=== PATIENT | female | born 1960 | race Caucasian/White ===

== ENCOUNTER 2018-06-04 16:12 | Outpatient (REF) | payer MEDICARE, MEDICAID, SELFPAY ==
[2018-06-04 22:00] LABS: Abs Immature Grans 0.01 k/cumm (0.0-0.09); Absolute Basophil Count 0.04 k/cumm (0.0-0.2); Absolute Lymphocyte Count 2.25 k/cumm (1.2-3.4); Absolute Monocyte Count 0.47 k/cumm (0.11-0.7); Absolute Neutrophil Count 1.98 k/cumm (1.2-6.7); Basophils % 0.8; Eosinophils % 2.1; HCT 32.8 % (36.0-46.0); HGB 10.8 g/dL (12.0-15.5); Immature Grans % 0.2; Lymphocytes % 46.4; Mean Corp. HGB Concentration 32.9 g/dL (32.0-36.0); Mean Corpuscular Hemoglobin 29.8 pg (27.0-33.0); Mean Corpuscular Volume 90.4 fL (80-95); Mean Platelet Volume 9.7 fL (8.0-11.0); Monocytes % 9.7; Neutrophils % 40.8; Platelet Count 273 x1000/uL (130-400); RBC 3.63 m/cumm (4.00-5.20); RBC Distribution Width 13.2 % (11.7-14.6); White Blood Cell Count 4.85 k/cumm (4.4-10.8)
[2018-06-04 22:27] LABS: Iron 67 ug/dL (50-175); Total Iron Binding Capacity 360 ug/dL (250-450); Transferrin Sat 19 % (15-50)
[2018-06-04 22:55] LABS: ALT 18 U/L (12-78); AST 16 U/L (15-37); Alkaline Phosphatase 77 U/L (46-116); Anion Gap 7.5 mmol/L (3-11); BUN 14 mg/dL (7-18); Bilirubin, Total 0.4 mg/dL (0.2-1.0); CO2 29.5 mmol/L (21.0-32.0); CREATININE 0.74 mg/dL (0.55-1.02); Calcium 9.4 mg/dL (8.5-10.1); Chloride 100 mmol/L (98-107); Ferritin 114 ng/mL (8-388); Glucose 88 mg/dL (70-100); Potassium 4.2 mmol/L (3.5-5.1); Sodium 137 mmol/L (136-145); TSH (W/Ref FT4) 1.04 uIU/mL (0.358-3.74); Total Protein 7.9 g/dL (6.4-8.2)
== END 2018-06-04 16:32 ==
LOC: NCHCN 16:12
PROVIDERS: Visit Provider Nurse Practitioner
DX: R53.83 Other fatigue (principal); D64.9 Anemia, unspecified
CPT/HCPCS: 80053; 82728; 83540; 83550; 84443; 85025

== ENCOUNTER 2018-06-15 15:51 | Outpatient (REF) | payer MEDICARE, MEDICAID, SELFPAY ==
[2018-06-15 21:23] LABS: Reticulocyte 0.9 % (0.5-2.4)
[2018-06-15 21:32] LABS: C-Reactive Protein 0.11 mg/dL (0.0-0.3)
[2018-06-15 22:03] LABS: ESR 36 MM/HR (0-30)
== END 2018-06-15 16:11 ==
LOC: NCHCN 15:51
PROVIDERS: Visit Provider Nurse Practitioner
DX: D64.9 Anemia, unspecified (principal)
CPT/HCPCS: 85652; 85045; 86140

== ENCOUNTER 2018-07-08 00:42 | Outpatient (CLI) | payer MEDICARE, MEDICAID, SELFPAY ==
--- NOTE | 2018-07-08 13:12 | DI.MAMMO_ITS ---
SYMPTOM/DIAGNOSIS: SCREENING, Z12.39 MAMMOGRAMS: Mammograms were interpreted according to the usual protocol including computer analysis with CAD system, tomosynthesis and C view imaging. Comparison is made with exams from [id number]. The breasts are composed of extremely dense fibroglandular tissue. Breast density, category D. No suspicious masses or suspicious microcalcifications are seen. There has been no significant change. IMPRESSION: Category 1D, negative mammogram. Yearly screening mammography is recommended. [facility] ASSESSMENT OF FINDINGS: Negative. Category 1. Patient will receive a letter notifying them of these results. BI-RADS category D. The breasts are extremely dense, which lowers the sensitivity of mammography.
== END 2018-07-08 01:02 ==
PROVIDERS: PCP Family Medicine; Visit Provider Family Medicine
DX: Z12.31 Encounter for screening mammogram for malignant neoplasm of breast (principal)
CPT/HCPCS: 77063; 77067

== ENCOUNTER → 2018-07-09 12:49 | Outpatient (BNVA) | payer MEDICARE, MEDICAID, SELFPAY | PROVIDERS: PCP Family Medicine; Visit Provider Psychiatry & Neurology Neurology | DX: R51 Headache (principal); G43.009 Migraine without aura, not intractable, without status migrainosus | CPT/HCPCS: 64405; 99205; 99215 ==

== ENCOUNTER 2018-07-20 00:36 | Outpatient (CLI) | payer MEDICARE, MEDICAID, SELFPAY ==
--- NOTE | 2018-07-20 13:47 | DI.MRI_ITS ---
SYMPTOMS/DIAGNOSIS: NEW HEADACHES, R51 MRI OF THE BRAIN: No prior comparison exams are available. T2 sagittal, T1, T2, FLAIR, diffusion and gradient-echo axial sequences were performed. No intracranial hemorrhage, mass or acute infarct is seen. There are multiple high signal foci in the white matter, which are somewhat prominent for the patient's age. The findings could represent sequelae of chronic microvascular ischemia. There are no periventricular foci to suggest multiple sclerosis. The vascular flow voids appear intact. The ventricles are normal in size. The orbits, sinuses and pituitary are unremarkable. IMPRESSION: Multiple high signal foci in the white matter could represent sequelae of small vessel disease. A demyelinating process cannot be entirely excluded.
== END 2018-07-20 00:56 ==
PROVIDERS: PCP Family Medicine; Visit Provider Psychiatry & Neurology Neurology
DX: R51 Headache (principal); R94.02 Abnormal brain scan
CPT/HCPCS: 70551

== ENCOUNTER 2018-08-13 05:22 | Emergency (ER) | payer MEDICARE, MEDICAID, SELFPAY ==
[2018-08-13 05:36] VITALS: BP 159/79; PULSE 91; RESP 16; TEMP 36.1; O2SAT 98
--- NOTE | 2018-08-13 05:43 | ED.GENADUL_ITS ---
Discharge Plan Disposition Patient Disposition: STILL A PATIENT Condition: Good Discharge Details Chief Complaint: Abd Prob Clinical Impression: Gastroenteritis, Abdominal pain Primary Care Provider: Arina Nair ED Provider: Mamadou Bryant Home Meds and New Rx's Prescriptions: New ondansetron HCl [Zofran] 4 mg tablet 4 mg PO QID PRN (Reason: nausea and vomiting) Qty: 14 RF: 0 dicyclomine 10 mg capsule 10 mg PO QID Qty: 14 RF: 0 Continued sennosides [senna] 8.6 mg tablet 8.6 mg PO DAILY PRNRF: 0 venlafaxine [Effexor XR] 75 mg capsule,extended release 24hr 75 mg PO DAILY RF: 0 polyethylene glycol 3350 [Miralax] 17 gram/dose powder PO DAILY RF: 0 omeprazole 20 mg tablet,delayed release (DR/EC) 20 mg PO DAILY RF: 0 Preparation H 0.25-14-74.9 % ointment 1 applic MS PRN RF: 0 venlafaxine 150 mg tablet extended release 24hr 150 mg PO HS Qty: 30 RF: 5 gabapentin 100 mg capsule 100 mg PO Q8H PRN Qty: 90 RF: 3 Discharge Instructions Instructions: Abdominal Pain (ED) Care Plan Goals: Please drink 8-12 cups of water per day. Please maintain liquid diet today, a bland diet tonight and advance slowly as tolerated If you notice any worsening of your symptoms, or any new symptoms such as vomiting, diarrhea, fever, chills, shortness of breath, chest pain, numbness, weakness, or fainting , please return immediately to the emergency department for reevaluation. Please follow up with your primary care provider as soon as possible for reassessment and reevaluation. As always, it was a pleasure participating in your medical care today. Referrals: Arina Nair [Primary Care Provider] - Medical Decision Making <Andrew Valderrama DO - Last Filed: 08/13/18 08:02> This is a pleasant 58-year-old female who presents today for eval uation of abdominal cramping, and fourth 24th.. Physical exam demonstrates reassuring vital signs with no tachycardia or fever. Patient demonstrates mild cramping throughout, no focal tenderness. No pain at the right lower quadrant or pain at the right upper quadrant. Signs and symptoms are inconsistent with an acute surgical abdomen. Differential and chief clinical concern is highest for gastroenteritis which is most likely viral in origin. We will rehydrate, treat with Zofran, reassess for p.o. trial. We will get a plain film to evaluate for any significant signs of obstruction which I feel is unlikely. 8 AM After the Zofran and Bentyl patient still has some mild to notable abdominal cramping. Laboratory workup has returned and is relatively benign. No significant abnormalities. Because of the patient's persistent cramping we did get a CT scan for further evaluation. Fortunately with the results of still not return. Case will be signed out to my colleague Dr. Mamadou Bryant. <Mamadou Bryant MD - Last Filed: 08/13/18 09:31> Care signed out by Dr. Valderrama with plan to follow-up on CT results. CT interpreted by radiology:ABDOMEN AND PELVIC CT: CT scan of the abdomen and pelvis was performed following the uneventful administration of intravenous contrast material. The visualized lung bases are clear. There is patient motion artifact present. The liver, spleen, pancreas, gallbladder, bile ducts and adrenal glands are unremarkable. The kidneys show no evidence of nephrolithiasis or hydronephrosis. The urinary bladder is intact. The reproductive organs are unremarkable. The abdominal aorta is of normal caliber. No significant abdominal or pelvic adenopathy, ascites or pneumoperitoneum is seen. Post surgical changes are seen with anastomotic clips seen in the colon. No evidence of bowel obstruction or inflammation is seen. No findings to suggest an acute appendicitis are present. No aggressive osseous lesions are seen. IMPRESSION: No acute abnormality. Patient reassessed and remained stable. Abdomen benign. Disposition decision was made weighing the risks and benefits of hospitalization versus outpatient treatment, the risk for further decompensation, and the patient's wishes. The patient was stable and requested discharge. Prior to discharge, my usual a nd customary return precautions were reviewed with the patient - this included follow-up instructions and reason to return to the emergency department if condition worsens, does not improve as expected, or other new concerns arise. HPI <Andrew Valderrama DO - Last Filed: 08/13/18 08:02> General Date/Time Provider Initiated Documentation: 08/13/18 05:32 . HPI Narrative: This is a 58-year-old female with a past medical history of migraines as well as a colectomy who presents today for evaluation of vomiting. Patient states that she has had occasional chills over the last 2 days in which has progressed to vomiting over the last 24 hours. She has vomited over 3 times. Her vomitus is nonbilious, nonbloody. She has been unable to keep anything down because of her vomiting. She admits to some mild cramping in her abdomen. She denies any severe abdominal pain. She denies any dysuria, hematuria or diarrhea, however she has been having regular bowel movements. Patient denies any improvement of her symptoms with this treatment. She denies any aggravating or relieving factors. Past surgical history is positive for colectomy which the patient states is from a severe obstruction. She states that the symptoms do not feel at all similar to her episode at that time. Patient denies any other complaints at this time. She denies any pertinent family history, IV or illicit drug use. Related Data Home Medications Medication Instructions Recorded Confirmed omeprazole 20 mg tablet,delayed 20 mg PO DAILY 07/08/18 08/13/18 release phenylephrine 0.25 %-mineral oil 1 applic MS PRN gm 07/08/18 08/13/18 14 %-petrolatm 74.9 % rectal ointment polyethylene glycol 3350 17 PO DAILY gm 07/08/18 07/08/18 gram/dose oral powder sennosides 8.6 mg tablet 8.6 mg PO DAILY PRN tab 07/08/18 08/13/18 venlafaxine ER 75 mg 75 mg PO DAILY 07/08/18 08/13/18 capsule,extended release 24 hr venlafaxine ER 150 mg 150 mg PO HS #30 tab 07/13/18 08/13/18 tablet,extended release 24 hr gabapentin 100 mg capsule 100 mg PO Q8H PRN #90 cap 07/28/18 08/13/18 dicyclomine 10 mg PO QID #14 cap 08/13/18 ondansetron HCl [Zofran] 4 mg PO QID PRN #14 tab 08/13/18 Previous Rx's Medication Instructions Recorded venlafaxine ER 150 mg 150 mg PO HS #30 tab 07/13/18 tablet,extended release 24 hr gabapentin 100 mg capsule 100 mg PO Q8H PRN #90 cap 07/28/18 dicyclomine 10 mg PO QID #14 cap 08/13/18 ondansetron HCl [Zofran] 4 mg PO QID PRN #14 tab 08/13/18 Allergies Allergy/AdvReac Type Severity Reaction Status Date / Time meclizine Allergy Severe Verified 08/13/18 05:41 methylphenidate Allergy Severe Verified 08/13/18 05:41 [From Ritalin] cyclobenzaprine Allergy Mild Verified 08/13/18 05:41 [From Flexeril] General Stated Complaint: Abd Prob BERNIE: 3 Review of Systems <Andrew Valderrama DO - Last Filed: 08/13/18 08:02> Review of Systems All systems reviewed & are unremarkable except as noted in HPI and below PFSH <Andrew Valderrama DO - Last Filed: 08/13/18 08:02> Social History household members: family number of children: 0 current occupational status: disabled 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 3.ENT: Atraumatic external nose and ears. Notably dry MM. Neck: Symmetric, trachea midline, No thyromegaly. 4.CVS: +S1/S2, No murmurs or gallops. Peripheral pulses 2+ and equal in all extremities. Brisk capillary refill in all extremities. 5.RESP: Unlabored respiratory effort. Clear to auscultation bilaterally. No wheezes rales or rhonchi 6.GI: Soft, nondistended, no focal tenderness. No guarding or rebound. No pain at McBurney's point, negative De La Cruz sign. Minimal subjective tenderness throughout. Bowel sounds present. 7.MSK: Normocephalic/Atraumatic, Extremities w/o deformity or ttp No cyanosis or clubbing, Normal movement of all extremities 8.Skin: Warm, Dry. No rashes or lesions. 9.Neuro: temporary office assistant II-XII grossly intact. Sensation grossly intact, no focal neurologic deficits. 10.Psych: (AAO) x3. Appropriate mood and affect Course <Andrew Valderrama DO - Last Filed: 08/13/18 08:02> Vital Signs Temperature 36.1 C L 08/13/18 05:36 Pulse 91 H 08/13/18 05:36 Respiratory Rate 16 08/13/18 05:36 Blood Pressure 159/79 H 08/13/18 05:36 Pulse Oximetry 98 08/13/18 05:36 Temperature 36.1 C L 08/13/18 05:36 Temperature Source Temporal Artery Scan 08/13/18 05:36 Pulse 91 H 08/13/18 05:36 Respiratory Rate 16 08/13/18 05:36 Respiratory Effort Non-Labored 08/13/18 05:39 Blood Pressure 159/79 H 08/13/18 05:36 Blood Pressure Position Sitting 08/13/18 05:36 Pulse Oximetry 98 08/13/18 05:36 Oxygen Delivery Method Room Air 08/13/18 05:36 Oxygen Flow Rate 0 08/13/18 05:36 Sign Out <Andrew Valderrama DO - Last Filed: 08/13/18 08:02> Sign Out Data: Sign Out Comment: pending CT results. Last updated by Andrew Valderrama DO at 08/13/18 08:10
[2018-08-13] MEDS: Normal Saline 1,000 ML 1000 ML IV (06:08)
[2018-08-13] MEDS: Dicyclomine 20 MG TAB PO (06:09)
[2018-08-13] MEDS: Ondansetron 4 MG/2 ML VIAL IVP (06:09)
[2018-08-13 06:13] LABS: Abs Immature Grans 0.01 k/cumm (0.0-0.09); Absolute Basophil Count 0.02 k/cumm (0.0-0.2); Absolute Eosinophil Count 0.01 k/cumm (0.0-0.7); Absolute Lymphocyte Count 1.07 k/cumm (1.2-3.4); Absolute Neutrophil Count 6.69 k/cumm (1.2-6.7); Basophils % 0.3; Eosinophils % 0.1; HCT 34.6 % (36.0-46.0); HGB 11.8 g/dL (12.0-15.5); Immature Grans % 0.1; Lymphocytes % 13.4; Mean Corp. HGB Concentration 34.1 g/dL (32.0-36.0); Mean Platelet Volume 8.7 fL (8.0-11.0); Monocytes % 2.5; Neutrophils % 83.6; Platelet Count 307 x1000/uL (130-400); RBC 3.93 m/cumm (4.00-5.20); RBC Distribution Width 12.7 % (11.7-14.6)
[2018-08-13 06:28] LABS: ALT 21 U/L (12-78); AST 16 U/L (15-37); Albumin 4.1 g/dL (3.4-5.0); Alkaline Phosphatase 84 U/L (46-116); BUN 15 mg/dL (7-18); Bilirubin, Total 0.5 mg/dL (0.2-1.0); CREATININE 0.81 mg/dL (0.55-1.02); Calcium 9.6 mg/dL (8.5-10.1); Chloride 100 mmol/L (98-107); Glucose 136 mg/dL (70-100); Lipase 106 U/L (73-393); Potassium 3.9 mmol/L (3.5-5.1); Sodium 137 mmol/L (136-145); Total Protein 8.6 g/dL (6.4-8.2)
--- NOTE | 2018-08-13 06:35 | DI.RAD_ITS ---
SYMPTOM/DIAGNOSIS: VOMITING, PAIN FLAT AND UPRIGHT ABDOMEN: The visualized lung bases are clear. No organomegaly, bowel obstruction or pneumoperitoneum is seen. Degenerative changes are seen in the spine. There is a moderate amount of retained stool. IMPRESSION: No evidence of an acute abdomen.
--- NOTE | 2018-08-13 07:21 | DI.CT_ITS ---
SYMPTOM/DIAGNOSIS: ABD PAIN, VOMITING, H/O COLECTOMY ABDOMEN AND PELVIC CT: CT scan of the abdomen and pelvis was performed following the uneventful administration of intravenous contrast material. The visualized lung bases are clear. There is patient motion artifact present. The liver, spleen, pancreas, gallbladder, bile ducts and adrenal glands are unremarkable. The kidneys show no evidence of nephrolithiasis or hydronephrosis. The urinary bladder is intact. The reproductive organs are unremarkable. The abdominal aorta is of normal caliber. No significant abdominal or pelvic adenopathy, ascites or pneumoperitoneum is seen. Post surgical changes are seen with anastomotic clips seen in the colon. No evidence of bowel obstruction or inflammation is seen. No findings to suggest an acute appendicitis are present. No aggressive osseous lesions are seen. IMPRESSION: No acute abnormality. The findings were discussed with the ER on the date of the examination.
[2018-08-13] MEDS: Omnipaque 350 MG/ML 100 ML BTL 69 ML IJ (07:23)
[2018-08-13 08:00] LABS: Bilirubin Negative (Negative); Blood Trace-lysed (Negative); Clarity Clear; Glucose Negative (Negative); Ketones Negative (Negative); Leukocyte Esterase Negative (Negative); Nitrite Negative (Negative); Specific Gravity 1.015 (1.005-1.025); Urobilinogen 0.2 EU/dL (Up TO 0.2); pH 6.5 (5-8)
[2018-08-13 08:09] LABS: Bacteria Rare HPF (Negative); C & S Indicated? No; Casts Negative LPF (Negative); Crystals Negative HPF (Negative); Epithelial Cells Rare HPF (Negative); Mucus Negative (Negative); RBC 0-2 (0-2); WBC 0-2 HPF (0-5)
[2018-08-13 09:45] VITALS: BP 136/77; PULSE 84; RESP 16; TEMP 36.1; O2SAT 98
== END 2018-08-13 09:43 | disposition still patient (30) ==
PROVIDERS: Student in an Organized Health Care Education/Training Program; Emergency Provider Student in an Organized Health Care Education/Training Program; PCP Family Medicine
DX: K52.9 Noninfective gastroenteritis and colitis, unspecified (principal); Z90.49 Acquired absence of other specified parts of digestive tract
CPT/HCPCS: 80053; 83690; 96361; 96374; 99285; 74019; 74177; 81003; 81015; 85025; 99284; J2405; J3490

== ENCOUNTER → 2018-08-19 14:46 | Outpatient (BNVA) | payer MEDICARE, MEDICAID, SELFPAY | PROVIDERS: PCP Family Medicine; Visit Provider Psychiatry & Neurology Neurology | DX: R51 Headache (principal); G43.009 Migraine without aura, not intractable, without status migrainosus; G43.109 Migraine with aura, not intractable, without status migrainosus | CPT/HCPCS: 99214 ==

== ENCOUNTER → 2018-09-30 09:52 | Outpatient (BNVA) | payer MEDICARE, MEDICAID, SELFPAY | PROVIDERS: PCP Family Medicine; Visit Provider Psychiatry & Neurology Neurology | DX: R51 Headache (principal); G43.009 Migraine without aura, not intractable, without status migrainosus; G43.109 Migraine with aura, not intractable, without status migrainosus | CPT/HCPCS: 99214 ==

== ENCOUNTER 2018-12-02 00:35 | Outpatient (CLI) | payer MEDICARE, MEDICAID, SELFPAY ==
--- NOTE | 2018-12-02 14:58 | DI.MRI_ITS ---
SYMPTOM/DIAGNOSIS: CHRONIC MIGRAINE WITHOUT AURA, G43.701, CERVICOGENIC HEADACHE, R51, ? SECONDARY CAUSE CERVICAL SPINE MRI: The study was conducted according to the usual protocol. The vertebral body alignment is normal. The odontoid is intact. There is no fracture or evidence of a subluxation. At C 2-3, there is disc desiccation. No disc protrusion or extrusion is seen. There is no evidence of stenosis. At C 3-4, there is disc desiccation and mild right sided uncovertebral spurring is identified without significant foraminal stenosis. At C 4-5, disc desiccation with moderate disc space narrowing is noted. There is mild anterior spurring. There is a broad shallow posterior mixed spondylitic protrusion measuring approximately 3 mm. in AP plane with moderate bilateral uncovertebral spurring and mild ligamentum flavum hypertrophy dorsally. These factors produce a mild central canal stenosis on the AP thecal sac with dimension of 8-9 mm. There is mild ventral cord surface flattening but no intrinsic cord signal changes are demonstrated. There is mild bilateral foraminal stenosis. At C 5-6, there is disc desiccation and moderate disc space narrowing with mild anterior degenerative spurring and a broad based posterior mixed spondylitic protrusion measuring 3.8 mm. in the AP diameter. Mild ligamentum flavum prominence is noted dorsally. These findings produce a mild to moderate central canal stenosis with an AP thecal sac dimension of 8 mm. There is mild ventral cord surface flattening with no intrinsic cord abnormality. Mild bilateral foraminal stenosis is apparent. At C 6-7, there is disc desiccation with slight posterior disc space narrowing. Minimal 1.5 mm. in the distal and mild ligamentum flavum hypertrophy is demonstrated without evidence of canal or foraminal stenosis. At C 7- T 1 and T 1-2, the findings are unremarkable. At C 2-3 and C 3-4, there is mild disc space narrowing. There is no evidence of a cord lesion. Note is made of reversal of the mid cervical lordosis which could be on the basis of muscular spasm. Multi level mild cervical degenerative changes are evident. The normal flow voids are noted in the vertebral arteries. The paraspinal soft tissues are unremarkable. SUMMARY: Moderate disc degenerative changes are noted at C 4-5 and C 5-6 with broad posterior mixed spondylitic protrusions at both of these levels as described above and mild ligamentum flavum hypertrophy which contributes to mild central canal stenosis at both these levels. There is mild ventral cord surface flattening at both levels but no evidence of an intrinsic cord abnormality. Mild bilateral foraminal stenosis is noted at C 4-5 and C 5-6.
--- NOTE | 2018-12-02 20:26 | DI.VRAD_ITS ---
EXAM: MR Cervical Spine Without Contrast EXAM DATE/TIME: 12/02/2018 2:52 PM CLINICAL HISTORY: 58 years old, female; Neck pain; Patient HX: Chronic migraine wo aura with status migrainosus. TECHNIQUE: Imaging protocol: Multiplanar magnetic resonance images of the cervical spine without contrast. COMPARISON: No relevant prior studies available. FINDINGS: Vertebrae: Craniocervical alignment is normal. Odontoid intact. No fractures. No focal bone lesions are evident. C2-C3: Disc desiccation. No disc protrusion or extrusion. No canal or foraminal stenosis. C3-C4: Disc desiccation. Mild right-sided uncovertebral spurring without significant foraminal stenosis. C4-C5: Disc desiccation with moderate disc space narrowing. Mild anterior spurring. Broad shallow posterior mixed spondylotic protrusion measuring 3 mm AP, with moderate bilateral uncovertebral spurring and mild ligamentum flavum hypertrophy dorsally. These factors produce mild central canal stenosis with an AP thecal sac dimension of 8.9 mm. Mild ventral cord surface flattening but no intrinsic cord signal changes. Mild bilateral foraminal stenosis. C5-C6: Disc desiccation and moderate disc space narrowing with mild anterior degenerative spurring and a broad posterior mixed spondylotic protrusion measuring 3.8 mm AP. Mild ligamentum flavum hypertrophy dorsally. These factors produce mild-moderate central canal stenosis with an AP thecal sac dimension of 8.0 mm. Mild ventral cord surface flattening with no intrinsic cord signal change. Mild bilateral foraminal stenosis. C6-C7: Disc desiccation and slight posterior disc space narrowing. Minimal 1.5 mm in the distal and mild ligamentum flavum hypertrophy without canal or foraminal stenosis. C7-T1: C7-T1 and T1-T2 are unremarkable. Mild disc space narrowing at T2-T3 and T3-T4. Spinal cord: No cord lesions. Lymph nodes: Reversal of midcervical lordosis could relate to mild muscular strain/spasm or the multilevel mild mid cervical degenerative changes present. Cervical alignment is otherwise well maintained. Vasculature: Expected flow voids in the vertebral arteries. Soft tissues: Paraspinous soft tissues are unremarkable. Other findings: Visualized portions of the brainstem/cerebellum are unremarkable. IMPRESSION: 1. Moderate disc degenerative changes at C4-C5 and C5-C6 with broad posterior mixed spondylotic protrusions at both of these levels as described and mild ligamentum flavum hypertrophy, which contribute to mild central canal stenosis at both levels. There is mild ventral cord surface flattening at both levels but no intrinsic cord signal change. 2. Mild bilateral foraminal stenosis C4-C5 and C5-C6. Dictated and Authenticated by: Jeffrey Alicea MD. Ordering:ALYSA Vidal MD
== END 2018-12-02 00:55 ==
PROVIDERS: PCP Family Medicine; Visit Provider Psychiatry & Neurology Neurocritical Care
DX: R51 Headache (principal); M54.2 Cervicalgia; G43.701 Chronic migraine without aura, not intractable, with status migrainosus; M50.321 Other cervical disc degeneration at C4-C5 level; M50.322 Other cervical disc degeneration at C5-C6 level; M48.02 Spinal stenosis, cervical region
CPT/HCPCS: 72141

== ENCOUNTER 2019-02-09 16:44 | Outpatient (REF) | payer MEDICARE, MEDICAID, SELFPAY ==
[2019-02-09 22:07] LABS: Abs Immature Grans 0.01 k/cumm (0.0-0.09); Absolute Basophil Count 0.04 k/cumm (0.0-0.2); Absolute Lymphocyte Count 2.35 k/cumm (1.2-3.4); Absolute Monocyte Count 0.57 k/cumm (0.11-0.7); Absolute Neutrophil Count 2.54 k/cumm (1.2-6.7); Basophils % 0.7; Eosinophils % 1.8; HCT 32.9 % (36.0-46.0); HGB 10.7 g/dL (12.0-15.5); Immature Grans % 0.2; Lymphocytes % 41.9; Mean Corp. HGB Concentration 32.5 g/dL (32.0-36.0); Mean Corpuscular Hemoglobin 29.6 pg (27.0-33.0); Mean Corpuscular Volume 91.1 fL (80-95); Mean Platelet Volume 9.4 fL (8.0-11.0); Monocytes % 10.2; Neutrophils % 45.2; Platelet Count 306 x1000/uL (130-400); RBC 3.61 m/cumm (4.00-5.20); RBC Distribution Width 13.7 % (11.7-14.6); White Blood Cell Count 5.61 k/cumm (4.4-10.8)
[2019-02-09 23:02] LABS: ALT 33 U/L (12-78); AST 21 U/L (15-37); Albumin 4.5 g/dL (3.4-5.0); Alkaline Phosphatase 86 U/L (46-116); BUN 10 mg/dL (7-18); Bilirubin, Total 0.4 mg/dL (0.2-1.0); CREATININE 0.69 mg/dL (0.55-1.02); Calcium 9.4 mg/dL (8.5-10.1); Chloride 99 mmol/L (98-107); Glucose 95 mg/dL (70-100); Magnesium 2.1 mg/dL (1.8-2.4); Potassium 4.7 mmol/L (3.5-5.1); Sodium 137 mmol/L (136-145); Total Protein 8.5 g/dL (6.4-8.2); Vitamin B12 1164 pg/mL (193-986)
[2019-02-11 12:54] LABS: Hepatitis C Ab w Rflx HCV PCR Negative (NEGAT)
== END 2019-02-09 17:04 ==
LOC: NCHCN 16:44
PROVIDERS: PCP Family Medicine; Visit Provider Nurse Practitioner Family
DX: R13.10 Dysphagia, unspecified (principal); R51 Headache; K30 Functional dyspepsia; R42 Dizziness and giddiness; M25.519 Pain in unspecified shoulder; C44.310 Basal cell carcinoma of skin of unspecified parts of face; R53.83 Other fatigue; Z11.59 Encounter for screening for other viral diseases
CPT/HCPCS: 80053; 86803; 82607; 83735; 85025

== ENCOUNTER 2019-03-11 13:16 | Outpatient (CLI) | payer MEDICARE, MEDICAID, SELFPAY ==
--- NOTE | 2019-03-11 06:00 | DI.RAD_ITS ---
SYMPTOMS/DIAGNOSIS: CERVICAL SPONDYLOSIS, LT CERVICAL MEDIAL BRANCH BLOCK PAIN CLINIC: Fluoroscopy Time: 50.9 Images submitted from the pain clinic demonstrate needle positioning over the region of the facet joints at C 2 - 3 and C 3 - 4 in connection with a left cervical medial branch block. Please see Dr. Pagan's procedure report for further information.
[2019-03-11 13:31] VITALS: BP 96/63; PULSE 81; RESP 18; TEMP 36.1; O2SAT 98
[2019-03-11 14:32] VITALS: BP 122/73; PULSE 78; RESP 13; O2SAT 98
[2019-03-11] MEDS: Omnipaque 240 MG/ML 50 ML BTL IJ (14:33)
[2019-03-11] MEDS: Bupivacaine 0.5% Pres-Free 10 ML VIAL IJ (14:33)
--- NOTE | 2019-03-11 14:34 | PDOC.PAIN ---
Pain Clinic Procedure Note Current Active Problems Problem Status Onset Cervical spondylosis without myelopathy CERVICAL MEDIAL BRANCH BLOCKS CARLOTA LOCKETT has been referred to the [facility] for cervical medial branch blocks. COMMENTS: I did review Ms. Ruff's note from 01/20/19. She has head pain and left sided neck pain. The patient has a developmental delay and her mother consented for her and was present in the room during the entire procedure. Patient was interviewed and the medical record reviewed. There were no medical, pharmacologic, radiographic or other structural contraindications to attempting fluoroscopically guided local anesthetic cervical medial branch blocks. Risks and expected side effects as well as potential benefit of the procedure were reviewed and voiced concerns addressed. The printed consent form was signed and witnessed. Standard time-out procedure was performed. Patient was placed in the Right lateral decubitus position on the fluoroscopy table and automated blood pressure cuff and pulse oximeter applied. The skin entry points for approaching the anatomic target points of the segmental medial branches of Right C2-C5 were identified with fluoroscopy and marked. Following thorough Chlorhexadine preparation of the skin and draping and 1% lidocaine infiltration of the skin entry points and subcutaneous tissues, a 25 gauge spinal needle was placed under fluoroscopic guidance down on to the target point for each respective segmental medial branch. Position was confirmed in A/P and leteral views with 0.25ml of omnipaque 240 injected at each level. This revealed appropriate spread and no vascular uptake. At each point 0.3ml 0.5% bupivicaine was injected. Vital signs were stable throughout the procedure and were as recorded in the docflowsheet by the nursing staff. Follow up plans and appointments were discussed and patient was instructed to keep careful note of how the usual pain was modified by these injections. Specifically, the patient was asked to keep a pain diary for the next 24 hours using a numeric pain scale of 0-10 and report these results at the follow-up visit. Post procedure instruction was given as documented in the nursing documentation and having met discharge criteria, and was discharged from the [facility]. Based on the medial branches blocked today, if they patient has adequate relief and we are able to proceed to radiofrequency ablation, the treatment should result in the denervation of the left C2-C3, C3-C4, and C4-C5 FACET JOINTS. We would expect to denervate a total of 3 facets during the radiofrequency ablation. COMMENTS: Her mother will call back with the patient's 1-4 hour post-procedure pain scores. CC: Arina Nair
== END 2019-03-11 13:36 ==
PROVIDERS: PCP Family Medicine; Visit Provider Preventive Medicine Occupational Medicine
DX: M47.812 Spondylosis without myelopathy or radiculopathy, cervical region (principal)
CPT/HCPCS: 64490; 64491; 64492; 72040; Q9967

== ENCOUNTER 2019-04-15 10:09 | Outpatient (CLI) | payer MEDICARE, MEDICAID, SELFPAY ==
[2019-04-15 10:56] VITALS: BP 105/67; PULSE 80; RESP 16; TEMP 35.9; O2SAT 97
[2019-04-15 11:32] VITALS: BP 109/60; PULSE 78; RESP 17; O2SAT 99
--- NOTE | 2019-04-15 11:32 | PDOC.PAIN_ITS ---
Pain Clinic Procedure Note Current Active Problems Problem Status Onset Cervical spondylosis without myelopathy CERVICAL MEDIAL BRANCH BLOCKS #2 CARLOTA LOCKETT has been referred to the [facility] for cervical medial branch blocks. COMMENTS: She did great with the first set of CMBBs. Her mother is here again to comfort her in the room during the procedure. Patient was interviewed and the medical record reviewed. There were no medical, pharmacologic, radiographic or other structural contraindications to attempting fluoroscopically guided local anesthetic cervical medial branch blocks. Risks and expected side effects as well as potential benefit of the procedure were r eviewed and voiced concerns addressed. The printed consent form was signed and witnessed. Standard time-out procedure was performed. Patient was placed in the right lateral decubitus position on the fluoroscopy table and automated blood pressure cuff and pulse oximeter applied. The skin entry points for approaching the anatomic target points of the segmental medial branches of Left C2-C5 medial branches were identified with fluoroscopy and marked. Following thorough Chlorhexadine preparation of the skin and draping and 1% lidocaine infiltration of the skin entry points and subcutaneous tissues, a 25 gauge spinal needle was placed under fluoroscopic guidance down on to the target point for each respective segmental medial branch. Position was confirmed in A/P and leteral views with 0.25ml of omnipaque 240 injected at each level. This revealed appropriate spread and no vascular uptake. At each point 0.3ml 0.5% bupivicaine was injected. Vital signs were stable throughout the procedure and were as recorded in the docflowsheet by the nursing staff. Follow up plans and appointments were discussed and patient was instructed to keep careful note of how the usual pain was modified by these injections. Specifically, the patient was asked to keep a pain diary for the next 24 hours using a numeric pain scale of 0-10 and report these results at the follow-up visit. Post procedure instruction was given as documented in the nursing documentation and having met discharge criteria, and was discharged from the [facility]. Based on the medial branches blocked today, if they patient has adequate relief and we are able to proceed to radiofrequency ablation, the treatment should result in the denervation of the left C2-C3, C3-C4, and C4-C5 FACET JOINTS3. We would expect to denervate a total of facets during the radiofrequency ablation. COMMENTS: She or her mother will call back with her 1-4 hour post-procedure pain scores. CC: Arina Nair
--- NOTE | 2019-04-15 11:35 | DI.RAD_ITS ---
SYMPTOMS/DIAGNOSIS: CERVICAL SPONDYLOSIS, CERVICAL MEDIAL BRANCH BLOCK #2 ON LT C-ARM FLUOROSCOPY: Fluoroscopy Time: 44.5 sec., 1.90 mGy C-arm fluoroscopy was utilized by . Please see Dr. Pagan's procedure note. Hardcopies show lateral views of the cervical spine with needle placement adjacent to the facet joints at what appear to be the C 3 - 4, C 4 - 5 and C 5 - 6 levels.
[2019-04-15] MEDS: Omnipaque 240 MG/ML 50 ML BTL IJ (11:36)
[2019-04-15] MEDS: Lidocaine 2% Pres-Free 5 ML VIAL IJ (11:37)
== END 2019-04-15 10:29 ==
PROVIDERS: PCP Family Medicine; Visit Provider Preventive Medicine Occupational Medicine
DX: M47.812 Spondylosis without myelopathy or radiculopathy, cervical region (principal)
CPT/HCPCS: 64490; 64491; 64492; 72040; Q9967

== ENCOUNTER 2019-05-25 07:49 | Outpatient (CLI) | payer MEDICARE, MEDICAID, SELFPAY ==
--- NOTE | 2019-05-25 06:00 | DI.RAD_ITS ---
EXAM: XR PAIN CLINIC CERVICAL SP 2V CLINICAL HISTORY: Cervical Radiofrequency Ablaition TECHNIQUE: 2D digital imaging was performed. COMPARISON: No exams were available for comparison FINDINGS: C-arm fluoroscopy was utilized by Dr. Pagan during reported cervical RF ablation. Please see Dr. Pagan procedure note. Hard copy shows needle placement at what appear to be the C 3 and C5 facet levels.
[2019-05-25 07:56] VITALS: BP 120/71; PULSE 72; RESP 18; TEMP 35.3; O2SAT 99
[2019-05-25] MEDS: Lactated Ringers 1,000 ML 80 ML IV (08:27)
[2019-05-25] MEDS: fentaNYL 100 MCG/2 ML VIAL IVP ×2 (08:30→08:52)
[2019-05-25] MEDS: Midazolam 2 MG/2 ML VIAL IVP (08:30)
[2019-05-25 09:23] VITALS: BP 141/77; PULSE 79; RESP 22; O2SAT 98
--- NOTE | 2019-05-25 09:31 | PDOC.PAIN_ITS ---
Pain Clinic Procedure Note Procedure Note Procedure Note: CERVICAL MEDIAL BRANCH RADIOFREQUENCY WITH THE COOLIEF MACHINE CARLOTA NAIR has been referred to the [facility] for radiofrequency treatment of chronic axial neck pain. She has had long standing cervical pain thought to be facet joint generated and which has been refractory to other therapies. Local anesthetic medial branch blocks resulted in Ms Nair reporting a greater than 80% reduction of the usual axial component of pain and improved function for at least the duration of the local anesthetic effect. COMMENTS: Great relief with CMBB X 2: DX: Cervical spondylosis without myelopathy CATHRYN was interviewed and the medical record reviewed. There were no medical, pharmacologic, radiographic or other structural contraindications to attempting fluoroscopically guided radiofrequency treatment. Risks and expected side effects as well as potential benefit of the procedure were reviewed with CATHRYN, and CATHRYN's voiced concerns addressed. The printed consent form was signed and witnessed. Standard time-out procedure was performed. CATHRYN was placed in the prone position on the fluoroscopy table and automated blood pressure cuff and pulse oximeter applied. The skin entry points for appr oaching the anatomic target points of the segmental medial branches of left C2- C5 were identified with fluoroscopic guidence. Following thorough Chlorhexadine preparation of the skin and draping and 1% lidocaine infiltration of the skin entry points and subcutaneous tissues, a 5 cm, 16 guage, 2 mm active tip radiofrequency cannula was placed under fluoroscopic guidance at the anatomic course of each respective segmental medial branch. If this response was accomplished, the cannula was left in place. If it could not be accomplished after multiple attempts, the cannula was placed at what was felt to be the closest anatomic approximation to the segmental medial branch. Each placement was stimulated at 2Hz and up to 3v without any evidence of distal myotomal stimulation. At each placement a continuous mode radiofrequency treatment was done at 80 degrees C for 90secs This radiofrequency treatment should result in the denervation of the left C2- C3, C3-C4, and C4-C5 FACET JOINTS:[id number]}3.~ A total of facets were expected to be denervated from today's treatment. Qing vital signs were stable throughout the procedure and were as recorded in the docflowsheet by the nursing staff. Follow up plans and appointments were discussed with CATHRYN. Post procedure instruction was given as documented in the nursing documentation and having met discharge criteria, Qing was discharged from the [facility]. COMMENTS: If she gets at least 6 months of pain relief, she can have this procedure repeated without repeating the CMBBs CC: Arina Nair
[2019-05-25] MEDS: Dexamethasone Sod. Phos./Pres-Free 10 MG/ML VIAL IJ (09:32)
[2019-05-25] MEDS: Lidocaine 2% Pres-Free 5 ML VIAL IJ (09:33)
[2019-05-25] MEDS: Bupivacaine 0.5% Pres-Free 10 ML VIAL IJ (09:33)
[2019-05-25 10:05] VITALS: BP 144/100; PULSE 77; RESP 16; TEMP 36.2; O2SAT 97
[2019-05-25 10:32] VITALS: BP 133/88; PULSE 85; RESP 16; TEMP 36.1; O2SAT 96
== END 2019-05-25 08:09 ==
PROVIDERS: PCP Family Medicine; Visit Provider Preventive Medicine Occupational Medicine
DX: M47.812 Spondylosis without myelopathy or radiculopathy, cervical region (principal)
CPT/HCPCS: 64634 ×2; 64633; 72040; J2250; J3010

== ENCOUNTER 2019-07-14 00:46 | Outpatient (CLI) | payer MEDICARE, MEDICAID, SELFPAY ==
--- NOTE | 2019-07-14 15:14 | DI.MAMMO_ITS ---
EXAM: MG MAMMO SCREENING CLINICAL HISTORY: SCREENING Z12.31. TECHNIQUE: Bilateral full field digital CC and MLO mammographic images were obtained with 3D tomosyn thesis and utilizing computer aided detection (CAD). COMPARISON: [id number] FINDINGS: Masses/Architectural Distortion: None seen. Microcalcifications: No suspicious pleomorphic-type are seen. Skin Thickening/Nipple Retraction: None. IMPRESSION: 1. No significant interval change with no specific features of malignancy noted. 2. Unless there is more urgent need, screening mammography is recommended, as per [employer] guidelines. BI-RADS Cat 1 - Negative Breast Density - Category D - Extremely dense A negative radiographic report should not delay biopsy if a dominant or clinically suspicious mass is present. Up to ten percent of cancers are not identified on mammography. A negative report may reinforce clinical impression. Adenosis and dense breasts may obscure an underlying neoplasm. False positive reports average 6 to 10%. Patient will receive a letter notifying them of these results.
== END 2019-07-14 01:06 ==
PROVIDERS: PCP Nurse Practitioner Family; Visit Provider Nurse Practitioner Family
DX: Z12.31 Encounter for screening mammogram for malignant neoplasm of breast (principal)
CPT/HCPCS: 77063; 77067

== ENCOUNTER 2019-08-12 02:19 | Outpatient (CLI) | payer MEDICARE, MEDICAID, SELFPAY ==
[2019-08-12 08:20] VITALS: BP 97/63; PULSE 87; RESP 18; TEMP 35.6; O2SAT 98
--- NOTE | 2019-08-12 09:02 | DI.US_ITS ---
EXAM: US PAIN CLINIC NEEDLE GUIDANCE CLINICAL HISTORY: CERVICOGENIC HEADACHES, TENSION TYPE,ULTRASOUND GUIDED INJECTION TECHNIQUE: Ultrasound performed using standard protocol. COMPARISON: LEFT BREAST ULTRASOUND {[id number]} from 05/23/2015 FINDINGS: Ultrasound guidance was utilized by Dr. Pagan during posterior right cervical injection. Please see Meagan Pagan procedure note. IMPRESSION:
[2019-08-12 09:18] VITALS: BP 133/81; PULSE 85; RESP 18; O2SAT 97
--- NOTE | 2019-08-12 09:21 | PDOC.PAIN_ITS ---
Pain Clinic Procedure Note Procedure Note Procedure Note: ULTRASOUND-GUIDED BILATERAL TRAPEZIUS AND LEVATOR SCAPULAE MUSCLE INJECTION PROCEDURE NOTE Date of Service: August 12, 2019 Patient: CARLOTA LOCKETT Provider: SAMIRA PAGAN DO, MPH Pre-operative diagnosis: MUSCLE PAIN Post-operative diagnosis: MUSCLE PAIN COMMENTS: TENDERNESS OVER THE BILATERAL TRAPEZIUS AND LEVATOR SCAPULAE MUSCLES. CARLOTA LOCKETT has been referred to the [facility] for an ultrasound guided bilateral trapezius and Levator muscle injection. CARLOTA was interviewed and the medical record reviewed. There were no medical, pharmacologic, radiographic or other structural contraindications to attempting ultrasound-guided bilateral trapezius and levaltor scapulae muscle trigger point injections. The benefits, risks, and alternative treatments of the procedure were reviewed with CARLOTA, and her voiced concerns were addressed. Once I was assured he was completely informed about the procedure and gave informed consent, the printed consent form was signed. Standard time-out procedure was performed. Her mother was also in the room as Carlota has some developmental delay. CARLOTA was placed in the prone position on the fluoroscopy table and automated blood pressure cuff and pulse oximeter applied. With the patient in the prone position, the posterior superior iliac spine is identified by palpation. The curvilinear low-frequency linear ultrasound transducer was placed over the musc le, and the ultrasound transducer was then slowly moved laterally until the ilium was visualized. The skin overlying the area beneath the ultrasound probe was prepped with antiseptic solution. A sterile syringe containing 3 mL of quarter percent preservativefree bupivacaine and 40 mg of Depomedrol was attached to a 1.5 inch, 25-gauge spinal needle using strict aseptic technique. Each muscle was passed through several times. The needle was then flushed with 1 mL of preservative-free lidocaine each time. The needle was then removed without difficulty. The injection site was then cleaned and bandages were placed. Karen vital signs were stable throughout the procedure and were as recorded in the docflowsheet by the nursing staff. If given, dosages of intravenous drugs for anxiolysis and analgesia were documented in MAR. Follow up plans and appointments were discussed with the CARLOTA. Post procedure instruction was given as documented in nursing documentation and having met discharge criteria, CARLOTA was discharged from the [facility]. COMMENTS: No complications. F/U with her PCP I personally performed this entire procedure. Samira Pagan DO, MPH ABPMR-subspecialty board certification in Pain Medicine Attending Physician-Pain Management
[2019-08-12] MEDS: methylPREDNISolone ACETATE 40 MG/ML VIAL IJ (09:32)
== END 2019-08-12 02:39 ==
PROVIDERS: PCP Nurse Practitioner Family; Visit Provider Preventive Medicine Occupational Medicine
DX: M47.812 Spondylosis without myelopathy or radiculopathy, cervical region (principal); M79.12 Myalgia of auxiliary muscles, head and neck
CPT/HCPCS: 20553; 76942; J1030

== ENCOUNTER 2019-08-17 16:22 | Outpatient (REF) | payer MEDICARE, MEDICAID, SELFPAY ==
[2019-08-17 22:05] LABS: Abs Immature Grans 0.01 k/cumm (0.0-0.09); Absolute Basophil Count 0.05 k/cumm (0.0-0.2); Absolute Eosinophil Count 0.12 k/cumm (0.0-0.7); Absolute Lymphocyte Count 2.14 k/cumm (1.2-3.4); Absolute Monocyte Count 0.59 k/cumm (0.11-0.7); Absolute Neutrophil Count 2.65 k/cumm (1.2-6.7); Basophils % 0.9; Eosinophils % 2.2; HCT 32.8 % (36.0-46.0); HGB 10.9 g/dL (12.0-15.5); Immature Grans % 0.2 %; Lymphocytes % 38.5; Mean Corp. HGB Concentration 33.2 g/dL (32.0-36.0); Mean Corpuscular Hemoglobin 29.7 pg (27.0-33.0); Mean Corpuscular Volume 89.4 fL (80-95); Mean Platelet Volume 9.1 fL (8.0-11.0); Monocytes % 10.6; Neutrophils % 47.6; Platelet Count 336 x1000/uL (130-400); RBC 3.67 m/cumm (4.00-5.20); RBC Distribution Width 12.7 % (11.7-14.6); White Blood Cell Count 5.56 k/cumm (4.4-10.8)
[2019-08-17 22:14] LABS: Iron 73 ug/dL (50-170); Total Iron Binding Capacity 339 ug/dL (250-450); Transferrin Sat 22 % (15-50)
== END 2019-08-17 16:42 ==
LOC: NCHCN 16:22
PROVIDERS: PCP Nurse Practitioner Family; Visit Provider Nurse Practitioner Family
DX: R53.83 Other fatigue (principal); K21.9 Gastro-esophageal reflux disease without esophagitis; D64.9 Anemia, unspecified; R13.10 Dysphagia, unspecified; R51 Headache; M54.2 Cervicalgia; F32.9 Major depressive disorder, single episode, unspecified; R11.10 Vomiting, unspecified; R42 Dizziness and giddiness
CPT/HCPCS: 83540; 83550; 85025

== ENCOUNTER 2019-09-15 12:54 | Outpatient (REF) | payer MEDICARE, MEDICAID, SELFPAY ==
[2019-09-15 22:31] LABS: Abs Immature Grans 0.01 k/cumm (0.0-0.09); Absolute Basophil Count 0.03 k/cumm (0.0-0.2); Absolute Eosinophil Count 0.06 k/cumm (0.0-0.7); Absolute Lymphocyte Count 2.07 k/cumm (1.2-3.4); Absolute Monocyte Count 0.43 k/cumm (0.11-0.7); Absolute Neutrophil Count 2.62 k/cumm (1.2-6.7); Basophils % 0.6; Eosinophils % 1.1; HCT 31.6 % (36.0-46.0); HGB 10.5 g/dL (12.0-15.5); Immature Grans % 0.2 %; Lymphocytes % 39.7; Mean Corp. HGB Concentration 33.2 g/dL (32.0-36.0); Mean Corpuscular Hemoglobin 29.7 pg (27.0-33.0); Mean Corpuscular Volume 89.3 fL (80-95); Monocytes % 8.2; Neutrophils % 50.2; Platelet Count 321 x1000/uL (130-400); RBC 3.54 m/cumm (4.00-5.20); White Blood Cell Count 5.22 k/cumm (4.4-10.8)
[2019-09-15 23:05] LABS: Iron 58 ug/dL (50-170); Total Iron Binding Capacity 310 ug/dL (250-450); Transferrin Sat 19 % (15-50)
[2019-09-15 23:07] LABS: Ferritin 108 ng/mL (8-252)
== END 2019-09-15 13:14 ==
LOC: NCHCN 12:54
PROVIDERS: PCP Nurse Practitioner Family; Visit Provider Nurse Practitioner Family
DX: D64.9 Anemia, unspecified (principal); R51 Headache; R53.83 Other fatigue
CPT/HCPCS: 82728; 83540; 83550; 85025

== ENCOUNTER 2020-06-19 18:48 | Outpatient (REF) | payer MEDICARE, MEDICAID, SELFPAY | END 2020-06-19 19:08 | LOC: NCHCN 18:48 | PROVIDERS: PCP Nurse Practitioner Family; Visit Provider Nurse Practitioner Family | DX: R30.0 Dysuria (principal) | CPT/HCPCS: 87077; 87086; 87186 ==

== ENCOUNTER 2020-06-27 17:04 | Outpatient (REF) | payer MEDICARE, MEDICAID, SELFPAY | END 2020-06-27 17:24 | LOC: NCHCN 17:04 | PROVIDERS: PCP Nurse Practitioner Family; Visit Provider Nurse Practitioner Family | DX: R30.0 Dysuria (principal) | CPT/HCPCS: 87077; 87086; 87186 ==

== ENCOUNTER 2020-09-11 16:43 | Outpatient (REF) | payer MEDICARE, MEDICAID, SELFPAY ==
[2020-09-11 13:51] LABS: Abs Immature Grans 0.02 10^3/uL (0.0-0.06); Absolute Basophil Count 0.07 10^3/uL (0.0-0.2); Absolute Eosinophil Count 0.11 10^3/uL (0.0-0.7); Absolute Lymphocyte Count 1.88 10^3/uL (1.2-3.4); Absolute Neutrophil Count 2.22 10^3/uL (1.2-6.7); Basophils % 1.5; Eosinophils % 2.3; HCT 33.6 % (36.0-46.0); HGB 11.1 g/dL (11.2-15.7); Immature Grans % 0.4; MCH 29.4 pg (27.0-33.0); MCV 89.1 fL (80-95); MPV 9.2 fL (8.0-11.0); Monocytes % 8.5; Neutrophils % 47.3; Nucleated RBC 0 %; Platelet Count 300 10^3/uL (130-400); RBC 3.77 10^6/uL (3.93-5.22); RDW 12.3 % (11.7-14.6); RDW-SD 40.9 fL
[2020-09-11 14:04] LABS: Iron 86 ug/dL (50-170); Total Iron Binding Capacity 362 ug/dL (250-450); Transferrin Sat 24 % (15-50)
[2020-09-11 14:25] LABS: ALT 20 U/L (14-59); AST 16 U/L (15-37); Albumin 4.4 g/dL (3.4-5.0); Alkaline Phosphatase 91 U/L (46-116); Anion Gap 7.7 mmol/L (3-11); Bilirubin, Total 0.4 mg/dL (0.2-1.0); CO2 29.3 mmol/L (21.0-32.0); CREATININE 0.8 mg/dL (0.55-1.02); Calcium 9.8 mg/dL (8.5-10.1); Chloride 99 mmol/L (98-107); Ferritin 86 ng/mL (8-252); Glucose 77 mg/dL (74-106); Potassium 4.1 mmol/L (3.5-5.1); Sodium 136 mmol/L (136-145); TSH (W/Ref FT4) 1.08 uIU/mL (0.36-3.74); Total Protein 8.6 g/dL (6.4-8.2); Vitamin B12 959 pg/mL (193-986)
[2020-09-11 14:40] LABS: BUN 15 mg/dL (7-18)
== END 2020-09-11 17:03 ==
LOC: NCHCN 16:43
PROVIDERS: PCP Nurse Practitioner Family; Visit Provider Nurse Practitioner Family
DX: D64.9 Anemia, unspecified (principal); R00.2 Palpitations; R53.83 Other fatigue; R42 Dizziness and giddiness; K21.9 Gastro-esophageal reflux disease without esophagitis; R30.0 Dysuria; R13.10 Dysphagia, unspecified
CPT/HCPCS: 80053; 82607; 82728; 83540; 83550; 83735; 84443; 85025

== ENCOUNTER 2021-03-19 15:24 | Outpatient (REF) | payer MEDICARE, MEDICAID, SELFPAY | END 2021-03-19 15:25 | disposition home or self-care (01) | LOC: NCHCN 15:24 | PROVIDERS: PCP Nurse Practitioner Family; Visit Provider Nurse Practitioner Family | DX: R39.9 Unspecified symptoms and signs involving the genitourinary system (principal); R82.998 Other abnormal findings in urine | CPT/HCPCS: 87077; 87086; 87186 ==

== ENCOUNTER 2021-07-16 00:46 | Outpatient (CLI) | payer MEDICARE, MEDICAID, SELFPAY ==
--- NOTE | 2021-07-16 11:55 | DI.MAMMO_ITS ---
Exam(s) MAMMO SCREENING EXAM: MAMMO SCREENING CLINICAL HISTORY: SCREENING MAMMO Z12.31. TECHNIQUE: Bilateral full field digital CC and MLO mammographic images were obtained with 3D tomosyn thesis and utilizing computer aided detection (CAD). COMPARISON: Prior mammograms dating back to 2013, the most recent being July 2019. FINDINGS: Fibroglandular tissue pattern is again noted be very dense, this decreasing sensitivity mammogram for finding underlying lesions. There are no new obvious spiculated masses nor malignant appearing microcalcification groups. Benign-appearing microcalcification group posteriorly in the right breast is noted. There is no significant architectural distortion nor skin thickening-retraction. IMPRESSION: Very dense bilateral fibroglandular tissue. No obvious radiographic evidence of malignancy. BI-RADS Category 1 - Negative Breast Density - Category D - Extremely dense Breast density Category C or D implies that the patient has dense breast tissue. Dense breast tissue can make it harder to find cancer on a mammogram. Dense breast tissue is also associated with an incr eased risk of breast cancer. This information about the result of the mammogram report was provided to the patient to raise their awareness. Use this report when you speak with the patient about their risks for breast cancer, which includes their family history. At that time, you may recommend additional screening tests (Ultrasoun d or MRI) as these tests may add significant information. A negative radiographic report should not delay biopsy if a dominant or clinically suspicious mass is present. Up to ten percent of cancers are not identified on mammography. A negative report may reinforce clinical impression. Adenosis and dense breasts may obscure an underlying neoplasm. False positive reports average 6 to 10%. Patient will receive a letter notifying them of these results.
== END 2021-07-16 01:06 ==
PROVIDERS: PCP Nurse Practitioner Family; Visit Provider Nurse Practitioner Family
DX: Z12.31 Encounter for screening mammogram for malignant neoplasm of breast (principal); R92.8 Other abnormal and inconclusive findings on diagnostic imaging of breast
CPT/HCPCS: 77063; 77067

== ENCOUNTER 2021-10-04 00:47 | Outpatient (CLI) | payer MEDICARE, MEDICAID, SELFPAY ==
--- NOTE | 2021-10-04 14:30 | DI.MRI_ITS ---
Exam(s) MR CERVICAL SPINE WO EXAM: MR CERVICAL SPINE WO CLINICAL HISTORY: CHRONIC NECK PAIN, M54.2, G89.29; CHRONIC MIGRAINE WO AURA, G43.701 TECHNIQUE: Multiplanar multisequence MRI of the cervical spine was performed without intravenous con trast. COMPARISON: MR MR cervical spine wo from 12/02/2018 FINDINGS: CERVICOMEDULLARY JUNCTION: Intact with no evidence of cerebellar tonsillar ectopia. No obvious abnor mality of the odontoid process. No evidence of Chiari 1 malformation. CERVICAL SPINAL CORD: There is no abnormal signal in the cervical spinal cord and no evidence of foca l cord atrophy nor focal cord swelling. OSSEOUS:There are no cervical fractures evident. No significant osseous lesions in the cervical vert ebrae. Mild straightening of the cervical curvature is noted. INDIVIDUAL LEVELS: C2-3: No disc herniation nor central canal stenosis. No foraminal stenosis. Right facet unremarkable . There appears to be partial fusion of the left facet. No foraminal stenosis. C3-4: No disc herniation nor central canal stenosis.No facet arthropathy. No foraminal stenosis. C4-5: There is moderate disc space narrowing and anterior spurring. Posteriorly there is again noted broad relatively symmetrical annular bulging and spondylitic change which effaces the anterior thecal sac but without a dominant disc herniation. Central canal dimensions are low normal with AP measurem ent 9 millimeters. There are small Luschka joint osteophytes. Minimal facet joint degenerative peres es mild narrowing of the exiting neural foramina, unchanged . C5-6: This level exhibits unchanged moderate-advanced disc space narrowing. Posteriorly there is symm etrical annular bulging again noted, similar to the previous study. This effaces the thecal sac but n ot the spinal cord and the AP diameter is again 8 millimeters. Bilateral Luschka joint osteophytes ar e again noted, unchanged in size. Mild bilateral foraminal stenosis. Minimal facet joint degenerative changes. C6-7: Relatively preserved disc height and signal. No disc herniation at this level. No Luschka joint osteophytes nor significant foraminal stenosis. Minimal facet arthropathy changes, slightly more so on the left. Canal dimensions at this level are within normal limits. No significant foraminal stenos is. C7-T1: No disc herniation nor central canal stenosis. No facet arthropathy.No foraminal stenosis. IMPRESSION: 1. There is a centrally no significant change when compared to the prior MRI scan of the November 2018. Again noted are moderate degenerative disc changes at C4-5 and C5-6 levels with annular bulging at th sarmad level and Luschka joint osteophytes. At most mild spinal canal stenosis. Mild bilateral foraminal stenosis on either side at these levels.. There is no abnormal signal in the cervical spinal cord. DATA REPOSITORY:
== END 2021-10-04 01:07 ==
PROVIDERS: PCP Nurse Practitioner Family; Visit Provider Internal Medicine Endocrinology, Diabetes & Metabolism
DX: G89.29 Other chronic pain; G43.701 Chronic migraine without aura, not intractable, with status migrainosus; M50.321 Other cervical disc degeneration at C4-C5 level; M50.322 Other cervical disc degeneration at C5-C6 level; M47.812 Spondylosis without myelopathy or radiculopathy, cervical region
CPT/HCPCS: 72141

== ENCOUNTER 2021-10-19 18:30 | Outpatient (REF) | payer MEDICARE, MEDICAID, SELFPAY ==
[2021-10-19 21:14] LABS: Abs Immature Grans 0.01 10^3/uL (0.0-0.06); Absolute Basophil Count 0.04 10^3/uL (0.0-0.2); Absolute Eosinophil Count 0.06 10^3/uL (0.0-0.7); Absolute Monocyte Count 0.43 10^3/uL (0.1-0.8); Absolute Neutrophil Count 1.18 10^3/uL (1.2-6.7); Basophils % 1.1; Eosinophils % 1.6; HCT 32.2 % (36.0-46.0); HGB 10.7 g/dL (11.2-15.7); Immature Grans % 0.3; Lymphocytes % 53.8; MCH 29.5 pg (27.0-33.0); MCHC 33.2 % (32.0-36.0); MCV 88.7 fL (80-95); MPV 9.9 fL (8.0-11.0); Monocytes % 11.6; Neutrophils % 31.6; Nucleated RBC 0 %; Platelet Count 249 10^3/uL (130-400); RBC 3.63 10^6/uL (3.93-5.22); RDW 12.8 % (11.7-14.6); WBC 3.72 10^3/uL (4.4-10.8)
[2021-10-19 21:27] LABS: Iron 83 ug/dL (50-170); Total Iron Binding Capacity 330 ug/dL (250-450); Transferrin Sat 25 % (15-50)
[2021-10-19 21:55] LABS: ALT 18 U/L (14-59); AST 21 U/L (15-37); Albumin 4.4 g/dL (3.4-5.0); Alkaline Phosphatase 71 U/L (46-116); Anion Gap 8.3 mmol/L (3-11); BUN 21 mg/dL (7-18); Bilirubin, Total 0.6 mg/dL (0.2-1.0); CO2 28.7 mmol/L (21.0-32.0); CREATININE 0.8 mg/dL (0.55-1.02); Calcium 9.5 mg/dL (8.5-10.1); Chloride 97 mmol/L (98-107); Ferritin 135 ng/mL (8-252); Glucose 75 mg/dL (74-106); Potassium 4.4 mmol/L (3.5-5.1); Sodium 134 mmol/L (136-145); TSH (W/Ref FT4) 1.08 uIU/mL (0.36-3.74); Total Protein 8.2 g/dL (6.4-8.2); Vitamin B12 860 pg/mL (193-986)
== END 2021-10-19 18:31 | disposition home or self-care (01) ==
LOC: NCHCN 18:30
PROVIDERS: PCP Nurse Practitioner Family; Visit Provider Nurse Practitioner Family
DX: D64.9 Anemia, unspecified (principal); R53.83 Other fatigue; R51.9 Headache, unspecified; K21.9 Gastro-esophageal reflux disease without esophagitis
CPT/HCPCS: 80053; 82607; 82728; 83540; 83550; 83735; 84443; 85025

== ENCOUNTER 2022-10-09 10:15 | Outpatient (CLI) | payer MEDICARE, MEDICAID, SELFPAY ==
--- NOTE | 2022-10-09 06:00 | DI.RAD_ITS ---
Exam(s) XR PAIN CLINIC CERVICAL SP 2V EXAM: XR PAIN CLINIC CERVICAL SP 2V CLINICAL HISTORY: Dx: Cervical Radiculopathy TECHNIQUE: 2D and realtime digital imaging was performed. CONTRAST MATERIAL: Refer to procedure report. COMPARISON: No exams were available for comparison FINDINGS: Fluoroscopy was provided for Dr. Pagan during the performance of a cervical epidural steroid injectio n. Please refer to the procedure report for complete details. Ka,r=1.2 mGy IMPRESSION:
[2022-10-09 10:25] VITALS: BP 118/71; PULSE 77; RESP 18; TEMP 36.6; O2SAT 98
[2022-10-09 11:09] VITALS: BP 156/77; PULSE 68; RESP 20; O2SAT 98
[2022-10-09] MEDS: Dexamethasone Sod. Phos./Pres-Free 10 MG/ML VIAL IJ (11:19)
[2022-10-09] MEDS: Omnipaque 240 MG/ML 50 ML BTL IJ (11:19)
--- NOTE | 2022-10-09 12:06 | PDOC.PAIN ---
Date of service: 10/09/22 Time of Service: 11:15 Pain Clinic Procedure Note Procedure Note Procedure Note: Cervical Epidural Steroid Injection Sera Nair has been referred to the [facility] for cervical epidural steroid injection. COMMENTS: She was seen by Dr. Da Silva (Pain Managment at [facility]) and this procedure was recommended. The patient lives much closer to [facility], thus the reason for her coming here for this procedure. Dx: Cervical radiculopathy Pre-procedure pain VAS was 6/10. Korey was interviewed and the medical record reviewed. There were no medical, pharmacologic, radiographic or other structural contraindications to attempting fluoroscopically guided epidural steroid injection. Risks and expected side effects as well as potential benefit of the procedure were reviewed with Korey , and Korey voiced concerns addressed. The printed consent form was signed and witnessed. Standard time-out procedure was performed. The patient was placed in the prone position on the fluoroscopy table and automated blood pressure cuff and pulse oximeter applied. The skin entry point for entering the epidural space by a midline C7-T1 interlaminar approach was identified under fluoroscopy and marked. Following thorough Chlorhexadine preparation of the skin and draping and 1% lidocaine infiltration of the skin entry point and subcutaneous tissues, an 18 gauge Tuohy needle was placed under fluoroscopic guidance and with loss of resistance technique into the C7-T1 epidural space. Upon needle placement and loss of resistance there were no paresthesiae or return of blood or CSF through the needle. 1 cc of Omnipaque 240 was injected with clear epidural spread in the A/P, lateral and oblique views. 10 mg of preservative free Dexomethasone was injected with no unusual discomfort expressed by Korey. This was flushed with 1 cc of normal saline. Korey 's vital signs were stable throughout the procedure and were as recorded in the docflowsheet by the nursing staff. Follow up plans and appointments were discussed with the Korey. Post procedure instruction was given as documented in nursing documentation and having met discharge criteria, Korey was discharged from the [facility]. COMMENTS: If this procedure is helpful for at least 3 months and by at least 50% (pain and/or function), it can be completed up to 3 times per 12 months Bruce Pagan DO, MPH [facility]-Pain Management [facility] for [facility] CC: Hiwot [place]
== END 2022-10-09 10:16 | disposition home or self-care (01) ==
LOC: PC 10:15
PROVIDERS: PCP Nurse Practitioner Family; Visit Provider Preventive Medicine Occupational Medicine
DX: M54.12 Radiculopathy, cervical region (principal); M54.2 Cervicalgia
CPT/HCPCS: 62321; 72040; Q9967

== ENCOUNTER 2022-11-04 15:00 | Outpatient (REF) | payer MEDICARE, MEDICAID, SELFPAY ==
[2022-11-04 21:16] LABS: Abs Immature Grans 0.01 10^3/uL (0.0-0.06); Absolute Basophil Count 0.06 10^3/uL (0.0-0.2); Absolute Lymphocyte Count 2.07 10^3/uL (1.2-3.4); Absolute Monocyte Count 0.53 10^3/uL (0.1-0.8); Absolute Neutrophil Count 3.22 10^3/uL (1.2-6.7); Eosinophils % 1.7; HCT 31.8 % (36.0-46.0); HGB 10.7 g/dL (11.2-15.7); Immature Grans % 0.2; Lymphocytes % 34.6; MCH 29.8 pg (27.0-33.0); MCHC 33.6 % (32.0-36.0); MCV 89 fL (80-95); MPV 9.8 fL (8.0-11.0); Monocytes % 8.8; Neutrophils % 53.7; Platelet Count 292 10^3/uL (130-400); RBC 3.59 10^6/uL (3.93-5.22); RDW 12.9 % (11.7-14.6); RDW-SD 41.4 fL; Reticulocyte 1.1 % (0.5-2.4); WBC 5.99 10^3/uL (4.4-10.8)
[2022-11-04 21:41] LABS: Iron 61 ug/dL (50-170); Total Iron Binding Capacity 339 ug/dL (250-450); Transferrin Sat 18 % (15-50)
[2022-11-04 22:00] LABS: ALT 19 U/L (14-59); AST 18 U/L (15-37); Alkaline Phosphatase 82 U/L (46-116); Anion Gap 7.6 mmol/L (3-11); BUN 17 mg/dL (7-18); Bilirubin, Total 0.4 mg/dL (0.2-1.0); CO2 28.4 mmol/L (21.0-32.0); CREATININE 0.8 mg/dL (0.55-1.02); Calcium 9.3 mg/dL (8.5-10.1); Chloride 99 mmol/L (98-107); Estimated GFR 83.26 (mL/min/1.73m2); Ferritin 57 ng/mL (8-252); Glucose 96 mg/dL (74-106); Magnesium 2.1 mg/dL (1.8-2.4); Potassium 4.3 mmol/L (3.5-5.1); Sodium 135 mmol/L (136-145); TSH (W/Ref FT4) 1.11 uIU/mL (0.36-3.74); Total Protein 7.8 g/dL (6.4-8.2); Vitamin B12 1025 pg/mL (193-986)
[2022-11-04 22:04] LABS: Folate > 20.0 ng/mL (8.6-20.0)
== END 2022-11-04 15:01 | disposition home or self-care (01) ==
LOC: NCHCN 15:00
PROVIDERS: PCP Nurse Practitioner Family; Visit Provider Nurse Practitioner Family
DX: D64.9 Anemia, unspecified (principal); R63.4 Abnormal weight loss; R51.9 Headache, unspecified; K21.9 Gastro-esophageal reflux disease without esophagitis; K58.9 Irritable bowel syndrome, unspecified; M54.2 Cervicalgia; F32.89 Other specified depressive episodes; R68.89 Other general symptoms and signs
CPT/HCPCS: 80053; 82607; 82728; 82746; 83540; 83550; 83735; 84443; 85025; 85045

== ENCOUNTER 2023-01-16 15:01 | Outpatient (REF) | payer MEDICARE, MEDICAID, SELFPAY | END 2023-01-16 15:02 | disposition home or self-care (01) | LOC: NCHCN 15:01 | PROVIDERS: PCP Nurse Practitioner Family; Visit Provider Family Medicine | DX: N39.0 Urinary tract infection, site not specified (principal) | CPT/HCPCS: 87086 ==

== ENCOUNTER 2023-02-16 11:16 | Observation (INO) | payer MEDICARE, MEDICAID, SELFPAY ==
[2023-02-16] VITALS (47 sets, daily range): BP systolic 126–183; BP diastolic 77–95; PULSE 66–90; RESP 13–21; TEMP 36.3–36.9; O2SAT 94–99
--- NOTE | 2023-02-16 11:00 | RT.EKG_ITS ---
APPROVED REPORT Exam: Resting ECG Reason for Exam: syncope Patient Location: E HR:67 bpm ECG Measurements Heart Rate 67 AXIS IN 201 P 60 QRSd 104 QRS 24 QT 404 T 68 QTc 426 Conclusion Sinus rhythm...normal P axis, V-rate 60- 99
[2023-02-16 12:00] LABS: Abs Immature Grans 0.01 10^3/uL (0.0-0.06); Absolute Basophil Count 0.07 10^3/uL (0.0-0.2); Absolute Eosinophil Count 0.07 10^3/uL (0.0-0.7); Absolute Lymphocyte Count 2.38 10^3/uL (1.2-3.4); Absolute Monocyte Count 0.45 10^3/uL (0.1-0.8); Absolute Neutrophil Count 1.95 10^3/uL (1.2-6.7); Basophils % 1.4; Eosinophils % 1.4; HGB 11.5 g/dL (11.2-15.7); Immature Grans % 0.2; Lymphocytes % 48.3; MCH 29.6 pg (27.0-33.0); MCHC 33.8 % (32.0-36.0); MCV 87 fL (80-95); MPV 8.6 fL (8.0-11.0); Monocytes % 9.1; Neutrophils % 39.6; Platelet Count 292 10^3/uL (130-400); RBC 3.89 10^6/uL (3.93-5.22); RDW 12.9 % (11.7-14.6); RDW-SD 41.1 fL; WBC 4.93 10^3/uL (4.4-10.8)
[2023-02-16] MEDS: Lactated Ringers 1,000 ML 1000 ML IV (12:00)
--- NOTE | 2023-02-16 12:15 | DI.CT_ITS ---
Exam(s) CT ABDOMEN PELVIS W EXAM: CT ABDOMEN PELVIS W CLINICAL HISTORY: Abdominal pain. TECHNIQUE: Imaging Protocol: Axial computed tomography images with coronal and sagittal reformatted images were created and reviewed CONTRAST MATERIAL: Intravenous: Omnipaque 350 Contrast volume:100 ml Oral: yes / no FINDINGS: Exam is limited by motion. ABDOMEN: Lung Bases: Patchy ground-glass infiltrates at the lung bases. Small hiatal hernia. Liver: Normal density. No measurable mass. Gallbladder and biliary tract: No radiodense calculus or dilation. Pancreas: Normal density, no abnormal calcifications or inflammatory process. Spleen: Normal. Kidneys: Normal size, contour and axis. No radiodense stones or obstructive uropathy. No suspicious m asses seen. Adrenal glands: No masses seen. Abdominal Aorta: Abdominal portion non-dilated. Soft tissues: Unremarkable. PELVIS: Bladder: No gross wall thickening. No calculi.No focal mass. Bowel: Large quantity of stool throughout the colon. Colonic anastomosis. No obstruction. Divertic ulosis. No bowel wall thickening. Appendix normal. Peritoneal cavity: No ascites, collection or mesenteric inflammatory response. Bones: Unremarkable for age. Reproductive organs: Within normal limits. Lymph nodes: Unremarkable. Impression: Large quantity of stool throughout the colon, consistent with constipation. Diverticulosis without e vidence of diverticulitis. RADIATION DOSE DELIVERED: 515.89mGy.cm Total DLP DATA REPOSITORY: All CT scans at this facility are submitted to the National Radiology Data Registry (NRDR) Dose Index Registry (DIR) with the [employer] (A[employer]). RADIATION OPTIMIZATION: All CT scans at this facility use at least one of these dose optimization te chniques: automated exposure control; mA and/or kV adjustment per patient size (includes targeted exa ms where dose is matched to clinical indication); or iterative reconstruction.
[2023-02-16 12:18] LABS: ALT 24 U/L (14-59); AST 24 U/L (15-37); Albumin 4.2 g/dL (3.4-5.0); Alkaline Phosphatase 80 U/L (46-116); Anion Gap 7.6 mmol/L (3-11); BUN 18 mg/dL (7-18); Bilirubin, Total 0.6 mg/dL (0.2-1.0); CO2 30.4 mmol/L (21.0-32.0); CREATININE 0.8 mg/dL (0.55-1.02); Calcium 9.6 mg/dL (8.5-10.1); Chloride 98 mmol/L (98-107); Estimated GFR 83.26 (mL/min/1.73m2); Glucose 96 mg/dL (74-106); Potassium 4.4 mmol/L (3.5-5.1); Sodium 136 mmol/L (136-145); Total Protein 8.3 g/dL (6.4-8.2); Troponin I < 50 ng/L (<or=60)
--- NOTE | 2023-02-16 12:28 | W.ED.GENAD ---
Discharge Plan Disposition Patient Disposition: Admit to [facility] Condition: Good Discharge Details Clinical Impression: Syncope and collapse, Ground glass opacity present on imaging of lung, Constipation, Abdominal pain Admit Date/Time: 02/16/23 15:15 Admit Provider: Laith Medellin Attending Provider: Laith Medellin Primary Care Provider: [facility] ED Provider: Heather Bahena Medical Decision Making This is a 62-year-old female with mild cognitive delay who is brought in by ambulance with her mother at bedside after a syncopal episode at [facility]. She has had syncopal episodes in the past but has never had work-up to the best of the patient's recollection. She does not appear to have had a seizure. There was no seizure activity postictal mental status changes. She recognized her mother and was oriented after her syncopal episode which her mother believes lasted about 4 minutes. Currently she is complaining of abdominal pain and tremors in her arms and legs. She is afebrile but we will recheck it. I have reviewed her EKG which shows an incomplete right bundle branch block but no acute ST-T wave changes and she is in a normal sinus rhythm with a rate of 72. My plan is to obtain blood work including a troponin comprehensive metabolic panel lipase and urinalysis. We will obtain a chest x-ray and a CT of the abdomen and pelvis with IV contrast. It is certainly possible that she was having abdominal pain and had a vasovagal episode although it is not clear that she was having significant pain prior to the syncope. It is reassuring that she has had a syncopal episode in the past but it does not sound as though it ever was worked up. I do not think that the patient needs a head CT since her neurologic exam is nonfocal and she does not have a headache or evidence of head injury Differential Diagnosis Differential Diagnosis: Syncope, abdominal pain, AAA, UTI, SBO, cardiac arrhythmia, vasovagal synco Medical Records Medical records reviewed: Yes I reviewed the patient's medical records. HPI General Date/Time Provider Initiated Documentation: 02/16/23 12:28. Limitations to Documentation: other (mild cognitive impairment per pt's mother). Information obtained by: patient, family (Mother), RN notes reviewed and old records reviewed. HPI Narrative: The patient is a 62-year-old female with complex past medical history, including mild cognitive impairment, chronic migraines, a distant history of seizures, previous syncopal episodes which were never worked up, who presents via ambulance after a syncopal episode in [facility]. The patient was in her usual state of health this morning and had a good breakfast at a little after 8 AM. She and her mother then went to [facility] and at about 1015 she felt dizzy for a few minutes and felt like lying down. They attempted to get up and leave the pews where they were sitting to return to the lobby of the [facility] and they were able to get her to a chair. She then had a syncopal episode which lasted about 4 minutes. After that she vomited. She did not have any seizure-like activity. She was not incontinent and was not confused afterwards. She denies any injury from the fall. She is complaining of bilateral lower quadrant abdominal pain which is constant and nonradiating. The patient does have a history of a bowel resection for what she describes as a bowel blockage when she was in her 30s. She is not sure whether she was having abdominal pain prior to the syncopal episode. She does recall being nauseous. Her last bowel movement was yesterday. Her mother says she has had a previous syncopal episode and she believes that it occurred in [facility], but she was not brought to the hospital and they do not believe that she has had an evaluation for syncope by cardiology. Currently she is complaining of bilateral leg pain bilateral lower quadrant abdominal pain and shaking of her legs. She is also complaining of nausea and was requesting kristen jake. She denies any dysuria or fever. The patient does have a history of chronic migraines and headaches. She also has some issues with her neck but was told she was not a surgical candidate. She thinks that her last bowel movement was yesterday or the day before. She does not have a significant history of constipation. She is denying any chest pain or shortness of breath. She denies any headache or blurry vision. The patient's mother is her primary care provider and gives additional history Related Data Home Medications Medication Instructions Recorded Confirmed polyethylene glycol 3350 17 17 g PO DAILY 07/08/18 02/16/23 gram/dose oral powder (Miralax) acetaminophen 500 mg tablet 1,000 mg PO Q8H PRN 01/20/19 02/16/23 (Tylenol Extra Strength) naratriptan 2.5 mg tablet 2.5 mg PO ONCE PRN 03/28/21 02/16/23 paroxetine HCl 20 mg tablet (Paxil) 20 mg PO DAILY 03/28/21 02/16/23 omeprazole 20 mg capsule,delayed 40 mg PO DAILY 05/17/21 02/16/23 release atogepant 30 mg tablet (Qulipta) 60 mg PO DAILY 10/08/22 02/16/23 [id number]-[id number]-FA-Ca carb-vit K 1 tab PO DAILY 10/08/22 02/16/23 18 mg iron-400 mcg-500 mg tablet Allergies Allergy/AdvReac Type Severity Reaction Status Date / Time meclizine Allergy Severe Verified 10/09/22 10:22 methylphenidate Allergy Severe Verified 10/09/22 10:22 [From Ritalin] cyclobenzaprine Allergy Mild Verified 10/09/22 10:22 [From Flexeril] General Stated Complaint: [id number] BERNIE: 3 Review of Systems Constitutional Constitutional: Reports chills, Denies fever(s), Reports headache(s) and Reports weakness Eyes Eyes: Denies change in vision and Denies loss of vision ENT Ears, Nose, Mouth, and Throat: Denies dysphagia, Denies vertigo, Reports dizziness, Denies otalgia and Reports headache(s) Comments: No neck injury Cardiovascular Cardiovascular: Denies chest pain, Reports syncope, Denies irregular heart rhythm, Reports lightheadedness, Denies palpitations, Denies dyspnea, Denies dyspnea on exertion and Denies orthopnea Respiratory Respiratory: Denies cough, Denies dyspnea and Denies dyspnea on exertion Gastrointestinal Gastrointestinal: Reports abdominal pain, Reports bloating, Denies hematochezia, Denies coffee ground emesis, Denies dysphagia, Denies diarrhea, Reports nausea and Reports vomiting Comments: The patient is complaining of bilateral lower quadrant abdominal pain. Genitourinary Genitourinary: Reports pelvic pain, Denies urinary incontinence and Denies urinary urgency Comments: No dysuria Musculoskeletal Musculoskeletal: Denies tingling Comments: The patient is complaining of muscle cramps in her legs and shaking of her legs Neurologic Neurologic: Reports as per HPI, Denies confusion, Denies vertigo, Reports dizziness, Reports syncope, Reports headache(s), Denies loss of vision, Denies seizure-like activity, Denies tingling, Denies paresthesias, Reports tremor(s) (In the arms and legs but worse in her lower extremities) and Reports weakness Psychiatric Psychiatric: Denies confusion Endocrine Endocrine: Denies palpitations Hematologic/Lymphatic Comments: The patient is not on therapeutic anticoagulants Allergic/Immunologic Comments: Allergies to meclizine Ritalin and Flexeril PFSH All Active Problems (Updated 02/16/23 @ 16:34 by Laith Medellin MD) Hx of migraine headaches (Acute) Syncope and collapse (Acute) Ground glass opacity present on imaging of lung (Acute) Constipation (Acute) Abdominal pain (Acute) Sensorineural hearing loss, bilateral (Acute) Conductive hearing loss, external ear (Acute) Impacted cerumen, bilateral (Acute) Frequent headaches (Acute) Migraine without aura, intractable, with status migrainosus (Acute) Hx of colonoscopy (Chronic) Hemorrhoids (Acute) Cerumen impaction (Acute) Dysphagia (Acute) Left foot pain (Acute) Other fatigue (Acute) Snoring (Acute) Cervical spondylosis without myelopathy (Acute) Cervical spondylosis without myelopathy (Acute) Migraine headache with aura (Chronic) Migraine headache without aura (Acute) Chronic daily headache (Acute) New onset headache (Acute) Medical History Anemia Basal cell carcinoma Cold intolerance Depression Developmental delay, moderate Dizziness Dysuria Fatigue GERD (gastroesophageal reflux disease) Headache IBS (irritable bowel syndrome) Lower urinary tract symptoms (LUTS) Neck pain Palpitations Recurrent UTI Surgical History H/O colectomy H/O knee surgery History of carpal tunnel release Family History Mother Migraine Arthritis Father Depression COPD (chronic obstructive pulmonary disease) Myocardial infarct Heart disease Chronic mental illness CHF (congestive heart failure) Maternal Grandmother Diabetes Social History Smoking/Tobacco Use Status: Never Smoking risk assessment performed?: Yes Alcohol Intake: never Drug use: Never Substance use type: does not use Household members: family Number of Children: 0 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 Her extremities are trembling) Nutritional Appearance: average body habitus and well nourished Orientation: alert, awake and oriented x3 Other: She is having tremors in her legs and arms but more prominently in the lower extremities. They are intermittent. [facility] Head: normal to inspection, no palpable skull fracture, normocephalic, atraumatic, no acral cyanosis, no Montez's sign, no hematomas, no lacerations, no raccoon eyes, no temporal artery tenderness and No periorbital ecchymosis Ears: hearing grossly normal bilaterally, external ears normal and TM's normal bilaterally General nose exam: external nose normal, septum normal, no nasal discharge and no epistaxis Face and sinus: normal facial exam Mouth: oral mucosae normal, lip normal, tongue normal, oropharynx normal, moist mucous membranes and other (Normal phonation) Throat: posterior oropharynx normal, tonsils normal and uvula midline Eyes General: appearance normal, both eyes and all related structures Alignment and Position: alignment normal Eyelids: eyelids normal Conjunctivae: conjunctivae normal Sclera: sclerae normal Cornea: corneas normal Pupils: PERRL EOM: EOM intact bilaterally Direct ophthalmoscopy: photophobia not present Neck Neck: normal visual inspection, full ROM, no lymphadenopathy, no meningeal signs, trachea midline, supple, no anterior neck swelling and no JVD Carotids: normal carotid upstroke Lymphatic: no lymphadenopathy noted Chest Chest: normal inspection of the chest, no localized rib tenderness and no tenderness Resp Effort & Inspection: normal respiratory effort and able to speak in complete sentences Auscultation: clear to auscultation bilaterally, normal I/E ratio, no rales, no rhonchi and no wheezes Cardio Jugular venous pressure: no JVD Palpation: normal PMI Rate: regular rate Rhythm: regular rhythm Heart Sounds: S1 normal, S2 normal, no gallops, no murmurs and no rubs Bruits: no abdominal aortic bruits GI Inspection: non-distended Palpation: soft and nontender Other: The patient has a well-healed midline abdominal surgical scar. There is mild distention. She has slightly hypoactive bowel sounds. There is no rebound or guarding. No peritoneal signs. No bruising General: No CVA tenderness Back/Spine/Pelvis Back: no CVA tenderness Cervical Spine: cervical ROM normal, No cervical muscular tenderness and No step off deformity Thoracic/Lumbar Spine: thoracic and lumbar spine normal to inspection and thoraco-lumbar ROM normal Pelvis: no pain with anterior-posterior compression and no pain with lateral compression Sacrum: no tenderness Coccyx: no tenderness Skin General skin exam: no rashes or lesions noted, turgor normal, no petechiae and no purpura Rashes: no rashes Trauma: no lacerations or abrasions Other: The patient's skin is slightly pale for ethnicity. She is not diaphoretic. There are no obvious open wounds or bruising Neuro General: patient alert, patient awake, patient oriented x3, no meningeal signs, no focal motor deficits and CN's II-XI intact bilaterally Cranial Nerves: CN's II-XI intact bilaterally Cognition: normal cognition Speech: speech normal Motor: muscle tone normal throughout Sensory Exam: no sensory deficits noted Pupils: Normal pupillary reactivity/response: bilateral Extrem General: normal to inspection, full ROM, capillary refill normal and normal exam except as noted Other: The patient is having intermittent tremors of her legs and arms Psych Appearance: grossly normal Affect: normal affect Attitude: cooperative Insight: insight good Judgment: judgment good Other: The patient appears to have capacity make medical decisions. Course Patient's abdominal CT demonstrates some gastric wall thickening which could reflect underdistention or gastritis, a large colonic stool burden suggesting constipation and groundglass opacities with bilateral lower lobes which may be infectious or inflammatory in etiology. Her chest x-ray reveals ill-defined bibasilar airspace opacities which may be infectious or inflammatory in nature and are better appreciated on the CT of the abdomen according to the radiologist. I have notified the patient and her family and have ordered a COVID test. I have paged to the hospitalist for admission after discussing admission with the patient's mother. Reevaluation(s) Initial Evaluation: I have discussed the ground glass appearance with the patient and her mother. I have ordered a COVID test. I have spoken with the hospitalist about admission and he has excepted her. Reevaluation: The patient is complaining of developing a migraine. We do not have her usual migraine medicine on formulary here and I have written for 15 mg of IV Toradol instead Time: 15:53 Vital Signs Vital signs: Vital Signs Temperature 36.9 C 02/16/23 11:11 Pulse 76 02/16/23 11:11 Respiratory Rate 16 02/16/23 11:11 Blood Pressure 173/85 H 02/16/23 11:11 Pulse Oximetry 98 02/16/23 11:11 Temperature 36.9 C 02/16/23 11:11 Temperature Source Skin 02/16/23 11:11 Pulse 67 02/16/23 11:30 Pulse 71 02/16/23 11:50 Respiratory Rate 15 02/16/23 11:50 Respiratory Effort Normal 02/16/23 11:43 Blood Pressure 163/87 H 02/16/23 11:30 Blood Pressure Mean 105 02/16/23 11:30 Blood Pressure Position Sitting 02/16/23 11:11 Pulse Oximetry 97 02/16/23 11:50 Oxygen Delivery Method Room Air 02/16/23 11:11 Oxygen Flow Rate 0 02/16/23 11:11 Pain Level 5 02/16/23 11:11 Lab/Test Results Lab/Test Results: Laboratory Tests Range/Units 02/16/23 02/16/23 02/16/23 11:47 11:50 11:50 WBC (4.4-10.8) 10^3/uL 4.93 RBC (3.93-5.22) 10^6/uL 3.89 L Hgb (11.2-15.7) g/dL 11.5 Hct (36.0-46.0) % 34.0 L MCV (80-95) fL 87 MCH (27.0-33.0) pg 29.6 MCHC (32.0-36.0) % 33.8 RDW (11.7-14.6) % 12.9 Plt Count (130-400) 10^3/uL 292 MPV (8.0-11.0) fL 8.6 Immature Gran % 0.2 Neutrophils % 39.6 Lymphocytes % 48.3 Monocytes % 9.1 Eosinophils % 1.4 Basophils % 1.4 Nucleated RBC % (0.0-0.3) % 0.0 Absolute Neutrophils (1.2-6.7) 10^3/uL 1.95 Absolute Lymphocytes (1.2-3.4) 10^3/uL 2.38 Absolute Monocytes (0.1-0.8) 10^3/uL 0.45 Absolute Eosinophils (0.0-0.7) 10^3/uL 0.07 Absolute Basophils (0.0-0.2) 10^3/uL 0.07 Sodium (136-145) mmol/L 136 Potassium (3.5-5.1) mmol/L 4.4 Chloride (98-107) mmol/L 98 Carbon Dioxide (21.0-32.0) mmol/L 30.4 Anion Gap (3-11) mmol/L 7.6 BUN (7-18) mg/dL 18 Creatinine (0.55-1.02) mg/dL 0.8 Est GFR (CKD-EPI 2020) (mL/min/1.73m2) 83.26 Glucose (74-106) mg/dL 96 Calcium (8.5-10.1) mg/dL 9.6 Total Bilirubin (0.2-1.0) mg/dL 0.6 AST (15-37) U/L 24 ALT (14-59) U/L 24 Alkaline Phosphatase (46-116) U/L 80 Troponin I Cancelled < 50 Total Protein (6.4-8.2) g/dL 8.3 H Albumin (3.4-5.0) g/dL 4.2
--- NOTE | 2023-02-16 12:30 | DI.RAD_ITS ---
Exam(s) XR CHEST 2V PA LATERAL EXAM: XR CHEST 2V PA LATERAL CLINICAL HISTORY: syncope TECHNIQUE: 2D digital imaging was performed. FINDINGS: HEART: Normal size. Aorta: Tortuous. PULMONARY VASCULATURE: Normal. LUNGS: Question left lower lobe infiltrate. PLEURAL SPACE: No pleural effusion or pneumothorax. BONE:Unremarkable for age. IMPRESSION: Question of left lower lobe infiltrate. DATA REPOSITORY: RADIATION DOSE DELIVERED:
[2023-02-16] MEDS: ACETAMINOPHEN 1,000 MG/100 ML BTL 400 MG IVPB (12:43)
[2023-02-16] MEDS: Ondansetron 4 MG/2 ML VIAL IVP (12:44)
[2023-02-16 12:53] LABS: Lactate 0.9 mmol/L (0.6-1.4)
[2023-02-16 13:22] LABS: ALT 22 U/L (14-59); AST 23 U/L (15-37); Albumin 4.1 g/dL (3.4-5.0); Alkaline Phosphatase 78 U/L (46-116); Anion Gap 9.4 mmol/L (3-11); BUN 17 mg/dL (7-18); Bilirubin, Total 0.6 mg/dL (0.2-1.0); CO2 27.6 mmol/L (21.0-32.0); CREATININE 0.8 mg/dL (0.55-1.02); Calcium 9.2 mg/dL (8.5-10.1); Chloride 98 mmol/L (98-107); Estimated GFR 83.26 (mL/min/1.73m2); Glucose 96 mg/dL (74-106); Lipase 33 U/L (16-77); Magnesium 1.8 mg/dL (1.8-2.4); Sodium 135 mmol/L (136-145); Troponin I < 50 ng/L (<or=60)
[2023-02-16 13:40] LABS: Bilirubin Negative (Negative); Blood Trace-intact (Negative); Clarity Clear (Clear); Glucose Negative (Negative); Ketones Trace mg/dL (Negative); Leukocyte Esterase Negative (Negative); Nitrite Negative (Negative); Specific Gravity 1.015 (1.005-1.025); Urobilinogen 0.2 mg/dL (Up to 0.2)
[2023-02-16] MEDS: Normal Saline - Diluent 50 ML VIAL IJ (13:40)
[2023-02-16] MEDS: Omnipaque 350 MG/ML 100 ML BTL IJ (13:41)
[2023-02-16] MEDS: Normal Saline Flush 10 ML SYR IVP (13:43)
[2023-02-16 13:59] LABS: Bacteria Few HPF (Negative); C & S Indicated? Yes; Casts Negative LPF (Negative); Crystals Few Amorphous HPF (Negative); Epithelial Cells Negative HPF (Negative); Mucus Negative (Negative); Other Cells Few Transitional (Negative); RBC 0-2 HPF (0-2); WBC 0-2 HPF (0-5)
--- NOTE | 2023-02-16 14:12 | DI.VRAD_ITS ---
PROCEDURE INFORMATION: Exam: CT Abdomen And Pelvis With Contrast Exam date and time: 02/16/2023 1:39 PM Age: 62 years old Clinical indication: Abdominal pain; Prior surgery; Surgery date: 6+ months; Surgery type: Colectomy TECHNIQUE: Imaging protocol: Computed tomography of the abdomen and pelvis with contrast. Contrast material: OMNIPAQUE 350; Contrast volume: 70 ml; Contrast route: INTRAVENOUS (IV); COMPARISON: CT Private^ROUTINE ABDOMEN PELVIS WITH CONTRAST (Adult) 08/13/2018 7:14 AM FINDINGS: Lungs: Partially imaged ground-glass opacities within the bilateral lower lobes. Diaphragm: Small hiatal hernia. Liver: Normal. No mass. Gallbladder and bile ducts: Normal. No calcified stones. No ductal dilation. Pancreas: Normal. No ductal dilation. Spleen: Normal. No splenomegaly. Adrenal glands: Normal. No mass. Kidneys and ureters: Normal. No hydronephrosis. Stomach and bowel: Questionable gastric wall thickening. Postsurgical changes of partial colectomy. Large colonic stool burden. Colonic diverticulosis without findings of diverticulitis. No small bowel obstruction. Appendix: No evidence of appendicitis. Intraperitoneal space: Unremarkable. No free air. No significant fluid collection. Vasculature: Mild atherosclerotic calcification of the aorta. Lymph nodes: Unremarkable. No enlarged lymph nodes. Urinary bladder: Unremarkable as visualized. Reproductive: Unremarkable as visualized. Bones/joints: Mild degenerative changes of the spine. Soft tissues: Unremarkable. IMPRESSION: 1. Questionable gastric wall thickening which could reflect underdistention or gastritis. 2. Large colonic stool burden suggesting constipation. 3. Ground-glass opacities within the bilateral lower lobes which may be infectious or inflammatory in etiology. Dictated and Authenticated by: Wood Jaime MD. Ordering:MADELEINE Romero MD
--- NOTE | 2023-02-16 14:14 | DI.VRAD_ITS ---
PROCEDURE INFORMATION: Exam: XR Chest Exam date and time: 02/16/2023 1:45 PM Age: 62 years old Clinical indication: Other: Syncope TECHNIQUE: Imaging protocol: Radiologic exam of the chest. Views: 2 views. COMPARISON: CT ABDOMEN PELVIS W 02/16/2023 1:39 PM FINDINGS: Lungs: Lungs are hyperexpanded with scattered reticular interstitial lung markings throughout, consistent with COPD. Ill-defined bibasilar airspace opacities. Pleural spaces: Unremarkable. No pleural effusion. No pneumothorax. Heart/Mediastinum: Unremarkable. No cardiomegaly. Vasculature: Aortic tortuosity. Bones/joints: Degenerative osseous changes. IMPRESSION: Ill-defined bibasilar airspace opacities which may be infectious or inflammatory in etiology and are better appreciated on same day CT of the abdomen and pelvis. Dictated and Authenticated by: Wood Jaime MD. Ordering:MADELEINE Romero MD
[2023-02-16 15:44] LABS: Troponin I < 50 ng/L (<or=60)
[2023-02-16 16:00] LABS: COVID-19 PCR Negative (Negative); Influenza A PCR Negative (Negative); Influenza B PCR Negative (Negative); RSV PCR Negative (Negative)
[2023-02-16 16:03] LABS: Source Nasopharynx
--- NOTE | 2023-02-16 16:23 | HPE_ITS ---
Date of service: 02/16/23 Time of Service: 16:23 Assessment and Plan Assessment and plan (1) Syncope and collapse: Status: Acute Assessment and plan: Admitted for cardiac monitoring, orthostatic vitals. Likely vasovagal episode related to abd pain d/t constipation/fecal loading. (2) Ground glass opacity present on imaging of lung: Status: Acute Assessment and plan: No fever, cough, elevated WBC count. Doubt infectious process. (3) Constipation: Status: Acute Assessment and plan: Schedule miralax. Administer Senna and mag citrate. Needs a long-term plan for bowel managment. (4) Developmental delay, moderate: Assessment and plan: Mother is her DPOA. (5) Hx of migraine headaches: Status: Acute Assessment and plan: No current complaint of headache. Family can bring her Qulipta to hospital for daily use, as well as her prn naratriptan. History of Present Illness History of Present Illness Chief Complaint: Syncope Narrative: This is a 62 yo female with a PMH of chronic migraines, distant h/o seizures, developmental delay, previous syncope w/o workup. She presented to the ED via EMS after a syncopal episode while at [facility] the AM of admission. Her mother s tates that Sera was in her usual state of health early in the AM. She ate a normal breakfast. At appx 1015 while in [facility] she endorsed feeling dizzy for a few minutes. They attempted to get up and leave where they were sitting in a pew. They got as far as a chair where she was placed and then noted to become unresponsive for appx 4 mins. No seizure-like activity, incontinence noted. No confused state after returning to a normal level of consciousness. No distressed breathing. She then vomited. In the ED she c/o lower abd discomfort. Her labs were unremarkable. Vitals signs unremarkable. CT abd/pelvis showed a large colonic stool burden suggesting constipation. Ground-glass opacities within the bilateral lower lobes which may be infectious or inflammatory in etiology. CXR with ill-defined bibasilar opacities. No arrhythmias on telemetry. Review of Systems All systems reviewed & are unremarkable except as noted in HPI and below PFSH All Active Problems (Updated 02/16/23 @ 16:34 by Laith Medellin MD) Hx of migraine headaches (Acute) Syncope and collapse (Acute) Ground glass opacity present on imaging of lung (Acute) Constipation (Acute) Abdominal pain (Acute) Sensorineural hearing loss, bilateral (Acute) Conductive hearing loss, external ear (Acute) Impacted cerumen, bilateral (Acute) Frequent headaches (Acute) Migraine without aura, intractable, with status migrainosus (Acute) Hx of colonoscopy (Chronic) Hemorrhoids (Acute) Cerumen impaction (Acute) Dysphagia (Acute) Left foot pain (Acute) Other fatigue (Acute) Snoring (Acute) Cervical spondylosis without myelopathy (Acute) Cervical spondylosis without myelopathy (Acute) Migraine headache with aura (Chronic) Migraine headache without aura (Acute) Chronic daily headache (Acute) New onset headache (Acute) Medical History Anemia Basal cell carcinoma Cold intolerance Depression Developmental delay, moderate Dizziness Dysuria Fatigue GERD (gastroesophageal reflux disease) Headache IBS (irritable bowel syndrome) Lower urinary tract symptoms (LUTS) Neck pain Palpitations Recurrent UTI Surgical History H/O colectomy H/O knee surgery History of carpal tunnel release Family History Mother Migraine Arthritis Father Depression COPD (chronic obstructive pulmonary disease) Myocardial infarct Heart disease Chronic mental illness CHF (congestive heart failure) Maternal Grandmother Diabetes Social History Smoking/Tobacco Use Status: Never Smoking risk assessment performed?: Yes Alcohol Intake: never Drug use: Never Substance use type: does not use Household members: family Number of Children: 0 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[employer] Do you feel safe in your relationship?: Yes Meds Allergies and Home Medications Allergies Allergy/AdvReac Type Severity Reaction Status Date / Time meclizine Allergy Severe Verified 10/09/22 10:22 methylphenidate Allergy Severe Verified 10/09/22 10:22 [From Ritalin] cyclobenzaprine Allergy Mild Verified 10/09/22 10:22 [From Flexeril] Home Medications Medication Instructions Recorded Confirmed Type polyethylene glycol 3350 17 17 g PO DAILY 07/08/18 02/16/23 History gram/dose oral powder (Miralax) acetaminophen 500 mg tablet 1,000 mg PO Q8H PRN 01/20/19 02/16/23 History (Tylenol Extra Strength) naratriptan 2.5 mg tablet 2.5 mg PO ONCE PRN 03/28/21 02/16/23 History paroxetine HCl 20 mg tablet (Paxil) 20 mg PO DAILY 03/28/21 02/16/23 History omeprazole 20 mg capsule,delayed 40 mg PO DAILY 05/17/21 02/16/23 History release atogepant 30 mg tablet (Qulipta) 60 mg PO DAILY 10/08/22 02/16/23 History [id number]-Ca carb-vit K 1 tab PO DAILY 10/08/22 02/16/23 History 18 mg iron-400 mcg-500 mg tablet Exam Narrative Exam Narrative: Sitting in recliner; preparing to eat. NAD. Conversatn. Const General: cooperative, healthy appearing, no acute distress and well groomed Orientation: alert, awake and oriented x3 Other: She is having tremors in her legs and arms but more prominently in the lower extremities. They are intermittent. HENNJ Head: atraumatic Ears: hearing grossly normal bilaterally General nose exam: external nose normal Face and sinus: normal facial exam Mouth: oral mucosae normal and moist mucous membranes Eyes General: appearance normal, both eyes and all related structures Sclera: sclerae normal Direct ophthalmoscopy: photophobia not present Neck Neck: no JVD Resp Effort & Inspection: normal respiratory effort and able to speak in complete sentences Auscultation: clear to auscultation bilaterally Cardio Rate: regular rate Rhythm: regular rhythm Heart Sounds: S1 normal, S2 normal and no murmurs Bruits: no abdominal aortic bruits GI Inspection: distended Palpation: soft and nontender Other: The patient has a well-healed midline abdominal surgical scar. There is mild distention. She has slightly hypoactive bowel sounds. There is no rebound or guarding. No peritoneal signs. No bruising Skin General skin exam: no rashes or lesions noted and turgor normal Other: The patient's skin is slightly pale for ethnicity. She is not diaphoretic. There are no obvious open wounds or bruising Neuro General: patient oriented x3 and no focal motor deficits Cranial Nerves: facial strength normal Cognition: normal cognition Speech: speech normal Pupils: Normal pupillary reactivity/response: bilateral Extrem General: no pedal edema and no calf tenderness Other: The patient is having intermittent tremors of her legs and arms Psych Appearance: grossly normal Affect: normal affect Attitude: cooperative Insight: insight good Judgment: judgment good Other: The patient appears to have capacity make medical decisions. Results Labs 02/16/23 11:50 02/16/23 12:47 Labs: Laboratory Results - last 24 hr 02/16/23 02/16/23 02/16/23 11:47 11:50 11:50 WBC 4.93 RBC 3.89 L Hgb 11.5 Hct 34.0 L MCV 87 MCH 29.6 MCHC 33.8 RDW 12.9 Plt Count 292 MPV 8.6 Immature Gran % 0.2 Neutrophils % 39.6 Lymphocytes % 48.3 Monocytes % 9.1 Eosinophils % 1.4 Basophils % 1.4 Nucleated RBC % 0.0 Absolute Neutrophils 1.95 Absolute Lymphocytes 2.38 Absolute Monocytes 0.45 Absolute Eosinophils 0.07 Absolute Basophils 0.07 VBG Lactate Sodium 136 Potassium 4.4 Chloride 98 Carbon Dioxide 30.4 Anion Gap 7.6 BUN 18 Creatinine 0.8 Est GFR (CKD-EPI 2020) 83.26 Glucose 96 Calcium 9.6 Magnesium Total Bilirubin 0.6 AST 24 ALT 24 Alkaline Phosphatase 80 Troponin I Cancelled < 50 Total Protein 8.3 H Albumin 4.2 Lipase Urine Color Urine Clarity Urine pH Ur Specific [place] Urine Protein Urine Ketones Urine Blood Urine Nitrite Urine Bilirubin Urine Urobilinogen Ur Leukocyte Esterase Urine RBC Urine WBC Ur Epithelial Cells Urine Crystals Urine Bacteria Urine Casts Urine Mucus Urine Other Ur Culture Indicated? Urine Glucose COVID-19 Source SARS-CoV-2 (PCR) Influenza Type A (PCR) Influenza Type B (PCR) RSV (PCR) 02/16/23 02/16/23 02/16/23 12:47 12:47 13:25 WBC RBC Hgb Hct MCV MCH MCHC RDW Plt Count MPV Immature Gran % Neutrophils % Lymphocytes % Monocytes % Eosinophils % Basophils % Nucleated RBC % Absolute Neutrophils Absolute Lymphocytes Absolute Monocytes Absolute Eosinophils Absolute Basophils VBG Lactate 0.9 Sodium 135 L Potassium 4.0 Chloride 98 Carbon Dioxide 27.6 Anion Gap 9.4 BUN 17 Creatinine 0.8 Est GFR (CKD-EPI 2020) 83.26 Glucose 96 Calcium 9.2 Magnesium 1.8 Total Bilirubin 0.6 AST 23 ALT 22 Alkaline Phosphatase 78 Troponin I < 50 Total Protein 8.0 Albumin 4.1 Lipase 33 Urine Color Yellow Urine Clarity Clear Urine pH 7.0 Ur Specific [place] 1.015 Urine Protein 30 H Urine Ketones Trace H Urine Blood Trace-intact H Urine Nitrite Negative Urine Bilirubin Negative Urine Urobilinogen 0.2 Ur Leukocyte Esterase Negative Urine RBC 0-2 Urine WBC 0-2 Ur Epithelial Cells Negative Urine Crystals Few Amorphous Urine Bacteria Few Urine Casts Negative Urine Mucus Negative Urine Other Few Transitional Ur Culture Indicated? Yes Urine Glucose Negative COVID-19 Source SARS-CoV-2 (PCR) Influenza Type A (PCR) Influenza Type B (PCR) RSV (PCR) 02/16/23 02/16/23 02/16/23 15:15 15:18 15:29 WBC RBC Hgb Hct MCV MCH MCHC RDW Plt Count MPV Immature Gran % Neutrophils % Lymphocytes % Monocytes % Eosinophils % Basophils % Nucleated RBC % Absolute Neutrophils Absolute Lymphocytes Absolute Monocytes Absolute Eosinophils Absolute Basophils VBG Lactate Sodium Potassium Chloride Carbon Dioxide Anion Gap BUN Creatinine Est GFR (CKD-EPI 2020) Glucose Calcium Magnesium Total Bilirubin AST ALT Alkaline Phosphatase Troponin I < 50 Cancelled Total Protein Albumin Lipase Urine Color Urine Clarity Urine pH Ur Specific [place] Urine Protein Urine Ketones Urine Blood Urine Nitrite Urine Bilirubin Urine Urobilinogen Ur Leukocyte Esterase Urine RBC Urine WBC Ur Epithelial Cells Urine Crystals Urine Bacteria Urine Casts Urine Mucus Urine Other Ur Culture Indicated? Urine Glucose COVID-19 Source Nasopharynx SARS-CoV-2 (PCR) Negative Influenza Type A (PCR) Negative Influenza Type B (PCR) Negative RSV (PCR) Negative 02/16/23 16:45 WBC RBC Hgb Hct MCV MCH MCHC RDW Plt Count MPV Immature Gran % Neutrophils % Lymphocytes % Monocytes % Eosinophils % Basophils % Nucleated RBC % Absolute Neutrophils Absolute Lymphocytes Absolute Monocytes Absolute Eosinophils Absolute Basophils VBG Lactate Sodium Potassium Chloride Carbon Dioxide Anion Gap BUN Creatinine Est GFR (CKD-EPI 2020) Glucose Calcium Magnesium Total Bilirubin AST ALT Alkaline Phosphatase Troponin I Cancelled Total Protein Albumin Lipase Urine Color Urine Clarity Urine pH Ur Specific [place] Urine Protein Urine Ketones Urine Blood Urine Nitrite Urine Bilirubin Urine Urobilinogen Ur Leukocyte Esterase Urine RBC Urine WBC Ur Epithelial Cells Urine Crystals Urine Bacteria Urine Casts Urine Mucus Urine Other Ur Culture Indicated? Urine Glucose COVID-19 Source SARS-CoV-2 (PCR) Influenza Type A (PCR) Influenza Type B (PCR) RSV (PCR) Last Vital Signs Temp 36.9 C 02/16/23 11:11 Pulse 79 02/16/23 15:21 Resp 18 02/16/23 14:00 BP 171/87 H 02/16/23 15:21 Pulse Ox 98 02/16/23 15:21 Time Spent Time spent with Patient: 40-54 minutes Time was spent: preparing to see the patient(eg.review tests), obtaining and/or reviewing separately otained hiistory, ordering medications,tests, procedures, referring, communicating with other health family day care provider, indepentently interpreting results and counseling the patient
[2023-02-16] MEDS: Ketorolac 15 MG/ML VIAL IVP (16:25)
[2023-02-16] MEDS: Senna TAB 1 TAB PO (17:05)
[2023-02-16] MEDS: Polyethylene Glycol 3350 17 GM PACKET PO (17:05)
[2023-02-16] MEDS: Magnesium Citrate 300 ML BTL 150 ML PO (17:05)
[2023-02-16] MEDS: Acetaminophen 325 MG TAB PO (21:09)
[2023-02-17] MEDS: Simethicone 80 MG CHEW PO (05:00)
[2023-02-17 07:32] LABS: Anion Gap 9.3 mmol/L (3-11); BUN 10 mg/dL (7-18); CO2 27.7 mmol/L (21.0-32.0); CREATININE 0.7 mg/dL (0.55-1.02); Calcium 9.4 mg/dL (8.5-10.1); Chloride 96 mmol/L (98-107); Estimated GFR 97.72 (mL/min/1.73m2); Glucose 102 mg/dL (74-106); Potassium 3.9 mmol/L (3.5-5.1); Sodium 133 mmol/L (136-145)
[2023-02-17 08:20] VITALS: BP 180/88; PULSE 80; RESP 16; TEMP 36.5; O2SAT 96
--- NOTE | 2023-02-17 08:31 | PDOC.CMIN ---
Date of service: 02/17/23 Time of Service: 08:31 Care Management Initial Assmt Initial Assessment REASON FOR HOSPITALIZATION:: syncope PREVIOUS FUNCTIONAL STATUS/SOCIAL/FAMILY SUPPORTS:: Sera lives in [place] with ADVANCE DIRECTIVES:: none on file Has patient been provided with info about the portal/API?: Yes Did the patient sign up for the portal?: No CODE STATUS:: Full Code INSURANCE COVERAGE / FINANCIAL ISSUES:: Medicare Financial Assist 100 PRIMARY CARE PHYSICIAN:: Janell [place] PATIENT/FAMILY EDUCATION NEEDS:: Review of discharge instructions, activity, limitations, follow up marvin, discuss Ask Me Three TRANSPORTATION:: via private vehicle PLAN:: Anticipate Sera will be discharged home with a resumption of services. She will follow up with her PCP and plan of care and transport with family. CM will continue to support Sera and assess for discharge planning needs. PFSH All Active Problems (Updated 02/16/23 @ 16:34 by Laith Medellin MD) Hx of migraine headaches (Acute) Syncope and collapse (Acute) Ground glass opacity present on imaging of lung (Acute) Constipation (Acute) Abdominal pain (Acute) Sensorineural hearing loss, bilateral (Acute) Conductive hearing loss, external ear (Acute) Impacted cerumen, bilateral (Acute) Frequent headaches (Acute) Migraine without aura, intractable, with status migrainosus (Acute) Hx of colonoscopy (Chronic) Hemorrhoids (Acute) Cerumen impaction (Acute) Dysphagia (Acute) Left foot pain (Acute) Other fatigue (Acute) Snoring (Acute) Cervical spondylosis without myelopathy (Acute) Cervical spondylosis without myelopathy (Acute) Migraine headache with aura (Chronic) Migraine headache without aura (Acute) Chronic daily headache (Acute) New onset headache (Acute) Medical History Anemia Basal cell carcinoma Cold intolerance Depression Developmental delay, moderate Dizziness Dysuria Fatigue GERD (gastroesophageal reflux disease) Headache IBS (irritable bowel syndrome) Lower urinary tract symptoms (LUTS) Neck pain Palpitations Recurrent UTI Surgical History H/O colectomy H/O knee surgery History of carpal tunnel release Family History Mother Migraine Arthritis Father Depression COPD (chronic obstructive pulmonary disease) Myocardial infarct Heart disease Chronic mental illness CHF (congestive heart failure) Maternal Grandmother Diabetes Social History Smoking/Tobacco Use Status: Never Smoking risk assessment performed?: Yes Alcohol Intake: never Drug use: Never Substance use type: does not use Household members: family Number of Children: 0 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
[2023-02-17] MEDS: Lisinopril 20 MG TAB PO (08:51)
[2023-02-17] MEDS: Polyethylene Glycol 3350 17 GM PACKET PO (08:52)
[2023-02-17] MEDS: PARoxetine 20 MG TAB PO (08:52)
[2023-02-17] MEDS: Bisacodyl 10 MG SUPP PR (08:52)
[2023-02-17 09:41] VITALS: PULSE 75
--- NOTE | 2023-02-17 10:18 | INITIAL_ITS ---
Date of service: 02/17/23 Time of Service: 10:18 Care Management Initial Assmt Initial Assessment REASON FOR HOSPITALIZATION:: Syncope PREVIOUS FUNCTIONAL STATUS/SOCIAL/FAMILY SUPPORTS:: Resides with mother and guardian, Missy, in [place], [place]. CURRENT FUNCTIONAL STATUS:: Sera discharged back to her mother's care this afternoon. ADVANCE DIRECTIVES:: Missy Korey: Guardian Has patient been provided with info about the portal/API?: No Did the patient sign up for the portal?: No CODE STATUS:: Full Code INSURANCE COVERAGE / FINANCIAL ISSUES:: Medicare CURRENT HOME/COMMUNITY SERVICES/EQUIPMENT:: tub seat PRIMARY CARE PHYSICIAN:: Hiwot [place] POTENTIAL DISCHARGE NEEDS:: Follow up appointments PATIENT/FAMILY EDUCATION NEEDS:: Review discharge instructions, discuss Ask Me Three. ANTICIPATED BARRIERS TO DISCHARGE:: None identified. TRANSPORTATION:: Via private vehicle with family. PLAN:: Sera will return home when ready per MD. She will follow up with her PCP and plan of care as prescribed. She will transport via private vehicle with her mother and guardian, Missy. PFSH All Active Problems (Updated 02/17/23 @ 13:54 by Laith Medellin MD) Hypertension (Chronic) Hx of migraine headaches (Acute) Syncope and collapse (Acute) Ground glass opacity present on imaging of lung (Acute) Constipation (Acute) Abdominal pain (Acute) Sensorineural hearing loss, bilateral (Acute) Conductive hearing loss, external ear (Acute) Impacted cerumen, bilateral (Acute) Frequent headaches (Acute) Migraine without aura, intractable, with status migrainosus (Acute) Hx of colonoscopy (Chronic) Hemorrhoids (Acute) Cerumen impaction (Acute) Dysphagia (Acute) Left foot pain (Acute) Other fatigue (Acute) Snoring (Acute) Cervical spondylosis without myelopathy (Acute) Cervical spondylosis without myelopathy (Acute) Migraine headache with aura (Chronic) Migraine headache without aura (Acute) Chronic daily headache (Acute) New onset headache (Acute) Medical History Anemia Basal cell carcinoma Cold intolerance Depression Developmental delay, moderate Dizziness Dysuria Fatigue GERD (gastroesophageal reflux disease) Headache IBS (irritable bowel syndrome) Lower urinary tract symptoms (LUTS) Neck pain Palpitations Recurrent UTI Surgical History H/O colectomy H/O knee surgery History of carpal tunnel release Family History Mother Migraine Arthritis Father Depression COPD (chronic obstructive pulmonary disease) Myocardial infarct Heart disease Chronic mental illness CHF (congestive heart failure) Maternal Grandmother Diabetes Social History Smoking/Tobacco Use Status: Never Smoking risk assessment performed?: Yes Alcohol Intake: never Drug use: Never Substance use type: does not use Household members: family Number of Children: 0 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
[2023-02-17 11:24] VITALS: BP 154/90
[2023-02-17 11:25] VITALS: BP 134/78; PULSE 80; RESP 16; TEMP 36.4; O2SAT 96
--- NOTE | 2023-02-17 11:26 | NUR.NOTE ---
duplicate ECG order Nursing Note:
--- NOTE | 2023-02-17 13:30 | DSE_ITS ---
Date of service: 02/17/23 Time of Service: 13:31 DS: Diagnosis Discharge Diagnosis (1) Syncope and collapse: Status: Acute Asessment and Plan: Likely vaso-vagal response to abd pain caused by significant consipation / fecal loading. No arrhythmias on telemetry. No pre-syncope or syncope during hospitalization. (2) Ground glass opacity present on imaging of lung: Status: Acute Asessment and Plan: No pulmonary symptoms. No fever or elevated WBC count. Covid-19 negative. (3) Constipation: Status: Acute Asessment and Plan: She had a very large BM with resolution of her abd distension and discomfort. She was given 150ml magnesium citrate along with miralax and senna upon admission. No BM until the following day after miralax and a dulcolax suppository. Suggesting miralax BID for 3 days, then return to her usual daily dose. Increase fiber in diet. (4) Developmental delay, moderate: Asessment and Plan: No acute issues. (5) Hx of migraine headaches: Status: Acute Asessment and Plan: Resume usual home treatment / meds. (6) Hypertension: Status: Chronic Asessment and Plan: No previous dignosis, but had consistent systolic readings in the 150-160's. Zestril 20mg po daily initiated. Recheck upon f/u with PCP Discharge Plan Disposition Patient Disposition: Home Condition: Good Discharge Details Reason For Visit: Syncope, constipation Admit Date/Time: 02/16/23 15:15 Admit Provider: Laith Medellin Attending Provider: Laith Medellin Primary Care Provider: Hi[facility] Hospital Course Hospital Course: This is a 62 yo female with a PMH of chronic migraines, distant h/o seizures, developmental delay, previous syncope w/o workup.? She presented to the ED via EMS after a syncopal episode while at [facility] the AM of admission.? Her mother states that Sera was in her usual state of health early in the AM.? She ate a normal breakfast.? At appx 1015 while in [facility] she endorsed feeling dizzy for a few minutes.? They attempted to get up and leave where they were sitting in a pew.? They got as far as a chair where she was placed and then noted to become unresponsive for appx 4 mins.? No seizure-like activity, incontinence noted.? No confused state after returning to a normal level of consciousness. No distressed breathing.? She then vomited. In the ED she c/o lower abd discomfort. Her labs were unremarkable. Vitals signs unremarkable. CT abd/pelvis showed?a large colonic stool burden suggesting constipation. Ground-glass opacities within the bilateral lower lobes which may be infectious or inflammatory in etiology. CXR with ill-defined bibasilar opacities. No arrhythmias on telemetry.? See Diagnosis PCP f/u in 1-2 weeks. Home Meds and New Rx's Prescriptions: New lisinopril [Zestril] 20 mg tablet 20 mg PO DAILY Qty: 30 0RF Continued polyethylene glycol 3350 [Miralax] 17 gram/dose powder 17 g PO DAILY acetaminophen [Tylenol Extra Strength] 500 mg tablet 1,000 mg PO Q8H PRN omeprazole 20 mg capsule,delayed release(DR/EC) 40 mg PO DAILY paroxetine HCl [Paxil] 20 mg tablet 20 mg PO DAILY naratriptan 2.5 mg tablet 2.5 mg PO ONCE PRN Qulipta 30 mg Tablet 60 mg PO DAILY [id number] carb-vit K 18 mg iron-400 mcg-500 mg Tablet 1 tab PO DAILY Discharge Instructions Instructions: Syncope (DC) Additional Instructions: Miralax twice daily for 3 days, then can decrease back to once daily. Stand Alone Forms: Nursing Discharge Form Referrals: Hiw[facility] [Primary Care Provider] - 03/05/23 10:00 am Activity:: Activity as Tolerated Equipment/Supplies:: No Equipment Needed Diet:: Increase fiber in diet Discharge Orders Discharge Orders: Discharge Order (Routine); Ordered 02/17/23 Ordered By: Laith Medellin DS: Summary Time Spent with Patient providing and/or coordinating discharge services: Greater than 30 minutes Status at Discharge Functional status at discharge: independent ambulation Overall status at discharge: patient is back to baseline Mental Status: mental status grossly normal Speech and Movement: speech and movement normal Mood: congruent mood Affect: normal affect Exam Narrative Exam Narrative: Sitting in recliner; feeling better s/p a large BM. Const General: cooperative, healthy appearing, no acute distress and well groomed Orientation: alert, awake and oriented x3 Other: She is having tremors in her legs and arms but more prominently in the lower extremities. They are intermittent. HENMT Head: atraumatic Ears: hearing grossly normal bilaterally General nose exam: external nose normal Face and sinus: normal facial exam Mouth: oral mucosae normal and moist mucous membranes Eyes General: appearance normal, both eyes and all related structures Sclera: sclerae normal Direct ophthalmoscopy: photophobia not present Neck Neck: no JVD Resp Effort & Inspection: normal respiratory effort and able to speak in complete sentences Auscultation: clear to auscultation bilaterally Cardio Rate: regular rate Rhythm: regular rhythm Heart Sounds: S1 normal, S2 normal and no murmurs Bruits: no abdominal aortic bruits GI Inspection: non-distended Palpation: soft and nontender Other: The patient has a well-healed midline abdominal surgical scar. There is mild distention. She has slightly hypoactive bowel sounds. There is no rebound or guarding. No peritoneal signs. No bruising Skin General skin exam: no rashes or lesions noted and turgor normal Other: The patient's skin is slightly pale for ethnicity. She is not diaphoretic. There are no obvious open wounds or bruising Neuro General: patient oriented x3 and no focal motor deficits Cranial Nerves: facial strength normal Cognition: normal cognition Speech: speech normal Pupils: Normal pupillary reactivity/response: bilateral Extrem General: no pedal edema and no calf tenderness Other: The patient is having intermittent tremors of her legs and arms Psych Appearance: grossly normal Mental Status: mental status grossly normal Speech and Movement: speech and movement normal Mood: congruent mood Affect: normal affect Attitude: cooperative Insight: insight good Judgment: judgment good Other: The patient appears to have capacity make medical decisions. DS: Data Vitals/I&O Vitals and I&O: Vital Signs Temperature 36.4 C L 02/17/23 11:25 Temperature Source Tympanic 02/17/23 11:25 Pulse 80 02/17/23 11:25 Pulse Rhythm Regular 02/17/23 08:13 Pulse 78 02/16/23 16:20 Respiratory Rate 16 02/17/23 11:25 Respiratory Effort Normal, Non-Labored 02/17/23 08:13 Respiratory Depth Normal 02/17/23 08:13 Respiratory Pattern Normal 02/17/23 08:13 Blood Pressure 134/78 02/17/23 11:25 Blood Pressure Mean 105 02/16/23 16:00 Blood Pressure Position Sitting 02/16/23 11:11 Pulse Oximetry 96 02/17/23 11:25 Oxygen Delivery Method Room Air 02/17/23 11:25 Oxygen Flow Rate 0 02/17/23 11:25 Pain Level 6 02/16/23 21:09 Comment Nurse aware 02/17/23 08:20 Intake & Output 02/16/23 02/17/23 02/17/23 23:59 11:59 23:59 Intake Total 1350 / 1350 370 / 490 120 / 490 Output Total 850 / 850 400 / 400 Balance 500 / 500 -30 / 90 120 / 90 Intake: IV 1100 / 1100 Oral 250 / 250 370 / 490 120 / 490 Output: Urine 850 / 850 400 / 400 Other: Urine Color Pale Yellow Urine Appearance Clear Clear Urine Odor Normal Normal Stool Size Large Stool Characteristics Formed Brown Voiding Methods Toilet Data Completed and Pending Labs on day of discharge: Labs from last 24 hours 02/17/23 02/16/23 02/16/23 06:45 16:45 15:29 Sodium 133 L Potassium 3.9 Chloride 96 L Carbon Dioxide 27.7 Anion Gap 9.3 BUN 10 Creatinine 0.7 Est GFR (CKD-EPI 2020) 97.72 Glucose 102 Calcium 9.4 Troponin I Cancelled Cancelled Urine Color Urine Clarity Urine pH Ur Specific Harvey Urine Protein Urine Ketones Urine Blood Urine Nitrite Urine Bilirubin Urine Urobilinogen Ur Leukocyte Esterase Urine RBC Urine WBC Ur Epithelial Cells Urine Crystals Urine Bacteria Urine Casts Urine Mucus Urine Other Ur Culture Indicated? Urine Glucose COVID-19 Source SARS-CoV-2 (PCR) Influenza Type A (PCR) Influenza Type B (PCR) RSV (PCR) 02/16/23 02/16/23 02/16/23 15:18 15:15 13:25 Sodium Potassium Chloride Carbon Dioxide Anion Gap BUN Creatinine Est GFR (CKD-EPI 2020) Glucose Calcium Troponin I < 50 Urine Color Yellow Urine Clarity Clear Urine pH 7.0 Ur Specific Harvey 1.015 Urine Protein 30 H Urine Ketones Trace H Urine Blood Trace-intact H Urine Nitrite Negative Urine Bilirubin Negative Urine Urobilinogen 0.2 Ur Leukocyte Esterase Negative Urine RBC 0-2 Urine WBC 0-2 Ur Epithelial Cells Negative Urine Crystals Few Amorphous Urine Bacteria Few Urine Casts Negative Urine Mucus Negative Urine Other Few Transitional Ur Culture Indicated? Yes Urine Glucose Negative COVID-19 Source Nasopharynx SARS-CoV-2 (PCR) Negative Influenza Type A (PCR) Negative Influenza Type B (PCR) Negative RSV (PCR) Negative Preliminary micro results at discharge 02/16/23 13:25 Urine Culture - Preliminary Urine - Reflex from Ua Gram Positive Justa,Mixed PFSH All Active Problems (Updated 02/17/23 @ 13:54 by Laith Medellin MD) Hypertension (Chronic) Hx of migraine headaches (Acute) Syncope and collapse (Acute) Ground glass opacity present on imaging of lung (Acute) Constipation (Acute) Abdominal pain (Acute) Sensorineural hearing loss, bilateral (Acute) Conductive hearing loss, external ear (Acute) Impacted cerumen, bilateral (Acute) Frequent headaches (Acute) Migraine without aura, intractable, with status migrainosus (Acute) Hx of colonoscopy (Chronic) Hemorrhoids (Acute) Cerumen impaction (Acute) Dysphagia (Acute) Left foot pain (Acute) Other fatigue (Acute) Snoring (Acute) Cervical spondylosis without myelopathy (Acute) Cervical spondylosis without myelopathy (Acute) Migraine headache with aura (Chronic) Migraine headache without aura (Acute) Chronic daily headache (Acute) New onset headache (Acute) Medical History Anemia Basal cell carcinoma Cold intolerance Depression Developmental delay, moderate Dizziness Dysuria Fatigue GERD (gastroesophageal reflux disease) Headache IBS (irritable bowel syndrome) Lower urinary tract symptoms (LUTS) Neck pain Palpitations Recurrent UTI Surgical History H/O colectomy H/O knee surgery History of carpal tunnel release Family History Mother Migraine Arthritis Father Depression COPD (chronic obstructive pulmonary disease) Myocardial infarct Heart disease Chronic mental illness CHF (congestive heart failure) Maternal Grandmother Diabetes Social History Smoking/Tobacco Use Status: Never Smoking risk assessment performed?: Yes Alcohol Intake: never Drug use: Never Substance use type: does not use Household members: family Number of Children: 0 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[employer] Do you feel safe in your relationship?: Yes Time Spent with Patient Time Spent with Patient: <45 minutes Time was spent: preparing to see the patient(eg.review tests), obtaining and/or reviewing separately otained hiistory, referring, communicating with other health home care music therapist, counseling the patient and care coordination
[2023-02-17 14:00] VITALS: PULSE 86
[2023-02-17] MEDS: Acetaminophen 325 MG TAB PO (14:11)
--- NOTE | 2023-02-17 17:02 | PDOC.CMPRO ---
Date of service: 02/17/23 Time of Service: 17:03 Care Management Progress Note Progress Note Text Progress Note Text: Sera was discharged home with her mother before CM was able to meet with her. Her symptoms resolved and no new services were indicated or needed.
== END 2023-02-17 14:22 | disposition home or self-care (01) ==
LOC: ER 15:10 → MS 16:38
PROVIDERS: Admitting Provider Family Medicine; Emergency Provider Emergency Medicine Emergency Medical Services; PCP Nurse Practitioner Family; Visit Provider Family Medicine
DX: R55 Syncope and collapse (principal); R91.8 Other nonspecific abnormal finding of lung field; K59.00 Constipation, unspecified; I10 Essential (primary) hypertension; G43.909 Migraine, unspecified, not intractable, without status migrainosus; Z79.899 Other long term (current) drug therapy; F89 Unspecified disorder of psychological development; M47.812 Spondylosis without myelopathy or radiculopathy, cervical region; K21.9 Gastro-esophageal reflux disease without esophagitis; K58.9 Irritable bowel syndrome, unspecified; R30.0 Dysuria
CPT/HCPCS: 36415; 80048; 80053; 83690; 87637; 93005; 96361; 96365; 96375; 99285; 71046; 74177; 81003; 81015; 83605; 83735; 84484; 85025; 87086; 93010; 99222; 99239; G0378; J0131; J1885; J2405; J3490

== ENCOUNTER 2023-02-19 15:23 | Outpatient (REF) | payer MEDICARE, MEDICAID, SELFPAY ==
[2023-02-19 15:13] LABS: Abs Immature Grans 0.02 10^3/uL (0.0-0.06); Absolute Basophil Count 0.07 10^3/uL (0.0-0.2); Absolute Eosinophil Count 0.11 10^3/uL (0.0-0.7); Absolute Monocyte Count 0.53 10^3/uL (0.1-0.8); Absolute Neutrophil Count 3.33 10^3/uL (1.2-6.7); Basophils % 1.2; Eosinophils % 1.8; HCT 35.7 % (36.0-46.0); HGB 12.1 g/dL (11.2-15.7); Immature Grans % 0.3; Lymphocytes % 31.9; MCHC 33.9 % (32.0-36.0); MCV 89 fL (80-95); MPV 9.3 fL (8.0-11.0); Monocytes % 8.9; Neutrophils % 55.9; Platelet Count 321 10^3/uL (130-400); RBC 4.03 10^6/uL (3.93-5.22); RDW 13.1 % (11.7-14.6); RDW-SD 42.6 fL; WBC 5.96 10^3/uL (4.4-10.8)
[2023-02-19 15:32] LABS: ALT 23 U/L (14-59); AST 20 U/L (15-37); Albumin 4.2 g/dL (3.4-5.0); Alkaline Phosphatase 81 U/L (46-116); Anion Gap 6.8 mmol/L (3-11); BUN 16 mg/dL (7-18); Bilirubin, Total 0.5 mg/dL (0.2-1.0); C-Reactive Protein 0.23 mg/dL (0.0-0.3); CO2 30.2 mmol/L (21.0-32.0); CREATININE 0.7 mg/dL (0.55-1.02); Calcium 9.7 mg/dL (8.5-10.1); Chloride 97 mmol/L (98-107); Estimated GFR 97.72 (mL/min/1.73m2); Glucose 89 mg/dL (74-106); Potassium 4.7 mmol/L (3.5-5.1); Sodium 134 mmol/L (136-145); Total Protein 8.1 g/dL (6.4-8.2)
== END 2023-02-19 15:24 | disposition home or self-care (01) ==
LOC: NCHCN 15:23
PROVIDERS: PCP Nurse Practitioner Family; Visit Provider Family Medicine
DX: R55 Syncope and collapse (principal)
CPT/HCPCS: 80053; 85025; 86140

== ENCOUNTER 2023-03-03 02:52 | Outpatient (CLI) | payer MEDICARE, MEDICAID, SELFPAY ==
--- NOTE | 2023-03-03 | DI.MAMMO_ITS ---
Exam(s) MAMMO SCREENING EXAM: MAMMO SCREENING CLINICAL HISTORY: SCREENING, Z12.39. TECHNIQUE: Bilateral full field digital CC and MLO mammographic images were obtained with 3D tomosyn thesis and utilizing computer aided detection (CAD). COMPARISON: Prior mammograms were reviewed. FINDINGS: Fibroglandular tissue pattern is again noted be very dense, this decreasing the sensitivity of the ma mmogram for finding hidden underlying lesions. There are no CAD designations. There are no obvious new spiculated masses nor malignant appearing microcalcification groups. There is no significant architectural distortion nor skin thickening-retraction. IMPRESSION: Very dense bilateral fibroglandular tissue. No obvious radiographic evidence of malignancy. BI-RADS Category 1 - Negative Breast Density - Category D - Extremely dense Breast density Category C or D implies that the patient has dense breast tissue. Dense breast tissue can make it harder to find cancer on a mammogram. Dense breast tissue is also associated with an incr eased risk of breast cancer. This information about the result of the mammogram report was provided to the patient to raise their awareness. Use this report when you speak with the patient about their risks for breast cancer, which includes their family history. At that time, you may recommend additional screening tests (Ultrasoun d or MRI) as these tests may add significant information. A negative radiographic report should not delay biopsy if a dominant or clinically suspicious mass is present. Up to ten percent of cancers are not identified on mammography. A negative report may reinforce clinical impression. Adenosis and dense breasts may obscure an underlying neoplasm. False positive reports average 6 to 10%. Patient will receive a letter notifying them of these results.
== END 2023-03-03 03:12 ==
LOC: DI 02:52
PROVIDERS: PCP Nurse Practitioner Family; Visit Provider Family Medicine
DX: Z12.31 Encounter for screening mammogram for malignant neoplasm of breast (principal)
CPT/HCPCS: 77063; 77067

== ENCOUNTER → 2023-05-05 00:37 | Outpatient (CLI) | payer MEDICARE, MEDICAID, SELFPAY ==
--- NOTE | 2023-05-05 | DI.MRI_ITS ---
Exam(s) MR BRAIN WO/W EXAM: MR BRAIN WO/W CLINICAL HISTORY: WHITE MATTER DISEASE, R90.82, CHRONIC MIGRAINE TECHNIQUE: Multiplanar multisequence MRI of the brain was performed. Both noninfused and contrast i nfused sequences were performed. IV Contrast injected was cc Dotarem. COMPARISON: No exams were available for comparison FINDINGS: CEREBRAL PARENCHYMA: No evidence of intracranial hemorrhage, mass effect nor shift of midline structu re. No extraaxial fluid collections. Ventricles are not enlarged nor shifted. There is no significant signal abnormality in the cerebellar hemispheres. There is signal abnormalit y in both sides of the opal, not associated with hemorrhage nor restricted diffusion. There is no ab normal signal in the thalami but there is relatively symmetrical patchy bilateral periventricular whi te matter signal abnormality evident. This is not associated with hemorrhage nor enhancement following contrast injection and there is no r estricted diffusion to suggest that these represent acute ischemic events. SWI imaging reveals no ev idence of microhemorrhages. There are no obvious aneurysms. DWI: No areas of restricted diffusion to suggest acute ischemic event. SWI: No microhemorrhages evident. There are no ring enhancing lesions in the brain. There is no abnormal meningeal enhancement. PITUITARY GLAND: No mass nor parasellar abnormality. No obvious abnormality in the cavernous sinuses. FLOW VOIDS: The expected flow void are noted. No evidence of obvious aneurysm nor obvious vascular ma lformation. PARANASAL SINUSES: The visualized paranasal sinuses appear unremarkable. ORBITS: No obvious abnormal findings. IMPRESSION: 1. There is signal abnormality in both sides of the opal as well as abundant relatively symmetrical p atchy white matter signal abnormality in the periventricular regions and supra ventricular regions, t hese not associated with hemorrhage, surrounding edema, enhancement following contrast injection nor with evidence of restricted diffusion to suggest acute ischemic events. These findings may be relate d to chronic spot vessel white matter ischemic changes. Differential would include inflammatory dise ase, including Lyme disease, demyelinating disease, chronic migraine, or a combination of multiple. 2. No abnormal enhancing intracranial findings. There are no ring enhancing lesions in the brain and there is no abnormal meningeal enhancement. DATA REPOSITORY:
--- NOTE | 2023-05-05 | DI.MRI_ITS ---
Exam(s) MR CERVICAL SPINE WO EXAM: MR CERVICAL SPINE WO CLINICAL HISTORY: CERVICAL RADICULOPATHY, M54.12, WORSENING NECK PAIN, ABNL SENSATION IN TECHNIQUE: Multiplanar multisequence MRI of the cervical spine was performed without intravenous con trast. COMPARISON: MR MR CERVICAL SPINE WO from 10/04/2021 and November 2018. FINDINGS: CERVICOMEDULLARY JUNCTION: Intact with no evidence of cerebellar tonsillar ectopia. No obvious abnor mality of the odontoid process. No evidence of Chiari 1 malformation. CERVICAL SPINAL CORD: There is no abnormal signal in the cervical spinal cord and no evidence of foca l cord atrophy nor focal cord swelling. OSSEOUS:There are no cervical fractures evident. No significant osseous lesions in the cervical vert ebrae. INDIVIDUAL LEVELS: C2-3: No disc herniation nor central canal stenosis. No foraminal stenosis. No facet arthropathy. C3-4: No disc herniation nor central canal stenosis.No facet arthropathy. No foraminal stenosis. C4-5: Again noted is moderate disc space narrowing and anterior osseous spurring.Posteriorly there is again noted relatively symmetrical annular bulging and spondylitic changes which efface the anterior thecal sac but not the spinal cord. Central canal dimensions are lower normal, measuring 9 mm, unch anged. Small bilateral Luschka joint osteophytes again noted.. No significant foraminal stenosis on the left side. Moderate foraminal stenosis on the right side where there are larger Luschka joint o steophytes. There is no significant facet arthropathy. C5-6: This level exhibits unchanged moderate-advanced disc space narrowing. Posteriorly there is sym metrical annular bulging similar to the previous study which effaces the thecal sac and with AP canal measurement remains 8 mm, similar to previous. There are bilateral Luschka joint osteophytes again noted at this level. Mild degenerative changes in the facet joints. There is significant left-sided foraminal stenosis at this level. Also moderate right-sided foraminal stenosis at this level. C6-7: Relatively preserved disc height again noted at this level. No disc herniation nor central can al stenosis. AP measurement of the canal at this level is 13 mm some degenerative change in the left facet joint again noted; with minimal degenerative change in the right facet joint. There are no Ning schka joint osteophytes at this level. There is no significant foraminal stenosis at this level. C7-T1: No disc herniation nor central canal stenosis. No facet arthropathy.No foraminal stenosis. IMPRESSION: 1. Compared to prior MRI scans there is again noted moderate degenerative disc disease changes at C4- 5 and C5-6 levels with mild spinal canal stenosis at these levels. There are bilateral Luschka joint osteophytes at these levels. Additional oblique sequences performed today reveals asymmetric forami nal stenosis at these 2 levels as described above. 2. C6-7 level continues to appear unremarkable. 3. There are only minimal facet joint degenerative changes in the cervical spine. DATA REPOSITORY:
[2023-05-05] MEDS: Gadoterate meglumine 20 ML VIAL IVP (13:54)
[2023-05-05] MEDS: Normal Saline Flush 10 ML SYR IVP (13:57)
== END ==
PROVIDERS: PCP Nurse Practitioner Family; Visit Provider Family Medicine
DX: R90.82 White matter disease, unspecified (principal); M50.322 Other cervical disc degeneration at C5-C6 level; M50.323 Other cervical disc degeneration at C6-C7 level; M54.12 Radiculopathy, cervical region
CPT/HCPCS: 70553; 72141

== ENCOUNTER 2023-05-21 18:10 | Outpatient (REF) | payer MEDICARE, MEDICAID, SELFPAY ==
[2023-05-21 19:10] LABS: Anion Gap 7.7 mmol/L (3-11); BUN 16 mg/dL (7-18); CO2 27.3 mmol/L (21.0-32.0); CREATININE 0.7 mg/dL (0.55-1.02); Calcium 9.9 mg/dL (8.5-10.1); Chloride 100 mmol/L (98-107); Estimated GFR 97.12 (mL/min/1.73m2); Glucose 83 mg/dL (74-106); Magnesium 1.9 mg/dL (1.8-2.4); Potassium 4.3 mmol/L (3.5-5.1); Sodium 135 mmol/L (136-145)
== END 2023-05-21 18:11 | disposition home or self-care (01) ==
LOC: NCHCN 18:10
PROVIDERS: PCP Nurse Practitioner Family; Visit Provider Family Medicine
DX: R42 Dizziness and giddiness (principal); R55 Syncope and collapse
CPT/HCPCS: 80048; 83735

== ENCOUNTER 2023-06-17 13:50 | Outpatient (REF) | payer MEDICARE, MEDICAID, SELFPAY ==
[2023-06-17 14:47] LABS: Abs Immature Grans 0.02 10^3/uL (0.0-0.06); Absolute Basophil Count 0.04 10^3/uL (0.0-0.2); Absolute Eosinophil Count 0.02 10^3/uL (0.0-0.7); Absolute Lymphocyte Count 1.67 10^3/uL (1.2-3.4); Absolute Monocyte Count 0.57 10^3/uL (0.1-0.8); Absolute Neutrophil Count 3.27 10^3/uL (1.2-6.7); Basophils % 0.7; Eosinophils % 0.4; HCT 33.4 % (36.0-46.0); HGB 11.6 g/dL (11.2-15.7); Immature Grans % 0.4; Lymphocytes % 29.9; MCH 30.1 pg (27.0-33.0); MCHC 34.7 % (32.0-36.0); MCV 87 fL (80-95); MPV 8.9 fL (8.0-11.0); Monocytes % 10.2; Neutrophils % 58.4; Platelet Count 369 10^3/uL (130-400); RBC 3.86 10^6/uL (3.93-5.22); RDW 12.2 % (11.7-14.6); RDW-SD 38.8 fL; WBC 5.59 10^3/uL (4.4-10.8)
[2023-06-17 15:17] LABS: ALT 18 U/L (14-59); AST 16 U/L (15-37); Albumin 4.3 g/dL (3.4-5.0); Alkaline Phosphatase 59 U/L (46-116); BUN 7 mg/dL (7-18); Bilirubin, Total 0.6 mg/dL (0.2-1.0); CREATININE 0.6 mg/dL (0.55-1.02); Chloride 92 mmol/L (98-107); Glucose 122 mg/dL (74-106); Potassium 4.1 mmol/L (3.5-5.1); Sodium 127 mmol/L (136-145); Total Protein 8.1 g/dL (6.4-8.2)
== END 2023-06-17 13:51 | disposition home or self-care (01) ==
LOC: NCHCN 13:50
PROVIDERS: PCP Nurse Practitioner Family; Visit Provider Family Medicine
DX: A08.4 Viral intestinal infection, unspecified (principal)
CPT/HCPCS: 80053; 85025

== ENCOUNTER 2023-06-26 16:31 | Outpatient (REF) | payer MEDICARE, MEDICAID, SELFPAY ==
[2023-06-26 20:23] LABS: Abs Immature Grans 0.02 10^3/uL (0.0-0.06); Absolute Basophil Count 0.08 10^3/uL (0.0-0.2); Absolute Eosinophil Count 0.06 10^3/uL (0.0-0.7); Absolute Lymphocyte Count 1.99 10^3/uL (1.2-3.4); Absolute Monocyte Count 0.89 10^3/uL (0.1-0.8); Absolute Neutrophil Count 4.59 10^3/uL (1.2-6.7); Eosinophils % 0.8; HCT 32.6 % (36.0-46.0); HGB 11.5 g/dL (11.2-15.7); Immature Grans % 0.3; Lymphocytes % 26.1; MCH 31.1 pg (27.0-33.0); MCHC 35.3 % (32.0-36.0); MCV 88 fL (80-95); MPV 8.9 fL (8.0-11.0); Monocytes % 11.7; Neutrophils % 60.1; Platelet Count 438 10^3/uL (130-400); RDW 12.3 % (11.7-14.6); RDW-SD 39.7 fL; WBC 7.63 10^3/uL (4.4-10.8)
[2023-06-26 20:35] LABS: ALT 22 U/L (14-59); AST 15 U/L (15-37); Albumin 4.1 g/dL (3.4-5.0); Alkaline Phosphatase 70 U/L (46-116); BUN 9 mg/dL (7-18); Bilirubin, Total 0.4 mg/dL (0.2-1.0); CREATININE 0.7 mg/dL (0.55-1.02); Chloride 93 mmol/L (98-107); Estimated GFR 97.12 (mL/min/1.73m2); Glucose 115 mg/dL (74-106); Lipase 44 U/L (16-77); Potassium 4.3 mmol/L (3.5-5.1); Sodium 128 mmol/L (136-145)
[2023-06-27 19:11] LABS: CRP, High Sensitivity <0.34 mg/L (See Note)
== END 2023-06-26 16:32 | disposition home or self-care (01) ==
LOC: NCHCN 16:31
PROVIDERS: PCP Nurse Practitioner Family; Visit Provider Family Medicine
DX: R10.9 Unspecified abdominal pain (principal); R79.89 Other specified abnormal findings of blood chemistry; R82.998 Other abnormal findings in urine
CPT/HCPCS: 80053; 83690; 86141; 85025; 87086

== ENCOUNTER 2023-06-29 21:04 | Observation (INO) | payer MEDICARE, MEDICAID, SELFPAY ==
[2023-06-29 21:10] VITALS: BP 173/83; PULSE 96; RESP 22; TEMP 36.8; O2SAT 98
--- NOTE | 2023-06-29 21:15 | DI.CT_ITS ---
Exam(s) CT ABDOMEN PELVIS W EXAM: CT ABDOMEN PELVIS W CLINICAL HISTORY: abodminal pain. TECHNIQUE: Imaging Protocol: Axial computed tomography images with coronal and sagittal reformatted images were created and reviewed CONTRAST MATERIAL: Intravenous: Omnipaque 350 Contrast volume:65 ml Oral: / no COMPARISON: CT CT ABDOMEN PELVIS W from 02/16/2023 FINDINGS: ABDOMEN and PELVIS: Exam mildly limited by motion. Lung Bases: No acute findings. Liver: Normal density. No measurable mass. Gallbladder and biliary tract: No radiodense calculus or dilation. Pancreas: Normal density. No abnormal calcifications or inflammatory process. No evidence of mass. Spleen: Normal. Kidneys: Normal size, contour and axis. No radiodense stones. No obstructive uropathy. No suspicious masses seen. Adrenal glands: No masses seen. Vasculature: Abdominal aorta non-dilated. Soft tissues: Unremarkable. Bladder: No gross wall thickening. No calculi.No focal mass. Bowel: Large quantity of stool present. Fecalization of distal small bowel. Findings consistent wit h constipation. Recto sigmoid relatively free of stool. Question mild wall thickening of the distal sigmoid. This may also be due to under distension. Diverticulosis noted. No obstruction. No bow el wall thickening. Appendix normal. Peritoneal cavity: No ascites. No focal collection or mesenteric inflammatory response. Bones: Unremarkable for age. Reproductive organs: Within normal limits. Lymph nodes: Unremarkable. IMPRESSION:: Large quantity of stool and fecalization of distal small bowel consistent with constipa tion. There is a question of wall thickening of the distal sigmoid versus under distension. RADIATION DOSE DELIVERED: Total DLP DATA REPOSITORY: All CT scans at this facility are submitted to the National Radiology Data Registry (NRDR) Dose Index Registry (DIR) with the [employer] (A[employer]). RADIATION OPTIMIZATION: All CT scans at this facility use at least one of these dose optimization te chniques: automated exposure control; mA and/or kV adjustment per patient size (includes targeted exa ms where dose is matched to clinical indication); or iterative reconstruction.
[2023-06-29 21:52] LABS: Bilirubin Negative (Negative); Blood Negative (Negative); Clarity Clear (Clear); Glucose Negative (Negative); Ketones Negative (Negative); Leukocyte Esterase Trace (Negative); Nitrite Negative (Negative); Specific Gravity 1.015 (1.005-1.025); Urobilinogen 0.2 mg/dL (Up to 0.2); pH 7.5 (5-8)
[2023-06-29 21:59] LABS: Abs Immature Grans 0.03 10^3/uL (0.0-0.06); Absolute Basophil Count 0.08 10^3/uL (0.0-0.2); Absolute Eosinophil Count 0.14 10^3/uL (0.0-0.7); Absolute Lymphocyte Count 2.96 10^3/uL (1.2-3.4); Absolute Neutrophil Count 4.12 10^3/uL (1.2-6.7); Eosinophils % 1.7; HCT 33.6 % (36.0-46.0); HGB 11.5 g/dL (11.2-15.7); Immature Grans % 0.4; Lymphocytes % 35.5; MCH 30.5 pg (27.0-33.0); MCHC 34.2 % (32.0-36.0); MCV 89 fL (80-95); MPV 7.9 fL (8.0-11.0); Neutrophils % 49.4; Platelet Count 411 10^3/uL (130-400); RBC 3.77 10^6/uL (3.93-5.22); RDW 12.5 % (11.7-14.6); RDW-SD 41.1 fL; WBC 8.33 10^3/uL (4.4-10.8)
--- NOTE | 2023-06-29 21:59 | ED.GENADUL_ITS ---
Discharge Plan Disposition Patient Disposition: Admit to [facility] Discharge Details Chief Complaint: Abd Prob Clinical Impression: Stercoral colitis, Constipation, Abdominal pain Primary Care Provider: Carmen Pacheco ED Provider: Joseph Gardner Home Meds and New Rx's Prescriptions: No Action polyethylene glycol 3350 [Miralax] 17 gram/dose powder 17 g PO DAILY cholecalciferol (vitamin D3) 250 mcg (10,000 unit) capsule 250 mcg PO DAILY vitamin B complex [B Complex-Vitamin B12] Tablet 1 tab PO DAILY acetaminophen [Tylenol Extra Strength] 500 mg tablet 1,000 mg PO Q8H PRN omeprazole 20 mg capsule,delayed release(DR/EC) 40 mg PO DAILY naratriptan 2.5 mg tablet 2.5 mg PO ONCE PRN Qulipta 30 mg Tablet 60 mg PO DAILY fc-sn-fpnn-FA-Ca carb-vit K 18 mg iron-400 mcg-500 mg Tablet 1 tab PO DAILY ondansetron 4 mg tablet,disintegrating 4 mg PO BID-TID PRN Medical Decision Making Emergent evaluation of abdominal pain. History is significantly limited. On examination the patient does have some mild tenderness. She does have a history of colectomy. Initial plan for labs, CT imaging and reassessment Lab work unremarkable. CT scan concerning for significant and severe constipation with some concerns for early rectal inflammation, and likely stercoral colitis. No evidence of perforation at this time. We will treat with a dose of antibiotics. Given her surgical history she is high risk for obstruction. Given her developmental delay, and the age of her caregiver, she is unlikely to be successful at home for a large cleanout of this nature. Particularly since the mother has been giving her medications daily and attempt ing enema without success. I discussed with the hospitalist and will admit the patient for antibiotics, cleanout and monitoring of symptoms. Medical Records Medical records reviewed: Yes I reviewed the patient's medical records. Lab Data Lab results reviewed: Yes I reviewed the patient's lab results. HPI General Date/Time Provider Initiated Documentation: 06/29/23 21:24 . Limitations to Documentation: other (Developmental delay) . Information obtained by: patient and family . HPI Narrative: 63-year-old female with past medical history of developmental delay, chronic migraines presents for evaluation of abdominal pain. She is here with 2 family members. They are unable to really describe the reason they brought the patient into the emergency department tonight or how long she has been having abdominal pain. Her mother reports that she has been concerned that she has not had a bowel movement though she cannot tell me when her last bowel movement was. She did an enema 3 days ago with only a small amount of stool resulting. No vomiting. No difficulty with urination. No fever. Related Data Home Medications Medication Instructions Recorded Confirmed polyethylene glycol 3350 17 17 g PO DAILY 07/08/18 06/29/23 gram/dose oral powder (Miralax) acetaminophen 500 mg tablet 1,000 mg PO Q8H PRN 01/20/19 06/29/23 (Tylenol Extra Strength) naratriptan 2.5 mg tablet 2.5 mg PO ONCE PRN 03/28/21 06/29/23 omeprazole 20 mg capsule,delayed 40 mg PO DAILY 05/17/21 06/29/23 release atogepant 30 mg tablet (Qulipta) 60 mg PO DAILY 10/08/22 06/29/23 emoamriz-bcw-gxsx-FA-Ca carb-vit K 1 tab PO DAILY 10/08/22 06/29/23 18 mg iron-400 mcg-500 mg tablet cholecalciferol (vitamin D3) 250 250 mcg PO DAILY 05/14/23 06/29/23 mcg (10,000 unit) capsule vitamin B complex (B 1 tab PO DAILY 05/14/23 06/29/23 Complex-Vitamin B12 tablet) ondansetron 4 mg disintegrating 4 mg PO BID-TID PRN 06/29/23 06/29/23 tablet Allergies Allergy/AdvReac Type Severity Reaction Status Date / Time meclizine Allergy Severe Verified 05/14/23 14:42 methylphenidate Allergy Severe Verified 05/14/23 14:42 [From Ritalin] cyclobenzaprine Allergy Mild Verified 05/14/23 14:42 [From Flexeril] General Stated Complaint: Abd Prob BERNIE: 3 PFSH All Active Problems (Updated 06/30/23 @ 00:16 by Joesph Gardner MD) Abdominal pain (Acute) Constipation (Acute) Stercoral colitis (Acute) Obstipation (Acute) Colitis (Acute) Cervical radiculitis (Acute) Hypertension (Chronic) Hx of migraine headaches (Acute) Ground glass opacity present on imaging of lung (Acute) Constipation (Acute) Sensorineural hearing loss, bilateral (Acute) Conductive hearing loss, external ear (Acute) Impacted cerumen, bilateral (Acute) Frequent headaches (Acute) Migraine without aura, intractable, with status migrainosus (Acute) Hx of colonoscopy (Chronic) Hemorrhoids (Acute) Cerumen impaction (Acute) Dysphagia (Acute) Left foot pain (Acute) Other fatigue (Acute) Snoring (Acute) Cervical spondylosis without myelopathy (Acute) Cervical spondylosis without myelopathy (Acute) Migraine headache with aura (Chronic) Migraine headache without aura (Acute) Chronic daily headache (Acute) New onset headache (Acute) Medical History Palpitations Lower urinary tract symptoms (LUTS) Recurrent UTI Dysuria Headache Depression Developmental delay, moderate IBS (irritable bowel syndrome) GERD (gastroesophageal reflux disease) Cold intolerance Basal cell carcinoma Neck pain Anemia Fatigue Dizziness Surgical History 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[employer] Do you feel safe at home: Yes Do you feel safe in your relationship?: Yes Exam Narrative Exam Narrative: Review of Systems: All systems reviewed & are unremarkable except as noted in HPI and below: CONSTITUTIONAL: Alert , slow, answer simple questions Well-developed, no acute distress HEENT: NACT EYES: PERRL, no conjunctival injection EARS: no external abnormality NOSE nares patent MOUTH Moist MM NECK: Symmetric, trachea midline, No thyromegaly THROAT oropharynx clear CVS: RRR, No murmurs or gallops. Peripheral pulses 2+ and equal in all extremities Brisk capillary refill in all extremities. No peripheral edema RESP: Unlabored respiratory effort, Clear to auscultation bilaterally No wheezes rales or rhonchi GI: Soft, midline laparotomy scar noted, mild suprapubic tenderness, no distention MSK: Extremities with full range of motion, no deformity or TTP SKIN: Warm, Dry. No rashes or lesions. NEURO: No focal neurologic deficits. Course Vital Signs Vital signs: Vital Signs Temperature 36.8 C 06/29/23 21:10 Pulse 96 H 06/29/23 21:10 Respiratory Rate 22 06/29/23 21:10 Blood Pressure 173/83 H 06/29/23 21:10 Pulse Oximetry 98 06/29/23 21:10 Temperature 36.8 C 06/29/23 21:10 Temperature Source Temporal Artery Scan 06/29/23 21:10 Pulse 96 H 06/29/23 21:10 Respiratory Rate 22 06/29/23 21:10 Blood Pressure 173/83 H 06/29/23 21:10 Blood Pressure Position Sitting 06/29/23 21:10 Pulse Oximetry 98 06/29/23 21:10 Oxygen Delivery Method Room Air 06/29/23 21:10 Oxygen Flow Rate 0 06/29/23 21:10 Pain Level 10 06/29/23 21:14
[2023-06-29 22:03] LABS: Bacteria Negative HPF (Negative); C & S Indicated? No; Crystals Negative HPF (Negative); Epithelial Cells Negative HPF (Negative); Mucus Negative (Negative); RBC Negative HPF (0-2); WBC 0-2 HPF (0-5)
[2023-06-29 22:18] LABS: ALT 19 U/L (14-59); AST 16 U/L (15-37); Albumin 4.1 g/dL (3.4-5.0); Alkaline Phosphatase 93 U/L (46-116); Anion Gap 7.6 mmol/L (3-11); BUN 12 mg/dL (7-18); Bilirubin, Total 0.3 mg/dL (0.2-1.0); CO2 28.4 mmol/L (21.0-32.0); CREATININE 0.6 mg/dL (0.55-1.02); Calcium 10.1 mg/dL (8.5-10.1); Chloride 97 mmol/L (98-107); Glucose 101 mg/dL (74-106); Potassium 4.3 mmol/L (3.5-5.1); Sodium 133 mmol/L (136-145); Total Protein 8.1 g/dL (6.4-8.2)
[2023-06-29] MEDS: Normal Saline Flush 10 ML SYR IVP (22:49)
[2023-06-29] MEDS: Normal Saline - Diluent 50 ML VIAL IJ (22:50)
[2023-06-29] MEDS: Omnipaque 350 MG/ML 100 ML BTL IJ (22:51)
--- NOTE | 2023-06-29 23:39 | DI.VRAD_ITS ---
PROCEDURE INFORMATION: Exam: CT Abdomen And Pelvis With Contrast Exam date and time: 06/29/2023 10:47 PM Age: 63 years old Clinical indication: Abdominal pain; Generalized; Prior surgery; Surgery date: 6+ months; Surgery type: Colectomy TECHNIQUE: Imaging protocol: Computed tomography of the abdomen and pelvis with contrast. Radiation optimization: All CT scans at this facility use at least one of these dose optimization techniques: automated exposure control; mA and/or kV adjustment per patient size (includes targeted exams where dose is matched to clinical indication); or iterative reconstruction. Contrast material: OMNIPAQUE 350; Contrast volume: 65 ml; Contrast route: INTRAVENOUS (IV); COMPARISON: CT ABDOMEN PELVIS W 02/16/2023 1:39 PM FINDINGS: Lungs: There is heterogeneous attenuation of the pulmonary parenchyma, consistent with air trapping from underlying small airways disease. The lungs are otherwise normal. Pleural spaces: There is no evidence of pneumothorax. There are no pleural effusions present. Heart: The cardiac structures are normal. Liver: There are no focal liver lesions present. There is no evidence of intrahepatic or extrahepatic biliary ductal dilation. Gallbladder and bile ducts: The gallbladder is normal. There is no cholelitiasis, wall thickening or pericholecystic fluid to suggest cholecystitis. Pancreas: The pancreas is normal. Spleen: The spleen is normal. Adrenal glands: The adrenal glands are normal. Kidneys and ureters: The kidneys are normal. Stomach and bowel: There is marked increased colonic fecal content. The colon is moderately distended. These findings suggest a moderate to severe degree of constipation.There is fecalization of the small bowel. Consider chronic constipation. Clinical correlation recommended. Moderate diverticulosis is present in the sigmoid and descending colon. There is mild thickening of the wall of the rectum and sigmoid colon. Early or mild colitis or diverticulitis can not be excluded. Appendix: There is no evidence of appendicitis. Intraperitoneal space: There is no free intraperitoneal air. There is no evidence of free intraperitoneal or pelvic fluid. Vasculature: The aorta demonstrates mild atherosclerotic calcification. The arterial peripheral vasculature demonstrates diffuse mild atherosclerotic calcification. The inferior venacava appears normal.The portal, mesenteric and splenic veins are patent. Lymph nodes: There is no evidence of lymphadenopathy. Urinary bladder: The bladder is normal. Reproductive: The uterus is normal. Bones/joints: The skeletal structures and soft tissues show no evidence of fracture or other acute processes. Soft tissues: The extra-abdominal soft tissues are normal. IMPRESSION: 1. There is heterogeneous attenuation of the pulmonary parenchyma, consistent with air trapping from underlying small airways disease. 2. There is marked increased colonic fecal content. The colon is moderately distended. These findings suggest a moderate to severe degree of constipation.There is fecalization of the small bowel. Consider chronic constipation. Clinical correlation recommended. 3. There is mild thickening of the wall of the rectum and sigmoid colon. Early or mild colitis or diverticulitis can not be excluded. Dictated and Authenticated by: Humberto Nieves MD. Ordering:LARA Mckay MD
[2023-06-30] VITALS (8 sets, daily range): BP systolic 162–181; BP diastolic 84–93; PULSE 87–107; RESP 16–24; TEMP 36.5–37.3; O2SAT 97–99
--- NOTE | 2023-06-30 00:02 | W.PM.HP.N ---
Date of service: 06/30/23 Time of Service: 00:03 Assessment and Plan Assessment and plan (1) Obstipation: Start date: 06/29/23 Status: Acute Assessment and plan: This is a 63-year-old lady who has chronic constipation and IBS and on daily low-dose MiraLAX who presents with worsening constipation and CT scan reveals heavy stool burden of the colon. She also has possible colitis in the lower colon and will be placed on Zosyn with aggressive cathartics to clean out her stool burden. Surgical consultation will be sought if there are complications but for now she is not obstructed and hopefully can resolve this with IV hydration and enemas with large doses of MiraLAX. Bowel prep will be done. She is a full code. (2) Colitis: Status: Acute Assessment and plan: Patient has increased pain with constipation and possible colitis with Zosyn for now watching for fever or increased WBC which is presently not active. Converted to Augmentin for treatment as outpatient if needed. Aggressive bowel prep while hospitalized. (3) IBS (irritable bowel syndrome): Assessment and plan: Patient need to be more aggressive with bowel regimen and consider GI consultation if needed. Qualifiers: Irritable bowel syndrome type: with constipation Qualified Code(s): K58.1 - Irritable bowel syndrome with constipation History of Present Illness History of Present Illness Chief Complaint: Abdominal pain increasing over the last day with chronic constipation Narrative: This is a 63-year-old female patient who is cared for by her mother who is elderly and has chronic behavioral issues with no clear diagnosis developmental delay. She is a vague historian. She does state that she has had chronic abdominal pain chronic constipation recently has had decreased bowel movements with a last bowel movement 4 days ago which was solid without blood. ED notes indicate the mother states she had an enema 3 days ago with little results. Patient is on daily MiraLAX with low-dose. She had increasing pain over her entire abdomen which worsened the day of presentation. She is not attended by her mother at the time of my evaluation and further history was not obtainable. Imaging did reveal possible proctitis or colitis with patient having increasing pain and severe constipation with heavy stool burden of the colon. There is no signs of obstruction. She is not having nausea or vomiting. She does have IBS with constipation chronically. Otherwise patient history has been stable. She is a full code. Review of Systems Narrative: 13 point review of systems otherwise unrevealing or stable with patient being a vague historian. PFSH All Active Problems Abdominal pain (Acute) Constipation (Acute) Stercoral colitis (Acute) Obstipation (Acute) Colitis (Acute) Cervical radiculitis (Acute) Hypertension (Chronic) Hx of migraine headaches (Acute) Ground glass opacity present on imaging of lung (Acute) Constipation (Acute) Sensorineural hearing loss, bilateral (Acute) Conductive hearing loss, external ear (Acute) Impacted cerumen, bilateral (Acute) Frequent headaches (Acute) Migraine without aura, intractable, with status migrainosus (Acute) Hx of colonoscopy (Chronic) Hemorrhoids (Acute) Cerumen impaction (Acute) Dysphagia (Acute) Left foot pain (Acute) Other fatigue (Acute) Snoring (Acute) Cervical spondylosis without myelopathy (Acute) Cervical spondylosis without myelopathy (Acute) Migraine headache with aura (Chronic) Migraine headache without aura (Acute) Chronic daily headache (Acute) New onset headache (Acute) Medical History Palpitations Lower urinary tract symptoms (LUTS) Recurrent UTI Dysuria Headache Depression Developmental delay, moderate IBS (irritable bowel syndrome) GERD (gastroesophageal reflux disease) Cold intolerance Basal cell carcinoma Neck pain Anemia Fatigue Dizziness Surgical History 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[employer] Do you feel safe at home: Yes Do you feel safe in your relationship?: Yes Meds Allergies and Home Medications Allergies Allergy/AdvReac Type Severity Reaction Status Date / Time meclizine Allergy Severe Verified 05/14/23 14:42 methylphenidate Allergy Severe Verified 05/14/23 14:42 [From Ritalin] cyclobenzaprine Allergy Mild Verified 05/14/23 14:42 [From Flexeril] Home Medications Medication Instructions Recorded Confirmed Type polyethylene glycol 3350 17 17 g PO DAILY 07/08/18 06/29/23 History gram/dose oral powder (Miralax) acetaminophen 500 mg tablet 1,000 mg PO Q8H PRN 01/20/19 06/29/23 History (Tylenol Extra Strength) naratriptan 2.5 mg tablet 2.5 mg PO ONCE PRN 03/28/21 06/29/23 History omeprazole 20 mg capsule,delayed 40 mg PO DAILY 05/17/21 06/29/23 History release atogepant 30 mg tablet (Qulipta) 60 mg PO DAILY 10/08/22 06/29/23 History cooducml-qdf-bjha-FA-Ca carb-vit K 1 tab PO DAILY 10/08/22 06/29/23 History 18 mg iron-400 mcg-500 mg tablet cholecalciferol (vitamin D3) 250 250 mcg PO DAILY 05/14/23 06/29/23 History mcg (10,000 unit) capsule vitamin B complex (B 1 tab PO DAILY 05/14/23 06/29/23 History Complex-Vitamin B12 tablet) ondansetron 4 mg disintegrating 4 mg PO BID-TID PRN 06/29/23 06/29/23 History tablet Exam Narrative Exam Narrative: General: Patient appears appropriate, she is then in no acute distress though she appears slightly anxious and repetitive with her conversation. She is alert and oriented at least to person and place. HEENT: Normocephalic, eyes with pupils equal react light symmetrically, extraocular intact and sclera anicteric. Oropharynx with dry mucosa. Neck: Supple without JVD. Back: Normal posture without CVA tenderness. Lungs: Clear to oscillation percussion without focalizing rales or rhonchi. Breast: Exam deferred. Heart: Regular rhythm with no murmurs gallops appreciated. Abdomen: Normal contour, tender diffusely with guarding but no rebound. Bowel sounds positive in all quadrants. No palpable hepatosplenomegaly or masses. Genitalia/rectal: Exam deferred. Extremities: Without clubbing, cyanosis or pitting edema. Skin: Normal color, warm and dry. Neuro: Cranial nerves II through XII gross intact, no focalizing motor deficits. No tremor. Psych: Flattened affect with anxious and slightly depressed mood. No abnormal thought processes. Patient is repetitive in a conversation. Remote and recent memory grossly intact the patient is a vague historian. Results Imaging Imaging Studies: Exam: CT Abdomen And Pelvis With Contrast Exam date and time: 06/29/2023 10:47 PM Age: 63 years old Clinical indication: Abdominal pain; Generalized; Prior surgery; Surgery date: 6+ months; Surgery type: Colectomy TECHNIQUE: Imaging protocol: Computed tomography of the abdomen and pelvis with contrast. Radiation optimization: All CT scans at this facility use at least one of these dose optimization techniques: automated exposure control; mA and/or kV adjustment per patient size (includes targeted exams where dose is matched to clinical indication); or iterative reconstruction. Contrast material: OMNIPAQUE 350; Contrast volume: 65 ml; Contrast route: INTRAVENOUS (IV); COMPARISON: CT ABDOMEN PELVIS W 02/16/2023 1:39 PM FINDINGS: Lungs: There is heterogeneous attenuation of the pulmonary parenchyma, consistent with air trapping from underlying small airways disease. The lungs are otherwise normal. Pleural spaces: There is no evidence of pneumothorax. There are no pleural effusions present. Heart: The cardiac structures are normal. Liver: There are no focal liver lesions present. There is no evidence of intrahepatic or extrahepatic biliary ductal dilation. Gallbladder and bile ducts: The gallbladder is normal. There is no cholelitiasis, wall thickening or pericholecystic fluid to suggest cholecystitis. Pancreas: The pancreas is normal. Spleen: The spleen is normal. Adrenal glands: The adrenal glands are normal. Kidneys and ureters: The kidneys are normal. Stomach and bowel: There is marked increased colonic fecal content. The colon is moderately distended. These findings suggest a moderate to severe degree of constipation.There is fecalization of the small bowel. Consider chronic constipation. Clinical correlation recommended. Moderate diverticulosis is present in the sigmoid and descending colon. There is mild thickening of the wall of the rectum and sigmoid colon. Early or mild colitis or diverticulitis can not be excluded. Appendix: There is no evidence of appendicitis. Intraperitoneal space: There is no free intraperitoneal air. There is no evidence of free intraperitoneal or pelvic fluid. Vasculature: The aorta demonstrates mild atherosclerotic calcification. The arterial peripheral vasculature demonstrates diffuse mild atherosclerotic calcification. The inferior venacava appears normal.The portal, mesenteric and splenic veins are patent. Lymph nodes: There is no evidence of lymphadenopathy. Urinary bladder: The bladder is normal. Reproductive: The uterus is normal. Bones/joints: The skeletal structures and soft tissues show no evidence of fracture or other acute processes. Soft tissues: The extra-abdominal soft tissues are normal. IMPRESSION: 1. There is heterogeneous attenuation of the pulmonary parenchyma, consistent with air trapping from underlying small airways disease. 2. There is marked increased colonic fecal content. The colon is moderately distended. These findings suggest a moderate to severe degree of constipation.There is fecalization of the small bowel. Consider chronic constipation. Clinical correlation recommended. 3. There is mild thickening of the wall of the rectum and sigmoid colon. Early or mild colitis or diverticulitis can not be excluded. Labs 06/29/23 21:50 06/29/23 21:50 Labs: Laboratory Results - last 24 hr 06/29/23 06/29/23 21:45 21:50 WBC 8.33 RBC 3.77 L Hgb 11.5 Hct 33.6 L MCV 89 MCH 30.5 MCHC 34.2 RDW 12.5 Plt Count 411 H MPV 7.9 L Immature Gran % 0.4 Neutrophils % 49.4 Lymphocytes % 35.5 Monocytes % 12.0 Eosinophils % 1.7 Basophils % 1.0 Nucleated RBC % 0.0 Absolute Neutrophils 4.12 Absolute Lymphocytes 2.96 Absolute Monocytes 1.00 H Absolute Eosinophils 0.14 Absolute Basophils 0.08 Sodium 133 L Potassium 4.3 Chloride 97 L Carbon Dioxide 28.4 Anion Gap 7.6 BUN 12 Creatinine 0.6 Est GFR (CKD-EPI 2020) 100.80 Glucose 101 Calcium 10.1 Total Bilirubin 0.3 AST 16 ALT 19 Alkaline Phosphatase 93 Total Protein 8.1 Albumin 4.1 Urine Color Yellow Urine Clarity Clear Urine pH 7.5 Ur Specific [place] 1.015 Urine Protein Negative Urine Ketones Negative Urine Blood Negative Urine Nitrite Negative Urine Bilirubin Negative Urine Urobilinogen 0.2 Ur Leukocyte Esterase Trace H Urine RBC Negative Urine WBC 0-2 Ur Epithelial Cells Negative Urine Crystals Negative Urine Bacteria Negative Urine Mucus Negative Ur Culture Indicated? No Urine Glucose Negative Last Vital Signs Temp 36.8 C 06/29/23 21:10 Pulse 96 H 06/29/23 21:10 Resp 22 06/29/23 21:10 BP 173/83 H 06/29/23 21:10 Pulse Ox 98 06/29/23 21:10 Time Spent Time spent with Patient: 55-74 minutes Time was spent: preparing to see the patient(eg.review tests), obtaining and/or reviewing separately otained hiistory, ordering medications,tests, procedures, referring, communicating with other health child care center assistant director, indepentently interpreting results and care coordination
[2023-06-30] MEDS: PIPERACILLIN/TAZO 4.5 GM in Normal Saline 100 ML IVPB (00:10)
[2023-06-30] MEDS: Normal Saline 1,000 ML 100 ML IV (00:10)
[2023-06-30] MEDS: Heparin 5,000 UNITS/ML VIAL 5000 UNITS SC ×4 (00:51→23:24)
[2023-06-30 01:02] LABS: Source Nasal/Nares
[2023-06-30] MEDS: Polyethylene Glycol 3350 238 GM BTL PO (01:03)
[2023-06-30 01:37] LABS: COVID-19 PCR Negative (Negative)
[2023-06-30] MEDS: Acetaminophen 325 MG TAB PO ×4 (02:38→21:23)
[2023-06-30] MEDS: Normal Saline 1,000 ML 125 ML IV ×3 (02:50→19:24)
[2023-06-30] MEDS: Mylanta Suspension 30 ML CUP PO (06:28)
[2023-06-30] MEDS: Ondansetron O.D.T. 4 MG TABEF PO (06:28)
[2023-06-30 06:52] LABS: HCT 30.1 % (36.0-46.0); HGB 10.5 g/dL (11.2-15.7); MCH 30.7 pg (27.0-33.0); MCHC 34.9 % (32.0-36.0); MCV 88 fL (80-95); MPV 8.4 fL (8.0-11.0); Platelet Count 395 10^3/uL (130-400); RBC 3.42 10^6/uL (3.93-5.22); RDW 12.7 % (11.7-14.6); RDW-SD 40.7 fL; WBC 7.18 10^3/uL (4.4-10.8)
[2023-06-30 07:21] LABS: ALT 19 U/L (14-59); AST 16 U/L (15-37); Albumin 3.7 g/dL (3.4-5.0); Alkaline Phosphatase 71 U/L (46-116); Anion Gap 6.6 mmol/L (3-11); BUN 9 mg/dL (7-18); Bilirubin, Total 0.6 mg/dL (0.2-1.0); CO2 28.4 mmol/L (21.0-32.0); CREATININE 0.6 mg/dL (0.55-1.02); Calcium 9.6 mg/dL (8.5-10.1); Chloride 99 mmol/L (98-107); Glucose 111 mg/dL (74-106); Magnesium 1.9 mg/dL (1.8-2.4); Potassium 3.6 mmol/L (3.5-5.1); Sodium 134 mmol/L (136-145); TSH (W/Ref FT4) 1.21 uIU/mL (0.36-3.74); Total Protein 7.5 g/dL (6.4-8.2)
[2023-06-30 08:01] LABS: Sodium, Urine 28 mmol/L
[2023-06-30] MEDS: Omeprazole 20 MG CAPCR 40 MG PO (08:14)
[2023-06-30] MEDS: Vitamins B Comp w/C TAB 1 TAB PO (08:14)
[2023-06-30] MEDS: Multivitamin w/Minerals TAB 1 TAB PO (08:15)
[2023-06-30] MEDS: PIPERACILLIN/TAZO 3.375 GM in Normal Saline 50 ML IVPB ×3 (08:20→20:11)
--- NOTE | 2023-06-30 10:26 | INITIAL_ITS ---
Date of service: 06/30/23 Time of Service: 10:28 Care Management Initial Assmt Initial Assessment REASON FOR HOSPITALIZATION:: obstipation PREVIOUS FUNCTIONAL STATUS/SOCIAL/FAMILY SUPPORTS:: Sera lives in a single family home in [place] with her mother and her cat [place]. She has one brother, Unique, who recently moved [facility] [place] They are fairly close and get together from time to time. Sera is able to perform her ADLs independently and does not need a cane or walker for ambulation. CURRENT FUNCTIONAL STATUS:: Sera was sitting up in bed when CM met with her. She appeared and sounded extremely anxious. She engaged with CM for a short time then stated that she did not want to answer any more questions. Sera was admitted with constipation and shared that her abdomen is sore and that she sti ll has not been able to have a BM. ADVANCE DIRECTIVES:: none Has patient been provided with info about the portal/API?: Yes Did the patient sign up for the portal?: No CODE STATUS:: Full Code INSURANCE COVERAGE / FINANCIAL ISSUES:: Medicare Financial Assist 100 CURRENT HOME/COMMUNITY SERVICES/EQUIPMENT:: none PRIMARY CARE PHYSICIAN:: Carmen Pacheco POTENTIAL DISCHARGE NEEDS:: follow up with community providers, limitations, activity, diet, medications, follow up plan, discuss Ask Me Three PATIENT/FAMILY EDUCATION NEEDS:: Review discharge instructions, TRANSPORTATION:: via private vehicle with mother PLAN:: Anticipate Sera will be discharged home with no new services. She will follow up with her community providers and plan of care and transport with family. CM will follow and assess for discharge needs. PFSH All Active Problems Abdominal pain (Acute) Constipation (Acute) Stercoral colitis (Acute) Obstipation (Acute) Colitis (Acute) Cervical radiculitis (Acute) Hypertension (Chronic) Hx of migraine headaches (Acute) Ground glass opacity present on imaging of lung (Acute) Constipation (Acute) Sensorineural hearing loss, bilateral (Acute) Conductive hearing loss, external ear (Acute) Impacted cerumen, bilateral (Acute) Frequent headaches (Acute) Migraine without aura, intractable, with status migrainosus (Acute) Hx of colonoscopy (Chronic) Hemorrhoids (Acute) Cerumen impaction (Acute) Dysphagia (Acute) Left foot pain (Acute) Other fatigue (Acute) Snoring (Acute) Cervical spondylosis without myelopathy (Acute) Cervical spondylosis without myelopathy (Acute) Migraine headache with aura (Chronic) Migraine headache without aura (Acute) Chronic daily headache (Acute) New onset headache (Acute) Medical History Palpitations Lower urinary tract symptoms (LUTS) Recurrent UTI Dysuria Headache Depression Developmental delay, moderate IBS (irritable bowel syndrome) GERD (gastroesophageal reflux disease) Cold intolerance Basal cell carcinoma Neck pain Anemia Fatigue Dizziness Surgical History 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[employer] Do you feel safe at home: Yes Do you feel safe in your relationship?: Yes
[2023-06-30] MEDS: Bisacodyl 5 MG TABEC 10 MG PO (12:32)
[2023-06-30] MEDS: Mineral Oil-Enema 133 ML BTL PR (12:33)
[2023-06-30] MEDS: Milk of Magnesia 30 ML CUP PO (13:50)
[2023-06-30] MEDS: Docusate Sodium 100 MG CAP PO (13:50)
[2023-06-30] MEDS: Polyethylene Glycol 3350 17 GM PACKET PO (13:50)
[2023-06-30 17:07] LABS: Osmolality, Urine 179 mOsm/kg (150-1150)
--- NOTE | 2023-06-30 19:14 | W.PM.PROGNOT ---
Date of Service Date of service: 06/30/23 Time of Service: 19:14 Assessment and Plan Assessment and plan (1) Obstipation: Start date: 06/29/23 Status: Acute Assessment and plan: Appears to be resolving. I think this could be related to either her very high doses of vitamin D3 at home or her migraine medication, Qulipta. I stopped her Vitamin D supplement and am checking a level tomorrow am. Continue a scheduled bowel regimen. (2) Colitis: Status: Acute Assessment and plan: I do not feel that this is infectious colitis. Possibly stercoral colitis. If no fever overnight, would d/c abx in am. (3) IBS (irritable bowel syndrome): Assessment and plan: As above Qualifiers: Irritable bowel syndrome type: with constipation Qualified Code(s): K58.1 - Irritable bowel syndrome with constipation (4) Hypertension: Status: Chronic Assessment and plan: Once constipation resolves, if still has elevated BP/palpitations, would consider starting therapy. (5) DVT prophylaxis: Status: Acute Assessment and plan: SC heparin (6) Discharge planning issues: Status: Acute Assessment and plan: Full code Anticipate discharge home in the next 24-48 hrs. Subjective Subjective Interval history since last seen: Ms Nair is finally having a BM. She stated she was ok with me coming in to see her while she was in the process. She denies dizziness, CP, SOB, nausea. She stated her lower abdomen was hurting from straining. Exam Narrative Exam Narrative: General: A pleasant middle-aged female who is A&Ox3, appears comfortable on the toilet HEENT: EOMI, MMM Heart: RRR, mildly tachycardic Lungs: CTAB Abdomen: soft, nondistended Extremities: no edema Objective Last Vital Signs Temp 36.8 C 06/30/23 15:04 Pulse 102 H 06/30/23 15:04 Resp 16 06/30/23 15:04 BP 162/93 H 06/30/23 15:04 Pulse Ox 97 06/30/23 15:04 Laboratory Results - last 24 hr 06/29/23 06/29/23 06/30/23 21:45 21:50 01:00 WBC 8.33 RBC 3.77 L Hgb 11.5 Hct 33.6 L MCV 89 MCH 30.5 MCHC 34.2 RDW 12.5 Plt Count 411 H MPV 7.9 L Immature Gran % 0.4 Neutrophils % 49.4 Lymphocytes % 35.5 Monocytes % 12.0 Eosinophils % 1.7 Basophils % 1.0 Nucleated RBC % 0.0 Absolute Neutrophils 4.12 Absolute Lymphocytes 2.96 Absolute Monocytes 1.00 H Absolute Eosinophils 0.14 Absolute Basophils 0.08 Sodium 133 L Potassium 4.3 Chloride 97 L Carbon Dioxide 28.4 Anion Gap 7.6 BUN 12 Creatinine 0.6 Est GFR (CKD-EPI 2020) 100.80 Glucose 101 Calcium 10.1 Magnesium Total Bilirubin 0.3 AST 16 ALT 19 Alkaline Phosphatase 93 Total Protein 8.1 Albumin 4.1 TSH Urine Color Yellow Urine Clarity Clear Urine pH 7.5 Ur Specific [place] 1.015 Urine Protein Negative Urine Ketones Negative Urine Blood Negative Urine Nitrite Negative Urine Bilirubin Negative Urine Urobilinogen 0.2 Ur Leukocyte Esterase Trace H Urine RBC Negative Urine WBC 0-2 Ur Epithelial Cells Negative Urine Crystals Negative Urine Bacteria Negative Urine Mucus Negative Ur Culture Indicated? No Ur Random Sodium 28 Urine Glucose Negative COVID-19 Source Nasal/Nares SARS-CoV-2 (PCR) Negative 06/30/23 06/30/23 06:05 06:05 WBC 7.18 RBC 3.42 L Hgb 10.5 L Hct 30.1 L MCV 88 MCH 30.7 MCHC 34.9 RDW 12.7 Plt Count 395 MPV 8.4 Immature Gran % Neutrophils % Lymphocytes % Monocytes % Eosinophils % Basophils % Nucleated RBC % Absolute Neutrophils Absolute Lymphocytes Absolute Monocytes Absolute Eosinophils Absolute Basophils Sodium 134 L Potassium 3.6 Chloride 99 Carbon Dioxide 28.4 Anion Gap 6.6 BUN 9 Creatinine 0.6 Est GFR (CKD-EPI 2020) 100.80 Glucose 111 H Calcium 9.6 Magnesium 1.9 Total Bilirubin 0.6 AST 16 ALT 19 Alkaline Phosphatase 71 Total Protein 7.5 Albumin 3.7 TSH Cancelled 1.21 Urine Color Urine Clarity Urine pH Ur Specific [place] Urine Protein Urine Ketones Urine Blood Urine Nitrite Urine Bilirubin Urine Urobilinogen Ur Leukocyte Esterase Urine RBC Urine WBC Ur Epithelial Cells Urine Crystals Urine Bacteria Urine Mucus Ur Culture Indicated? Ur Random Sodium Urine Glucose COVID-19 Source SARS-CoV-2 (PCR) Time Spent with Patient Time Spent with Patient: 25-34 minutes Time was spent: preparing to see the patient(eg.review tests), obtaining and/or reviewing separately otained hiistory, ordering medications,tests, procedures, referring, communicating with other health customer care representative, indepentently interpreting results, counseling the patient and care coordination
[2023-07-01] MEDS: PIPERACILLIN/TAZO 3.375 GM in Normal Saline 50 ML IVPB ×2 (01:29→07:55)
[2023-07-01] MEDS: Ondansetron O.D.T. 4 MG TABEF PO (01:53)
[2023-07-01] MEDS: Normal Saline 1,000 ML 125 ML IV (01:53)
[2023-07-01 03:39] VITALS: BP 117/60; PULSE 93; RESP 16; TEMP 36.5; O2SAT 93
[2023-07-01 07:50] VITALS: BP 165/92; PULSE 99; RESP 19; TEMP 35.8; O2SAT 97
[2023-07-01] MEDS: Multivitamin w/Minerals TAB 1 TAB PO (07:53)
[2023-07-01] MEDS: Vitamins B Comp w/C TAB 1 TAB PO (07:53)
[2023-07-01] MEDS: Docusate Sodium 100 MG CAP PO (07:54)
[2023-07-01] MEDS: Heparin 5,000 UNITS/ML VIAL 5000 UNITS SC ×2 (07:54→16:20)
[2023-07-01] MEDS: Omeprazole 20 MG CAPCR 40 MG PO (07:54)
[2023-07-01 07:55] LABS: BUN 5 mg/dL (7-18); CREATININE 0.6 mg/dL (0.55-1.02); Calcium 9.9 mg/dL (8.5-10.1); Chloride 101 mmol/L (98-107); Glucose 112 mg/dL (74-106); Magnesium 2.2 mg/dL (1.8-2.4); Potassium 3.5 mmol/L (3.5-5.1); Sodium 135 mmol/L (136-145)
[2023-07-01] MEDS: Polyethylene Glycol 3350 17 GM PACKET PO (07:55)
[2023-07-01 11:04] VITALS: BP 158/82; PULSE 99; RESP 18; TEMP 36.6; O2SAT 97
[2023-07-01] MEDS: Ketorolac 15 MG/ML VIAL IVP (11:18)
[2023-07-01] MEDS: Normal Saline Flush 10 ML SYR IVP (11:18)
[2023-07-01] MEDS: Mylanta Suspension 30 ML CUP PO ×2 (11:18→15:31)
--- NOTE | 2023-07-01 11:33 | PDOC.CMPRO ---
Date of service: 07/01/23 Time of Service: 11:33 Care Management Progress Note Progress Note Text Progress Note Text: S/O: A: Sera is a 63 year old female admitted to [facility] on 06/30/23 for obstination, colitis. P: Anticipate Sera will be discharged home with no new services. She will follow up with her community providers and plan of care and transport with family. CM will follow and assess for discharge needs.
[2023-07-01] MEDS: Dicyclomine 10 MG CAP PO ×2 (11:54→16:20)
[2023-07-01 15:14] VITALS: BP 146/77; PULSE 101; RESP 17; TEMP 36.5; O2SAT 97
--- NOTE | 2023-07-01 15:58 | DSE_ITS ---
Date of service: 07/01/23 Time of Service: 15:58 DS: Diagnosis Discharge Diagnosis (1) Obstipation: Status: Resolved (2) Colitis: Status: Acute (3) IBS (irritable bowel syndrome): (4) Hypertension: Status: Chronic Discharge Plan Disposition Patient Disposition: Home Condition: Good Discharge Details Reason For Visit: Obstipation,Colitis Admit Date/Time: 06/30/23 00:08 Admit Provider: Bruce Disla Attending Provider: Bruce Disla Primary Care Provider: Carmen Pacheco Hospital Course Hospital Course: Ms Nair is a 63 year old female with PMHx of chronic abdominal pain due to constipation, hypertension, migraine headaches, chronic behavioral issues, vitamin D deficiency, who was a patient on [facility] hospitalist service form 06/30/23 until 07/01/23 for constipation/obstipation. This was likely the result of either high dose vitamin D therapy or her migraine medication, Qulipta. Vitamin D was discontinued. The patient was initiated on a bowel regimen, her constipation resolved. Her abdominal cramping was treated with dicyclomine. Whle her imaging demonstrated possible colitis, it is not believed to be infectious and, rather, is thought to be stercoral in nature. The patient is tolerating PO. On discharge, we recommend cessation of Vitamin D therapy for now. Should it be restarted, we do not recommend a dose higher than 2,000 iu daily (she was on 10,000 iu daily of vitamin D3). If constipation returns off of vitamin D3 supplements, consider changing her migraine agent. Care for patient as well as completion of her discharge summary took 40 minutes on the day of discharge. Home Meds and New Rx's Prescriptions: New dicyclomine 10 mg Capsule 10 mg PO QID PRN PRN (Reason: abdominal pain) Qty: 30 0RF docusate sodium [Colace] 100 mg Capsule 100 mg PO BID PRN PRN (Reason: constipation) Qty: 30 0RF polyethylene glycol 3350 17 gram Powder In Packet 17 g PO DAILY Qty: 30 0RF Rx Instructions: hold if having diarrhea Continued polyethylene glycol 3350 [Miralax] 17 gram/dose powder 17 g PO DAILY vitamin B complex [B Complex-Vitamin B12] Tablet 1 tab PO DAILY acetaminophen [Tylenol Extra Strength] 500 mg tablet 1,000 mg PO Q8H PRN omeprazole 20 mg capsule,delayed release(DR/EC) 40 mg PO DAILY naratriptan 2.5 mg tablet 2.5 mg PO ONCE PRN Qulipta 30 mg Tablet 60 mg PO DAILY [id number] carb-vit K 18 mg iron-400 mcg-500 mg Tablet 1 tab PO DAILY ondansetron 4 mg tablet,disintegrating 4 mg PO BID-TID PRN Discontinued cholecalciferol (vitamin D3) 250 mcg (10,000 unit) capsule 250 mcg PO DAILY Discharge Instructions Instructions: Constipation (DC) Additional Instructions: Once your diarrhea has stopped, start taking docusate and increase to twice daily if needed to achieve regular bowel movements (not diarrhea). Return to the hospital with any fever, bleeding, chest pain, or shortness of breath. Follow up with the PCP in 1-2 weeks. Referrals: Carmen Pacheco [Primary Care Provider] - Activity:: Activity as Tolerated Equipment/Supplies:: No Equipment Needed Diet:: As Tolerated Discharge Orders Discharge Orders: Discharge Order (Routine); Ordered 07/01/23 Ordered By: Nicolette Perez DS: Summary Time Spent with Patient providing and/or coordinating discharge services: Greater than 30 minutes Status at Discharge Functional status at discharge: independent ambulation Overall status at discharge: patient is progressing back to baseline Mental Status: mental status grossly normal Speech and Movement: speech and movement normal Mood: congruent mood Affect: normal affect Exam Psych Mental Status: mental status grossly normal Speech and Movement: speech and movement normal Mood: congruent mood Affect: normal affect DS: Data Vitals/I&O Vitals and I&O: Vital Signs Temperature 36.5 C 07/01/23 15:14 Temperature Source Tympanic 07/01/23 15:14 Pulse 101 H 07/01/23 15:14 Pulse Rhythm Regular 07/01/23 08:09 Respiratory Rate 17 07/01/23 15:14 Respiratory Effort Normal, Non-Labored 07/01/23 08:09 Respiratory Depth Normal 07/01/23 08:09 Respiratory Pattern Normal 07/01/23 08:09 Blood Pressure 146/77 H 07/01/23 15:14 Blood Pressure Position Sitting 06/29/23 21:10 Pulse Oximetry 97 07/01/23 15:14 Oxygen Delivery Method Room Air 07/01/23 15:14 Oxygen Flow Rate 0 07/01/23 15:14 Pain Level 5 07/01/23 15:14 Comment RN informed of BP 06/30/23 11:46 Intake & Output 06/30/23 07/01/23 07/01/23 23:59 11:59 23:59 Intake Total 1700 / 3276.667 1870.417 / 1870.417 Output Total 700 / 1600 300 / 300 Balance 1000 / 6113.635 6133.417 / 1570.417 Intake: IV 1100 / 2676.667 1870.417 / 1870.417 Oral 600 / 600 Output: Urine 700 / 1600 300 / 300 Other: Urine Color Yellow Yellow Urine Appearance Clear Clear Urine Odor Normal Stool Size Large Small Small Stool Characteristics Soft Liquid Liquid Liquid Brown Brown Voiding Methods Toilet Toilet Data Completed and Pending Completed studies during hospitalization [Text1]: CT abdomen/pelvis: IMPRESSION:: Large quantity of stool and fecalization of distal small bowel consistent with constipation. There is a question of wall thickening of the distal sigmoid versus under distension. Labs on day of discharge: Labs from last 24 hours 07/01/23 06/29/23 06:50 21:45 Sodium 135 L Potassium 3.5 Chloride 101 Carbon Dioxide 28.0 Anion Gap 6.0 BUN 5 L Creatinine 0.6 Est GFR (CKD-EPI 2020) 100.80 Glucose 112 H Calcium 9.9 Magnesium 2.2 25-OH Vitamin D Total 32.0 Urine Osmolality 179 PFSH All Active Problems (Updated 07/01/23 @ 15:59 by Nicolette Perez MD) Discharge planning issues (Acute) DVT prophylaxis (Acute) Abdominal pain (Acute) Constipation (Acute) Stercoral colitis (Acute) Colitis (Acute) Cervical radiculitis (Acute) Hypertension (Chronic) Hx of migraine headaches (Acute) Ground glass opacity present on imaging of lung (Acute) Constipation (Acute) Sensorineural hearing loss, bilateral (Acute) Conductive hearing loss, external ear (Acute) Impacted cerumen, bilateral (Acute) Frequent headaches (Acute) Migraine without aura, intractable, with status migrainosus (Acute) Hx of colonoscopy (Chronic) Hemorrhoids (Acute) Cerumen impaction (Acute) Dysphagia (Acute) Left foot pain (Acute) Other fatigue (Acute) Snoring (Acute) Cervical spondylosis without myelopathy (Acute) Cervical spondylosis without myelopathy (Acute) Migraine headache with aura (Chronic) Migraine headache without aura (Acute) Chronic daily headache (Acute) New onset headache (Acute) Medical History Palpitations Lower urinary tract symptoms (LUTS) Recurrent UTI Dysuria Headache Depression Developmental delay, moderate IBS (irritable bowel syndrome) GERD (gastroesophageal reflux disease) Cold intolerance Basal cell carcinoma Neck pain Anemia Fatigue Dizziness Surgical History 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
--- NOTE | 2023-07-01 16:12 | PDOC.CMDIS ---
Date of service: 07/01/23 Time of Service: 16:12 LACE Index Scoring Tool Questions: Length of Stay (in days): 1 Was the patient admitted via the E.D.?: Yes E.D. Visits: 1 Answers: Total Score: 5 Risk of Readmission: Low Risk Care Management Discharge Plan Reason for Hospitalization: obstipation Discharge Plan: Sera will return home with no new services. Her mother will drive her home via private vehicle. She will follow up with her PCP and discharge plan of care. Patient/Family Education Needs: Review discharge instructions and limitations, discussion of self care needs including ask me three.
== END 2023-07-01 18:08 | disposition home or self-care (01) ==
LOC: ER 06-30 01:22 → MS 06-30 09:19
PROVIDERS: Internal Medicine; Admitting Provider Family Medicine; Emergency Provider Emergency Medicine; PCP Family Medicine; Visit Provider Family Medicine
DX: K58.1 Irritable bowel syndrome with constipation; I10 Essential (primary) hypertension; H90.3 Sensorineural hearing loss, bilateral; R06.83 Snoring; G43.009 Migraine without aura, not intractable, without status migrainosus; M47.812 Spondylosis without myelopathy or radiculopathy, cervical region; K21.9 Gastro-esophageal reflux disease without esophagitis; Q89.9 Congenital malformation, unspecified; E55.9 Vitamin D deficiency, unspecified; Z79.899 Other long term (current) drug therapy
CPT/HCPCS: 00123; 36415; 80048; 80053; 82306; 83935; 85027; 87635; 96361; 96365; 96366; 96372; 96375; 99285; 74177; 81003; 81015; 83735; 84300; 84443; 85025; 99222; 99239; J1644; J1885; J2543; J3490

== ENCOUNTER 2023-07-16 09:36 | Outpatient (CLI) | payer MEDICARE, MEDICAID, SELFPAY ==
[2023-07-16 09:46] VITALS: BP 105/72; PULSE 100; RESP 20; TEMP 36.7; O2SAT 96
--- NOTE | 2023-07-16 10:30 | DI.RAD_ITS ---
Exam(s) XR PAIN CLINIC CERVICAL SP 2V EXAM: XR PAIN CLINIC CERVICAL SP 2V CLINICAL HISTORY: Dx: Cervical Radiculopathy. TECHNIQUE: Fluoroscopy was provided for the referring physician for guidance with performing pain cl inic injection procedure. COMPARISON: No exams were available for comparison FINDINGS: Please see procedure note for details. Fluoro time: 22.1 seconds RADIATION DOSE DELIVERED: Ka,r=1.46 mGy
--- NOTE | 2023-07-16 10:38 | PDOC.PAIN ---
Date of service: 07/16/23 Time of Service: 10:38 Pain Managment Procedure Note Procedure Note Procedure Note: Procedure Note Cervical Interlaminar Epidural Steroid Injection Date of Service: July 16, 2023 Patient:? Sera Nair? Provider:? Samira Pagan DO, MPH Sera has been [facility] to [facility] for cervical epidural steroid injection.? Pre-operative diagnosis: Cervical Radiculopathy Post-operative diagnosis: Same Pre-procedure pain: VAS= 10/10 Comments: Her last cervical epidural steroid injection was on 10/09/22 and she had >6 months of >50% pain relief. Her mother was present for the entire procedure and we had her wear a lead vest. Sera was interviewed and the medical record was reviewed.? There were no medical, pharmacologic, radiographic or other structural contraindications to attempting fluoroscopically guided cervical interlaminar epidural steroid injection.? Risks, potential side effects, indications, and potential benefits of the procedure were reviewed with Sera.? Questions and concerns were addressed.? After it was clear that the patient was fully informed about the procedure, the printed consent form was signed by the patient and myself.? Sera was placed in the prone position on the fluoroscopy table and automated blood pressure cuff as well as pulse oximeter was applied. A standard time-out procedure was performed. The skin entry point for entering the epidural space by a midline C7-T1 interlaminar approach was identified under fluoroscopy and marked.? The skin entry point was thoroughly cleaned with Chlorhexadine preparation and the skin was draped.? Next a mixture of 2 mls of 1% lidocaine was infiltrated into the area of the planned skin entry point and underlying subcutaneous tissues.? Next an 18 gauge Tuohy needle was placed under fluoroscopic guidance and with loss of resistance technique into the epidural space utilizing multiple AP and 55 degree contralateral fluoroscopic views.? Upon correct needle placement and loss of resistance, there were no paresthesia or return of blood or CSF through the needle. Next 1 mls of preservative-free Omnipaque 240 was injected with clear epidural spread in the A/P and oblique views. Next, a solution of 15 mg of preservative-free Dexamethasone was injected. This was followed with 1ml of preservative-free normal saline. No unusual discomfort was expressed by Sera. The needle was withdrawn without difficulty. (49 mls of Omnipaque and 5 mg of Dexamethasone was wasted) Sera was observed and was without hemodynamic, neurologic, or allergic reactions.? Fluoroscopic images were digitally archived. Sera's vital signs were stable throughout the procedure and were as recorded in the doc flowsheet by the nursing staff.? If given, dosages of intravenous drugs for anxiolysis and analgesia were documented in MAR. Follow up plans and appointments were discussed with Sera.? Post procedure instruction was given as documented in nursing documentation and having met discharge criteria, [facility]. A retrospective review of interlaminar cervical ESIs found that approximately two-thirds of patients with symptomatic cervical radiculopathy from disc herniation were able to avoid surgery for up to 1 year with treatment. Success rate was improved with earlier injection (< 100 days from diagnosis). Michelle EL, Dionne V, Angelina L, Lida AN, Dg MILLAN. Cervical epidural steroid injections for symptomatic disc herniations. J Spinal Disord Tech. 2006 December;19(3):183-6. ? COMMENTS: No apparent complications. Post-procedure pain: VAS= 5/10. Sera to contact [facility] as needed. If at least 50% improvement in pain and/or function for at least 3 months is achieved, this procedure can be repeated. I personally completed the entire procedure. SAMIRA PAGAN DO, MPH ABPMR-subspecialty board certification in Pain Medicine [facility]
[2023-07-16] MEDS: Dexamethasone Sod. Phos./Pres-Free 10 MG/ML VIAL IJ (10:40)
[2023-07-16] MEDS: Omnipaque 240 MG/ML 50 ML BTL IJ (10:40)
[2023-07-16 11:01] VITALS: BP 111/74; PULSE 91; RESP 20; O2SAT 100
== END 2023-07-16 09:37 | disposition home or self-care (01) ==
LOC: PC 09:37
PROVIDERS: PCP Family Medicine; Visit Provider Preventive Medicine Occupational Medicine
DX: M54.2 Cervicalgia (principal); M54.12 Radiculopathy, cervical region
CPT/HCPCS: 00123; 62321; 72040; Q9967

== ENCOUNTER 2023-08-06 15:16 | Outpatient (REF) | payer MEDICARE, MEDICAID, SELFPAY ==
[2023-08-06 21:57] LABS: Anion Gap 9.2 mmol/L (3-11); BUN 17 mg/dL (7-18); CO2 26.8 mmol/L (21.0-32.0); CREATININE 0.9 mg/dL (0.55-1.02); Calcium 9.8 mg/dL (8.5-10.1); Chloride 100 mmol/L (98-107); Estimated GFR 71.83 (mL/min/1.73m2); Glucose 151 mg/dL (74-106); Potassium 3.9 mmol/L (3.5-5.1); Sodium 136 mmol/L (136-145)
== END 2023-08-06 15:17 | disposition home or self-care (01) ==
LOC: NCHCN 15:16
PROVIDERS: PCP Family Medicine; Visit Provider Family Medicine
DX: E87.1 Hypo-osmolality and hyponatremia (principal)
CPT/HCPCS: 80048

== ENCOUNTER 2023-08-27 11:07 | Emergency (ER) | payer MEDICARE, MEDICAID, SELFPAY ==
[2023-08-27 11:18] VITALS: BP 134/78; PULSE 94; RESP 16; TEMP 36.7; O2SAT 98
[2023-08-27 11:24] VITALS: BP 134/78; PULSE 94; RESP 16; TEMP 36.7; O2SAT 98
[2023-08-27 11:56] LABS: Bilirubin Negative (Negative); Blood Negative (Negative); Clarity Clear (Clear); Glucose Negative (Negative); Ketones Trace mg/dL (Negative); Leukocyte Esterase Negative (Negative); Nitrite Negative (Negative); Specific Gravity 1.025 (1.005-1.025); Urobilinogen 0.2 mg/dL (Up to 0.2); pH 6.5 (5-8)
--- NOTE | 2023-08-27 12:03 | W.ED.GENAD ---
HPI General Date/Time Provider Initiated Documentation: 08/27/23 11:22. HPI Narrative: This 63-year-old female with history of developmental delay presents with report of weakness and decreased appetite over the course of the past month. Denies fever or chills. States several pound weight loss. Patient reports abdominal pain. Denies any medications or known sick contacts. History of UTIs, presenting similar leave her mother and DPOA. Denies any additional complaints at this time. Related Data Home Medications Medication Instructions Recorded Confirmed polyethylene glycol 3350 17 17 g PO DAILY 07/08/18 08/27/23 gram/dose oral powder (Miralax) acetaminophen 500 mg tablet 1,000 mg PO Q8H PRN 01/20/19 08/27/23 (Tylenol Extra Strength) naratriptan 2.5 mg tablet 2.5 mg PO ONCE PRN 03/28/21 08/27/23 omeprazole 20 mg capsule,delayed 40 mg PO DAILY 05/17/21 08/27/23 release atogepant 30 mg tablet (Qulipta) 60 mg PO DAILY 10/08/22 08/27/23 wsgssowo-rrq-uyjb-FA-Ca carb-vit K 1 tab PO DAILY 10/08/22 08/27/23 18 mg iron-400 mcg-500 mg tablet vitamin B complex (B 1 tab PO DAILY 05/14/23 08/27/23 Complex-Vitamin B12 tablet) ondansetron 4 mg disintegrating 4 mg PO BID-TID PRN 06/29/23 08/27/23 tablet docusate sodium 100 mg capsule 100 mg PO BID PRN PRN constipation 07/01/23 08/27/23 (Colace) #30 caps polyethylene glycol 3350 17 gram 17 g PO DAILY #30 ea 07/01/23 08/27/23 oral powder packet dicyclomine 10 mg capsule 10 mg PO Q6H PRN PRN abdominal pain 08/27/23 08/27/23 melatonin 3 mg capsule 3 mg PO QHS 08/27/23 08/27/23 psyllium husk (aspartame) 3.4 gram 1 packet PO DAILY 08/27/23 08/27/23 oral powder packet (Metamucil Fiber Singles) vitamin B complex (Vitamins B 1 cap PO DAILY 08/27/23 08/27/23 Complex capsule) Previous Rx's Medication Instructions Recorded docusate sodium 100 mg capsule 100 mg PO BID PRN PRN constipation 07/01/23 (Colace) #30 caps polyethylene glycol 3350 17 gram 17 g PO DAILY #30 ea 07/01/23 oral powder packet Allergies Allergy/AdvReac Type Severity Reaction Status Date / Time meclizine Allergy Severe Verified 08/27/23 11:17 methylphenidate Allergy Severe Verified 08/27/23 11:17 [From Ritalin] cyclobenzaprine Allergy Mild Verified 08/27/23 11:17 [From Flexeril] General Stated Complaint: RespSymp BERNIE: 3 Course Vital Signs Vital signs: Vital Signs Temperature 36.7 C 08/27/23 11:18 Pulse 94 H 08/27/23 11:18 Respiratory Rate 16 08/27/23 11:18 Blood Pressure 134/78 08/27/23 11:18 Pulse Oximetry 98 08/27/23 11:18 Temperature 36.7 C 08/27/23 11:24 Temperature Source Temporal Artery Scan 08/27/23 11:24 Pulse 94 H 08/27/23 11:24 Respiratory Rate 16 08/27/23 11:24 Respiratory Effort Normal, Non-Labored 08/27/23 11:24 Respiratory Depth Normal 08/27/23 11:24 Blood Pressure 134/78 08/27/23 11:24 Blood Pressure Position Sitting 08/27/23 11:24 Pulse Oximetry 98 08/27/23 11:24 Oxygen Delivery Method Room Air 08/27/23 11:24 Oxygen Flow Rate 0 08/27/23 11:24 Pain Level 0 08/27/23 11:24 Lab/Test Results Lab/Test Results: Laboratory Tests Range/Units 08/27/23 11:46 Urine Color (Yellow) Yellow Urine Clarity (Clear) Clear Urine pH (5-8) 6.5 Ur Specific Wolverine (1.005-1.025) 1.025 Urine Protein (Negative) mg/dL 30 H Urine Ketones (Negative) mg/dL Trace H Urine Blood (Negative) Negative Urine Nitrite (Negative) Negative Urine Bilirubin (Negative) Negative Urine Urobilinogen (Up to 0.2) mg/dL 0.2 Ur Leukocyte Esterase (Negative) Negative Urine Glucose (Negative) mg/dL Negative Medical Decision Making 63-year-old female in no acute distress, some mild abdominal discomfort and general malaise Reported weight loss Ambulatory steady gait Pupils equal round reactive to light and accommodation, no jaundice or icterus, moist mucous membranes, lungs clear to auscultation, cardiac rate rhythm regular No peripheral edema, no rebound or guarding and abdomen, no abdominal bruit or pulsatile mass, no CVA tenderness Urinalysis does not show evidence of acute infection Labs are reassuring CT abdomen and pelvis and chest x-ray were ordered, patient and her DPOA, mother requested to leave after the chest x-ray prefer to return should there be new or worsening symptoms for CT abdomen and pelvis, there were they have not been fully evaluated and DPOA, mother is of decisional capacity, alert and oriented She will return immediately with new or worsening symptoms Will follow-up with PCP in the outpatient setting, able to tolerate p.o. in the emergency department Quality:SDOH Health Related Social Needs: No Data to Display PFSH All Active Problems (Updated 08/27/23 @ 13:25 by TRACI Galan) Malaise (Acute) Abdominal pain (Acute) Constipation (Acute) Stercoral colitis (Acute) Colitis (Acute) Cervical radiculitis (Acute) Hypertension (Chronic) Hx of migraine headaches (Acute) Ground glass opacity present on imaging of lung (Acute) Constipation (Acute) Sensorineural hearing loss, bilateral (Acute) Conductive hearing loss, external ear (Acute) Impacted cerumen, bilateral (Acute) Frequent headaches (Acute) Migraine without aura, intractable, with status migrainosus (Acute) Hx of colonoscopy (Chronic) Hemorrhoids (Acute) Cerumen impaction (Acute) Dysphagia (Acute) Left foot pain (Acute) Other fatigue (Acute) Snoring (Acute) Cervical spondylosis without myelopathy (Acute) Cervical spondylosis without myelopathy (Acute) Migraine headache with aura (Chronic) Migraine headache without aura (Acute) Chronic daily headache (Acute) New onset headache (Acute) Medical History Palpitations Lower urinary tract symptoms (LUTS) Recurrent UTI Dysuria Headache Depression Developmental delay, moderate IBS (irritable bowel syndrome) GERD (gastroesophageal reflux disease) Cold intolerance Basal cell carcinoma Neck pain Anemia Fatigue Dizziness Surgical History 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[employer] Do you feel safe at home: Yes Do you feel safe in your relationship?: Yes Discharge Plan Disposition Patient Disposition: Home Discharge Details Clinical Impression: Malaise Primary Care Provider: Carmen Pacheco ED Provider: Nayely De La Torre Home Meds and New Rx's Prescriptions: Continued polyethylene glycol 3350 [Miralax] 17 gram/dose powder 17 g PO DAILY vitamin B complex [B Complex-Vitamin B12] Tablet 1 tab PO DAILY acetaminophen [Tylenol Extra Strength] 500 mg tablet 1,000 mg PO Q8H PRN omeprazole 20 mg capsule,delayed release(DR/EC) 40 mg PO DAILY naratriptan 2.5 mg tablet 2.5 mg PO ONCE PRN Qulipta 30 mg Tablet 60 mg PO DAILY su-qe-mokk-FA-Ca carb-vit K 18 mg iron-400 mcg-500 mg Tablet 1 tab PO DAILY ondansetron 4 mg tablet,disintegrating 4 mg PO BID-TID PRN docusate sodium [Colace] 100 mg Capsule 100 mg PO BID PRN PRN (Reason: constipation) Qty: 30 0RF polyethylene glycol 3350 17 gram Powder In Packet 17 g PO DAILY Qty: 30 0RF Rx Instructions: hold if having diarrhea melatonin 3 mg capsule 3 mg PO QHS Metamucil Fiber Singles 3.4 gram powder in packet 1 packet PO DAILY vitamin B complex [Vitamins B Complex] Capsule 1 cap PO DAILY dicyclomine 10 mg Capsule 10 mg PO Q6H PRN PRN (Reason: abdominal pain) Discharge Instructions Additional Instructions: Increase fluid hydration, boost, Ensure, Adrian instant breakfast if decreased interest in food You have not had imaging of your abdomen and pelvis, if you continue to have symptoms, I do recommend reassessment Chest x-ray and urinalysis do not show evidence of infection, flu, COVID, RSV negative Please be reevaluated by your doctor this week, call for follow-up today Return earlier with new or worsening complaints Referrals: Carmen Pacheco [Primary Care Provider] - Discharge Data Discharge Date/Time-TO BE ENTERED AT DEPARTURE: 08/27/23 13:34
[2023-08-27 12:04] LABS: Abs Immature Grans 0.02 10^3/uL (0.0-0.06); Absolute Basophil Count 0.05 10^3/uL (0.0-0.2); Absolute Eosinophil Count 0.01 10^3/uL (0.0-0.7); Absolute Lymphocyte Count 1.45 10^3/uL (1.2-3.4); Absolute Monocyte Count 0.63 10^3/uL (0.1-0.8); Absolute Neutrophil Count 4.14 10^3/uL (1.2-6.7); Basophils % 0.8; Eosinophils % 0.2; HCT 34.5 % (36.0-46.0); HGB 11.9 g/dL (11.2-15.7); Immature Grans % 0.3; MCH 30.9 pg (27.0-33.0); MCHC 34.5 % (32.0-36.0); MCV 90 fL (80-95); MPV 8.3 fL (8.0-11.0); Neutrophils % 65.7; Platelet Count 424 10^3/uL (130-400); RBC 3.85 10^6/uL (3.93-5.22); RDW 12.8 % (11.7-14.6); RDW-SD 41.8 fL
[2023-08-27 12:04] LABS: Bacteria Negative HPF (Negative); C & S Indicated? No; Casts Negative LPF (Negative); Crystals Negative HPF (Negative); Epithelial Cells Few HPF (Negative); Mucus Trace (Negative); RBC 0-2 HPF (0-2); WBC 0-2 HPF (0-5)
[2023-08-27] MEDS: Acetaminophen 325 MG TAB 650 MG PO (12:07)
[2023-08-27] MEDS: Lactated Ringers 1,000 ML 1000 ML IV (12:07)
[2023-08-27 12:27] LABS: ALT 18 U/L (14-59); AST 11 U/L (15-37); Alkaline Phosphatase 56 U/L (46-116); Anion Gap 9.4 mmol/L (3-11); BUN 17 mg/dL (7-18); Bilirubin, Total 0.6 mg/dL (0.2-1.0); CO2 29.6 mmol/L (21.0-32.0); CREATININE 0.7 mg/dL (0.55-1.02); Calcium 10.2 mg/dL (8.5-10.1); Chloride 99 mmol/L (98-107); Estimated GFR 97.12 (mL/min/1.73m2); Glucose 102 mg/dL (74-106); Lipase 38 U/L (16-77); Potassium 3.8 mmol/L (3.5-5.1); Sodium 138 mmol/L (136-145); Total Protein 8.3 g/dL (6.4-8.2)
--- NOTE | 2023-08-27 12:28 | DI.RAD_ITS ---
Exam(s) XR CHEST 2V PA LATERAL EXAM: XR CHEST 2V PA LATERAL CLINICAL HISTORY: weakness. TECHNIQUE: 2D digital imaging was performed. COMPARISON: CR,XR XR CHEST 2V PA LATERAL from 02/16/2023 FINDINGS: 2 views: Heart size is normal. The mediastinum is not widened. Bilateral hyperinflation of the lung rosa again noted but there is are no infiltrates nor pleural e ffusions. No pulmonary edema. IMPRESSION: No acute pulmonary findings. DATA REPOSITORY: RADIATION DOSE DELIVERED:
[2023-08-27 12:57] LABS: COVID-19 PCR Negative (Negative); Influenza A PCR Negative (Negative); Influenza B PCR Negative (Negative); RSV PCR Negative (Negative); Source Nasopharynx
== END 2023-08-27 13:34 | disposition home or self-care (01) ==
PROVIDERS: Emergency Provider Physician Assistant; PCP Family Medicine
DX: R53.1 Weakness (principal); R10.9 Unspecified abdominal pain; R63.4 Abnormal weight loss; R62.50 Unspecified lack of expected normal physiological development in childhood; I10 Essential (primary) hypertension
CPT/HCPCS: 80053; 83690; 87637; 99284; 71046; 81003; 81015; 85025

== ENCOUNTER 2023-09-03 15:26 | Outpatient (CLI) | payer MEDICARE, MEDICAID, SELFPAY ==
[2023-09-03 16:03] LABS: ESR 5 mm/hr (0-30)
[2023-09-03 16:46] LABS: Iron 82 ug/dL (50-170); Total Iron Binding Capacity 386 ug/dL (250-450); Transferrin Sat 21 % (15-50)
[2023-09-03 17:12] LABS: Anion Gap 9.7 mmol/L (3-11); BUN 18 mg/dL (7-18); CO2 30.3 mmol/L (21.0-32.0); CREATININE 0.7 mg/dL (0.55-1.02); Calcium 9.6 mg/dL (8.5-10.1); Chloride 102 mmol/L (98-107); Estimated GFR 97.12 (mL/min/1.73m2); Ferritin 85 ng/mL (8-252); Glucose 153 mg/dL (74-106); Potassium 4.1 mmol/L (3.5-5.1); Sodium 142 mmol/L (136-145); TSH 1.28 uIU/mL (0.36-3.74); Vitamin B12 1630 pg/mL (193-986)
[2023-09-03 17:17] LABS: Folate > 20.0 ng/mL (8.6-20.0)
[2023-09-03 17:43] LABS: FREE T4 1.08 ng/dL (0.76-1.46)
[2023-09-11 02:03] LABS: Thiamine (Vitamin B1), WB 144 nmol/L (70-180)
== END 2023-09-03 15:27 | disposition home or self-care (01) ==
LOC: LBO 15:26
PROVIDERS: PCP Family Medicine; Visit Provider Family Medicine
DX: R63.4 Abnormal weight loss (principal)
CPT/HCPCS: 36415; 80048; 85652; 82607; 82728; 82746; 83540; 83550; 84425; 84439; 84443

== ENCOUNTER 2023-10-08 14:21 | Outpatient (REF) | payer MEDICARE, MEDICAID, SELFPAY ==
[2023-10-08 15:03] LABS: Bilirubin Negative (Negative); Blood Negative (Negative); Clarity Sl Cloudy (Clear); Glucose Negative (Negative); Ketones Negative (Negative); Leukocyte Esterase Negative (Negative); Nitrite Negative (Negative); Urobilinogen 0.2 mg/dL (Up to 0.2)
== END 2023-10-08 14:22 | disposition home or self-care (01) ==
LOC: NCHCN 14:21
PROVIDERS: PCP Family Medicine; Visit Provider Family Medicine
DX: R30.0 Dysuria (principal)
CPT/HCPCS: 81003

== ENCOUNTER 2023-11-03 10:30 | Outpatient (REF) | payer MEDICARE, MEDICAID, SELFPAY ==
[2023-11-03 15:13] LABS: Anion Gap 8.7 mmol/L (3-11); BUN 19 mg/dL (7-18); CO2 29.3 mmol/L (21.0-32.0); CREATININE 0.7 mg/dL (0.55-1.02); Calcium 9.7 mg/dL (8.5-10.1); Chloride 102 mmol/L (98-107); Estimated GFR 97.12 (mL/min/1.73m2); Glucose 99 mg/dL (74-106); Potassium 4.1 mmol/L (3.5-5.1); Sodium 140 mmol/L (136-145)
== END 2023-11-03 10:31 | disposition home or self-care (01) ==
LOC: NCHCN 10:30
PROVIDERS: PCP Family Medicine; Visit Provider Family Medicine
DX: E87.1 Hypo-osmolality and hyponatremia (principal)
CPT/HCPCS: 80048

== ENCOUNTER 2023-11-09 10:28 | Inpatient (IN) | payer MEDICARE, MEDICAID, SELFPAY ==
[2023-11-09] VITALS (27 sets, daily range): BP systolic 94–177; BP diastolic 64–91; PULSE 72–98; RESP 11–20; TEMP 36–36.6; O2SAT 96–100; BMI 16.7
--- NOTE | 2023-11-09 10:37 | DI.RAD_ITS ---
Exam(s) XR FEMUR RT XR HIP RT COMPLETE AP PELVIS EXAM: XR HIP RT COMPLETE AP PELVIS and XR femur RT CLINICAL HISTORY: right hip pain. TECHNIQUE: 2D digital imaging was performed of the right femur and hip. Five images were obtained. AP pelvis and lateral right hip views were obtained. COMPARISON: CR LUMBAR SPINE COMPLETE from 04/10/2017 CR XR abdomen flat upright from 08/13/2018 FINDINGS: BONES: There is an acute subcapital fracture of the right femoral neck. There is mild impaction of t he fracture noted. No bony destructive lesion is seen. JOINTS: No dislocation present. SOFT TISSUE: There is a large amount of stool in the colon. IMPRESSION: 1. Mildly impacted subcapital fracture of the right femoral neck. 2. Constipation. 3. Findings were discussed with Nayely De La Torre at 12:15 p.m. on 11/09/2023. DATA REPOSITORY: RADIATION DOSE DELIVERED:
--- NOTE | 2023-11-09 10:47 | ED.GENADUL_ITS ---
Discharge Plan Disposition Patient Disposition: Admit to [facility] Condition: Stable Discharge Details Clinical Impression: Closed hip fracture Admit Date/Time: 11/09/23 11:25 Admit Provider: Lonny Loomis Attending Provider: Lonny Loomis Primary Care Provider: Carmen Pacheco ED Provider: Nayely De La Torre Discharge Data Discharge Date/Time-TO BE ENTERED AT DEPARTURE: 11/09/23 12:35 HPI General Date/Time Provider Initiated Documentation: 11/09/23 10:37 . HPI Narrative: This 63-year-old female reportedly was getting into bed last night and instead of sitting on the side of the bed, accidentally fell on the ground. She landed on her right hip. There was no evidence of head injury or any other trauma. The event was witnessed by her mother. Patient reports generalized muscle pain but predominantly right hip and right thigh pain. Denies history of anticoagulation, baseline mentation and mother denies any weakness. Quadrant for assessment today secondary to persistent pain per mother. Denies any change in cognition or notable strength or sensation change. States that she is otherwise been fine and reports this is a mechanical fall Related Data Home Medications Medication Instructions Recorded Confirmed polyethylene glycol 3350 17 17 g PO DAILY 07/08/18 11/09/23 gram/dose oral powder (Miralax) acetaminophen 500 mg tablet 1,000 mg PO Q8H PRN 01/20/19 11/09/23 (Tylenol Extra Strength) omeprazole 20 mg capsule,delayed 40 mg PO DAILY 05/17/21 11/09/23 release atogepant 30 mg tablet (Qulipta) 60 mg PO DAILY 10/08/22 11/09/23 eojluddu-azw-nzpg-FA-Ca carb-vit K 1 tab PO DAILY 10/08/22 11/09/23 18 mg iron-400 mcg-500 mg tablet vitamin B complex (B 1 tab PO DAILY 05/14/23 11/09/23 Complex-Vitamin B12 tablet) polyethylene glycol 3350 17 gram 17 g PO DAILY #30 ea 07/01/23 11/09/23 oral powder packet psyllium husk (aspartame) 3.4 gram 1 packet PO DAILY 08/27/23 11/09/23 oral powder packet (Metamucil Fiber Singles) vitamin B complex (Vitamins B 1 cap PO DAILY 08/27/23 11/09/23 Complex capsule) mirtazapine 7.5 mg tablet 7.5 mg PO HS 11/09/23 11/09/23 Previous Rx's Medication Instructions Recorded polyethylene glycol 3350 17 gram 17 g PO DAILY #30 ea 07/01/23 oral powder packet Allergies Allergy/AdvReac Type Severity Reaction Status Date / Time meclizine Allergy Severe Verified 08/27/23 11:17 methylphenidate Allergy Severe Verified 08/27/23 11:17 [From Ritalin] cyclobenzaprine Allergy Mild Verified 08/27/23 11:17 [From Flexeril] General Stated Complaint: Orthopedic BERNIE: 3 Course Vital Signs Vital signs: Vital Signs Temperature 36.6 C 11/09/23 10:24 Pulse 88 11/09/23 10:24 Respiratory Rate 18 11/09/23 10:24 Blood Pressure 177/82 H 11/09/23 10:24 Pulse Oximetry 100 11/09/23 10:24 Temperature 36.6 C 11/09/23 10:24 Temperature Source Temporal Artery Scan 11/09/23 10:24 Pulse 88 11/09/23 10:24 Respiratory Rate 18 11/09/23 10:24 Blood Pressure 177/82 H 11/09/23 10:24 Pulse Oximetry 100 11/09/23 10:24 Medical Decision Making 63-year-old female presents with mother and guardian for report of mechanical fall last evening, tenderness to right hip and femur, ecchymosis right lateral femur, GCS 15, alert and oriented x 3 Pupils equal round reactive to light and accommodation, no cervical spine tenderness, mucous membranes, uvula midline, cranial nerves II 12 intact, able to follow basic commands, difficult to assess, complains of pain diffusely, mother states that the event was witnessed and landed on her right hip predominantly As mother is guardian requests x-rays of right hip and pelvis with femur to start Neurovascularly intact, no tenderness to right knee, no tenderness to left hip or knee, no visible signs of trauma to foot, abdomen and pelvis, or CVA region, cardiac rate rhythm regular, lungs clear to auscultation, speaking in complete sentences Evidence of subcapital fracture on x-ray of patient's right hip and pelvis Case discussed with Dr. Loomis, will take patient to the operating room Patient is alert and at her baseline She is in some pain, she had Tylenol and fentanyl administered Mother declines additional testing at this time, patient and mother agreeable to surgery Diagnostic labs, EKG and chest x-ray were ordered preoperatively for surgery Quality:SDOH Health Related Social Needs: No Data to Display PFSH All Active Problems (Updated 11/10/23 @ 16:21 by TRACI Galan) Closed hip fracture (Acute) Closed subcapital fracture of neck of right femur (Acute) Abdominal pain (Acute) Constipation (Acute) Stercoral colitis (Acute) Colitis (Acute) Cervical radiculitis (Acute) Hypertension (Chronic) Hx of migraine headaches (Acute) Ground glass opacity present on imaging of lung (Acute) Constipation (Acute) Sensorineural hearing loss, bilateral (Acute) Conductive hearing loss, external ear (Acute) Impacted cerumen, bilateral (Acute) Frequent headaches (Acute) Migraine without aura, intractable, with status migrainosus (Acute) Hx of colonoscopy (Chronic) Hemorrhoids (Acute) Cerumen impaction (Acute) Dysphagia (Acute) Left foot pain (Acute) Other fatigue (Acute) Snoring (Acute) Cervical spondylosis without myelopathy (Acute) Cervical spondylosis without myelopathy (Acute) Migraine headache with aura (Chronic) Migraine headache without aura (Acute) Chronic daily headache (Acute) New onset headache (Acute) Medical History Palpitations Lower urinary tract symptoms (LUTS) Recurrent UTI Dysuria Headache Depression Developmental delay, moderate IBS (irritable bowel syndrome) GERD (gastroesophageal reflux disease) Cold intolerance Basal cell carcinoma Neck pain Anemia Fatigue Dizziness Surgical History 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
--- NOTE | 2023-11-09 11:15 | RT.EKG_ITS ---
APPROVED REPORT Exam: Resting ECG Reason for Exam: pre op Patient Location: E HR:79 bpm ECG Measurements Heart Rate 79 AXIS [place] 148 P 67 QRSd 90 QRS -46 QT 368 T 78 QTc 421 Conclusion Sinus rhythm...normal P axis, V-rate 60- 99 Left axis deviation...QRS axis (-30,-90) Narrow complex normal sinus rhythm at a rate of 79. Normal axis. Intervals within normal limits. N o ST segment abnormalities. T wave inversion in aVL. Compared to prior dated last year T wave inver peggy in aVL is new.
--- NOTE | 2023-11-09 11:15 | DI.RAD_ITS ---
Exam(s) XR PORTABLE CHEST AP EXAM: XR PORTABLE CHEST AP CLINICAL HISTORY: hip xr preop TECHNIQUE: 2D digital imaging was performed of the chest. One image was obtained. An AP view was ob tained. COMPARISON: CR XR CHEST 2V PA LATERAL from 08/27/2023 FINDINGS: MEDIASTINUM: Normal. HEART: Normal. PULMONARY VASCULATURE: Unchanged ectasia and tortuosity of the thoracic aorta. LUNGS: The lungs are hyperinflated suggesting underlying COPD. PLEURAL SPACE: No pleural effusion. BONE:Within normal limits for the patient's age. OTHER FINDINGS:Normal. IMPRESSION: No pulmonary infiltrates. DATA REPOSITORY: RADIATION DOSE DELIVERED:
--- NOTE | 2023-11-09 11:29 | ANES.PREOP_ITS ---
General Info Date of Service Date Performed: 11/09/23 Height: 5 ft 3 in Weight: 42.9 kg Body Mass Index (BMI): 16.7 Meds Allergies and Home Medications Allergies Allergy/AdvReac Type Severity Reaction Status Date / Time meclizine Allergy Severe Verified 08/27/23 11:17 methylphenidate Allergy Severe Verified 08/27/23 11:17 [From Ritalin] cyclobenzaprine Allergy Mild Verified 08/27/23 11:17 [From Flexeril] Home Medication Medication Instructions Recorded polyethylene glycol 3350 17 17 g PO DAILY 07/08/18 gram/dose oral powder (Miralax) acetaminophen 500 mg tablet 1,000 mg PO Q8H PRN 01/20/19 (Tylenol Extra Strength) omeprazole 20 mg capsule,delayed 40 mg PO DAILY 05/17/21 release atogepant 30 mg tablet (Qulipta) 60 mg PO DAILY 10/08/22 nqszwjio-xdw-ioiy-FA-Ca carb-vit K 1 tab PO DAILY 10/08/22 18 mg iron-400 mcg-500 mg tablet vitamin B complex (B 1 tab PO DAILY 05/14/23 Complex-Vitamin B12 tablet) polyethylene glycol 3350 17 gram 17 g PO DAILY #30 ea 07/01/23 oral powder packet psyllium husk (aspartame) 3.4 gram 1 packet PO DAILY 08/27/23 oral powder packet (Metamucil Fiber Singles) vitamin B complex (Vitamins B 1 cap PO DAILY 08/27/23 Complex capsule) mirtazapine 7.5 mg tablet 7.5 mg PO DAILY 11/09/23 Current Visit Medications: Current Medications Generic Name Dose Route Start Last Admin Trade Name Freq PRN Reason Stop Dose Admin Acetaminophen 1,000 mg 11/09/23 14:00 Acetaminophen 500 Mg Tab PO TID KARIN PFSH Active Problems Active Problems: Problem Status Onset Code Abdominal pain R10.9 Constipation K59.00 Stercoral colitis K52.89 Obstipation K59.00 Colitis K52.9 Cervical radiculitis M54.12 Hypertension I10 Hx of migraine headaches Z86.69 Ground glass opacity present on imaging of lung R91.8 Constipation K59.00 Sensorineural hearing loss, bilateral H90.3 Conductive hearing loss, external ear H90.2 Impacted cerumen, bilateral H61.23 Frequent headaches R51.9 Migraine without aura, intractable, with status migrainosus G43.011 Hx of colonoscopy Z98.890 Hemorrhoids K64.9 Cerumen impaction H61.20 Dysphagia R13.10 Left foot pain M79.672 Other fatigue R53.83 Snoring R06.83 Cervical spondylosis without myelopathy M47.812 Cervical spondylosis without myelopathy M47.812 Migraine headache with aura G43.109 Migraine headache without aura G43.009 Chronic daily headache R51 New onset headache R51 Medical History Medical History Palpitations Lower urinary tract symptoms (LUTS) Recurrent UTI Dysuria Headache Depression Developmental delay, moderate IBS (irritable bowel syndrome) GERD (gastroesophageal reflux disease) Cold intolerance Basal cell carcinoma Neck pain Anemia Fatigue Dizziness Surgical History Surgical History H/O knee surgery History of carpal tunnel release H/O colectomy Tobacco Smoking/Tobacco Use Status: Never Alcohol Alcohol Intake: never Substance Use Substance use: Never Substance use type: does not use Vital Signs and Lab Results Vital Signs Most Recent Vital Signs in EMR: Most Recent Vital Signs Temp Pulse Resp BP Pulse Ox 36.6 C 88 18 177/82 H 100 11/09/23 10:24 11/09/23 10:24 11/09/23 10:24 11/09/23 10:24 11/09/23 10:24 Lab Results 11/09/23 11:48 11/09/23 11:48 Blood Type / Crossmatch: 2 No Data to Display Complete Blood Count: 2 White Blood Count 8.41 10^3/uL (4.4-10.8) 11/09/23 11:48 Red Blood Count 3.59 10^6/uL (3.93-5.22) L 11/09/23 11:48 Hemoglobin 11.0 g/dL (11.2-15.7) L 11/09/23 11:48 Hematocrit 33.1 % (36.0-46.0) L 11/09/23 11:48 Platelet Count 287 10^3/uL (130-400) 11/09/23 11:48 Complete Metabolic Panel: 2 Sodium 138 mmol/L (136-145) 11/09/23 11:48 Potassium 4.2 mmol/L (3.5-5.1) 11/09/23 11:48 Chloride 101 mmol/L (98-107) 11/09/23 11:48 Carbon Dioxide 28.7 mmol/L (21.0-32.0) 11/09/23 11:48 BUN 19 mg/dL (7-18) H 11/09/23 11:48 Creatinine 0.7 mg/dL (0.55-1.02) 11/09/23 11:48 Est GFR (CKD-EPI 2020) 97.12 (mL/min/1.73m2) 11/09/23 11:48 Calcium 9.7 mg/dL (8.5-10.1) 11/09/23 11:48 Glucose 95 mg/dL (74-106) 11/09/23 11:48 Liver Function Panel: 2 No Data to Display Coagulation Panel: 2 No Data to Display Cardiac Panel: 2 No Data to Display Arterial Blood Gas: 2 No Data to Display Venous Blood Gas: 2 No Data to Display Pancreas Panel: 2 No Data to Display Thyroid Panel: 2 No Data to Display Infectious Disease: 2 No Data to Display Blood Cultures: 2 No Data to Display Toxicology Panel: 2 No Data to Display Imaging and Studies Imaging and Studies Study information below may be from another EMR and interpreted by another provider. Please see original notes in EMR for more complete details. EKG Summary: 02/16/23: EKG PATIENT NAME: Sera Nair UNIT #: [id number] ORDERING PROVIDER: Margoth Amador M.D. PRIMARY CARE PROVIDER: QUEENIE LANE APRN DATE/TIME OF SERVICE: 02/16/23 1122 : 1960 PERFORMING LOCATION: ER APPROVED REPORT Exam: Resting ECG Reason for Exam: syncope Patient Location: E HR:67 bpm ECG Measurements Heart Rate 67 AXIS [place] 201 P 60 QRSd 104 QRS 24 QT 404 T68 QTc 426 Conclusion Sinus rhythm...normal P axis, V-rate 60- 99 Anesthesia Assessment and Plan Anesthesia History Personal History: No History of Anesthesia Complications Family History: No Family History of Anesthesia Complications Exercise Tolerance Exercise Tolerance: Metabolic Equivalents>4 Cardiac & Pulmonary Exam Cardiac Exam: Normal S1/S2 Heart Sounds Pulmonary Exam: Clear Bilateral Breath Sounds Implantable Cardiac Device Does patient have a Pacemaker or an ICD?: No Airway Exam Known Difficult Airway: No Mallampati Class: 2 Mouth Opening: Normal (> 3cm) Thyromental Distance: Greater than 3 cm Neck Range of Motion: Full ROM Neck Circumference: Normal Teeth Condition: Normal Dentition ASA Classification ASA Score: ASA 2 Emergency Case?: Yes NPO Status NPO Status: NPO Clears >2 hours, Solids >8 hours Anesthesia Plan Resuscitation Status: Full Code Anesthesia Technique: Spinal Anesthesia Airway Planned: Natural Airway Monitors Used: Standard Monitors
--- NOTE | 2023-11-09 11:34 | DI.VRAD_ITS ---
PROCEDURE INFORMATION: Exam: XR Right Femur Exam date and time: 11/09/2023 10:58 AM Age: 63 years old Clinical indication: Injury or trauma; Fall; Blunt trauma; Thigh or upper leg; Right TECHNIQUE: Imaging protocol: Radiologic exam of the right femur. Views: 2 views. COMPARISON: CR XR HIP RT COMPLETE AP PELVIS 11/09/2023 10:56 AM FINDINGS: Bones/joints: Lateral tibiofemoral compartment narrowing. No acute fracture. Soft tissues: Unremarkable. IMPRESSION: No acute findings. Dictated and Authenticated by: Mag Schmitt MD. Ordering:JJ Adler MD
--- NOTE | 2023-11-09 11:35 | DI.VRAD_ITS ---
PROCEDURE INFORMATION: Exam: XR Right Hip Exam date and time: 11/09/2023 10:56 AM Age: 63 years old Clinical indication: Injury or trauma; Fall; Blunt trauma (contusions or hematomas); Right; Hip and pelvic region TECHNIQUE: Imaging protocol: Radiologic exam of the right hip. Views: 2 or 3 views hip with pelvis when performed. COMPARISON: CT ABDOMEN PELVIS W 06/29/2023 10:47 PM FINDINGS: Bones/joints: Unremarkable. No acute fracture. Soft tissues: Unremarkable. IMPRESSION: No acute findings. Dictated and Authenticated by: Mag Schmitt MD. Ordering:JJ Adler MD
[2023-11-09] MEDS: fentaNYL 100 MCG/2 ML VIAL 25 MCG IVP (11:53)
--- NOTE | 2023-11-09 11:53 | W.ORTHOCONSU ---
Date of service: 11/09/23 Time of Service: 11:53 History of Present Illness History of Present Illness Chief Complaint: Right Hip Fracture Narrative: Sera is a 63 year old functionally independent female who has some developmental delays. She is in her usual state of health and has no recent illness. She was try to get in the bed last night when she slipped on the hardwood floor to try and get into the bed landing on her right side. She had some pain but was able to go to bed. However, in trying to get out of the bed this morning she had significant pain and was unable to bear weight on the right leg. She was brought to the emergency department where she was diagnosed with a subcapital femoral neck fracture. There was some impaction with mild valgus angulation. Her mother and caregiver, Missy, reports that she is functionally independent and ambulates frequently and on her own. She has no ongoing medical issues except for some GERD and constipation and migraines. Details about her current symptoms are limited due to the patient's mental status and capacity. She does deny any numbness or tingling. Missy did witness the fall and denies any head trauma or loss of consciousness. Consults Consult date: 11/09/23 Requesting physician: Nayely De La Torre Consult Reason Right hip fracture Assessment and Plan Assessment and plan (1) Closed subcapital fracture of neck of right femur: Status: Acute Assessment and plan: Sera is a 63-year-old female who suffered a mechanical fall onto her right hip last night. Unfortunate she suffered a mildly angulated and impacted femoral neck fracture. Given her young age and functional independence I recommended hip replacement. This would provide the best functional outcomes and long-term results. There are some increased risk initially with blood loss, blood clot, iatrogenic fracture, hip instability. However, fixation with interfragmentary screws performed percutaneously, previously considered gold standard, has a high rate, around 20% or higher, of nonunion, avascular porosis or hardware prominence requiring secondary surgeries. Therefore, with a young person with this type fracture who is functionally dependent, hip replacement provides the best long-term result. She has no active medical issues. She does have developmental delays but is functionally independent. I reviewed all this with her mother and caregiver, Missy. She has been n.p.o. since last night and I recommended we proceed for fixation for both pain control and early mobilization. I did discuss potential risk to include bleeding, infection, pain, stiffness, damage to nerves and vessels, damage to muscle and tendons, instability, fracture, blood clot, loosening, need for repeat procedures. Despite these risk, she elected to proceed. She will be admitted to the hospital to work with physical therapy and hopefully discharge to home with home health services when cleared. She will stay n.p.o. Initial blood work, CBC and BMP. Qualifiers: Encounter type: initial encounter Qualified Code(s): S72.011A - Unspecified intracapsular fracture of right femur, initial encounter for closed fracture Review of Systems All systems reviewed & are unremarkable except as noted in HPI and below PFSH All Active Problems (Updated 11/09/23 @ 12:22 by Lonny Loomis MD) Closed subcapital fracture of neck of right femur (Acute) Abdominal pain (Acute) Constipation (Acute) Stercoral colitis (Acute) Colitis (Acute) Cervical radiculitis (Acute) Hypertension (Chronic) Hx of migraine headaches (Acute) Ground glass opacity present on imaging of lung (Acute) Constipation (Acute) Sensorineural hearing loss, bilateral (Acute) Conductive hearing loss, external ear (Acute) Impacted cerumen, bilateral (Acute) Frequent headaches (Acute) Migraine without aura, intractable, with status migrainosus (Acute) Hx of colonoscopy (Chronic) Hemorrhoids (Acute) Cerumen impaction (Acute) Dysphagia (Acute) Left foot pain (Acute) Other fatigue (Acute) Snoring (Acute) Cervical spondylosis without myelopathy (Acute) Cervical spondylosis without myelopathy (Acute) Migraine headache with aura (Chronic) Migraine headache without aura (Acute) Chronic daily headache (Acute) New onset headache (Acute) Medical History Palpitations Lower urinary tract symptoms (LUTS) Recurrent UTI Dysuria Headache Depression Developmental delay, moderate IBS (irritable bowel syndrome) GERD (gastroesophageal reflux disease) Cold intolerance Basal cell carcinoma Neck pain Anemia Fatigue Dizziness Surgical History 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 She does spontaneously move the right ankle and foot. Palpable DP and PT pulse. Unable to perform a true sensory examination. No overlying skin changes, breaks, or signs of infection. No significant edema. Results Last Vital Signs Temp 36.6 C 11/09/23 10:24 Pulse 88 11/09/23 10:24 Resp 18 11/09/23 10:24 BP 177/82 H 11/09/23 10:24 Pulse Ox 100 11/09/23 10:24 Labs 11/09/23 11:37 11/09/23 11:37 Imaging Imaging Studies: X-ray of the right femur and right hip demonstrates an impacted with mild valgus angulated femoral neck fracture in the subcapital region. No extension into the femur. No significant premorbid disease. No masses.
[2023-11-09 11:59] LABS: Abs Immature Grans 0.02 10^3/uL (0.0-0.06); Absolute Basophil Count 0.05 10^3/uL (0.0-0.2); Absolute Eosinophil Count 0.03 10^3/uL (0.0-0.7); Absolute Neutrophil Count 5.81 10^3/uL (1.2-6.7); Basophils % 0.6; Eosinophils % 0.4; HCT 33.1 % (36.0-46.0); Immature Grans % 0.2; Lymphocytes % 22.6; MCH 30.6 pg (27.0-33.0); MCHC 33.2 % (32.0-36.0); MCV 92 fL (80-95); MPV 8.5 fL (8.0-11.0); Monocytes % 7.1; Neutrophils % 69.1; Platelet Count 287 10^3/uL (130-400); RBC 3.59 10^6/uL (3.93-5.22); RDW 12.5 % (11.7-14.6); RDW-SD 42.7 fL; WBC 8.41 10^3/uL (4.4-10.8)
[2023-11-09 12:07] LABS: Anion Gap 8.3 mmol/L (3-11); BUN 19 mg/dL (7-18); CO2 28.7 mmol/L (21.0-32.0); CREATININE 0.7 mg/dL (0.55-1.02); Calcium 9.7 mg/dL (8.5-10.1); Chloride 101 mmol/L (98-107); Estimated GFR 97.12 (mL/min/1.73m2); Glucose 95 mg/dL (74-106); Potassium 4.2 mmol/L (3.5-5.1); Sodium 138 mmol/L (136-145)
--- NOTE | 2023-11-09 12:13 | DI.VRAD_ITS ---
PROCEDURE INFORMATION: Exam: XR Chest Exam date and time: 11/09/2023 11:56 AM Age: 63 years old Clinical indication: Other: Hip XR preop TECHNIQUE: Imaging protocol: Radiologic exam of the chest. Views: 1 view. COMPARISON: CR XR CHEST 2V PA LATERAL 08/27/2023 12:16 PM FINDINGS: Lungs: Emphysematous changes. No focal consolidation. Pleural spaces: Unremarkable. No pleural effusion. No pneumothorax. Heart/Mediastinum: Unremarkable. No cardiomegaly. Vasculature: Stable aortic ectasia. Bones/joints: Unremarkable. IMPRESSION: No acute findings. Dictated and Authenticated by: Mag Schmitt MD. Ordering:JJ Adler MD
--- NOTE | 2023-11-09 12:15 | DI.RAD_ITS ---
Exam(s) XR HIP RT IN OR EXAM: XR HIP RT IN OR CLINICAL HISTORY: Right Hip Fracture TECHNIQUE: 2D and realtime digital imaging was performed. CONTRAST MATERIAL: Refer to procedure report. COMPARISON: CR,XR XR HIP RT COMPLETE AP PELVIS from 11/09/2023 CR,XR XR FEMUR RT from 11/09/2023 FINDINGS: Fluoroscopy was provided for Dr. Loomis during the performance of a right total hip replacement. Please refer to the procedure report for complete details. Ka,r=2.42 mGy IMPRESSION: RADIATION DOSE DELIVERED: 0.0 1063.6 0
[2023-11-09] MEDS: Lactated Ringers 1,000 ML 100 ML IV (12:40)
[2023-11-09] MEDS: ceFAZolin 1 GM/50 ML BAG IVPB ×2 (13:01→23:39)
[2023-11-09] MEDS: Tranexamic Acid 1,000 MG/10 ML VIAL 1000 MG IVP (13:10)
--- NOTE | 2023-11-09 14:07 | ROE_ITS ---
Date of service: 11/09/23 Time of Service: 13:15 Operative Note Operative Note DATE OF PROCEDURE: 11/09/23 PRE-OP DIAGNOSIS: Right Subcapital Femoral Neck Fracture POST-OP DIAGNOSIS: same PROCEDURE: Right Anterior Total Hip Arthroplasty SURGEON: Lonny Loomis FIXING MACHINE OPERATOR: Umer Slade ANESTHESIA TYPE: Spinal Refer to Anesthesia Record ESTIMATED BLOOD LOSS: 100 PATHOLOGY: none sent TOURNIQUET TIME: 0 COMPLICATIONS: None Patient was transported to: PACU Patient's condition: stable Implants: 1. Depuy [place] Acetabular Component, 48mm 2. Depuy Acetabular Liner, [id number] 3. Depuy Corail Short Neck Collared Femoral Stem, Size 10 4. Depuy Altrx Ceramic Femoral Head, Size 32+8.5mm Indications: I saw Sera in the emergency department for a subcapital femoral neck fracture. Given her active lifestyle, despite her developmental delay, and no other significant medical comorbidities, I recommended proceeding with hip replacement due to a relatively low risk profile initially but also significant improvement with long-term function. I discussed the technical details of a hip replacement. I explained the risks of the procedure to include, but not limited to, bleeding, infection, pain, stiffness, fracture, damage to nerves and vessels, damage to muscles and tendons, loosening, instability, leg length inequality, need for repeat procedure, blood clot and cardiopulmonary demise. I was also very honest with Missy, her POA and mother, there is a slightly higher risk of iatrogenic fracture and instability when doing hip replacement for fracture. Despite these risks, Missy and Sera elected to proceed. Findings: There was a subcapital femoral neck fracture which was impacted along with a fracture extending down the lateral portion of the femoral neck to the shoulder and a smaller chip fracture extending into the medial neck Procedure Description: Sera was greeted in the preoperative holding area where the correct side was identified and marked. The consent was previously reviewed and signed. Sera was taken back to the operating room. A spinal anesthestic was then administered. The feet were wrapped with cast padding and Coban and then placed into the boot liners and then into the boots. Care was taken to protect the skin and make sure the heels were fully down and the boots were stable. The patient was then positioned onto the HANA table. Both legs were held in a neutral position. SCDs were applied. The patient was then slid down onto a peroneal post. Prophylactic antibiotics in the form of Cefazolin were administered. 500mg of Tranxemic Acid was given intravenously within 30 minutes of incision. The right leg was then prepped with Chloraprep and draped in a standard fashion. A second prep with Chloraprep was performed prior to placement of a shower-curtain type drape with Iodine impregnated skin protection. A timeout to confirm correct identity, side and site, procedure, allergies, anesthesia, and medical concerns was performed. An obliquely oriented incision was made starting lateral to the ASIS and running distal over the Tensor Fascia Balbina (TFL) muscle belly toward the fibular head, approximately 10cm. The skin and soft tissue was dissected sharply, through Grazyna?s fascia, and to the fascia of the TFL. With the fascia and superior border of the IT band identified, the fascia was incised with a new knife just above any perforators from the IT band. The TFL muscle belly was bluntly dissected away from the fascia and moved laterally. The fat between TFL and rectus was identified to ensure the dissection was not within the TFL. Blunt dissection created space between abductors and the capsule and retractor was placed over the lateral femoral neck. The fibers of the rectus femoris tendon were identified and these were freed from the anterior capsule. A second cobra retractor was placed around the medial femoral neck. The TFL was further retracted laterally to show the deep fascia. Careful dissection through this layer identified three main crossing vessels of the lateral femoral circumflex. These were cauterized in multiple locations and then cut without any noticeable bleeding. The TFL was further released bluntly from the deep fascia to expose anterior hip capsule and fat The Carson orthopaedic retractor was then placed beneath the TFL and against sartorius and medial soft tissues to protect and retract the soft tissues. A T-capsulotomy was then performed starting at the superior lateral acetabulum and moving distally to the intertrochanteric ridge. These capsular flaps were tagged with a No. 1 Ethibond and elevated from within. The capsular flaps were released to the shoulder of the lateral neck and to the lesser trochanter to give excellent visualization of the proximal femur. A neck osteotomy was performed using an oscillating saw based on preoperative templates. This cut started in the shoulder and of the lateral neck and exited medially. The saw was at all times directed medially to avoid injury to the greater trochanter. Gross traction was applied to the leg and the osteotomy opened. The femoral head was removed with a corkscrew, making sure to protect the TFL on its exit. Traction was released after head removal. This was measured on the back table to determine the starting reamer size. There was a notable fracture of the subcapital region which was impacted with a longitudinal extension of the fracture down the lateral neck to the shoulder as well as a smaller chip fragment into the medial side of the neck. An anterior retractor was placed over the anterior wall between capsule and labrum and attached to the Gripper retraction system. The femur was rotated to 90 degrees and medial capsule was fully released until the lesser trochanter was palpable and visible; the femur was returned to 30 degrees. A posterior retractor was placed similarly between capsule and labrum. This provided excellent visualization. The contents of the cotyloid fossa were removed with electrocautery and the labrum was removed with a knife. Acetabular reaming began with a 44mm reamer. This first reaming was directed anterior to posterior and medial to get down to the true floor. This was inspected and reamed until the true floor was reached. The anterior retractor was then released and entry and exit was provided by traction on the capsular flaps. I then reamed sequentially up to a 48mm reamer where good fit was obtained. The larger reamers were oriented based on anatomical reference of the anterior and lateral rudolph to ensure proper abduction and anteversion. Positioning and size was confirmed with the fluoroscopy. A 48mm Depuy [place] acetabular component was selected. The deep tissues were irrigated. The acetabular component was then impacted in a position of about 40-45 degrees of abduction and 15-20 degrees of anteversion, using the patient?s anatomy as the ultimate landmark. Fluoroscopy was used to confirm this. There was excellent head of physics of the acetabular component and the inserting handle was removed. The acetabular liner, Depuy [id number] polyethylene liner, was inserted and lined up with the tines of the acetabular component. There was no soft tissue interposition. The liner was then impacted into position and confirmed to be well-seated. A portion of the melisa-articular cocktail was then injected around the acetabulum into the capsule and periosteum. This cocktail consisted of 123mg of Ropivacaine, 0.25mg of Epinephrine, 0.04mg of Clonidine, and 15mg of Ketorolac, diluted to 50cc. The leg was rotated to 120 degrees. Any remaining medial capsule was released until the lesser trochanter was easily palpable. A retractor was placed medially. The lateral capsule was further released into the shoulder to allow access to the greater trochanter. A Barker retractor was placed over the greater trochanter which allowed the trochanter to flip in front of the capsule for excellent exposure. The leg was brought down into maximal extension and 20 degrees of adduction while ensuring there was no impingement on the acetabulum. Any remnant capsule within the trochanter was released. Piriformis and obturator externis were identified and protected. There was excellent access to the proximal femur. The lateral neck remnant was removed with a rongeur. A blunt canal probe was used to identify the canal and trajectory for later broaching. A box osteotome initiated the broach course. A small curved rasp and a curved curette were used to work laterally. Broaching then began with a size 8 Corail broach. This was inserted manually around the trochanter and into the canal before mallet blows. The broach was seated to a few millimeters below the cut level based on the neck cut and the preoperative template. Sequential broaching was continued with the Lift [employer] pneumatic broaching device until a tight fit was obtained with good rotational control of the femur. A trial short neck stem was inserted along with a +5 trial head. The leg was brought out of extension and adduction and then reduced with traction and internal rotation. The leg was stable anteriorly in a position of 30 degrees of extension and 90 degrees of external rotation. Fluoroscopy was used to ensure there was no fracture and the stem was seated well. Leg lengths were checked with an AP pelvis and pelvic reference points. This seemed to correctly match her leg length but slightly undercorrected the offset as the cup was medialized. Therefore, I brought the leg back up and advanced the stem proximally 2 mm and went up to the +9 mm head. The periosteum and surrounding tissue was injected with remaining portion of the melisa-articular cocktail. The proximal femur was irrigated as well as the deep tissues. The Depuy Corail short neck collared stem, size 10, was then manually inserted into the proximal femur making sure to control rotation. It was then malleted into position with light blows, giving breaks to allow bone expansion and decrease risk of fracture. The selected Depuy Altrx Ceramic Head, size 32+9mm, was then placed onto the clean and dry trunnion and secured with impaction onto the tapered fit. The leg was brought back out of extension and adduction and reduced with traction and internal rotation. Stability was confirmed with no shuck at 90 degrees of external rotation and 30 degrees of extension. No impingement through range of motion arc. Final x-ray images were obtained with fluoroscopy to confirm adequate positioning and no intraoperative fracture. The deep tissues were thoroughly irrigated with Surgiphor, betadine solution. This was allowed to sit in the wound for 3 minutes before being thoroughly irrigated out with normal saline. The capsule was then reapproximated with the previously placed Ethibond sutures. The indirect head of the rectus as well as the anterior capsule was closed with a #1 Vicryl. The TFL fascia was finally closed with a No. 2 Stratafix, barbed suture. Deep tissues were then reapproximated with 0 Vicryl and a running 2-0 Vicryl. The skin was closed with a running 4-0 Monocryl in a subcuticular fashion. This was reinforced with skin glue. A Mepilex silver dressing was applied. At the end of the case, all counts were correct. Sera was transferred to the hospital bed without difficulty and suffering no apparent complication. Sera has a good prognosis. Physical therapy will start today and without restrictions, weight-bearing as tolerated. Aspirin 81mg BID will be used for DVT prophylaxis.
[2023-11-09] MEDS: Acetaminophen 500 MG TAB PO ×2 (16:35→20:24)
[2023-11-09] MEDS: Ketorolac 15 MG/ML VIAL IVP (17:04)
[2023-11-09] MEDS: Mirtazapine 15 MG TAB 7.5 MG PO (20:20)
[2023-11-09] MEDS: traMADol 50 MG TAB PO (20:25)
[2023-11-10] MEDS: Ketorolac 15 MG/ML VIAL IVP ×3 (00:48→23:12)
[2023-11-10 03:22] VITALS: BP 103/63; PULSE 68; RESP 20; TEMP 36.3; O2SAT 98
[2023-11-10] MEDS: traMADol 50 MG TAB PO ×3 (04:59→19:35)
[2023-11-10] MEDS: ceFAZolin 1 GM/50 ML BAG IVPB ×2 (07:07→13:44)
[2023-11-10] MEDS: Omeprazole 20 MG CAPCR 40 MG PO (07:11)
[2023-11-10 07:59] VITALS: BP 101/60; PULSE 75; RESP 14; TEMP 36.1; O2SAT 98
--- NOTE | 2023-11-10 08:29 | PDOC.CMIN ---
Date of service: 11/10/23 Time of Service: 08:29 Care Management Initial Assmt Initial Assessment REASON FOR HOSPITALIZATION:: fractured femur PREVIOUS FUNCTIONAL STATUS/SOCIAL/FAMILY SUPPORTS:: Sera lives in a single family cape style home in [place] with her mother Missy and her cat Macksburg. She has one brother, Unique, who works in [place] He comes to visit every other weekend and is very helpful and supportive. Sera is able to perform her ADLs independently and currently uses a walker for ambulation as she is at [facility] with a fractured hip. CURRENT FUNCTIONAL STATUS:: Sera was sitting up in a chair when CM met with her. She was polite but appeared very anxious. Sera was able to answer questions about her home and her family . She shared that she enjoys going for walks, riding her bike and helping out with housework. She informed CM that her cat Macksburg is a calico with orange, black and white markings and is 11 or 12 years old. CM provided Sera with a coloring book and colored pencils to help pass the time. ADVANCE DIRECTIVES:: none on file Has patient been provided with info about the portal/API?: Yes Did the patient sign up for the portal?: No CODE STATUS:: Full Code INSURANCE COVERAGE / FINANCIAL ISSUES:: Medicare Financial Assist 100 CURRENT HOME/COMMUNITY SERVICES/EQUIPMENT:: none. will need a walker at discharge PRIMARY CARE PHYSICIAN:: Carmen Pacheco POTENTIAL DISCHARGE NEEDS:: follow up with community providers PATIENT/FAMILY EDUCATION NEEDS:: Review discharge instructions, limitations, activity, diet, medications, follow up plan, discuss [employer] Me [employer] TRANSPORTATION:: via private vehicle with family PLAN:: Anticipate Sera will be discharged home, possibly with new home health services for PT. She will follow up with her community providers and plan of care and transport with family. CM will follow and assess for discharge needs. PFSH All Active Problems (Updated 11/09/23 @ 12:22 by Lonny Loomis MD) Closed subcapital fracture of neck of right femur (Acute) Abdominal pain (Acute) Constipation (Acute) Stercoral colitis (Acute) Colitis (Acute) Cervical radiculitis (Acute) Hypertension (Chronic) Hx of migraine headaches (Acute) Ground glass opacity present on imaging of lung (Acute) Constipation (Acute) Sensorineural hearing loss, bilateral (Acute) Conductive hearing loss, external ear (Acute) Impacted cerumen, bilateral (Acute) Frequent headaches (Acute) Migraine without aura, intractable, with status migrainosus (Acute) Hx of colonoscopy (Chronic) Hemorrhoids (Acute) Cerumen impaction (Acute) Dysphagia (Acute) Left foot pain (Acute) Other fatigue (Acute) Snoring (Acute) Cervical spondylosis without myelopathy (Acute) Cervical spondylosis without myelopathy (Acute) Migraine headache with aura (Chronic) Migraine headache without aura (Acute) Chronic daily headache (Acute) New onset headache (Acute) Medical History Palpitations Lower urinary tract symptoms (LUTS) Recurrent UTI Dysuria Headache Depression Developmental delay, moderate IBS (irritable bowel syndrome) GERD (gastroesophageal reflux disease) Cold intolerance Basal cell carcinoma Neck pain Anemia Fatigue Dizziness Surgical History 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[employer] Do you feel safe at home: Yes Do you feel safe in your relationship?: Yes SDOH(Care Management) Screening Will the Patient Participate in the Screening?: Declined to provide
[2023-11-10] MEDS: Acetaminophen 500 MG TAB PO ×4 (09:00→19:35)
[2023-11-10] MEDS: Aspirin E.C. 81 MG TABEC 162 MG PO (09:01)
[2023-11-10] MEDS: Dexamethasone 4 MG TAB PO (09:01)
--- NOTE | 2023-11-10 10:20 | IN_ITS ---
PT Notes Visit Reasons: Right Femoral Neck Fracture Physical Therapy Inpatient Initial Evaluation Date: 11/10/2023 Referring Doctor: Lonny Loomis MD PT Orders: PT CONSULT: S/P Ortho Surgery. S/P Anterior MERARI for hip fracture Precautions: Fall. Standard. WBAT on the R LE with AD. Patient Profile/Admitting Diagnosis: Sera is a 63-year-old female who sustained a closed subcapital fracture of the neck due to a fall and is status post anterior total hip replacement postoperative day 1. PMHX: All Active Problems Abdominal pain (Acute) Constipation (Acute) Stercoral colitis (Acute) Colitis (Acute) Cervical radiculitis (Acute) Hypertension (Chronic) Hx of migraine headaches (Acute) Ground glass opacity present on imaging of lung (Acute) Constipation (Acute) Sensorineural hearing loss, bilateral (Acute) Conductive hearing loss, external ear (Acute) Impacted cerumen, bilateral (Acute) Frequent headaches (Acute) Migraine without aura, intractable, with status migrainosus (Acute) Hx of colonoscopy (Chronic) Hemorrhoids (Acute) Cerumen impaction (Acute) Dysphagia (Acute) Left foot pain (Acute) Other fatigue (Acute) Snoring (Acute) Cervical spondylosis without myelopathy (Acute) Cervical spondylosis without myelopathy (Acute) Migraine headache with aura (Chronic) Migraine headache without aura (Acute) Chronic daily headache (Acute) New onset headache (Acute) Medical History Palpitations Lower urinary tract symptoms (LUTS) Recurrent UTI Dysuria Headache Depression Developmental delay, moderate IBS (irritable bowel syndrome) GERD (gastroesophageal reflux disease) Cold intolerance Basal cell carcinoma Neck pain Anemia Fatigue Dizziness Surgical History H/O knee surgery History of carpal tunnel release H/O colectomy Social History/Home Situation: Lives with mother in a private home with 1 step to enter with rails on B sides. Does housechores. Mother has been a long-time GL[employer] CLE[employer] MACHINE TENDER, retired now. Mother trakes care of meals, laundry and grocery shopping. Equipment Owned/DME: None Subjective: Anticipates pain. Groans with weight bearing but when she learned the step sequence, her pain level went down. Was mildly lightheaded but was okay later in the walk. Objective: General Observation: Patient sitting on bedside chair with legs elevated. Mepilix Ag over surgical incision. Mental Status: Alert and oriented as to person, place, time, and purpose. Able to pay attention, focus, and respond appropriately. Pain perception impaired due to moderate developmental delay. Pain: Moderate pain level Vital Signs: Closely monitored by nurisng staff ROM: Right Lower Extremity: Hip flexion allows up to 100 degrees. Hip abduction WFL. Knee flexion 20 degrees to 90 degrees due to pain. Knee extension -20 degrees ankle dorsiflexion WFL. Ankle plantarflexion WFL. Left Lower Extremity: Hip flexion WFL. Hip abduction WFL. Knee flexion WFL. Ankle dorsiflexion WFL. Ankle plantarflexion WFL. Strength: Right Lower Extremity: Hip flexors 3-/5. Hip abductors 3-/5. Knee flexors 3-/5. Knee extensors 3-/5. Ankle dorsiflexors 4/5. Ankle plantarflexors 4/5. Left Lower Extremity: Hip flexors 4/5. Hip abductors 5/5. Knee flexors 5/5. Knee extensors 4/5. Ankle dorsiflexors 4/5. Ankle plantarflexors 4/5. Bed Mobility/Transfers: Moderate to maximal cueing provided for use of B hands as needed for support, movement sequence, AD management, and posture to reduce fall risk and minimize pain report Sit to stand minimal assist with FWW Stand to sit minimal assist with FWW Bed to reclining chair minimal assist with FWW Gait: Facilitated safe and correct performance of in room ambulation requiring moderate to maximal verbal cueing for limb movement sequence, AD management, and hand placement. Minimal assist provided, wheelchair follow for safety. Step- to gait patter. Gait antalgic. Tends to anticipate pain but when sequence is right pain is more tolerable. Mildly lightheaded at the start but felt much better toward the end of the walk. Balance: Static Sitting: Normal Dynamic Sitting: Normal Static Standing: Fair Dynamic Standing: Fair Special Tests: Mobility Limitations Standardized Measure [facility] AM-PAC 6 clicks Basic Mobility Inpatient Short Form: Raw Score: 18 CMS Score: 47% deficit Informed Consent/Education: Patient was instructed in purpose of PT consult and plan of care. Agreeable to proceed with established PT POC to achieve personal goals. Assessment: Anticipates pain. Pain perception and processing impaired due to moderate developmental delay. Required a lot of reassurance/encouragement to continue with walking. Will need cooordination with nurse for pre-medication for pain. Patient presents with clinical signs and symptoms consistent with current/admitting diagnoses that have resulted to mobility limitations, gait instability, generalized weakness, and overall ADL decline as demonstrated by the following impairment level findings: 1. Decreased strength to R hip and knee major muscle groups 2. Impaired sitting/standing balance 3. Impaired activity tolerance 4. Limitation of joint range of motion in R hip 5. Impaired pain perception/processing Impairments are contributing to the following functional limitations: 1. Decline in bed mobility skills 2. Decline in transfer skills 3. Difficulty with ambulation without assistive device and physical assistance 4. Increased completion time for mobility ADL performance 5. Increased risk for falls 6. Difficulty with managing steps alone safely Patient is assessed as a [id number] moderate complexity based on the following: History: 63-year-old female with past medical history as indicated above Examination: Demonstrable impairment in strength, balance, and mobility level with underlying impairments and functional limitations as exhibited above as well as deficit score of 47% utilizing the [facility] Mobility Inpatient Short Form Presentation: Evolving Decision Makin moderate complexity Goals: Goals X1 week 1. Supine-Sit independent 2. Sit-Supine independent 3. Sit-Stand independent 4. Stand-Sit independent with FWW 5. Bed-Chair independent with FWW 6. Chair-Bed independent with FWW 7. Independent gait on level surface with use of FWW for at least 150 feet without report of pain nor dyspnea 8. Independent stair negotiation while holding onto B rails for at least 2 steps without report of pain nor dyspnea 9. Supervision with home exercise program 10. Good static and dynamic standing balance/tolerance Plan of Care/Treatment Plan: 1-2x/day, 7 days/week x 1 week. Plan of care has been reviewed with the TELEGRAPH LINEMAN providing the service under Physical Therapy direction. Initiate Physical Therapy intervention for pain management as needed, strengthening, bed mobility, transfers, gait, stairs, balance training, and use of assistive device. DISCHARGE RECOMMENDATIONS: [] Home with no services [] [X] Home with services. Patient will benefit from home health PT services in order to progress mobility level using least restrictive assistive ambulatory device, assess home safety, identify additional equipment needs, and establish a functional maintenance program that will increase ability of patient to remain at home. [] Home with outpatient PT [] [] SNF for continued rehabilitation [] [] [facility] Home [facility] [] [] SNF versus LTC based on ability to participate and progress [] TREATMENT CODE/TIME: 04255 x 20 inutes for 1 unit, 52124 x 14 minutes for 1 unit (10:20-10:34). Thank you for the opportunity to participate in the care of this patient. Karol Perez PT, DPT, CLT [facility] [place], [place]
[2023-11-10] MEDS: Polyethylene Glycol 3350 17 GM PACKET PO (10:33)
[2023-11-10 11:25] VITALS: BP 100/61; PULSE 62; RESP 16; TEMP 36.2; O2SAT 99
--- NOTE | 2023-11-10 13:01 | PGE_ITS ---
Date of Service Date of service: 11/10/23 Time of Service: 12:30 Assessment and Plan Assessment and plan (1) Closed subcapital fracture of neck of right femur: Status: Acute Assessment and plan: Sera is POD#1 s/p MERARI for subcapital femoral neck fracture. She seesm to be doing well. Continue with PT. WBAT with assistive devices. Skin and buttock/sacrum care given thin stature. Nutrition consult. Likely d/c to home [facility] home health services tomorrow. ASA 81mg BID for DVT Prophylaxis. Qualifiers: Encounter type: initial encounter Qualified Code(s): S72.011A - Unspecified intracapsular fracture of right femur, initial encounter for closed fracture Subjective Subjective Interval history since last seen: Sera reports some pain of her right thigh and leg but worse around her low backand coccyx region. She has been able to get up with PT. No nursing concerns. Exam Narrative Exam Narrative: Sitting up in the chair. NAD. RLE dresing c/d/i. No significant pain with hip IR/ER. SILT LFCN/Fem/Sciatic distributions. +ADF/APF/EHL/FHL +DP/PT pulse Objective Last Vital Signs Temp 36.2 C L 11/10/23 11:25 Pulse 62 11/10/23 11:25 Resp 16 11/10/23 11:25 BP 100/61 11/10/23 11:25 Pulse Ox 99 11/10/23 11:25 Time Spent with Patient Time Spent with Patient: <25 minutes Time was spent: obtaining and/or reviewing separately otained hiistory, indepentently interpreting results, counseling the patient and care coordination
[2023-11-10] MEDS: Normal Saline Flush 10 ML SYR IVP ×3 (13:44→23:12)
--- NOTE | 2023-11-10 14:21 | W.NUTCONSULT ---
Date of service: 11/10/23 Time of Service: 13:20 Nutritional Consult Time Spent in Nutritional Counseling and Treatment: 15 minutes
[2023-11-10 15:13] VITALS: BP 103/66; PULSE 84; RESP 16; TEMP 36.9; O2SAT 98
--- NOTE | 2023-11-10 15:34 | W.ANESPOSTOP ---
Postoperative Evaluation Date, Time and Location Date Performed: 11/10/23 Time Performed: 15:35 Patient Location: Med/Surg Vital Signs Most Recent Imported Vital Signs: Most Recent Vital Signs Temp Pulse Resp BP Pulse Ox 36.9 C 84 16 103/66 98 11/10/23 15:13 11/10/23 15:13 11/10/23 15:13 11/10/23 15:13 11/10/23 15:13 Pain Score Most Recent Pain Score: Most Recent Pain Score Pain Level [Right Hip] 9 11/10/23 09:00 Pain Level 9 11/10/23 14:24 Assessment Mental Status: Awake (Alert & Oriented to Patient Baseline) Airway and Respiratory Function: Patent airway with normal (patient baseline) respiratory exam Cardiovascular Function: Hemodynamically Stable Hydration Status: Adequately Hydrated Nausea & Vomiting: No Nausea or Vomiting Pain: Pain is tolerable per patient Peripheral Nerve Block: Patient did not receive a nerve block Postoperative Comments:: Mentation back to documented baseline. López Barton CRNA
--- NOTE | 2023-11-10 16:08 | PT.INTREAT ---
PT Notes Visit Reasons: Right Femoral Neck Fracture Physical Therapy Inpatient Treatment Note Date: 11/10/2023 Precautions: Fall. Standard. WBAT on the R LE with AD. Subjective: Moved better this afternoon with walking. Was not lightheaded. Objective: General Observation: Patient sitting on bedside chair with legs elevated. Mepilix Ag over surgical incision. Mental Status: Alert and oriented as to person. Needs consistent cueing with limb sequence and weight bearing. Pain: Moderate pain level Vital Signs: Closely monitored by nurisng staff Bed Mobility/Transfers: Moderate to maximal cueing provided for use of B hands as needed for support, movement sequence, AD management, and posture to reduce fall risk and minimize pain report Sit to stand minimal assist with FWW Stand to sit minimal assist with FWW Bed to reclining chair minimal assist with FWW Gait: Facilitated safe and correct performance of in room ambulation requiring moderate to maximal verbal cueing for limb movement sequence, AD management, and hand placement. Minimal assist provided, wheelchair follow for safety. Step-to gait patten.. Gait antalgic. Tends to anticipate pain but when sequence is right pain is more tolerable. Balance: Static Sitting: Normal Dynamic Sitting: Normal Static Standing: Fair Dynamic Standing: Fair Assessment: Anticipates pain. Pain perception and processing impaired due to moderate developmental delay. Required a lot of reassurance/encouragement to continue with walking. Will need cooordination with nurse for pre-medication for pain. Plan of Care/Treatment Plan: 1-2x/day, 7 days/week x 1 week. Plan of care has been reviewed with the CHALK MACHINE OPERATOR providing the service under Physical Therapy direction. Initiate Physical Therapy intervention for pain management as needed, strengthening, bed mobility, transfers, gait, stairs, balance training, and use of assistive device. DISCHARGE RECOMMENDATIONS: [] Home with no services [] [X] Home with services. Patient will benefit from home health PT services in order to progress mobility level using least restrictive assistive ambulatory device, assess home safety, identify additional equipment needs, and establish a functional maintenance program that will increase ability of patient to remain at home. [] Home with outpatient PT [] [] SNF for continued rehabilitation [] [] [facility] [] [] SNF versus LTC based on ability to participate and progress [] TREATMENT CODE/TIME: 81211 x 24 minutes for 1 unit (15:42-16:06).
[2023-11-10] MEDS: Mirtazapine 15 MG TAB 7.5 MG PO (19:35)
[2023-11-10 19:37] VITALS: BP 106/66; PULSE 91; RESP 18; TEMP 36.9; O2SAT 96
[2023-11-10 23:34] VITALS: BP 121/73; PULSE 88; RESP 18; TEMP 36.9; O2SAT 98
[2023-11-11 03:15] VITALS: BP 127/76; PULSE 73; RESP 17; TEMP 36.3; O2SAT 97
[2023-11-11 06:39] LABS: MCH 30.9 pg (27.0-33.0); MCHC 33.3 % (32.0-36.0); MCV 93 fL (80-95); Platelet Count 225 10^3/uL (130-400); RBC 2.91 10^6/uL (3.93-5.22); RDW 12.4 % (11.7-14.6); RDW-SD 42.7 fL; WBC 10.17 10^3/uL (4.4-10.8)
[2023-11-11 06:57] LABS: Anion Gap 7.3 mmol/L (3-11); BUN 22 mg/dL (7-18); CO2 27.7 mmol/L (21.0-32.0); CREATININE 0.6 mg/dL (0.55-1.02); Calcium 8.7 mg/dL (8.5-10.1); Chloride 101 mmol/L (98-107); Glucose 113 mg/dL (74-106); Potassium 4.7 mmol/L (3.5-5.1); Sodium 136 mmol/L (136-145)
[2023-11-11 07:43] VITALS: BP 127/82; PULSE 73; RESP 14; TEMP 36.2; O2SAT 96
[2023-11-11] MEDS: Normal Saline Flush 10 ML SYR IVP (07:45)
[2023-11-11] MEDS: Polyethylene Glycol 3350 17 GM PACKET PO (07:45)
[2023-11-11] MEDS: Acetaminophen 500 MG TAB PO ×2 (07:46→11:55)
[2023-11-11] MEDS: Dexamethasone 4 MG TAB PO (07:47)
[2023-11-11] MEDS: Aspirin E.C. 81 MG TABEC 162 MG PO (07:47)
[2023-11-11] MEDS: Ketorolac 15 MG/ML VIAL IVP (07:48)
[2023-11-11] MEDS: Omeprazole 20 MG CAPCR 40 MG PO (07:52)
--- NOTE | 2023-11-11 09:07 | NUR.NOTE ---
Pt requesting to go for a walk. Used walker and 1 SBA: did well, pain went from 4/10 to 5/10, pt not wincing in pain. She did c/o being tired, requested a 2nd staff member be with her for assurance. Pt did well overall, steady gait, no c/o pain.Nursing Note:
--- NOTE | 2023-11-11 10:07 | PTTR_ITS ---
PT Notes Visit Reasons: Right Femoral Neck Fracture Physical Therapy Inpatient Treatment Note Date: 11/11/2023 Precautions: Fall. Standard. WBAT on the R LE with AD. Subjective: Pain level much improve, walking tolerance increased. Objective: General Observation: Patient sitting on bedside chair with legs elevated. M epilix Ag over surgical incision. Mental Status: Alert and oriented as to person. Needs consistent cueing with limb sequence and weight bearing. Pain: Minimal pain in R hip Vital Signs: Closely monitored by nurisng staff Bed Mobility/Transfers: Moderate to maximal cueing provided for use of B hands as needed for support, movement sequence, AD management, and posture to reduce fall risk and minimize pain report Sit to stand stand by assist with FWW Stand to sit stand by assist with FWW Bed to reclining chair stand by assist with FWW Gait: Facilitated safe and correct performance level surface ambulation covering a distance of 200 feet using front wheeled walker with much improved step height and length requiring only contact-guard assist and minimal verbal cueing for safe and correct gait pattern, posture, walker management, and overall safety to reduce fall risk and minimize pain report. Stairs: Guided patient with correct and safe negotiation of 6 x 4 inch steps and 4 x 6 inch steps holding onto bilateral rails with step to gait pattern requiring minimal verbal cueing for movement sequence, posture, hide placement, and turning to reduce fall risk and minimize pain report. Balance: Static Sitting: Normal Dynamic Sitting: Normal Static Standing: Fair Dynamic Standing: Fair THERA EX: Trained patient and mother with correct performance of exercises below to maximize motor control, joint flexibility, soft tissue extensibility of the R hip musculature to facilitate return to independent functional mobility performance. Access Code: [email or web address] URL: [email or web address] Date: 11/11/2023 Prepared by: Karol Perez Exercises - Gluteal Sets - 1 x daily - 7 x weekly - 1 sets - 10 reps - 5 hold - Supine Heel Slide - 1 x daily - 7 x weekly - 1 sets - 10 reps - 5 hold - Supine Ankle Pumps - 1 x daily - 7 x weekly - 1 sets - 10 reps - 5 hold - Seated March - 1 x daily - 7 x weekly - 1 sets - 10 reps - 5 hold - Seated Long Arc Quad - 1 x daily - 7 x weekly - 1 sets - 10 reps - 5 hold Assessment: Pain level now a lot more manageable. Covered increased distance with safer gait pattern and lesser pain report. DISCHARGE RECOMMENDATIONS: [] Home with no services [] [X] Home with services. Patient will benefit from home health PT services in order to progress mobility level using least restrictive assistive ambulatory device, assess home safety, identify additional equipment needs, and establish a functional maintenance program that will increase ability of patient to remain at home. [] Home with outpatient PT [] [] SNF for continued rehabilitation [] [] [facility] [] [] SNF versus LTC based on ability to participate and progress [] TREATMENT CODE/TIME: 73285 x 32 minutes for 2 units (10:07-10:39).
--- NOTE | 2023-11-11 10:17 | W.PM.DS.N ---
Date of service: 11/11/23 Time of Service: 10:18 DS: Diagnosis Discharge Diagnosis (1) Closed subcapital fracture of neck of right femur: Status: Acute Discharge Plan Disposition Patient Disposition: Home W/Home Health Services Condition: Improving Discharge Details Reason For Visit: Right Femoral Neck Fracture Admit Date/Time: 11/09/23 11:25 Admit Provider: Lonny Loomis Attending Provider: Lonny Loomis Primary Care Provider: Carmen Pacheco Hospital Course Hospital Course: Patient was admitted to the medical/surgical floor following the procedure after being transferred from the emergency department. The surgery was tolerated well without any notable medical, surgical, or anesthetic complications. Mobilization began postoperatively. She was voiding spontaneously. Vitals were stable. Physical therapy worked with the patient and was cleared for discharge home. No acute medical issues. Pain was controlled on oral regimen. Home Meds and New Rx's Prescriptions: New acetaminophen 500 mg Tablet 500 mg PO QID Qty: 90 0RF aspirin 81 mg Tablet,Delayed Release (Dr/Ec) 162 mg PO DAILY Qty: 60 0RF tramadol 50 mg tablet 50 mg PO Q8H PRNQty: 10 0RF ibuprofen 600 mg tablet 600 mg PO TID PRN (Reason: pain) Qty: 90 3RF Continued polyethylene glycol 3350 [Miralax] 17 gram/dose powder 17 g PO DAILY vitamin B complex [B Complex-Vitamin B12] Tablet 1 tab PO DAILY acetaminophen [Tylenol Extra Strength] 500 mg tablet 1,000 mg PO Q8H PRN omeprazole 20 mg capsule,delayed release(DR/EC) 40 mg PO DAILY Qulipta 30 mg Tablet 60 mg PO DAILY ot-si-fwid-FA-Ca carb-vit K 18 mg iron-400 mcg-500 mg Tablet 1 tab PO DAILY polyethylene glycol 3350 17 gram Powder In Packet 17 g PO DAILY Qty: 30 0RF Rx Instructions: hold if having diarrhea Metamucil Fiber Singles 3.4 gram powder in packet 1 packet PO DAILY vitamin B complex [Vitamins B Complex] Capsule 1 cap PO DAILY mirtazapine 7.5 mg tablet 7.5 mg PO HS Patient Comments: TAKE ONE TABLET BY MOUTH AT BEDTIME Discharge Instructions Additional Instructions: Total Hip Discharge Instructions Activity: The most important activity is to walk. You should try to take short walks a few times a day. You have no restrictions on movement or positioning, but do not try to force what you do. You will find some stiffness and weakness with hip flexion (lifting your knee). Do not try to strengthen this too early, continue to practice walking and stairs and this will come. - Outpatient physical therapy can be helpful to help return you to a normal gait and improve your flexibility and strength. This can start around 2 weeks. For some patients, it?s not necessary. Usually this is determined at the time of discharge or at the first post-operative visit. - You should wear the GEORGINA hose on both legs for 2 weeks. Dressing: Keep the surgical dressing in place for at least one week. After the first week it may be removed and replace with light gauze and tape or nothing. It may get wet after 3 days but avoid soaking the dressing. If it gets wet, just lightly pat dry. It is important to always keep some gauze between skin folds, especially when you are sitting. Spend some time with the wound exposed when you are lying flat as the incision does wrinkle onto itself. Medications: - You should take Tylenol and an anti-inflammatory Ibuprofen as your primary pain control medications. - You have been prescribed a stronger pain medication Tramadol for breakthrough pain, take as needed as prescribed. - You will continue to take your stomach acid reduction agent Omeprazole to help reduce stomach acid and reflux. - You will be taking Aspirin 162mg (162mg at once or 81mg twice a day) for DVT prevention unless instructed otherwise. - If you have constipation you should take Colace or Miralax (both asiq-stb-nauyhya). It takes most people 3-4 days to have a bowel movement. Follow-up: 4 weeks If you have any acute concerns or questions, please do not hesitate to contact the office at [phone]. You may contact Dr. Loomis with any questions after hours through the hospital at [phone] or on his cell phone at [phone]. 1. Encounter Date and Reason I certify that Sera Nair was seen by Lonny Loomis MD on 11/11/23 and that I had a [id number] encounter with this patient that meets the physician face to face encounter requirements. 2. Clinical Findings Supporting Skilled Need and Homebound Status I certify that home health services are medically necessary, include either intermittent intermediate and/or physical/speech therapy, and that this patient is homebound in that absences from the home require considerable and taxing effort and are infrequent or of short duration, or are attributable to the need to receive medical care. [X] (a) Attached documentation from encounter provides clinical findings supporting skilled need and homebound status (including what assistance patient requires to leave the home). The encounter with the patient was in whole, or in part, for the following medical condition, which is the primary reason for home health care: Right Femoral Neck Fracture Retirement: Physical Therapy: Sera would benefit from home health physical therapy and Occupational Therapy to assist her as she tries to regain her ambulatory independence and functional capacity following hip fracture and hip replacement for fracture. She had an anterior approach hip replacement. She has no restrictions. She is weightbearing as tolerated. She should use assistive devices as necessary. PT/OT should focus on functional dependence within the home and ADL performance. Speech Therapy: Homebound: Sera is unable to leave her home unassisted due to mental capacity and current physical limitations with gait and strength. 3. Certification and Authentication I certify that I composed the above information based on my clinical judgement relating to this patient's medical condition and, if applicable, clinical findings communicated to me by the NPP or inpatient physician who performed the Home Health Referral. All further orders will be obtained through Dr. Loomis Referrals: Lonny Loomis MD [ [facility] STAFF PHYSICIAN] - 12/11/23 11:00 am Activity:: Activity as Tolerated Equipment/Supplies:: Walker Diet:: As Tolerated Discharge Orders Discharge Orders: Discharge Order (Routine); Ordered 11/11/23 Ordered By: Lonny Loomis DS: Summary Time Spent with Patient providing and/or coordinating discharge services: Less than 30 minutes Status at Discharge Functional status at discharge: uses cane/walker Overall status at discharge: patient is progressing back to baseline Mental Status: mental status grossly normal Speech and Movement: speech and movement normal Mood: congruent mood Affect: normal affect Quality:SDOH Health Related Social Needs: No Data to Display Exam Narrative Exam Narrative: Sitting up in the chair with regular close. No acute distress. Evaluation of the right hip shows a clean dry and intact dressing. She has no significant pain with hip internal rotation, external rotation, and flexion. He is able to demonstrate active knee extension active hip flexion as well as active ankle dorsiflexion and plantarflexion. Psych Mental Status: mental status grossly normal Speech and Movement: speech and movement normal Mood: congruent mood Affect: normal affect DS: Data Vitals/I&O Vitals and I&O: Vital Signs Temperature 36.2 C L 11/11/23 07:43 Temperature Source Tympanic 11/11/23 07:43 Pulse 73 11/11/23 07:43 Pulse Rhythm Regular 11/10/23 20:13 Pulse 82 11/09/23 12:31 Respiratory Rate 14 11/11/23 07:43 Respiratory Effort Normal 11/10/23 20:13 Respiratory Depth Normal 11/10/23 20:13 Respiratory Pattern Normal 11/10/23 20:13 Blood Pressure 127/82 11/11/23 07:43 Blood Pressure Mean 91 11/09/23 12:31 Pulse Oximetry 96 11/11/23 07:43 Oxygen Delivery Method Room Air 11/11/23 07:43 Oxygen Flow Rate 0 11/11/23 07:43 Pain Level 2 11/11/23 08:48 Intake & Output 11/10/23 11/10/23 11/11/23 11:59 23:59 11:59 Intake Total 340 / 690 350 / 690 Output Total 750 / 750 400 / 400 Balance 340 / -60 -400 / -60 -400 / -400 Intake: IV 100 / 150 50 / 150 Oral 240 / 540 300 / 540 Output: Urine 750 / 750 400 / 400 Other: Urine Color Yellow Yellow Urine Appearance Clear Clear Clear Urine Odor Normal Normal Comment transferred pt to bedside commode, no void Stool Size Small Moderate Stool Characteristics Soft Formed Formed Brown Voiding Methods Bedside Commode Bedside Commode Data Completed and Pending Labs on day of discharge: Labs from last 24 hours 11/11/23 06:11 WBC 10.17 RBC 2.91 L Hgb 9.0 L D Hct 27.0 L MCV 93 MCH 30.9 MCHC 33.3 RDW 12.4 Plt Count 225 MPV 9.0 Sodium 136 Potassium 4.7 Chloride 101 Carbon Dioxide 27.7 Anion Gap 7.3 BUN 22 H Creatinine 0.6 Est GFR (CKD-EPI 2020) 100.80 Glucose 113 H Calcium 8.7 PFSH All Active Problems Closed hip fracture (Acute) Closed subcapital fracture of neck of right femur (Acute) Abdominal pain (Acute) Constipation (Acute) Stercoral colitis (Acute) Colitis (Acute) Cervical radiculitis (Acute) Hypertension (Chronic) Hx of migraine headaches (Acute) Ground glass opacity present on imaging of lung (Acute) Constipation (Acute) Sensorineural hearing loss, bilateral (Acute) Conductive hearing loss, external ear (Acute) Impacted cerumen, bilateral (Acute) Frequent headaches (Acute) Migraine without aura, intractable, with status migrainosus (Acute) Hx of colonoscopy (Chronic) Hemorrhoids (Acute) Cerumen impaction (Acute) Dysphagia (Acute) Left foot pain (Acute) Other fatigue (Acute) Snoring (Acute) Cervical spondylosis without myelopathy (Acute) Cervical spondylosis without myelopathy (Acute) Migraine headache with aura (Chronic) Migraine headache without aura (Acute) Chronic daily headache (Acute) New onset headache (Acute) Medical History Palpitations Lower urinary tract symptoms (LUTS) Recurrent UTI Dysuria Headache Depression Developmental delay, moderate IBS (irritable bowel syndrome) GERD (gastroesophageal reflux disease) Cold intolerance Basal cell carcinoma Neck pain Anemia Fatigue Dizziness Surgical History 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[employer] Do you feel safe at home: Yes Do you feel safe in your relationship?: Yes Time Spent with Patient Time Spent with Patient: <45 minutes Time was spent: preparing to see the patient(eg.review tests), ordering medications,tests, procedures, indepentently interpreting results and care coordination
[2023-11-11 10:38] VITALS: BP 114/82; PULSE 92; RESP 16; TEMP 36.1; O2SAT 97
--- NOTE | 2023-11-11 10:39 | PDOC.CMDIS ---
Date of service: 11/11/23 Time of Service: 10:40 LACE Index Scoring Tool Questions: Length of Stay (in days): 2 Was the patient admitted via the E.D.?: Yes E.D. Visits: 3 Answers: Total Score: 8 Risk of Readmission: Low Risk Care Management Discharge Plan Reason for Hospitalization: fractured femur Discharge Plan: Sera is discharged home via private vehicle with family. New [facility] Services are ordered. She will follow up with Dr. Loomis and her discharge plan of care as recommended. Patient/Family Education Needs: Review discharge instructions, limitations, medications and plan to follow up with community providers. Discuss ask me three. Services Needed at Discharge: Home Health Care Services ([facility]) SDOH Health Related Social Needs: No Data to Display
== END 2023-11-11 12:39 | disposition home health service (06) | DRG 522 ==
LOC: ER 10:36 → SUR 12:37 → MS 17:11 → ER 17:14 → SUR 17:14 → MS 17:14
PROVIDERS: Admitting Provider Student in an Organized Health Care Education/Training Program; Emergency Provider Physician Assistant; PCP Family Medicine; Visit Provider Student in an Organized Health Care Education/Training Program
PROC: 0SR904A Replacement of Right Hip Joint with Ceramic on Polyethylene Synthetic Substitute, Uncemented, Open Approach (ICD-10-PCS; CPT 27130; principal; 2023-11-09 12:00)
DX: S72.011A Unspecified intracapsular fracture of right femur, initial encounter for closed fracture (principal); W18.39XA Other fall on same level, initial encounter; K21.9 Gastro-esophageal reflux disease without esophagitis; K59.00 Constipation, unspecified; F89 Unspecified disorder of psychological development; Z79.899 Other long term (current) drug therapy; I10 Essential (primary) hypertension; H90.3 Sensorineural hearing loss, bilateral; M47.812 Spondylosis without myelopathy or radiculopathy, cervical region; G43.009 Migraine without aura, not intractable, without status migrainosus; K58.9 Irritable bowel syndrome, unspecified; D64.9 Anemia, unspecified; F32.A Depression, unspecified
CPT/HCPCS: 27130; 36415; 73552; 80048; 85027; 93005; 96374; 97110; 97162; 97530; 99222; 99285; 71045; 73501; 73502; 85025; 93010; C1776; J0690; J1100; J1885; J2250; J2371; J2401; J2405; J3010; J3490; J8540

== ENCOUNTER 2023-12-11 15:47 | Outpatient (CLI) | payer MEDICARE, MEDICAID, SELFPAY ==
--- NOTE | 2023-12-11 15:15 | DI.RAD_ITS ---
Exam(s) XR HIP RT COMPLETE AP PELVIS EXAM: XR HIP RT COMPLETE AP PELVIS INDICATION: 1ST POST OP R MERARI. COMPARISON: XA XR HIP RT IN OR from 11/09/2023 CR,XR XR HIP RT COMPLETE AP PELVIS from 11/09/2023 TECHNIQUE: 2D digital imaging was performed. Three views. FINDINGS: There has been no change in the alignment of the right hip prosthesis. No abnormal surrounding lucen cies. Left hip is unremarkable. IMPRESSION: Stable appearance of right hip prosthesis. DATA REPOSITORY: RADIATION DOSE DELIVERED:
== END 2023-12-11 15:48 | disposition home or self-care (01) ==
LOC: DIORS 15:48
PROVIDERS: PCP Family Medicine; Referring Provider Family Medicine
DX: Z96.641 Presence of right artificial hip joint (principal); Z47.1 Aftercare following joint replacement surgery
CPT/HCPCS: 73502

== ENCOUNTER 2023-12-19 09:17 | Outpatient (REF) | payer MEDICARE, MEDICAID, SELFPAY ==
[2023-12-19 14:55] LABS: Anion Gap 10.1 mmol/L (3-11); BUN 26 mg/dL (7-18); CO2 27.9 mmol/L (21.0-32.0); CREATININE 0.6 mg/dL (0.55-1.02); Calcium 10.1 mg/dL (8.5-10.1); Chloride 101 mmol/L (98-107); Glucose 120 mg/dL (74-106); Potassium 4.3 mmol/L (3.5-5.1); Sodium 139 mmol/L (136-145)
[2023-12-19 15:07] LABS: Vitamin D 25 Total 44.2 ng/mL (30-100)
== END 2023-12-19 09:18 | disposition home or self-care (01) ==
LOC: NCHCN 09:17
PROVIDERS: PCP Family Medicine; Visit Provider Family Medicine
DX: E87.1 Hypo-osmolality and hyponatremia (principal)
CPT/HCPCS: 80048; 82306

== ENCOUNTER → 2024-01-01 03:01 | Outpatient (CLI) | payer MEDICARE, MEDICAID, SELFPAY ==
--- NOTE | 2024-01-01 | DI.DEXA_ITS ---
Exam(s) XR DEXA BONE DENSITY W/WO RAF EXAM: XR DEXA BONE DENSITY W/WO RAF CLINICAL HISTORY: Z78.0 Asymptomatic menopausal state TECHNIQUE: Hologic Horizon C densitometer analysis of left hip, lumbar spine and left forearm. Lat eral survey image of the thoracic and lumbar spine. COMPARISON: CR XR HIP RT COMPLETE AP PELVIS from 12/11/2023 FINDINGS: Lateral view of the thoracic and lumbar spine shows no evidence of compression fractures. Bone mineral density measurements of the lumbar spine correspond to a total T-score of -3.6, in the osteoporotic range. Bone mineral density measurements of the left hip correspond to a total T-score of -3.1. The femora l neck T-score is -3.8, in the osteoporotic range.. Theleft forearm bone mineral density measurements correspond to a T-score of the distal 3rd of -3.0, in the osteoporotic range.. IMPRESSION: Osteoporosis of the spine, hip and forearm.
== END ==
PROVIDERS: PCP Family Medicine; Visit Provider Family Medicine
DX: Z78.0 Asymptomatic menopausal state (principal); Z12.31 Encounter for screening mammogram for malignant neoplasm of breast
CPT/HCPCS: 77080

== ENCOUNTER → 2024-01-15 13:33 | Outpatient (BNVA) | payer MEDICARE, MEDICAID, SELFPAY | PROVIDERS: PCP Family Medicine; Visit Provider Student in an Organized Health Care Education/Training Program | DX: Z47.1 Aftercare following joint replacement surgery (principal); Z96.641 Presence of right artificial hip joint ==

== ENCOUNTER 2024-05-30 17:45 | Inpatient (IN) | payer MEDICARE, MEDICAID, SELFPAY ==
[2024-05-30] VITALS (10 sets, daily range): BP systolic 122–155; BP diastolic 87–91; PULSE 93–100; RESP 10–20; TEMP 36.4–37; O2SAT 96–98
--- NOTE | 2024-05-30 18:15 | DI.CT_ITS ---
Exam(s) CT ABDOMEN PELVIS W EXAM: CT ABDOMEN PELVIS W CLINICAL HISTORY: abd pain, constipation x 6 days. TECHNIQUE: Imaging Protocol: Axial computed tomography images with coronal and sagittal reformatted images were created and reviewed CONTRAST MATERIAL: Intravenous: Omnipaque-350 85cc Oral: None COMPARISON: CT CT ABDOMEN PELVIS W from 06/29/2023 FINDINGS: VISUALIZED LUNG BASES: No nodules nor pleural effusions evident. ABDOMEN: Is a small amount ascites in right paracolic gutter. GI: Prominent hiatal hernia. The stomach is not distended. However, there is gross distention the p roximal and mid colon. The cecum is distended to 8.5 cm. There is an anastomosis in the distal rivas sverse colon and the colon just proximal to this exhibits a diameter of 13 cm. However, the anastomo sis does not appear to be the actual transition point, with the transition point appearing to be 5th below this level at the left iliac crest level. The sigmoid and rectum below this level are relative ly decompressed. Appendix is visualized and there is no evidence of obvious appendicitis. LIVER: Tiny 4 millimeter benign cyst noted in the left hepatic lobe. No other focal findings. GALLBLADDER/BILIARY: No obvious gallbladder pathology. CBD is not dilated. PANCREAS: No evidence of pancreatic mass nor dilatation of the pancreatic duct. SPLEEN: Spleen is not enlarged. No obvious intrasplenic lesions. Splenic and portal veins are paten t. ADRENALS: There are no significant adrenal masses. KIDNEYS:No cysts evident. No solid renal masses. No calculi nor hydronephrosis.. ABDOMINAL AORTA: Abdominal aorta is not enlarged. Celiac, SMA, and LEO arteries are patent. LYMPH NODES:There is no retroperitoneal nor paraaortic adenopathy. ABDOMINAL WALL: No evidence of significant anterior abdominal wall nor inguinal hernia. PELVIS: GI: No evidence of appendicitis.No evidence of sigmoid diverticulitis. LYMPH NODES: There is no intrapelvic nor inguinal adenopathy. REPRODUCTIVE: Age-appropriate URINARY BLADDER: Partially obscured by beam hardening artifact from right hip prosthesis. No obvious findings. OSSEOUS: There is a right hip prosthesis. No fractures. No significant osseous lesions. IMPRESSION: 1. There is a high-grade distal colon obstruction which appears to be in the descending colon at the left iliac crest level with severe dilatation of the colon above this level. The level of obstructi on is distal to the anastomosis seen in the distal transverse colon. There is no obvious pneumatosis nor gas in the portal venous system. However, there is a small amount of ascites in the right peric olic gutter. 2. Surgical consultation recommended. First read by [facility]. RADIATION DOSE DELIVERED: 233.58mGy.cm Total DLP DATA REPOSITORY: All CT scans at this facility are submitted to the National Radiology Data Registry (NRDR) Dose Index Registry (DIR) with the [employer] (ACR). RADIATION OPTIMIZATION: All CT scans at this facility use at least one of these dose optimization te chniques: automated exposure control; mA and/or kV adjustment per patient size (includes targeted exa ms where dose is matched to clinical indication); or iterative reconstruction.
--- NOTE | 2024-05-30 18:29 | W.ED.GENAD ---
Discharge Plan Discharge Details Chief Complaint: Abd Prob Reason For Visit: Vomiting, Headache Admit Date/Time: 05/30/24 22:04 Primary Care Provider: Carmen Pacheco ED Provider: Lena Herrmann Home Meds and New Rx's Prescriptions: No Action vitamin B complex [B Complex-Vitamin B12] Tablet 1 tab PO DAILY omeprazole 20 mg capsule,delayed release(DR/EC) 40 mg PO DAILY vc-bo-mkeu-FA-Ca carb-vit K 18 mg iron-400 mcg-500 mg Tablet 1 tab PO DAILY polyethylene glycol 3350 17 gram Powder In Packet 17 g PO DAILY Qty: 30 0RF Rx Instructions: hold if having diarrhea Metamucil Fiber Singles 3.4 gram powder in packet 1 packet PO DAILY mirtazapine 7.5 mg tablet 7.5 mg PO HS Patient Comments: TAKE ONE TABLET BY MOUTH AT BEDTIME acetaminophen 500 mg Tablet 500 mg PO QID Qty: 90 0RF ibuprofen 600 mg tablet 600 mg PO TID PRN (Reason: pain) Qty: 90 3RF aspirin 325 mg tablet,delayed release (DR/EC) 325 mg PO DAILY HPI General Date/Time Provider Initiated Documentation: 05/30/24 18:04. HPI Narrative: Upper [place] 64-year-old female with history of obstipation, developmental delay, hypertension, GERD, headaches, and osteoporosis who presents to the emergency department today for evaluation of constipation x 6 days. Today she developed nausea; says she has been able to hold down p.o. without difficulty but has not had a very good appetite. She also reports abdominal bloating and generalized discomfort; has been passing gas. Denies fever/chills, vomiting, problems with urination. Mother has tried many different remedies including MiraLAX, soapsuds enemas, senna, and other laxatives without any success. 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 Physical exam remarkable for softly distended abdomen that has generalized tenderness all over, but greatest in the left lower quadrant. Normoactive bowel sounds throughout. Easy work of breathing. Patient is alert and oriented, no acute distress. Moist mucous membranes. Moving all extremities equally. Rectal exam performed with manpower development specialist manager in the room, external nonthrombosed hemorrhoid noted; otherwise rectal exam unremarkable. No stool in vault. DDx includes but is not limited to: Stercoral colitis, diverticulitis, bowel obstruction, worsening of chronic constipation. I independently interpreted the following tests: CBC notable for mild leukocytosis, WBC 12.97; patient does have a baseline of mild anemia that is improved today. CMP unremarkable. CT abdomen/pelvis significant for marked colonic distention with what appears to be a transition at the level of the distal descending colon. Concern for large bowel obstruction. Discussed findings with Dr. Beltran, radiologist at [facility]. Consulted with Dr Foreman, general surgeon. Pt to be admitted to general surgery for management. NG tube placed and pt to maintain NPO status. IVF ordered. Related Data Home Medications ?Medication ?Instructions ?Recorded ?Confirmed omeprazole 20 mg capsule,delayed 40 mg PO DAILY 05/17/21 05/30/24 release sfdehvdw-qnv-vrlr-FA-Ca carb-vit K 1 tab PO DAILY 10/08/22 05/30/24 18 mg iron-400 mcg-500 mg tablet vitamin B complex (B 1 tab PO DAILY 05/14/23 05/30/24 Complex-Vitamin B12 tablet) polyethylene glycol 3350 17 gram 17 g PO DAILY #30 ea 07/01/23 05/30/24 oral powder packet psyllium husk (aspartame) 3.4 gram 1 packet PO DAILY 08/27/23 05/30/24 oral powder packet (Metamucil Fiber Singles) mirtazapine 7.5 mg tablet 7.5 mg PO HS 11/09/23 05/30/24 acetaminophen 500 mg tablet 500 mg PO QID #90 tabs 11/11/23 05/30/24 ibuprofen 600 mg tablet 600 mg PO TID PRN pain #90 tabs 11/11/23 05/30/24 aspirin 325 mg tablet,delayed 325 mg PO DAILY 05/30/24 05/30/24 release Previous Rx's ?Medication ?Instructions ?Recorded polyethylene glycol 3350 17 gram 17 g PO DAILY #30 ea 07/01/23 oral powder packet acetaminophen 500 mg tablet 500 mg PO QID #90 tabs 11/11/23 ibuprofen 600 mg tablet 600 mg PO TID PRN pain #90 tabs 11/11/23 Allergies Allergy/AdvReac Type Severity Reaction Status Date / Time meclizine Allergy Severe Other (See Verified 05/30/24 18:00 Comment) methylphenidate (From Allergy Severe Other (See Verified 05/30/24 18:00 Ritalin) Comment) cyclobenzaprine (From Allergy Mild Other (See Verified 05/30/24 18:00 Flexeril) Comment) General Stated Complaint: Abd Prob BERNIE: 3 Review of Systems Narrative: see HPI Exam Const General: cooperative, healthy appearing, comfortable, no acute distress, well developed and well groomed Nutritional Appearance: average body habitus Orientation: alert and oriented x3 GI Inspection: no abdominal wall ecchymosis, distended and no obesity Palpation: soft, not firm, no guarding, not rigid and tender (diffuse, worse in LLQ) Auscultation: normal bowel sounds Rectal Exam - female: normal sphincter tone, No fecal impaction, hemorrhoids (external, nonthrombosed), No mass and No tenderness Course Vital Signs Vital signs: Vital Signs Temperature 36.4 C L 05/30/24 17:51 Pulse 96 H 05/30/24 17:51 Respiratory Rate 10 L 05/30/24 17:51 Blood Pressure 122/87 05/30/24 17:51 Pulse Oximetry 96 05/30/24 17:51 Temperature 36.4 C L 05/30/24 17:51 Temperature Source Oral 05/30/24 17:51 Pulse 96 H 05/30/24 17:51 Respiratory Rate 10 L 05/30/24 17:51 Respiratory Effort Normal, Non-Labored 05/30/24 17:59 Blood Pressure 122/87 05/30/24 17:51 Blood Pressure Position Sitting 05/30/24 17:51 Pulse Oximetry 96 05/30/24 17:51 Oxygen Delivery Method Room Air 05/30/24 17:51 Oxygen Flow Rate 0 05/30/24 17:51 Pain Level 8 05/30/24 17:51 Medical Decision Making Imaging Data Radiologic Study: Radiologist's impression: PROCEDURE INFORMATION: Exam: CT Abdomen And Pelvis With Contrast Exam date and time: 05/30/2024 7:43 PM Age: 64 years old Clinical indication: Abdominal pain; Patient HX: H/o colectomy; Additional info: Abd pain, constipation x 6 days TECHNIQUE: Imaging protocol: Computed tomography of the abdomen and pelvis with contrast. COMPARISON: CT ABDOMEN PELVIS W 06/29/2023 10:47 PM FINDINGS: Diaphragm: Moderate-sized hiatal hernia, increased since previous exam. Liver: Normal. No mass. Gallbladder and biliary ducts: Gallbladder partially contracted. Pancreas: Normal. No ductal dilation. Spleen: Normal. No splenomegaly. Adrenal glands: Normal. No mass. Kidneys and ureters: Normal. No hydronephrosis. Stomach and bowel: The cecum is markedly distended, 8.4 cm in diameter. There is a colonic anastomosis at the level of the transverse colon with colonic distension, 9 cm. There is a sharp transition at the level of the splenic flexure which is inferiorly located, presumed partially resected. The sigmoid colon and rectum are relatively decompressed. Appendix: No evidence of appendicitis. Intraperitoneal space: Unremarkable. No free air. No significant fluid collection. Vasculature: Unremarkable. No abdominal aortic aneurysm. Lymph nodes: Unremarkable. No enlarged lymph nodes. Urinary bladder: Unremarkable as visualized. CReproductive: Unremarkable as visualized. Bones/joints: Right hip prosthesis. Soft tissues: Unremarkable. IMPRESSION: Marked colonic distension significantly increased since previous study. Colonic anastomosis noted. There appears to be a transition at the level of the distal descending colon. Large bowel obstruction not excludable. Quality:SDOH Health Related Social Needs: No Data to Display PFSH All Active Problems (Updated 01/15/24 @ 14:22 by TRACI Monk) Abdominal pain (Acute) Constipation (Acute) Stercoral colitis (Acute) Colitis (Acute) Cervical radiculitis (Acute) Hypertension (Chronic) Hx of migraine headaches (Acute) Ground glass opacity present on imaging of lung (Acute) Constipation (Acute) Sensorineural hearing loss, bilateral (Acute) Conductive hearing loss, external ear (Acute) Impacted cerumen, bilateral (Acute) Frequent headaches (Acute) Migraine without aura, intractable, with status migrainosus (Acute) Hx of colonoscopy (Chronic) Hemorrhoids (Acute) Cerumen impaction (Acute) Dysphagia (Acute) Left foot pain (Acute) Other fatigue (Acute) Snoring (Acute) Cervical spondylosis without myelopathy (Acute) Cervical spondylosis without myelopathy (Acute) Migraine headache with aura (Chronic) Migraine headache without aura (Acute) Chronic daily headache (Acute) New onset headache (Acute) Medical History (Updated 01/15/24 @ 14:22 by TRACI Monk) Palpitations Lower urinary tract symptoms (LUTS) Recurrent UTI Dysuria Headache Depression Developmental delay, moderate IBS (irritable bowel syndrome) GERD (gastroesophageal reflux disease) Cold intolerance Basal cell carcinoma Neck pain Anemia Fatigue Dizziness Surgical History (Updated 01/15/24 @ 14:22 by TRACI Monk) History of total right hip replacement (11/09/23) As treatment for femoral neck fracture of the right hip. 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[employer] Do you feel safe at home: Yes Do you feel safe in your relationship?: Yes
[2024-05-30 19:14] LABS: Abs Immature Grans 0.09 10^3/uL (0.0-0.06); Absolute Basophil Count 0.05 10^3/uL (0.0-0.2); Absolute Eosinophil Count 0.04 10^3/uL (0.0-0.7); Absolute Monocyte Count 0.91 10^3/uL (0.1-0.8); Basophils % 0.4 %; Eosinophils % 0.3 %; HCT 32.2 % (36.0-46.0); HGB 10.8 g/dL (11.2-15.7); Immature Grans % 0.7 %; MCH 29.8 pg (27.0-33.0); MCHC 33.5 % (32.0-36.0); MCV 89 fL (80-95); MPV 8.5 fL (8.0-11.0); Neutrophils % 79.6 %; Platelet Count 415 10^3/uL (130-400); RBC 3.63 10^6/uL (3.93-5.22); RDW 12.5 % (11.7-14.6); RDW-SD 40.7 fL; WBC 12.97 10^3/uL (4.4-10.8)
[2024-05-30 19:20] LABS: Absolute Lymphocyte Count 1.56 10^3/uL (1.2-3.4); Absolute Neutrophil Count 10.32 10^3/uL (1.2-6.7)
[2024-05-30 19:26] LABS: ALT 22 U/L (14-59); AST 18 U/L (15-37); Albumin 3.4 g/dL (3.4-5.0); Alkaline Phosphatase 80 U/L (46-116); Anion Gap 9.4 mmol/L (3-11); BUN 13 mg/dL (7-18); Bilirubin, Total 0.48 mg/dL (0.2-1.0); CO2 26.6 mmol/L (21.0-32.0); CREATININE 0.7 mg/dL (0.55-1.02); Calcium 9.6 mg/dL (8.5-10.1); Chloride 100 mmol/L (98-107); Estimated GFR 96.52 (mL/min/1.73m2); Glucose 128 mg/dL (74-106); Sodium 136 mmol/L (136-145); Total Protein 8.2 g/dL (6.4-8.2)
[2024-05-30] MEDS: Omnipaque 350 MG/ML 100 ML BTL IJ (19:42)
[2024-05-30] MEDS: Normal Saline - Diluent 50 ML VIAL IJ (19:43)
[2024-05-30 19:53] LABS: Procalcitonin < 0.1 ng/mL
--- NOTE | 2024-05-30 21:40 | DI.VRAD_ITS ---
Addendum created by Helen Beltran MD on 05/30/2024 9:59:13 PM EDT: I discussed case findings with MARCELLE ROBBINS 05/30/2024 9:57 PM EDT. Initial report created on 05/30/2024 9:39:59 PM EDT: PROCEDURE INFORMATION: Exam: CT Abdomen And Pelvis With Contrast Exam date and time: 05/30/2024 7:43 PM Age: 64 years old Clinical indication: Abdominal pain; Patient HX: H/o colectomy; Additional info: Abd pain, constipation x 6 days TECHNIQUE: Imaging protocol: Computed tomography of the abdomen and pelvis with contrast. COMPARISON: CT ABDOMEN PELVIS W 06/29/2023 10:47 PM FINDINGS: Diaphragm: Moderate-sized hiatal hernia, increased since previous exam. Liver: Normal. No mass. Gallbladder and biliary ducts: Gallbladder partially contracted. Pancreas: Normal. No ductal dilation. Spleen: Normal. No splenomegaly. Adrenal glands: Normal. No mass. Kidneys and ureters: Normal. No hydronephrosis. Stomach and bowel: The cecum is markedly distended, 8.4 cm in diameter. There is a colonic anastomosis at the level of the transverse colon with colonic distension, 9 cm. There is a sharp transition at the level of the splenic flexure which is inferiorly located, presumed partially resected. The sigmoid colon and rectum are relatively decompressed. Appendix: No evidence of appendicitis. Intraperitoneal space: Unremarkable. No free air. No significant fluid collection. Vasculature: Unremarkable. No abdominal aortic aneurysm. Lymph nodes: Unremarkable. No enlarged lymph nodes. Urinary bladder: Unremarkable as visualized. Reproductive: Unremarkable as visualized. Bones/joints: Right hip prosthesis. Soft tissues: Unremarkable. IMPRESSION: Marked colonic distension significantly increased since previous study. Colonic anastomosis noted. There appears to be a transition at the level of the distal descending colon. Large bowel obstruction not excludable. Dictated and Authenticated by: Helen Beltran MD. Ordering:YOANNA Paredes MD
--- NOTE | 2024-05-30 22:15 | DI.RAD_ITS ---
Exam(s) XR PORTABLE CHEST AP EXAM: XR PORTABLE CHEST AP CLINICAL HISTORY: confirm NG tube placement. TECHNIQUE: 2D digital imaging was performed. COMPARISON: No exams were available for comparison FINDINGS: Single AP portable view. There is an NG tube in stomach. There are dilated bowel loops in the upper abdomen may be related to distal bowel obstruction. Probably colon. Heart size is normal. Mediastinum not widened. Lungs are clear. No infiltrates nor obvious pleural effusions. IMPRESSION: No acute pulmonary findings on this single AP portable view of the chest. Distended bowel loops in the abdomen which probably the colon. There is an NG tube in the stomach. DATA REPOSITORY: RADIATION DOSE DELIVERED:
[2024-05-30] MEDS: Lidocaine 2% Jelly 11 ML SYR (22:34)
[2024-05-30] MEDS: Normal Saline 1,000 ML 150 ML IV (22:35)
[2024-05-30] MEDS: MORPHine 2 MG/ML SYR IVP (23:12)
[2024-05-30] MEDS: Ondansetron 4 MG/2 ML VIAL IVP (23:13)
--- NOTE | 2024-05-30 23:13 | HPE_ITS ---
Date of service: 05/30/24 Time of Service: 23:13 Assessment and Plan Assessment and plan (1) Obstipation: Start date: 05/23/24 Status: Resolved Assessment and plan: (a) Marked abdominal colonic distension. (b) Probable [place]'s pseudo-obstruction. (c) IVF, NPO, NG to LIS (d) Will work from below tonight with scheduled Dulcolax Supp. (e) Have ordered flat & erect abdominal plain films for the morning. (f) Consider: (i) colonoscopic decompression vs rectal tube (ii) may need diverting transverse loop colostomy (iii) may need subtotal colectomy with ostomy vs ileo-rectal anastomosis (g) Will make Dr. West aware (coming on in AM, 05/31/24). Josh Froeman D.O. 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 History of Present Illness History of Present Illness Chief Complaint: Abdominal distension & no BM x 7 week Narrative: This 64y/o mentally impaired Female lives with her mother. She has reportedly not had a BM in 1 week. Mother has been giving daily soap suds enemata without results. In the ER, patient found with mild leukocytosis of 12,900. Non-toxic appearing. She denies any nausea or history of vomiting. However, abdomen is markedly distended and tympanic. CT Scan of abdomen and pelvis reveal marked colonic dilation. There is no free air. There is some air in the rectum. Radiologist reports seeing a colonic anastomosis and a point of transition at the level of the distal descending colon. Neither mother or patient are able to recall the abdominal operation. Medical record reports hx of colectomy. Review of Systems Narrative: Abdominal distension and no bowel movement for 1 week. Gastrointestinal Comments: Marked abdominal distension. No BM in one week Psychiatric Comments: History of cognitive impairment since . PFSH All Active Problems (Updated 01/15/24 @ 14:22 by TRACI Monk) Abdominal pain (Acute) Constipation (Acute) Stercoral colitis (Acute) Colitis (Acute) Cervical radiculitis (Acute) Hypertension (Chronic) Hx of migraine headaches (Acute) Ground glass opacity present on imaging of lung (Acute) Constipation (Acute) Sensorineural hearing loss, bilateral (Acute) Conductive hearing loss, external ear (Acute) Impacted cerumen, bilateral (Acute) Frequent headaches (Acute) Migraine without aura, intractable, with status migrainosus (Acute) Hx of colonoscopy (Chronic) Hemorrhoids (Acute) Cerumen impaction (Acute) Dysphagia (Acute) Left foot pain (Acute) Other fatigue (Acute) Snoring (Acute) Cervical spondylosis without myelopathy (Acute) Cervical spondylosis without myelopathy (Acute) Migraine headache with aura (Chronic) Migraine headache without aura (Acute) Chronic daily headache (Acute) New onset headache (Acute) Medical History (Updated 01/15/24 @ 14:22 by TRACI Monk) Palpitations Lower urinary tract symptoms (LUTS) Recurrent UTI Dysuria Headache Depression Developmental delay, moderate IBS (irritable bowel syndrome) GERD (gastroesophageal reflux disease) Cold intolerance Basal cell carcinoma Neck pain Anemia Fatigue Dizziness Surgical History (Updated 01/15/24 @ 14:22 by TRACI Monk) History of total right hip replacement (11/09/23) As treatment for femoral neck fracture of the right hip. 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[employer] Do you feel safe at home: Yes Do you feel safe in your relationship?: Yes Meds Allergies and Home Medications Allergies Allergy/AdvReac Type Severity Reaction Status Date / Time meclizine Allergy Severe Other (See Verified 05/30/24 18:00 Comment) methylphenidate (From Allergy Severe Other (See Verified 05/30/24 18:00 Ritalin) Comment) cyclobenzaprine (From Allergy Mild Other (See Verified 05/30/24 18:00 Flexeril) Comment) Home Medications ?Medication ?Instructions ?Recorded ?Confirmed ?Type omeprazole 20 mg capsule,delayed 40 mg PO DAILY 05/17/21 05/30/24 History release mxnzhdtk-tvx-iusb-FA-Ca carb-vit K 1 tab PO DAILY 10/08/22 05/30/24 History 18 mg iron-400 mcg-500 mg tablet vitamin B complex (B 1 tab PO DAILY 05/14/23 05/30/24 History Complex-Vitamin B12 tablet) polyethylene glycol 3350 17 gram 17 g PO DAILY #30 ea 07/01/23 05/30/24 Rx oral powder packet psyllium husk (aspartame) 3.4 gram 1 packet PO DAILY 08/27/23 05/30/24 History oral powder packet (Metamucil Fiber Singles) mirtazapine 7.5 mg tablet 7.5 mg PO HS 11/09/23 05/30/24 History acetaminophen 500 mg tablet 500 mg PO QID #90 tabs 11/11/23 05/30/24 Rx ibuprofen 600 mg tablet 600 mg PO TID PRN pain #90 tabs 11/11/23 05/30/24 Rx aspirin 325 mg tablet,delayed 325 mg PO DAILY 05/30/24 05/30/24 History release Exam Narrative Exam Narrative: Pleasant, cooperative, and appropriate female resting on cart in ER Bed#7. No apparent distress. Const General: cooperative, healthy appearing, comfortable, no acute distress and other Other: Appears well cared for. HENMT Head: normal to inspection Mouth: other Other: Dry oral mucosa Eyes Other: Non-icteric, EOMI Neck Other: Supple, there are no carotid bruits. Thyroid is non-tender. Chest Other: HRRR Resp Other: LCTA b/l in anterior rosa. No tachypnea, no SOB. Cardio Other: HRRR GI Other: Abdomen is markedly distended, quiet, and tympanic to purcussion. There are no signs of peritoneal irritation. Other: KIN: intact sphincter tone. No stool in rectal ampulla. No masses, no blood. Skin Other: No rashes Neuro Other: No gross focal deficits. Extremities spontaneous on command. Extrem Other: There are no open sores, wounds, or ulcers. There is no calf pain. DP +4/4 bilaterally. 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 There is no free air. There is some air and stool in upper rectum. There is evidence for prior colonic anastomosis. There is a reported transition point at the distal descending colon. Labs 05/30/24 19:00 05/30/24 19:00 Labs: Laboratory Results - last 24 hr 05/30/24 19:00 WBC 12.97 H RBC 3.63 L Hgb 10.8 L Hct 32.2 L MCV 89 MCH 29.8 MCHC 33.5 RDW 12.5 Plt Count 415 H MPV 8.5 Immature Gran % 0.7 Neutrophils % 79.6 Lymphocytes % 12.0 Monocytes % 7.0 Eosinophils % 0.3 Basophils % 0.4 Nucleated RBC % 0.0 Absolute Neutrophils 10.32 H Absolute Lymphocytes 1.56 Absolute Monocytes 0.91 H Absolute Eosinophils 0.04 Absolute Basophils 0.05 Sodium 136 Potassium 4.0 Chloride 100 Carbon Dioxide 26.6 Anion Gap 9.4 BUN 13 Creatinine 0.7 Est GFR (CKD-EPI 2020) 96.52 Glucose 128 H Calcium 9.6 Total Bilirubin 0.48 AST 18 ALT 22 Alkaline Phosphatase 80 Total Protein 8.2 Albumin 3.4 Procalcitonin < 0.1 Last Vital Signs Temp 98.6 F 05/30/24 20:40 Pulse 100 H 05/30/24 22:43 Resp 20 05/30/24 22:43 BP 146/87 H 05/30/24 22:43 Pulse Ox 97 05/30/24 22:43 Time Spent Time spent with Patient: 55-74 minutes Time was spent: preparing to see the patient(eg.review tests), obtaining and/or reviewing separately otained hiistory, ordering medications,tests, procedures, referring, communicating with other health health care facilities inspector, indepentently interpreting results, counseling the patient and care coordination
[2024-05-30] MEDS: Bisacodyl 10 MG SUPP PR (23:49)
[2024-05-31] VITALS (60 sets, daily range): BP systolic 99–139; BP diastolic 47–79; PULSE 83–100; RESP 16–21; TEMP 36.5–37.1; O2SAT 94–100; BMI 19.9
--- NOTE | 2024-05-31 00:42 | DI.VRAD_ITS ---
PROCEDURE INFORMATION: Exam: XR Chest Exam date and time: 05/30/2024 10:38 PM Age: 64 years old Clinical indication: Device placement; Patient HX: Confirm ng tube placement TECHNIQUE: Imaging protocol: Radiologic exam of the chest. Views: 1 view. COMPARISON: CR XR PORTABLE CHEST AP 11/09/2023 11:56 AM FINDINGS: Tubes, catheters and devices: The tip of the NG tube courses below the diaphragm and beyond the inferior margin of the study; however, based on the position of the side port (left upper quadrant) , the course of the tube, and the position of the stomach on the same day CT, the tube is adequately positioned within the stomach. Lungs: Unremarkable. No consolidation. Pleural spaces: Unremarkable. No pleural effusion. No pneumothorax. Heart/Mediastinum: Unremarkable. No cardiomegaly. Bones/joints: Unremarkable. Gastrointestinal tract: Incompletely visualized substantially dilated bowel loops in the upper abdomen compatible with high-grade colonic obstruction secondary to solid impacted stool in the distal colon at the left lower quadrant. IMPRESSION: 1. The tip of the NG tube courses below the diaphragm and beyond the inferior margin of the study; however, based on the position of the side port (left upper quadrant) , the course of the tube, and the position of the stomach on the same day CT, the tube is adequately positioned within the stomach. 2. Incompletely visualized substantially dilated bowel loops in the upper abdomen compatible with high-grade colonic obstruction secondary to solid impacted stool in the distal colon at the left lower quadrant. Dictated and Authenticated by: Vince Boo MD. Ordering:YOANNA Paredes MD
[2024-05-31] MEDS: MORPHine 2 MG/ML SYR IVP ×3 (01:49→06:21)
[2024-05-31] MEDS: Ondansetron 4 MG/2 ML VIAL IVP ×3 (03:39→23:41)
[2024-05-31] MEDS: Normal Saline 1,000 ML 75 ML IV (05:01)
[2024-05-31] MEDS: Bisacodyl 10 MG SUPP PR ×2 (06:23→12:38)
[2024-05-31 06:53] LABS: Abs Immature Grans 0.06 10^3/uL (0.0-0.06); Absolute Basophil Count 0.04 10^3/uL (0.0-0.2); Absolute Eosinophil Count 0.02 10^3/uL (0.0-0.7); Absolute Lymphocyte Count 1.62 10^3/uL (1.2-3.4); Absolute Monocyte Count 0.89 10^3/uL (0.1-0.8); Absolute Neutrophil Count 6.34 10^3/uL (1.2-6.7); Basophils % 0.4 %; Eosinophils % 0.2 %; HCT 31.2 % (36.0-46.0); HGB 10.3 g/dL (11.2-15.7); Immature Grans % 0.7 %; Lymphocytes % 18.1 %; MCH 29.6 pg (27.0-33.0); MCV 90 fL (80-95); MPV 8.3 fL (8.0-11.0); Monocytes % 9.9 %; Neutrophils % 70.7 %; Platelet Count 398 10^3/uL (130-400); RBC 3.48 10^6/uL (3.93-5.22); RDW 12.8 % (11.7-14.6); RDW-SD 41.5 fL; WBC 8.97 10^3/uL (4.4-10.8)
[2024-05-31 07:05] LABS: Anion Gap 5.4 mmol/L (3-11); BUN 14 mg/dL (7-18); CO2 29.6 mmol/L (21.0-32.0); CREATININE 0.7 mg/dL (0.55-1.02); Calcium 8.8 mg/dL (8.5-10.1); Chloride 104 mmol/L (98-107); Estimated GFR 96.52 (mL/min/1.73m2); Glucose 107 mg/dL (74-106); Potassium 3.9 mmol/L (3.5-5.1); Sodium 139 mmol/L (136-145)
--- NOTE | 2024-05-31 08:20 | DI.RAD_ITS ---
Exam(s) XR ABDOMEN FLAT UPRIGHT EXAM: XR ABDOMEN FLAT UPRIGHT CLINICAL HISTORY: Large bowel obstr suspected on CT (05/30). TECHNIQUE: 2D digital imaging was performed. COMPARISON: No exams were available for comparison FINDINGS: NG tube in the stomach. Stomach is not distended. Grossly distended colon to the level the upper le ft iliac fossa. Contrast is seen in the bladder from yesterday's CT scan. Right hip prosthesis agai n noted. IMPRESSION: Grossly distended colon to the level of the upper left iliac fossa. Abundant fecal material. The si gmoid and rectum below this level are relatively decompressed. DATA REPOSITORY: RADIATION DOSE DELIVERED:
--- NOTE | 2024-05-31 11:24 | NUR.NOTE ---
SSE given at 1017 with a very small, approximately grape-sized off-colored stool. Patient tolerated well. Nursing Note:
--- NOTE | 2024-05-31 12:42 | W.PC.ACHO ---
Registration Status: Primary Language: Preferred Language: ED Information & Data Chief Complaint Abd Prob 05/30/24 18:35 Triage Note patient here with 05/30/24 17:51 constipation since 05/24/24. Mother is with her and has tried enemas with no results . patient is now nauseous and vomiting. Patient states when she moves her stomach hurts. Patient states she has been passing some gas. Medical / Surgical History (Last Reviewed 11/11/23 @ 10:18 by Lonny Loomis MD) Palpitations Lower urinary tract symptoms (LUTS) Recurrent UTI Dysuria Headache Depression Developmental delay, moderate IBS (irritable bowel syndrome) GERD (gastroesophageal reflux disease) Cold intolerance Basal cell carcinoma Neck pain Anemia Fatigue Dizziness (Last Updated 01/15/24 @ 14:22 by TRACI Monk) History of total right hip replacement (11/09/23) H/O knee surgery History of carpal tunnel release H/O colectomy Most Recent Vital Signs Temperature 37.1 C 05/31/24 12:24 Temperature Source Temporal Artery Scan 05/31/24 12:23 Pulse 95 H 05/31/24 12:24 Pulse Rhythm Regular 05/31/24 12:24 Respiratory Rate 18 05/31/24 12:24 Respiratory Effort Normal 05/31/24 12:24 Respiratory Depth Normal 05/31/24 12:24 Respiratory Pattern Normal 05/31/24 12:24 Blood Pressure 129/79 05/31/24 12:24 Blood Pressure Mean 95 05/31/24 03:44 Blood Pressure Position Sitting 05/30/24 17:51 Pulse Oximetry 97 05/31/24 12:24 Oxygen Delivery Method Room Air 05/31/24 12:24 Oxygen Flow Rate 0 05/31/24 12:24 Pain Level 4 05/31/24 12:24 Comment RN notified 05/30/24 20:40 Allergies meclizine Allergy (Severe, Verified 05/30/24 18:00) Other (See Comment) methylphenidate (From Ritalin) Allergy (Severe, Verified 05/30/24 18:00) Other (See Comment) cyclobenzaprine (From Flexeril) Allergy (Mild, Verified 05/30/24 18:00) Other (See Comment) Precautions Isolation Standard precaution 05/30/24 17:59 Active Medications Generic Name Dose Route Start Last Admin Trade Name Freq PRN Reason Stop Dose Admin Enoxaparin Sodium 40 mg 05/31/24 08:30 05/31/24 10:54 Enoxaparin 40 Mg/0.4 Ml Syr SC Not Given DAILY KARIN Sodium Chloride 1,000 mls @ 75 mls/hr 05/30/24 22:15 05/31/24 05:01 Saline 1000ml Bag IV 75 mls/hr INFUSION KARIN Administration Ondansetron HCl 4 mg 05/30/24 22:04 05/31/24 06:24 Ondansetron 4 Mg/2 Ml Vial IVP 4 mg Q4H PRN PRN Administration Sodium Chloride 0 ml 05/31/24 08:30 05/31/24 10:56 Normal Saline Flush 10 Ml Syr IVP Not Given BID KARIN IV IV Catheter Type [Right Saline Lock Antecubital] IV Catheter Gauge [Right 18 Antecubital] Diet Orders Category Date Time Status Nothing Per Oral [DIET] Nutrition 05/31/24 Breakfast Active Diagnostics 05/31/24 05/30/24 Range/Units 06:48 19:00 WBC 8.97 12.97 H (4.4-10.8) 10^3/uL RBC 3.48 L 3.63 L (3.93-5.22) 10^6/uL Hgb 10.3 L 10.8 L (11.2-15.7) g/dL Hct 31.2 L 32.2 L (36.0-46.0) % MCV 90 89 (80-95) fL MCH 29.6 29.8 (27.0-33.0) pg MCHC 33.0 33.5 (32.0-36.0) % RDW 12.8 12.5 (11.7-14.6) % Plt Count 398 415 H (130-400) 10^3/uL MPV 8.3 8.5 (8.0-11.0) fL Immature Gran % 0.7 0.7 % Neutrophils % 70.7 79.6 % Lymphocytes % 18.1 12.0 % Monocytes % 9.9 7.0 % Eosinophils % 0.2 0.3 % Basophils % 0.4 0.4 % Nucleated RBC % 0.0 0.0 (0.0-0.3) % Absolute Neutrophils 6.34 10.32 H (1.2-6.7) 10^3/uL Absolute Lymphocytes 1.62 1.56 (1.2-3.4) 10^3/uL Absolute Monocytes 0.89 H 0.91 H (0.1-0.8) 10^3/uL Absolute Eosinophils 0.02 0.04 (0.0-0.7) 10^3/uL Absolute Basophils 0.04 0.05 (0.0-0.2) 10^3/uL Sodium 139 136 (136-145) mmol/L Potassium 3.9 4.0 (3.5-5.1) mmol/L Chloride 104 100 (98-107) mmol/L Carbon Dioxide 29.6 26.6 (21.0-32.0) mmol/L Anion Gap 5.4 9.4 (3-11) mmol/L BUN 14 13 (7-18) mg/dL Creatinine 0.7 0.7 (0.55-1.02) mg/dL Est GFR (CKD-EPI 2020) 96.52 96.52 (mL/min/1.73m2) Glucose 107 H 128 H (74-106) mg/dL Calcium 8.8 9.6 (8.5-10.1) mg/dL Total Bilirubin 0.48 (0.2-1.0) mg/dL AST 18 (15-37) U/L ALT 22 (14-59) U/L Alkaline Phosphatase 80 (46-116) U/L Total Protein 8.2 (6.4-8.2) g/dL Albumin 3.4 (3.4-5.0) g/dL Procalcitonin < 0.1 ng/mL Intake and Output - 24 Hour Total 05/30/24 17:45 thru 05/31/24 12:24 Intake Total 1000 Output Total 700 Balance 300 Weight 51.065 kg Intake: IV 1000 Output: Gastric Drainage 625 Left Nare 625 Urine 75 Other: Stool Characteristics Hard Guzmán # Voids 1 Falls Risk Assessment History of Falls No History 05/31/24 12:24 Contributing Factors No Factors 05/31/24 12:24 Ambulatory Aids Independent 05/31/24 12:24 Tubes/Lines None 05/31/24 12:24 Gait Evaluation No gait disturbance 05/31/24 12:24 Cognition No cognitive impairment 05/30/24 17:59 Fall Total Score 0 05/31/24 12:24 Level of Risk Standard/Low Risk 05/31/24 12:24 Problems (Last Reviewed 11/11/23 @ 10:18 by Lonny Loomis MD) Abdominal pain (Acute) Notes 05/31/24 11:24 Nursing Notes by Lurdes Delgado given at 1017 with a very small, approximately grape-sized off-colored stool. Patient tolerated well. Nursing Note: Initialized on 05/31/24 11:24 - END OF NOTE v v v v v v v v v Sending and/or Receiving Nurses: Please use comment section below to note any information pertinent to the patient hand-off not included above. Information / Comments: PT A&O x3, able to make needs known, lives with mother who cares for her, independent in adls and repositioning, NG tube in place at 60cm from left nare at low intermittent suction. 18G in RAC, NS @ 75ml/hr, Report received from: Lurdes Rg FOOD SERVICE SPECIALIST nurse at 1200.
--- NOTE | 2024-05-31 13:53 | ANES.PREOP_ITS ---
General Info Date of Service Date Performed: 05/31/24 Height: 5 ft 3 in Weight: 51.065 kg Body Mass Index (BMI): 19.9 Surgical Procedure: Operation Date: 05/31/24 14:05 Proposed Procedure Side Surgeon p Exploratory Laparotomy Franklin West MD Meds Allergies and Home Medications Allergies Allergy/AdvReac Type Severity Reaction Status Date / Time meclizine Allergy Severe Other (See Verified 05/30/24 18:00 Comment) methylphenidate (From Allergy Severe Other (See Verified 05/30/24 18:00 Ritalin) Comment) cyclobenzaprine (From Allergy Mild Other (See Verified 05/30/24 18:00 Flexeril) Comment) Home Medication ?Medication ?Instructions ?Recorded omeprazole 20 mg capsule,delayed 40 mg PO DAILY 05/17/21 release [id number]-Ca carb-vit K 1 tab PO DAILY 10/08/22 18 mg iron-400 mcg-500 mg tablet vitamin B complex (B 1 tab PO DAILY 05/14/23 Complex-Vitamin B12 tablet) polyethylene glycol 3350 17 gram 17 g PO DAILY #30 ea 07/01/23 oral powder packet psyllium husk (aspartame) 3.4 gram 1 packet PO DAILY 08/27/23 oral powder packet (Metamucil Fiber Singles) mirtazapine 7.5 mg tablet 7.5 mg PO HS 11/09/23 acetaminophen 500 mg tablet 500 mg PO QID #90 tabs 11/11/23 ibuprofen 600 mg tablet 600 mg PO TID PRN pain #90 tabs 11/11/23 aspirin 325 mg tablet,delayed 325 mg PO DAILY 05/30/24 release Current Visit Medications: Current Medications Generic Name Dose Route Start Last Admin Trade Name Freq PRN Reason Stop Dose Admin Enoxaparin Sodium 40 mg 05/31/24 08:30 05/31/24 10:54 Enoxaparin 40 Mg/0.4 Ml Syr SC Not Given DAILY KARIN Sodium Chloride 1,000 mls @ 75 mls/hr 05/30/24 22:15 05/31/24 05:01 Saline 1000ml Bag IV 75 mls/hr INFUSION KARIN Administration IV Miscellaneous Supplies 1 each 05/30/24 22:15 Iv Access IV DIRECTED KARIN Morphine Sulfate 2 mg 05/31/24 12:21 Morphine 2 Mg/Ml Syr IVP Q2H PRN PRN Ondansetron HCl 4 mg 05/30/24 22:04 05/31/24 06:24 Ondansetron 4 Mg/2 Ml Vial IVP 4 mg Q4H PRN PRN Administration Sodium Chloride 0 ml 05/30/24 22:04 Normal Saline Flush 10 Ml Syr IVP PRN PRN Sodium Chloride 0 ml 05/31/24 08:30 05/31/24 10:56 Normal Saline Flush 10 Ml Syr IVP Not Given BID KARIN Sodium Chloride 0 ml 05/30/24 22:04 Normal Saline 10 Ml Vial IJ DIRECTED PRN PFSH Active Problems Active Problems: Problem Status Onset Code Abdominal pain Acute R10.9 Constipation Acute K59.00 Stercoral colitis Acute K52.89 Obstipation Resolved K59.00 Colitis Acute K52.9 Cervical radiculitis Acute M54.12 Hypertension Chronic I10 Hx of migraine headaches Acute Z86.69 Ground glass opacity present on imaging of lung Acute R91.8 Constipation Acute K59.00 Sensorineural hearing loss, bilateral Acute H90.3 Conductive hearing loss, external ear Acute H90.2 Impacted cerumen, bilateral Acute H61.23 Frequent headaches Acute R51.9 Migraine without aura, intractable, with status migrainosus Acute G43.011 Hx of colonoscopy Chronic Z98.890 Hemorrhoids Acute K64.9 Cerumen impaction Acute H61.20 Dysphagia Acute R13.10 Left foot pain Acute M79.672 Other fatigue Acute R53.83 Snoring Acute R06.83 Cervical spondylosis without myelopathy Acute M47.812 Cervical spondylosis without myelopathy Acute M47.812 Migraine headache with aura Chronic G43.109 Migraine headache without aura Acute G43.009 Chronic daily headache Acute R51 New onset headache Acute R51 Medical History Medical History (Updated 01/15/24 @ 14:22 by TRACI Monk) Palpitations Lower urinary tract symptoms (LUTS) Recurrent UTI Dysuria Headache Depression Developmental delay, moderate IBS (irritable bowel syndrome) GERD (gastroesophageal reflux disease) Cold intolerance Basal cell carcinoma Neck pain Anemia Fatigue Dizziness Surgical History Surgical History (Updated 01/15/24 @ 14:22 by TRACI Monk) History of total right hip replacement (11/09/23) As treatment for femoral neck fracture of the right hip. H/O knee surgery History of carpal tunnel release H/O colectomy Tobacco Smoking/Tobacco Use Status: Never Alcohol Alcohol Intake: never Substance Use Substance use: Never Substance use type: does not use Vital Signs and Lab Results Vital Signs Most Recent Vital Signs in EMR: Most Recent Vital Signs Temp Pulse Resp BP Pulse Ox 37.1 C 95 H 18 129/79 97 05/31/24 12:24 05/31/24 12:24 05/31/24 12:24 05/31/24 12:24 05/31/24 12:24 Lab Results 05/31/24 06:48 05/31/24 06:48 Blood Type / Crossmatch: 2 No Data to Display Complete Blood Count: 2 White Blood Count 8.97 10^3/uL (4.4-10.8) 05/31/24 06:48 Red Blood Count 3.48 10^6/uL (3.93-5.22) L 05/31/24 06:48 Hemoglobin 10.3 g/dL (11.2-15.7) L 05/31/24 06:48 Hematocrit 31.2 % (36.0-46.0) L 05/31/24 06:48 Platelet Count 398 10^3/uL (130-400) 05/31/24 06:48 Complete Metabolic Panel: 2 Sodium 139 mmol/L (136-145) 05/31/24 06:48 Potassium 3.9 mmol/L (3.5-5.1) 05/31/24 06:48 Chloride 104 mmol/L (98-107) 05/31/24 06:48 Carbon Dioxide 29.6 mmol/L (21.0-32.0) 05/31/24 06:48 BUN 14 mg/dL (7-18) 05/31/24 06:48 Creatinine 0.7 mg/dL (0.55-1.02) 05/31/24 06:48 Est GFR (CKD-EPI 2020) 96.52 (mL/min/1.73m2) 05/31/24 06:48 Calcium 8.8 mg/dL (8.5-10.1) 05/31/24 06:48 Albumin 3.4 g/dL (3.4-5.0) 05/30/24 19:00 Glucose 107 mg/dL (74-106) H 05/31/24 06:48 Liver Function Panel: 2 Alanine Aminotransferase (ALT/SGPT) 22 U/L (14-59) 05/30/24 19: 00 Aspartate Amino Transf (AST/SGOT) 18 U/L (15-37) 05/30/24 19:00 Coagulation Panel: 2 No Data to Display Cardiac Panel: 2 No Data to Display Arterial Blood Gas: 2 No Data to Display Venous Blood Gas: 2 No Data to Display Pancreas Panel: 2 No Data to Display Thyroid Panel: 2 No Data to Display Infectious Disease: 2 No Data to Display Blood Cultures: 2 No Data to Display Toxicology Panel: 2 No Data to Display Imaging and Studies Imaging and Studies Study information below may be from another EMR and interpreted by another provider. Please see original notes in EMR for more complete details. EKG Summary: 02/16/23: EKG PATIENT NAME: Sera Nair UNIT #: [id number] ORDERING PROVIDER: Margoth Amador M.D. PRIMARY CARE PROVIDER: QUEENIE LANE APRN DATE/TIME OF SERVICE: 02/16/23 1122 : 1960 PERFORMING LOCATION: ER APPROVED REPORT Exam: Resting ECG Reason for Exam: syncope Patient Location: E HR:67 bpm ECG Measurements Heart Rate 67 AXIS [place] 201 P 60 QRSd 104 QRS 24 QT 404 T68 QTc 426 Conclusion Sinus rhythm...normal P axis, V-rate 60- 99 Anesthesia Assessment and Plan Anesthesia History Personal History: No History of Anesthesia Complications Family History: No Family History of Anesthesia Complications Exercise Tolerance Exercise Tolerance: Metabolic Equivalents>4 Pertinent Negatives Pertinent Negatives: No Major Cardiovascular Symptoms or Complaints and No Major Pulmonary Symptoms or Complaints Cardiac & Pulmonary Exam Cardiac Exam: Normal S1/S2 Heart Sounds Pulmonary Exam: Clear Bilateral Breath Sounds Implantable Cardiac Device Does patient have a Pacemaker or an ICD?: No Airway Exam Known Difficult Airway: No Mallampati Class: 2 Mouth Opening: Normal (> 3cm) Thyromental Distance: Greater than 3 cm Neck Range of Motion: Full ROM Neck Circumference: Normal Teeth Condition: Normal Dentition ASA Classification ASA Score: ASA 2 Emergency Case?: Yes NPO Status NPO Status: Full Stomach Anesthesia Plan Resuscitation Status: Full Code Anesthesia Technique: General Anesthesia Airway Planned: Endotracheal Tube (RSI) Pain Management: Other (Surgeon local at site) Monitors Used: Standard Monitors and SedLine
--- NOTE | 2024-05-31 15:34 | W.PM.PROGNOT ---
Date of Service Date of service: 05/31/24 Time of Service: 15:34 Assessment and Plan Assessment and plan (1) Abdominal pain: Status: Acute Assessment and plan: I explained to Sera, and her mother Missy, my concerns about a complete large bowel obstruction. Although some of the imaging certainly seems consistent with [place] syndrome, or chronic constipation, her discomfort and tenderness are worrisome. In that regards, I do not think there is much benefit to trying any other medical interventions to decompress her. And I think that exploratory laparotomy is probably in her best interest. It appears to me that nothing passes beyond the level of where I would expect the sigmoid colon to be. And with an anastomosis proximal to that, I think ongoing dilation poses significant risk. I explained exploratory nature of the operation, and certainly the intent of therapy would be relief of the obstruction either from lysis of adhesions, or resection and anastomosis if possible. I also expressed the very likely possibility that this operation may result in a colostomy with deferred definitive diagnosis and treatment once she has recovered from the obstructive problem. I think Sera and her mother have a good understanding of this, and Missy was able to provide consent on Sera's behalf. Will make arrangements to proceed to the operating room soon as possible. Subjective Subjective Interval history since last seen: I was able to see, he multiple times throughout the day. Unfortunately, her symptoms have not really changed at all since her admission, in fact, her abdominal pain seems to have increased a little bit this afternoon. Exam GI Other: Abdomen remains distended and tense. She does have some tenderness diffusely. Objective Last Vital Signs Temp 98.8 F 05/31/24 12:24 Pulse 95 H 05/31/24 12:24 Resp 18 05/31/24 12:24 BP 129/79 05/31/24 12:24 Pulse Ox 97 05/31/24 12:24 Laboratory Results - last 24 hr 05/30/24 05/31/24 19:00 06:48 WBC 12.97 H 8.97 RBC 3.63 L 3.48 L Hgb 10.8 L 10.3 L Hct 32.2 L 31.2 L MCV 89 90 MCH 29.8 29.6 MCHC 33.5 33.0 RDW 12.5 12.8 Plt Count 415 H 398 MPV 8.5 8.3 Immature Gran % 0.7 0.7 Neutrophils % 79.6 70.7 Lymphocytes % 12.0 18.1 Monocytes % 7.0 9.9 Eosinophils % 0.3 0.2 Basophils % 0.4 0.4 Nucleated RBC % 0.0 0.0 Absolute Neutrophils 10.32 H 6.34 Absolute Lymphocytes 1.56 1.62 Absolute Monocytes 0.91 H 0.89 H Absolute Eosinophils 0.04 0.02 Absolute Basophils 0.05 0.04 Sodium 136 139 Potassium 4.0 3.9 Chloride 100 104 Carbon Dioxide 26.6 29.6 Anion Gap 9.4 5.4 BUN 13 14 Creatinine 0.7 0.7 Est GFR (CKD-EPI 2020) 96.52 96.52 Glucose 128 H 107 H Calcium 9.6 8.8 Total Bilirubin 0.48 AST 18 ALT 22 Alkaline Phosphatase 80 Total Protein 8.2 Albumin 3.4 Procalcitonin < 0.1 Time Spent with Patient Time Spent with Patient: >50 minutes Time was spent: preparing to see the patient(eg.review tests), obtaining and/or reviewing separately otained hiistory, referring, communicating with other health personal care home administrator, indepentently interpreting results, counseling the patient and care coordination
[2024-05-31] MEDS: Lactated Ringers 1,000 ML 30 ML IV (15:41)
--- NOTE | 2024-05-31 15:49 | PDOC.CMIN ---
Date of service: 05/31/24 Time of Service: 11:00 Care Management Initial Assmt Initial Assessment Reason for Hospitalization: obstipation Functional Status/Living Situation Patient Presentation: Sera was sitting up in bed when CM met with her earlier today. She was very pleasant. She stated that she was admitted because her stomach hurt and she hasn't pooped in days. Sera has an NGT in to suction. Sera said the tube hurts her throat and she wishes she could have a cup of tea. She stated that her belly hurts a bit. Sera lives at home with her mom. Her mom still drives, but Sera thinks she should slow down. Sera's brother lives in [place], and visits every other weekend and is very supportive. Sera likes to spend time with her cat and also enjoys TV game shows. Town of Residence: [place] Resides with: Parent (mom, Missy) Significant Other/Family: Out of area (Brother, Unique, is in [place] and is supportive.) Caregiver/Guardian: Sera's mom, Missy, is her guardian Natural Supports: Missy and Unique are best supports, as is her cat. Activities/Hobbies/SocialSupport: Sera enjoys her cat and watching game shows. Medications Medication Management: No Issues/Barriers identified Advance Directives Advance Directives: Do you have an Advance Directive: N 04/14/14 10:17 AD On File at [facility]: N 04/14/14 10:17 Date Asked 05/30/24 05/30/24 17:48 AD Date Reviewed COLST On File at [facility] COLST Date Scanned Code Status Resuscitation Status Full Code Insurance Coverage/Financial Issues Insurance: medicaid Financial Issues: denies Care Team Visit Care Team Role Provider Type Carmen Pacheco Primary Care Provider NON-[facility] STAFF PHYSICIAN Lena Clemente Emergency Provider NURSE PRACTITIONER Josh Foreman, DO Admit Provider CONSULTING PHYSICIAN Attending Provider Discharge Potential Discharge Needs: PCP F/U Appt and Surgical F/U Appt Anticipated Barriers to Discharge: None Identified Patient/Family Education Needs: Review discharge instructions, discuss Ask Me Three Transportation: Private vehicle Plan: Anticipate that Sera will be discharged home with her mom. New services will be dependent on the course of her stay. If she requires surgery, will likely need new HH RN and possibly PT. She will f/u with her PCP and likely the surgeon. CM will continue to follow and update the plan as needed. PFSH All Active Problems (Updated 01/15/24 @ 14:22 by TRACI Monk) Abdominal pain (Acute) Constipation (Acute) Stercoral colitis (Acute) Colitis (Acute) Cervical radiculitis (Acute) Hypertension (Chronic) Hx of migraine headaches (Acute) Ground glass opacity present on imaging of lung (Acute) Constipation (Acute) Sensorineural hearing loss, bilateral (Acute) Conductive hearing loss, external ear (Acute) Impacted cerumen, bilateral (Acute) Frequent headaches (Acute) Migraine without aura, intractable, with status migrainosus (Acute) Hx of colonoscopy (Chronic) Hemorrhoids (Acute) Cerumen impaction (Acute) Dysphagia (Acute) Left foot pain (Acute) Other fatigue (Acute) Snoring (Acute) Cervical spondylosis without myelopathy (Acute) Cervical spondylosis without myelopathy (Acute) Migraine headache with aura (Chronic) Migraine headache without aura (Acute) Chronic daily headache (Acute) New onset headache (Acute) Medical History (Updated 01/15/24 @ 14:22 by TRACI Monk) Palpitations Lower urinary tract symptoms (LUTS) Recurrent UTI Dysuria Headache Depression Developmental delay, moderate IBS (irritable bowel syndrome) GERD (gastroesophageal reflux disease) Cold intolerance Basal cell carcinoma Neck pain Anemia Fatigue Dizziness Surgical History (Updated 01/15/24 @ 14:22 by TRACI Monk) History of total right hip replacement (11/09/23) As treatment for femoral neck fracture of the right hip. 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[place] [employer] Do you feel safe at home: Yes Do you feel safe in your relationship?: Yes SDOH(Care Management) Screening Will the Patient Participate in the Screening?: Yes Do you worry about having a steady place to live?: no Problems where you live: no known problems In the past 12 months, have you had to go without electric, gas, oil or water in your home?: no Have you or anyone in your house had to go without enough food to eat?: no Has lack of transportation kept you from medical appointments or from doing things needed for daily living?: no Has anyone in your support network made you feel unsafe for any reason?: no
[2024-05-31] MEDS: Bupivacaine 0.5% Pres-Free 30 ML VIAL (16:18)
[2024-05-31] MEDS: Bupivacaine LIPOSOME/PF 133 MG/10 ML VIAL IJ (16:19)
--- NOTE | 2024-05-31 16:52 | BOWEL_PTH ---
PATIENT: Sera Nair LOC: U#:[id number] AGE/SX: 64/F ROOM: RE05/30/[address]: Josh Foreman DO : 1960 BED: A DIS: 06/03/2024 SPEC #: [id number] RECD: 05/31/24 18:04 STATUS: UMA REQ #: [id number] GENARO: 05/31/24 16:[address]: Josh Foreman DEPT: Surgical Specimen RECD BY: Nayely Lozoya ENTERED: 05/31/24 18:05 SP TYPE: Bowel OTHR DR: Carmen Pacheco Tissues: 1 - BOWEL RESECTION(OTHER) Procedures: GROSS AND MICRO LEVEL 5 Comments: [id number]
--- NOTE | 2024-05-31 18:18 | W.PM.OP ---
Date of service: 05/31/24 Time of Service: 18:18 Operative Note Operative Note DATE OF PROCEDURE: 05/31/24 PRE-OP DIAGNOSIS: Complete large bowel obstruction POST-OP DIAGNOSIS: same PROCEDURE: Left hemicolectomy with creation of skin level end colostomy SURGEON: [place] GLUE JOINTER OPERATOR: Yanci Reynaga ANESTHESIA TYPE: Local By Surgeon and General LMA/ETT Refer to Anesthesia Record ESTIMATED BLOOD LOSS: 50 PATHOLOGY: other (Descending colon) COMPLICATIONS: None Patient was transported to: PACU Patient's condition: stable Indications: Sera is a 64-year-old woman with longstanding constipation. She presents the hospital with over a week of obstipation. This was associated with abdominal pain, and increasing tenderness. CT scan seem consistent with a large bowel obstruction. Pain continued to worsen through the day, follow-up x-ray showed no significant changes. I recommended laparotomy in light of the complete large bowel obstruction Findings: Massively dilated colon with firm mass in the descending colon just proximal to the sigmoid colon. Previous staple line in the area of the splenic flexure Procedure Description: I met with Sera and her mother and reviewed the diagnostic imaging and presumptive diagnosis of a complete large bowel obstruction. I recommended laparotomy, and went through various surgical options depending upon what was found with regards to the conduct of the operation. They were able to provide informed consent. Next, we moved down to the surgical area, Sera was assisted onto the OR table and padded and supported appropriately. General endotracheal anesthesia was initiated. Ferguson urinary catheter was inserted. I then prepped and draped the anterior abdominal wall. I made a midline longitudinal incision staying to the right of the umbilicus. I dissected down to the fascia and opened it along the length of the incision. I opened the peritoneal cavity. There was massive dilation of the colon that was immediately evident. There was a firm mass in the left lower quadrant in the area of the descending colon. There was some adhesions to the left lower abdominal pelvic sidewall that were easily divided allowing the firm mass to be reflected medially. The colon was nearly completely decompressed distal to this. The transition point was above the level of the sigmoid colon. Although there was some tethering of this area over to the left lower quadrant prior to the lysis of adhesions, there was no obvious stricture in this area of the colon proper. The lumen was soft, and felt patent. There were a few scattered diverticula distally, but certainly nothing that seems consistent with chronic diverticulitis. The mass itself was quite firm, if felt to be confined to the lumen of the colon, and really feels like inspissated stool. There were no obvious external features of malignancy. I continued lysing adhesions along the left abdominal wall allowing for more mobilization of the colon. Her anatomy is a little difficult to decipher and there is a large colocolonic anastomosis in the area of the splenic flexure. It is stapled. Aside from being quite dilated from the distal obstruction, the anastomosis itself otherwise looks healthy and normal. I palpated the nasogastric tube which is appropriately positioned in the stomach. There are some loops of very proximal small intestine adherent to the underside of this area of the colon on the mesentery proper. Tedious dissection was used to clear these away. The small bowel itself is really quite decompressed. The remainder of the transverse colon and ascending colon was also quite dilated but it all felt soft and appeared viable. There was pulsatile blood flow through these portions of the mesentery, and the antimesenteric wall of the colon looked well-perfused. There were no areas of ischemia or necrosis. There was some peristalsis in the ascending colon. At this point, it was quite clear that what ever pathology was causing the obstruction would need to be resected. Therefore, I picked an area a few centimeters distal to the obstruction site of what appeared to be normal and healthy tissue. A small defect was made in the mesentery, and a YEFRI stapler was used to divide the colon. This left the entire sigmoid colon in situ, and there was certainly enough length for an anastomosis on to this segment. Next, I continued mobilizing the left colon up and around the area of the spleen. Attachments were divided with a combination of electrocautery, as well as the LigaSure device. Once this portion of the colon was mobilized up onto its mesentery, I divided the mesentery with sequential fires of the LigaSure. Although it certainly possible that malignancy could be contributing to the pathology here, in light of the distorted anatomy, I stayed close to the colon in an effort to perform a safe dissection. This was brought around the area of the mobilized splenic flexure to about the mid transverse colon. There was strong pulsatile blood flow through the mesentery here, that seem consistent with a middle colic artery. This is proximal to the area of the colocolonic anastomosis. Again, I created a defect in the mesentery, and used a YEFRI stapler to divide the area of the mid transverse colon. The remainder of the mesentery was divided, and the specimen was passed off and labeled descending colon. With the colon up and out of the field, we now have better visualization. At that point, I performed bilateral tap blocks using local anesthetic with Exparel. I then examined the operative field. It appeared hemostatic. Although there was certainly enough length distally to perform a new anastomosis, given her chronic symptoms of constipation, and with a fairly significant dilation of the more proximal colon, I did not think a new colocolonic anastomosis would be the safest choice. Therefore, elected to mature an end colostomy for fecal diversion, which should help her recover from the bowel obstruction, and preserve any options for restoring continuity in the future if needed. I marked the distal end of the sigmoid colon with 0 Prolene sutures. It was allowed to retract back to its normal position, which was above the level of the pelvic reflection. The pelvis was irrigated clean. Again, everything appeared hemostatic. I ran the length of the small bowel, which appeared normal from the ligament of Treitz to the terminal ileum. The distal transverse colon was then brought up to the anterior abdominal wall, and a suitable location for colostomy was identified. I excised a small portion of elliptical skin in the left upper quadrant in the targeted area of the colostomy. I dissected down to the fascia which I incised in a cruciate fashion. The rectus muscles were , the posterior fascia was incised in a cruciate manner as well. The end of the distal transverse colon was then delivered up through the colostomy site. It was secured in place with a Johnson clamp. Midline laparotomy was then closed with running 2-0 PDS suture. 1 stitch was run from the top, the other was from the bottom, and they were tied in the middle. Subcutaneous fat was irrigated, and the skin was closed with surgical stapling device. The negative pressure isaac type dressing was placed on the laparotomy incision, we turned our attention to maturation of the colostomy. The staple line was excised with Bovie electrocautery, and the colostomy was matured at the skin level with interrupted Vicryl sutures. A colostomy management device was applied. At the end of the operation, the colostomy site was pink, patent, and appeared well-perfused. Sera was then extubated and transferred to the recovery unit.
[2024-05-31] MEDS: ACETAMINOPHEN 1,000 MG/100 ML BAG 1 MG (18:53)
[2024-05-31] MEDS: fentaNYL 100 MCG/2 ML VIAL IVP (19:10)
--- NOTE | 2024-05-31 19:52 | W.ANESPOSTOP ---
Postoperative Evaluation Date, Time and Location Date Performed: 05/31/24 Time Performed: 19:25 Patient Location: PACU Vital Signs Most Recent Imported Vital Signs: Most Recent Vital Signs Temp Pulse Resp BP Pulse Ox 36.7 C 92 H 20 114/57 L 96 05/31/24 19:25 05/31/24 19:25 05/31/24 19:25 05/31/24 19:25 05/31/24 19:25 Pain Score Most Recent Pain Score: Most Recent Pain Score Pain Level [Abdomen] 4 05/31/24 12:23 Pain Level 3 05/31/24 19:25 Assessment Mental Status: Arousable with meaningful communication Airway and Respiratory Function: Patent airway with normal (patient baseline) respiratory exam Cardiovascular Function: Hemodynamically Stable Hydration Status: Adequately Hydrated Nausea & Vomiting: No Nausea or Vomiting Pain: Pain is tolerable per patient Peripheral Nerve Block: Patient did not receive a nerve block
[2024-05-31] MEDS: HYDROmorphone 1 MG/ML SYR 0.5 MG IVP ×2 (20:39→23:34)
[2024-05-31] MEDS: Normal Saline Flush 10 ML SYR IVP ×3 (20:52→23:41)
[2024-05-31] MEDS: Lactated Ringers 1,000 ML 50 ML IV (21:00)
--- NOTE | 2024-05-31 21:30 | W.PC.ACHO ---
Registration Status: Primary Language: Preferred Language: ED Information & Data Chief Complaint Abd Prob 05/30/24 18:35 Triage Note patient here with 05/30/24 17:51 constipation since 05/24/24. Mother is with her and has tried enemas with no results . patient is now nauseous and vomiting. Patient states when she moves her stomach hurts. Patient states she has been passing some gas. Medical / Surgical History (Last Reviewed 11/11/23 @ 10:18 by Lonny Loomis MD) Palpitations Lower urinary tract symptoms (LUTS) Recurrent UTI Dysuria Headache Depression Developmental delay, moderate IBS (irritable bowel syndrome) GERD (gastroesophageal reflux disease) Cold intolerance Basal cell carcinoma Neck pain Anemia Fatigue Dizziness (Last Updated 01/15/24 @ 14:22 by TRACI Monk) History of total right hip replacement (11/09/23) H/O knee surgery History of carpal tunnel release H/O colectomy Most Recent Vital Signs Temperature 36.5 C 05/31/24 20:53 Temperature Source Temporal Artery Scan 05/31/24 20:53 Pulse 98 H 05/31/24 20:53 Pulse Rhythm Regular 05/31/24 12:24 Respiratory Rate 16 05/31/24 20:53 Respiratory Effort Normal 05/31/24 12:24 Respiratory Depth Normal 05/31/24 12:24 Respiratory Pattern Normal 05/31/24 12:24 Blood Pressure 99/56 L 05/31/24 20:53 Blood Pressure Mean 95 05/31/24 03:44 Blood Pressure Position Sitting 05/30/24 17:51 Pulse Oximetry 96 05/31/24 20:53 Oxygen Delivery Method Room Air 05/31/24 20:53 Oxygen Flow Rate 0 05/31/24 20:53 Pain Level 3 05/31/24 19:40 Comment RN notified 05/30/24 20:40 Allergies meclizine Allergy (Severe, Verified 05/30/24 18:00) Other (See Comment) methylphenidate (From Ritalin) Allergy (Severe, Verified 05/30/24 18:00) Other (See Comment) cyclobenzaprine (From Flexeril) Allergy (Mild, Verified 05/30/24 18:00) Other (See Comment) Precautions Isolation Standard precaution 05/30/24 17:59 Active Medications Generic Name Dose Route Start Last Admin Trade Name Freq PRN Reason Stop Dose Admin Enoxaparin Sodium 40 mg 05/31/24 08:30 05/31/24 10:54 Enoxaparin 40 Mg/0.4 Ml Syr SC Not Given DAILY KARIN Hydromorphone HCl 0.5 mg 05/31/24 20:23 05/31/24 20:39 Hydromorphone 1 Mg/Ml Syr IVP 0.5 mg Q4H PRN PRN Administration Sodium Chloride 1,000 mls @ 75 mls/hr 05/30/24 22:15 05/31/24 20:51 Saline 1000ml Bag IV Infused INFUSION KARIN Infusion Ondansetron HCl 4 mg 05/30/24 22:04 05/31/24 06:24 Ondansetron 4 Mg/2 Ml Vial IVP 4 mg Q4H PRN PRN Administration Sodium Chloride 0 ml 05/31/24 08:30 05/31/24 20:52 Normal Saline Flush 10 Ml Syr IVP 10 ml BID KARIN Administration IV IV Catheter Type [] Saline Lock IV Catheter Type [Right Peripheral IV Antecubital] IV Catheter Gauge [] 18 IV Catheter Gauge [Right 18 Antecubital] Diagnostics 05/31/24 Range/Units 06:48 WBC 8.97 (4.4-10.8) 10^3/uL RBC 3.48 L (3.93-5.22) 10^6/uL Hgb 10.3 L (11.2-15.7) g/dL Hct 31.2 L (36.0-46.0) % MCV 90 (80-95) fL MCH 29.6 (27.0-33.0) pg MCHC 33.0 (32.0-36.0) % RDW 12.8 (11.7-14.6) % Plt Count 398 (130-400) 10^3/uL MPV 8.3 (8.0-11.0) fL Immature Gran % 0.7 % Neutrophils % 70.7 % Lymphocytes % 18.1 % Monocytes % 9.9 % Eosinophils % 0.2 % Basophils % 0.4 % Nucleated RBC % 0.0 (0.0-0.3) % Absolute Neutrophils 6.34 (1.2-6.7) 10^3/uL Absolute Lymphocytes 1.62 (1.2-3.4) 10^3/uL Absolute Monocytes 0.89 H (0.1-0.8) 10^3/uL Absolute Eosinophils 0.02 (0.0-0.7) 10^3/uL Absolute Basophils 0.04 (0.0-0.2) 10^3/uL Sodium 139 (136-145) mmol/L Potassium 3.9 (3.5-5.1) mmol/L Chloride 104 (98-107) mmol/L Carbon Dioxide 29.6 (21.0-32.0) mmol/L Anion Gap 5.4 (3-11) mmol/L BUN 14 (7-18) mg/dL Creatinine 0.7 (0.55-1.02) mg/dL Est GFR (CKD-EPI 2020) 96.52 (mL/min/1.73m2) Glucose 107 H (74-106) mg/dL Calcium 8.8 (8.5-10.1) mg/dL Intake and Output - 24 Hour Total 05/30/24 17:45 thru 05/31/24 20:51 Intake Total 1951.75 Output Total 900 Balance 1052.75 Weight 51.065 kg Intake: IV 1951.75 Output: Gastric Drainage 725 Left Nare 725 Urine 175 Other: Urine Color Yellow Urine Appearance Clear Comment Very little amount in commode Stool Characteristics Hard Guzmán # Voids 1 Urinary Catheter Urinary Catheter Date of 05/31/24 Insertion [Urethral (Ferguson)] Time of insertion [Urethral ( 16:04 Ferguson)] Falls Risk Assessment History of Falls No History 05/31/24 12:24 Contributing Factors No Factors 05/31/24 12:24 Ambulatory Aids Independent 05/31/24 12:24 Tubes/Lines None 05/31/24 12:24 Gait Evaluation No gait disturbance 05/31/24 12:24 Cognition No cognitive impairment 05/30/24 17:59 Fall Total Score 0 05/31/24 12:24 Level of Risk Standard/Low Risk 05/31/24 12:24 Problems (Last Reviewed 11/11/23 @ 10:18 by Lonny Loomis MD) Abdominal pain (Acute) Notes 05/31/24 11:24 Nursing Notes by Lurdes Delgado SSE given at 1017 with a very small, approximately grape-sized off-colored stool. Patient tolerated well. Nursing Note: Initialized on 05/31/24 11:24 - END OF NOTE v v v v v v v v v Sending and/or Receiving Nurses: Please use comment section below to note any information pertinent to the patient hand-off not included above. Information / Comments: Handoff from PACU: Pt post op from a L richie-colectomy. Pt received 650mg IV tylenol and 25mg IV Fentanyl before arriving to the floor. Midline incsion to abdomen, staple closure w/ SANTOS dressing intact. NG tube placed in ED before OR. Minimal output (100cc total) intra/post op. Ferguson placed in OR with 100cc of clear, yellow urine. New ostomy to LLQ draining post irrigation. Report received from: ANGELICA Franks PACU
[2024-06-01] MEDS: Normal Saline Flush 10 ML SYR IVP ×4 (00:37→20:30)
[2024-06-01] MEDS: Ketorolac 15 MG/ML VIAL IVP ×3 (00:37→17:21)
[2024-06-01] MEDS: ACETAMINOPHEN 1,000 MG/100 ML BAG 400 MG IVPB ×2 (01:18→13:54)
[2024-06-01 01:27] VITALS: TEMP 37.7
[2024-06-01 06:38] LABS: HCT 27.5 % (36.0-46.0); HGB 9.4 g/dL (11.2-15.7); MCH 30.1 pg (27.0-33.0); MCHC 34.2 % (32.0-36.0); MCV 88 fL (80-95); MPV 8.9 fL (8.0-11.0); Platelet Count 380 10^3/uL (130-400); RBC 3.12 10^6/uL (3.93-5.22); RDW 12.7 % (11.7-14.6); RDW-SD 41.1 fL; WBC 12.95 10^3/uL (4.4-10.8)
[2024-06-01 06:48] LABS: Anion Gap 14.3 mmol/L (3-11); BUN 14 mg/dL (7-18); CO2 24.7 mmol/L (21.0-32.0); CREATININE 0.7 mg/dL (0.55-1.02); Calcium 7.8 mg/dL (8.5-10.1); Chloride 105 mmol/L (98-107); Estimated GFR 96.52 (mL/min/1.73m2); Glucose 84 mg/dL (74-106); Potassium 3.4 mmol/L (3.5-5.1); Sodium 144 mmol/L (136-145)
[2024-06-01 07:30] VITALS: BP 109/65; PULSE 91; RESP 18; TEMP 36.9; O2SAT 97
[2024-06-01] MEDS: Enoxaparin 40 MG/0.4 ML SYR SC (07:42)
[2024-06-01] MEDS: Ondansetron 4 MG/2 ML VIAL IVP ×2 (07:42→14:28)
[2024-06-01] MEDS: HYDROmorphone 1 MG/ML SYR 0.5 MG IVP ×2 (07:42→14:29)
--- NOTE | 2024-06-01 09:04 | NUR.NOTE ---
Nursing Note:Pts mother Mateo called x2 for update on Sera. Mtaeo does not remeber calling this morning at approx 0800 for update on sera. Will address with Case management as mateo is connies primary home day care provider.
--- NOTE | 2024-06-01 09:28 | PDOC.CMPRO ---
Date of service: 06/01/24 Time of Service: 09:28 Care Management Progress Note Progress Note Text Progress Note Text: Had a call from Sera's RN today. She reported that Sera's mom has newly dx Alzheimer's, and has called twice today to check on Sera, asking the same quetions. CM spoke with the Vp Data at Sera's PCP office today to inform her of the surgery and to gain some more insight. Sera attends [employer] 3x/week and very much enjoys it. Sera was napping each of 3 times that CM tried to meet with her today. She doesn't like to be woken, but was able to state that she feels very tired. RN again voiced concerns that she and the surgeon have regarding Sera's ability, and also her mom's ability to care for the ostomy. CM called Unique, Sera's brother. Unique was thinking that Sera could return home with her mom. 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 CM stated the concerns about his mom's abilities. He feels that they can work with HH and together and handle the ostomy. Unique will be in to see Sera avalos, and will also be back tomorrow. Unique will let CM know when he arrives tomorrow, so we can speak again. Discharge Potential Discharge Needs: PCP F/U Appt and Surgical F/U Appt Anticipated Barriers to Discharge: Other (patients ability to care for ostomy) Patient/Family Education Needs: Review discharge instructions, discuss Ask Me Three and Other (care of ostomy) SDOH(Care Management) Screening Will the Patient Participate in the Screening?: Yes Do you worry about having a steady place to live?: no Problems where you live: no known problems In the past 12 months, have you had to go without electric, gas, oil or water in your home?: no Have you or anyone in your house had to go without enough food to eat?: no Has lack of transportation kept you from medical appointments or from doing things needed for daily living?: no Has anyone in your support network made you feel unsafe for any reason?: no Anticipated HH Services Anticipated HH Services at Discharge [facility] Needed, DUPLICATOR PUNCH SET UP OPERATOR, PT and RN (Would like to see DUPLICATOR PUNCH SET UP OPERATOR help with intermediate medicaid, RN for ostomy care and teaching. PT for strength).
[2024-06-01 14:49] VITALS: BP 93/59; PULSE 90; RESP 22; TEMP 37.8; O2SAT 96
--- NOTE | 2024-06-01 15:45 | PHA.REVIEW2 ---
Pharmacy Admission Review Admission Clinical Review Admission Pharmacy Review: Abdominal pain (Acute) meclizine Allergy (Severe, Verified 05/30/24 18:00) Other (See Comment) methylphenidate (From Ritalin) Allergy (Severe, Verified 05/30/24 18:00) Other (See Comment) cyclobenzaprine (From Flexeril) Allergy (Mild, Verified 05/30/24 18:00) Other (See Comment) Resuscitation Status Full Code Height 5 ft 3 in Weight 51.065 kg Comments Comments/Follow Ups: POD#1 Left hemicolectomy with creation of skin level end colostomy, check in on home meds if none ordered by tomorrow Pharmacy Admission Review Renal Dosing Renal Dosing: BUN 14 mg/dL (7-18) 06/01/24 06:00 Creatinine 0.7 mg/dL (0.55-1.02) 06/01/24 06:00 Medications needing adjustments: Reviewed (CrCl 45.82 mL/min) List of meds needing interventions: Current medications are okay Anticoagulation Anticoagulation: Hgb 9.4 g/dL (11.2-15.7) L 06/01/24 06:00 Hct 27.5 % (36.0-46.0) L 06/01/24 06:00 Plt Count 380 10^3/uL (130-400) 06/01/24 06:00 Creatinine 0.7 mg/dL (0.55-1.02) 06/01/24 06:00 DVT Prophylaxis: Reviewed (Hgb decreased from 10.3) Medications: Enoxaparin (40mg daily) Opiate Usage Evaluate Pain Scale/Pains Meds: Reviewed (prn IVP hydromorphone - 4 doses given in last 24 hours) Scheduled Bowel Reg ordered if on Opiates?: No Relevant Labs Relevant Labs: Sodium 144 mmol/L (136-145) 06/01/24 06:00 Potassium 3.4 mmol/L (3.5-5.1) L 06/01/24 06:00 Chloride 105 mmol/L (98-107) 06/01/24 06:00 Electrolytes, C-Reactive P, ESR: Reviewed (K 3.4) Cardiac Review BP, HR, EF%: Reviewed (BP 93/59, HR WNL, temp 37.8 at 1449) QTc Review QTc: Reviewed (421 from 11/09/23 - most recent EKG on file) IV to PO Switch IV Medications: Reviewed (acetaminophen, ketorolac, hydromorphone and ondansetron) Home Meds Home Med List reviewed: Reviewed Relevent Home Meds Not ordered & why?: acetaminophen, aspirin, ibuprofen (PRN), mirtazapine, multivitamin, omeprazole, Miralax, Metamucil and vitamin B complex no home meds ordered at this time, will reach out if none put in by tomorrow Current Meds Current Medication Order Review: Reviewed Comments Comments/Follow Ups: POD#1 Left hemicolectomy with creation of skin level end colostomy, check in on home meds if none ordered by tomorrow
--- NOTE | 2024-06-01 15:46 | PT.INNT ---
PT Notes Visit Reasons: Obstipation/Large Bowel Obstruction Per Nurse Gutierrez patient has had family all day and has been hurting postoperatively. Nurse Cardoza added that pain medication has just been put on board several minutes before PT came in to doa PT evaluation attempt. When Pt came in to try see patient, her eyes were closed but was able to answer to PT's call stating that she was sleeping and trying to rest. When asked if she she wanted to sit up on the chair later, patient refused to move out of bed. Will approach patient later today or tomorrow morning to assess ability to participate in therapy.
--- NOTE | 2024-06-01 16:18 | W.PM.PROGNOT ---
Date of Service Date of service: 06/01/24 Time of Service: 16:18 Assessment and Plan Assessment and plan (1) Hypertension: Status: Chronic (2) Dysphagia: Status: Acute (3) Hemorrhoids: Status: Acute (4) Constipation: Status: Acute (5) Stercoral colitis: Status: Acute Assessment and plan: Postop day #1 Status post exploratory laparotomy and diverting colostomy for sigmoid stricture and chronic obstipation -Patient is developmentally delayed. It is questionable if she will ever be able to manage her colostomy. Patient's primary caregiver is her mother who has Alzheimer's. It is unknown if she is going to be able to take care of her daughter any longer or if Sera will require placement in an assisted care facility. Care management is looking into this. -Electrolytes adjusted DVT?Lovenox Added senna for bowels GI?Protonix Regular diet with protein supplements Physical therapy consulted Continue I-S and encourage ambulation Change PICOs today/ stool underneath ostomy care Continue supportive care (6) Ground glass opacity present on imaging of lung: Status: Acute (7) Anemia: Assessment and plan: -stable -Check ferritin in a.m. (8) GERD (gastroesophageal reflux disease): Assessment and plan: Restarted Protonix for history of GERD Subjective Subjective Interval history since last seen: Pt is doing well. no headaches. No CP or SOB. no productive cough. no leg pain or swelling. pt c/o pain w/ deep breathe Patient is a poor historian and much of the history is taken from nursing staff. Patient has been tolerating clears. She does not have much of an appetite. She has been putting out a decent amount of stool. Exam Narrative Exam Narrative: PHYSICAL EXAM GENERAL APPEARANCE: Alert, healthy appearance, oriented, x 3,? in no acute distress HYDRATION: Well hydrated HEAD, EYES, EARS, NECK, THROAT: Head is normocephalic, pupils equal, round, reactive to light and accommodation, ocular movement intact, sclera clear and no jaundice. ?Dentition intact. LUNGS: normal respiration/normal chest excursion. ?Clear to auscultation bilaterally. ?No wheeze. ?HEART: Regular rate and rhythm. no murmurs EXTREMITY: No edema or cyanosis.? no leg pain, redness, swelling.? ABDOMEN: Ostomy is pink patent and productive. Incision has a PCOS on. There is stool under the PCOS. Nursing was notified and they will change today Objective Last Vital Signs Temp 37.8 C H 06/01/24 14:49 Pulse 90 06/01/24 14:49 Resp 22 06/01/24 14:49 BP 93/59 L 06/01/24 14:49 Pulse Ox 96 06/01/24 14:49 Laboratory Results - last 24 hr 06/01/24 06:00 WBC 12.95 H RBC 3.12 L Hgb 9.4 L Hct 27.5 L MCV 88 MCH 30.1 MCHC 34.2 RDW 12.7 Plt Count 380 MPV 8.9 Sodium 144 Potassium 3.4 L Chloride 105 Carbon Dioxide 24.7 Anion Gap 14.3 H BUN 14 Creatinine 0.7 Est GFR (CKD-EPI 2020) 96.52 Glucose 84 Calcium 7.8 L Time Spent with Patient Time Spent with Patient: 25-34 minutes Time was spent: preparing to see the patient(eg.review tests), obtaining and/or reviewing separately otained hiistory, ordering medications,tests, procedures, referring, communicating with other health point of care technician, indepentently interpreting results, counseling the patient, care coordination and other
[2024-06-01] MEDS: Acetaminophen 500 MG TAB 1000 MG PO (17:20)
[2024-06-01] MEDS: traMADol 50 MG TAB PO (20:27)
[2024-06-01] MEDS: Senna TAB 1 TAB PO (20:27)
[2024-06-01] MEDS: Protein Nutritional Supplement 16 GM 1 OUNCE PACKET PO (20:30)
[2024-06-01] MEDS: Pantoprazole 40 MG TABCR PO (20:37)
[2024-06-01] MEDS: Potassium Chloride Liquid 20 MEQ PKT PO (20:37)
[2024-06-02] MEDS: Acetaminophen 500 MG TAB 1000 MG PO ×4 (00:10→17:05)
[2024-06-02] MEDS: Ketorolac 15 MG/ML VIAL IVP ×4 (00:11→17:05)
[2024-06-02 00:18] VITALS: BP 152/89; PULSE 89; RESP 15; TEMP 36.6; O2SAT 96
[2024-06-02] MEDS: HYDROmorphone 1 MG/ML SYR 0.5 MG IVP (00:25)
[2024-06-02 00:29] VITALS: BP 129/79; PULSE 88
[2024-06-02] MEDS: Normal Saline Flush 10 ML SYR IVP ×3 (06:45→21:13)
[2024-06-02 07:44] LABS: Anion Gap 3.9 mmol/L (3-11); BUN 17 mg/dL (7-18); CO2 28.1 mmol/L (21.0-32.0); CREATININE 0.6 mg/dL (0.55-1.02); Calcium 7.9 mg/dL (8.5-10.1); Chloride 105 mmol/L (98-107); Estimated GFR 100.17 (mL/min/1.73m2); Ferritin 94 ng/mL (8-252); Glucose 111 mg/dL (74-106); Sodium 137 mmol/L (136-145)
[2024-06-02] MEDS: Senna TAB 1 TAB PO ×2 (07:55→21:12)
[2024-06-02] MEDS: Enoxaparin 40 MG/0.4 ML SYR SC (07:55)
[2024-06-02] MEDS: Protein Nutritional Supplement 16 GM 1 OUNCE PACKET PO ×3 (07:56→21:13)
[2024-06-02] MEDS: Pantoprazole 40 MG TABCR PO (07:56)
[2024-06-02 08:05] VITALS: BP 116/84; PULSE 86; RESP 18; TEMP 37.2; O2SAT 97
--- NOTE | 2024-06-02 09:57 | NUR.NOTE ---
Nursing Note: Missy Parra mother called to see if patient would be discharged home today, Missy also wants nursing to show her how to manage colostomy so she can care for it at home so she can also teach patient how to do it. RN has tried educating patient on colostmy care and patient states mom will do it.
[2024-06-02 11:07] LABS: Abs Immature Grans 0.06 10^3/uL (0.0-0.06); Absolute Basophil Count 0.05 10^3/uL (0.0-0.2); Absolute Eosinophil Count 0.26 10^3/uL (0.0-0.7); Absolute Lymphocyte Count 1.51 10^3/uL (1.2-3.4); Absolute Monocyte Count 1.02 10^3/uL (0.1-0.8); Basophils % 0.4 %; Eosinophils % 2.2 %; HCT 26.6 % (36.0-46.0); HGB 8.7 g/dL (11.2-15.7); Immature Grans % 0.5 %; MCH 29.5 pg (27.0-33.0); MCHC 32.7 % (32.0-36.0); MCV 90 fL (80-95); MPV 8.2 fL (8.0-11.0); Monocytes % 8.8 %; Neutrophils % 75.1 %; Platelet Count 326 10^3/uL (130-400); RBC 2.95 10^6/uL (3.93-5.22); RDW 12.6 % (11.7-14.6); RDW-SD 41.7 fL
--- NOTE | 2024-06-02 11:09 | IN_ITS ---
PT Notes Visit Reasons: Obstipation/Large Bowel Obstruction Physical Therapy Inpatient Initial Evaluation Date: 06/02/2024 Referring Doctor: Yanci Mak MD PT Orders: PT CONSULT: Eval/treat Precautions: Fall. Standard. Activity as tolerated Patient Profile/Admitting Diagnosis: Sera is a 64-year-old female with complete large bowel obstrcution, signmoid stricture, and chronic obstipation. She is S/P L hemicolectomy with skin level end colectomy creation on postoperative day 1. PMHX: All Active Problems (Updated 01/15/24 @ 14:22 by TRACI Monk) Abdominal pain (Acute) Constipation (Acute) Stercoral colitis (Acute) Colitis (Acute) Cervical radiculitis (Acute) Hypertension (Chronic) Hx of migraine headaches (Acute) Ground glass opacity present on imaging of lung (Acute) Constipation (Acute) Sensorineural hearing loss, bilateral (Acute) Conductive hearing loss, external ear (Acute) Impacted cerumen, bilateral (Acute) Frequent headaches (Acute) Migraine without aura, intractable, with status migrainosus (Acute) Hx of colonoscopy (Chronic) Hemorrhoids (Acute) Cerumen impaction (Acute) Dysphagia (Acute) Left foot pain (Acute) Other fatigue (Acute) Snoring (Acute) Cervical spondylosis without myelopathy (Acute) Cervical spondylosis without myelopathy (Acute) Migraine headache with aura (Chronic) Migraine headache without aura (Acute) Chronic daily headache (Acute) New onset headache (Acute) Medical History (Updated 01/15/24 @ 14:22 by TRACI Monk) Palpitations Lower urinary tract symptoms (LUTS) Recurrent UTI Dysuria Headache Depression Developmental delay, moderate IBS (irritable bowel syndrome) GERD (gastroesophageal reflux disease) Cold intolerance Basal cell carcinoma Neck pain Anemia Fatigue Dizziness Surgical History (Updated 01/15/24 @ 14:22 by TRACI Monk) History of total right hip replacement (11/09/23) As treatment for femoral neck fracture of the right hip.H/O knee surgery History of carpal tunnel release H/O colectomy Social History/Home Situation: Lives with mother in a private home with 1 step to enter with rails on B sides. Does housechores. Mother has been a long-time DRUM SAW OPERATOR, retired now. Mother trakes care of meals, laundry and grocery shopping. Equipment Owned/DME: None Subjective: Still in pain but was willing to work and move with encouragement from PT and mother. Denied headache, lightheadedness, and chest pain throughout session. Complained of considerable discomfort in abdoninal area which Nurse Matt is aware and managing. Objective: General Observation: resting in bed. Mother Missy present in room throughout evalation. Mental Status: Alert and oriented as to person, place, time, and purpose. Able to pay attention, focus, and respond appropriately. Pain perception impaired due to moderate developmental delay. Pain: Moderate pain level Vital Signs: Closely monitored by nursing staff ROM: Right Lower Extremity: Hip flexion allows up to 100 degrees. Hip abduction WFL. Knee flexion 20 degrees to 90 degrees due to pain. Knee extension -20 degrees ankle dorsiflexion WFL. Ankle plantarflexion WFL. Left Lower Extremity: Hip flexion WFL. Hip abduction WFL. Knee flexion WFL. Ankle dorsiflexion WFL. Ankle plantarflexion WFL. Strength: Right Lower Extremity: Hip flexors 3-/5. Hip abductors 3-/5. Knee flexors 3-/5. Knee extensors 3-/5. Ankle dorsiflexors 4/5. Ankle plantarflexors 4/5. Left Lower Extremity: Hip flexors 4/5. Hip abductors 5/5. Knee flexors 5/5. Knee extensors 4/5. Ankle dorsiflexors 4/5. Ankle plantarflexors 4/5. Bed Mobility/Transfers: Moderate to maximal cueing provided for use of B hands as needed for support, movement sequence, AD management, and posture to reduce fall risk and minimize pain report Supine to sit minimal assist with HOB at about 30 degrees Sit to stand minimal assist with FWW Stand to sit minimal assist with FWW Bed to reclining chair minimal assist with FWW Gait: Facilitated safe and correct performance of in room ambulation requiring moderate to maximal verbal cueing for limb movement sequence, AD management, and hand placement. Minimal assist provided, wheelchair follow provided by mother for safety. Step-to gait patter. Moderate verbal cueing needed for safety and pain reduction strategies. Balance: Static Sitting: Normal Dynamic Sitting: Normal Static Standing: Fair Dynamic Standing: Fair Special Tests: Mobility Limitations Standardized Measure [facility]-PAC 6 clicks Basic Mobility Inpatient Short Form: Raw Score: 18 CMS Score: 47% deficit Informed Consent/Education: Patient was instructed in purpose of PT consult and plan of care. Agreeable to proceed with established PT POC to achieve personal goals. Assessment: Sera is a 64-year-old female with complete large bowel obstrcution, signmoid stricture, and chronic obstipation. She is S/P L hemicolectomy with skin level end colectomy creation on postoperative day 1. Patient presents with clinical signs and symptoms consistent with current/admitting diagnoses that have resulted to mobility limitations, gait instability, generalized weakness, and overall ADL decline as demonstrated by the following impairment level findings: 1. Impaired sitting/standing balance 2. Impaired activity tolerance 3. Impaired pain perception/processing Impairments are contributing to the following functional limitations: 1. Decline in bed mobility skills 2. Decline in transfer skills 3. Difficulty with ambulation without assistive device and physical assistance 4. Increased completion time for mobility ADL performance 5. Increased risk for falls 6. Difficulty with managing steps alone safely Patient is assessed as a [id number] moderate complexity based on the following: History: 63-year-old female with past medical history as indicated above Examination: Demonstrable impairment in strength, balance, and mobility level with underlying impairments and functional limitations as exhibited above as well as deficit score of 47% utilizing the [facility] Mobility Inpatient Short Form Presentation: Evolving Decision Makin moderate complexity Goals: Goals X1 week 1. Supine-Sit independent 2. Sit-Supine independent 3. Sit-Stand independent 4. Stand-Sit independent with FWW 5. Bed-Chair independent with FWW 6. Chair-Bed independent with FWW 7. Independent gait on level surface with use of FWW for at least 150 feet without report of pain nor dyspnea 8. Independent stair negotiation while holding onto B rails for at least 2 steps without report of pain nor dyspnea 9. Supervision with home exercise program 10. Good static and dynamic standing balance/tolerance Plan of Care/Treatment Plan: 1-2x/day, 7 days/week x 1 week. Plan of care has been reviewed with the DELIVERY TRUCK DRIVER providing the service under Physical Therapy direction. Initiate Physical Therapy intervention for pain management as needed, strengthening, bed mobility, transfers, gait, stairs, balance training, and use of assistive device. DISCHARGE RECOMMENDATIONS: [] Home with no services [] [] Home with services [] Home with outpatient PT [] [] SNF for continued rehabilitation [] [] Ortho Rn Care [] [] SNF versus LTC based on ability to participate and progress [] [X] Short-term PT vs HH PT based on patient's ability to progress towards goals TREATMENT CODE/TIME: 28420 x 25 minutes for 1 unit (11:09-11:34). Thank you for the opportunity to participate in the care of this patient. Karol Perez PT, DPT, CLT [facility] [place], [place]
[2024-06-02 11:26] LABS: Absolute Neutrophil Count 8.71 10^3/uL (1.2-6.7)
[2024-06-02 15:43] VITALS: BP 137/77; PULSE 92; RESP 18; TEMP 36.9; O2SAT 97
--- NOTE | 2024-06-02 15:44 | NUR.NOTE ---
In chart for education reviewNursing Note:
--- NOTE | 2024-06-02 15:58 | W.PM.PROGNOT ---
Date of Service Date of service: 06/02/24 Time of Service: 15:58 Assessment and Plan Assessment and plan (1) Colostomy in place: Status: Acute Assessment and plan: 64-year-old woman is postop day 2 from Szymanski's colostomy. Hemodynamically stable. Benign abdominal exam. Bowel function is pretty good coming out of the ostomy. She is tolerating regular diet. She is not on any IV medications or fluids. Probable discharge home tomorrow. Ostomy teaching and management is probably the biggest teressa to overcome. Subjective Subjective Interval history since last seen: No complaints at the bedside. She says her nausea is completely resolved. She has had some ostomy output. Exam Narrative Exam Narrative: Gen: Non-toxic, comfortable and interactive Neuro: Alert and oriented x3 Psych: Good mood and affect. Insight and understanding slightly impaired as baseline status, but she seems to have a pretty good understanding overall. Chest: Non-labored breathing, no wheezing, no visible shortness of breath. Heart: Regular Abdomen: Soft, no distention anywhere. Does not seem to have any pain anywhere either. Her midline dressing is completely clean and intact. The ostomy appliance has some liquid stool in it. The mucosa of the ostomy looks completely viable. Objective Last Vital Signs Temp 98.4 F 06/02/24 15:43 Pulse 92 H 06/02/24 15:43 Resp 18 06/02/24 15:43 BP 137/77 06/02/24 15:43 Pulse Ox 97 06/02/24 15:43 Laboratory Results - last 24 hr 06/02/24 06/02/24 06:44 10:55 WBC 11.60 H RBC 2.95 L Hgb 8.7 L Hct 26.6 L MCV 90 MCH 29.5 MCHC 32.7 RDW 12.6 Plt Count 326 MPV 8.2 Immature Gran % 0.5 Neutrophils % 75.1 Lymphocytes % 13.0 Monocytes % 8.8 Eosinophils % 2.2 Basophils % 0.4 Nucleated RBC % 0.0 Absolute Neutrophils 8.71 H Absolute Lymphocytes 1.51 Absolute Monocytes 1.02 H Absolute Eosinophils 0.26 Absolute Basophils 0.05 Sodium 137 Potassium 4.0 Chloride 105 Carbon Dioxide 28.1 Anion Gap 3.9 BUN 17 Creatinine 0.6 Est GFR (CKD-EPI 2020) 100.17 Glucose 111 H Calcium 7.9 L Magnesium 2.0 Ferritin 94 Time Spent with Patient Time Spent with Patient: <25 minutes Time was spent: preparing to see the patient(eg.review tests), obtaining and/or reviewing separately otained hiistory, indepentently interpreting results and counseling the patient
--- NOTE | 2024-06-02 17:43 | PDOC.CMPRO ---
Date of service: 06/02/24 Time of Service: 11:30 Care Management Progress Note Progress Note Text Progress Note Text: Candace was just getting up with PT when CM met with her for the first time of the day. She was in a little bit of pain, but appeared steady on her feet. Candace was in the chair the next time CM met with her. She was pleasant, had eaten a soft lunch, and was feeling pretty good. Her mom, Missy, and her brother, Unique were also present. The family's plan is that Candace will go home once stable. Missy is confident that she can care for candace's ostomy is she is taught prior to discharge,and the continued support of home health. She will have new orders for HH RN and RESEARCH PROFESSOR OF BIOSTATISTICS to work on senior living planning, when she is medically ready. She will continue to go to [facility] M-F. CM confirmed with [facility] that the ostomy is not a barrier to her returning. CM conveyed the plan to RN and to surgery. Discharge Potential Discharge Needs: PCP F/U Appt and Surgical F/U Appt Anticipated Barriers to Discharge: None Identified Patient/Family Education Needs: Review discharge instructions, discuss Ask Me Three Transportation: Private vehicle Plan: Anticipate that Candace will be discharged home with new services for HH RN and RESEARCH PROFESSOR OF BIOSTATISTICS. She will exercise at [facility] , where she goes every M-F. She will likely transport via private vehicle with [facility]. CM galen continue to follow and update the plan as needed. SDOH(Care Management) Screening Will the Patient Participate in the Screening?: Yes Do you worry about having a steady place to live?: no Problems where you live: no known problems In the past 12 months, have you had to go without electric, gas, oil or water in your home?: no Have you or anyone in your house had to go without enough food to eat?: no Has lack of transportation kept you from medical appointments or from doing things needed for daily living?: no Has anyone in your support network made you feel unsafe for any reason?: no
[2024-06-02] MEDS: Mirtazapine 15 MG TAB 7.5 MG PO (21:12)
[2024-06-03] MEDS: Acetaminophen 500 MG TAB 1000 MG PO ×2 (01:51→07:12)
[2024-06-03] MEDS: Normal Saline Flush 10 ML SYR IVP ×3 (01:52→11:33)
[2024-06-03] MEDS: Ketorolac 15 MG/ML VIAL IVP ×3 (01:52→12:20)
[2024-06-03 02:19] VITALS: BP 133/86; PULSE 88; RESP 15; TEMP 36.5; O2SAT 96
[2024-06-03 07:14] VITALS: BP 117/86; PULSE 101; RESP 18; TEMP 36.4; O2SAT 97
[2024-06-03] MEDS: Enoxaparin 40 MG/0.4 ML SYR SC (07:58)
[2024-06-03] MEDS: Pantoprazole 40 MG TABCR PO (07:59)
[2024-06-03] MEDS: Senna TAB 1 TAB PO (07:59)
[2024-06-03] MEDS: Protein Nutritional Supplement 16 GM 1 OUNCE PACKET PO ×2 (07:59→12:20)
--- NOTE | 2024-06-03 08:20 | W.PM.PROGNOT ---
Date of Service Date of service: 06/03/24 Time of Service: 08:20 Assessment and Plan Assessment and plan (1) Colostomy in place: Status: Acute Assessment and plan: 64-year-old woman postop day 3 from colostomy/[place]. Having good bowel function. Tolerating p.o. Benign abdominal exam. She can be discharged home once care management plan is set up. Subjective Subjective Interval history since last seen: Doing great, she has no complaints. She is ready to go home in her own words. Exam Narrative Exam Narrative: Nontoxic, comfortable and interactive Abdomen: Soft, nondistended and really overall nontender. Her ostomy is pink and there is liquid stool in the bag. Objective Last Vital Signs Temp 97.5 F L 06/03/24 07:14 Pulse 101 H 06/03/24 07:14 Resp 18 06/03/24 07:14 BP 117/86 06/03/24 07:14 Pulse Ox 97 06/03/24 07:14 Laboratory Results - last 24 hr 06/02/24 10:55 WBC 11.60 H RBC 2.95 L Hgb 8.7 L Hct 26.6 L MCV 90 MCH 29.5 MCHC 32.7 RDW 12.6 Plt Count 326 MPV 8.2 Immature Gran % 0.5 Neutrophils % 75.1 Lymphocytes % 13.0 Monocytes % 8.8 Eosinophils % 2.2 Basophils % 0.4 Nucleated RBC % 0.0 Absolute Neutrophils 8.71 H Absolute Lymphocytes 1.51 Absolute Monocytes 1.02 H Absolute Eosinophils 0.26 Absolute Basophils 0.05 Time Spent with Patient Time Spent with Patient: <25 minutes Time was spent: preparing to see the patient(eg.review tests), indepentently interpreting results, counseling the patient and care coordination
--- NOTE | 2024-06-03 09:14 | PTTR_ITS ---
PT Notes Visit Reasons: Obstipation/Large Bowel Obstruction Physical Therapy Inpatient Treatment Note Date: 06/03/2024 Precautions: Fall. Standard. Activity as tolerated Subjective: Looking forward to going home with mother today. BRIAN Mejia and BRIAN trainee got patient all cleaned up and dressed up to leave. Patient agreeable to walking the hallway with PT and to doing stairs. Objective: General Observation: Resting on bedside chair. Mental Status: Alert and oriented as to person, place, time, and purpose. Able to pay attention, focus, and respond appropriately. Pain perception impaired due to moderate developmental delay. Pain: None reported Vital Signs: Closely monitored by nursing staff Gait: 200 feet + 200 feet without an assistive device, stand by assist only. Stairs: Up and down 4 x 6-inch steps and 6 x 4-inch steps while holding onto B rails for support. Stand by assist only. Balance: Static Sitting: Normal Dynamic Sitting: Normal Static Standing: Good Dynamic Standing: Fair Assessment: Almost back to baseline mobility but with increased time needed at this time due to post operative status. No longer needing an assistive device to walk. Goals: Goals X1 week 1. Supine-Sit independent MET 2. Sit-Supine independent MET 3. Sit-Stand independent MET 4. Stand-Sit independent with FWW MET 5. Bed-Chair independent with FWW MET 6. Chair-Bed independent with FWW MET 7. Independent gait on level surface with use of FWW for at least 150 feet without report of pain nor dyspnea MET 8. Independent stair negotiation while holding onto B rails for at least 2 steps without report of pain nor dyspnea MET 9. Supervision with home exercise program NOT MET, CONTINUE WITH HH PT 10. Good static and dynamic standing balance/tolerance NOT MET, CONTINUE WITH HH PT Plan of Care/Treatment Plan: Contibue with HH PT DISCHARGE RECOMMENDATIONS: [] Home with no services [] Home [] Home with outpatient PT [] [] SNF for continued rehabilitation [] [] Long-Term Care [] [] SNF versus LTC based on ability to participate and progress [] TREATMENT CODE/TIME: 47119 x 27 minutes for 1 unit (8:42-09:09).
--- NOTE | 2024-06-03 09:49 | CMDISCH_ITS ---
Date of service: 06/03/24 Time of Service: 09:49 LACE Index Scoring Tool Questions: Length of Stay (in days): 4 - 6 Was the patient admitted via the E.D.?: Yes E.D. Visits: 1 Answers: Total Score: 8 Risk of Readmission: Low Risk Care Management Discharge Plan Reason for Hospitalization: obstipation s/p colostomy Discharge Plan: Sera is discharged home today with new orders for HH RN and RN IMMUNOLOGY. Sera's mom has been taught how to care for the ostomy. She will f/u with her PCP on 06/10 at 0730 and the surgeon on 06/15 at 11:15 and continue per her plan of care. Sera wants to return to [facility] on Friday. Sera will transport with her mom in a private vehicle. Patient/Family Education Needs: Review of discharge instructions, f/u plan, limitations and activity. Review of ostomy care. Discuss Ask me 3. Services Needed at Discharge: Day Care (attends [facility]-) and Home Health Care Services (new RN and RN IMMUNOLOGY) [facility] Health Related Social Needs: No Data to Display
--- NOTE | 2024-06-03 11:39 | DSE_ITS ---
Date of service: 06/03/24 Time of Service: 11:39 DS: Diagnosis Discharge Diagnosis (1) Colostomy in place: Status: Acute Asessment and Plan: Doing fantastic postop day 3. Excellent bowel function. No pain and no issues eating and drinking. Ready to be discharged home with visiting nurse RN and visiting dialysis social worker Discharge Plan Disposition Patient Disposition: Home W/Home Health Services Condition: Good Discharge Details Reason For Visit: Obstipation/Large Bowel Obstruction Admit Date/Time: 05/30/24 22:04 Admit Provider: Josh Foreman Attending Provider: Josh Foreman Primary Care Provider: Carmen Pacheco Hospital Course Hospital Course: 64-year-old woman received an end colostomy. She did well postop and was ready to be discharged home on day 3 having good bowel function. Her new ostomy appliance was working nicely and her caregivers were taught about how to use it. Home Meds and New Rx's Prescriptions: No Action vitamin B complex [B Complex-Vitamin B12] Tablet 1 tab PO DAILY omeprazole 20 mg capsule,delayed release(DR/EC) 40 mg PO DAILY [id number] carb-vit K 18 mg iron-400 mcg-500 mg Tablet 1 tab PO DAILY polyethylene glycol 3350 17 gram Powder In Packet 17 g PO DAILY Qty: 30 0RF Rx Instructions: hold if having diarrhea Metamucil Fiber Singles 3.4 gram powder in packet 1 packet PO DAILY mirtazapine 7.5 mg tablet 7.5 mg PO HS Patient Comments: TAKE ONE TABLET BY MOUTH AT BEDTIME acetaminophen 500 mg Tablet 500 mg PO QID Qty: 90 0RF ibuprofen 600 mg tablet 600 mg PO TID PRN (Reason: pain) Qty: 90 3RF aspirin 325 mg tablet,delayed release (DR/EC) 325 mg PO DAILY Discharge Instructions Additional Instructions: Incision: Keep clean and dry but does not need to be covered. It is okay to shower but no tub bathing for 1 week. Ostomy: Change appliance as needed. Ask nurses for help as needed. Activity: As tolerated. There are no restrictions. Diet: Regular diet as tolerated Medications: Resume all of your usual/regular home medications Follow-up: Call to schedule follow-up appointment in 2 weeks. That is when we will remove miri. Pain control: Take Tylenol, 1000 mg, every 6 hours on a schedule for the next 3 days. You can use ibuprofen in addition to Tylenol and use the narcotic medication only as necessary for pain preventing you from sleeping. Overall: Symptoms should not be worsening. If you have any difficulty breathing or you have return of symptoms of brought you to the hospital or your pain is otherwise worsening each day and you should call the doctor's office or come into the hospital to be checked out. Care Plan Goals: Visiting home nursing services Visiting home social work services Referrals: Carmen Pacheco [Primary Care Provider] - 06/10/24 7:30 am Activity:: Activity as Tolerated Equipment/Supplies:: Ostomy appliances Diet:: As Tolerated Discharge Data Discharge Comment: Patient needs visiting nursing services at home. DS: Summary Time Spent with Patient providing and/or coordinating discharge services: Less than 30 minutes Status at Discharge Functional status at discharge: independent ambulation Overall status at discharge: patient is progressing back to baseline Mental Status: mental status grossly normal Speech and Movement: speech and movement normal Mood: congruent mood Affect: normal affect Quality:SDOH Health Related Social Needs: No Data to Display Exam Narrative Exam Narrative: General: Nontoxic, comfortable and interactive Abdomen: Soft, nontender nondistended. Ostomy looks perfect. No wound concerns. Psych Mental Status: mental status grossly normal Speech and Movement: speech and movement normal Mood: congruent mood Affect: normal affect DS: Data Vitals/I&O Vitals and I&O: Vital Signs Temperature 97.5 F L 06/03/24 07:14 Temperature Source Tympanic 06/03/24 07:14 Pulse 101 H 06/03/24 07:14 Pulse Rhythm Regular 05/31/24 12:24 Respiratory Rate 18 06/03/24 07:14 Respiratory Effort Normal 05/31/24 12:24 Respiratory Depth Normal 05/31/24 12:24 Respiratory Pattern Normal 05/31/24 12:24 Blood Pressure 117/86 06/03/24 07:14 Blood Pressure Mean 95 05/31/24 03:44 Blood Pressure Position Sitting 05/30/24 17:51 Pulse Oximetry 97 06/03/24 07:14 Oxygen Delivery Method Room Air 06/03/24 07:14 Oxygen Flow Rate 0 06/03/24 07:14 Pain Level 5 06/03/24 08:00 Comment RN notified 06/02/24 15:43 Intake & Output 06/02/24 06/02/24 06/03/24 11:59 23:59 11:59 Intake Total 240 / 240 Output Total 300 / 1200 900 / 1200 400 / 400 Balance -60 / -960 -900 / -960 -400 / -400 Intake: Oral 240 / 240 Output: Urine 200 / 650 450 / 650 350 / 350 Stool 100 / 550 450 / 550 50 / 50 Other: Urine Color Straw Yellow Yellow Urine Appearance Clear Clear Clear Urine Odor None Comment voided in toilet. PFSH All Active Problems (Updated 06/02/24 @ 16:01 by Zay Gautam MD) Colostomy in place (Acute) Abdominal pain (Acute) Constipation (Acute) Stercoral colitis (Acute) Colitis (Acute) Cervical radiculitis (Acute) Hypertension (Chronic) Hx of migraine headaches (Acute) Ground glass opacity present on imaging of lung (Acute) Constipation (Acute) Sensorineural hearing loss, bilateral (Acute) Conductive hearing loss, external ear (Acute) Impacted cerumen, bilateral (Acute) Frequent headaches (Acute) Migraine without aura, intractable, with status migrainosus (Acute) Hx of colonoscopy (Chronic) Hemorrhoids (Acute) Cerumen impaction (Acute) Dysphagia (Acute) Left foot pain (Acute) Other fatigue (Acute) Snoring (Acute) Cervical spondylosis without myelopathy (Acute) Cervical spondylosis without myelopathy (Acute) Migraine headache with aura (Chronic) Migraine headache without aura (Acute) Chronic daily headache (Acute) New onset headache (Acute) Medical History (Updated 06/02/24 @ 16:01 by Zay Gautam MD) Palpitations Lower urinary tract symptoms (LUTS) Recurrent UTI Dysuria Headache Depression Developmental delay, moderate IBS (irritable bowel syndrome) GERD (gastroesophageal reflux disease) Cold intolerance Basal cell carcinoma Neck pain Anemia Fatigue Dizziness Surgical History (Updated 01/15/24 @ 14:22 by TRACI Monk) History of total right hip replacement (11/09/23) As treatment for femoral neck fracture of the right hip. 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[employer] Do you feel safe at home: Yes Do you feel safe in your relationship?: Yes Time Spent with Patient Time Spent with Patient: <45 minutes Time was spent: preparing to see the patient(eg.review tests), obtaining and/or reviewing separately otained hiistory, ordering medications,tests, procedures, referring, communicating with other health rn wound care, indepentently interpreting results, counseling the patient and care coordination
--- NOTE | 2024-06-03 13:32 | PDOC.HHF2F ---
Home Health Referral Registered Nurse: Check all that apply Instruct on ostomy care: Ordered Numerical Control Tool Programmer: Assist with community resources: Ordered Assist with truck terminal manager care planning: Ordered Encounter Date and Reason: I certify that a FTF encounter for this patient was performed on June 03, 2024 and that such encounter was related to the primary reason the patient requires home health services. The encounter was conducted in the following manner: By me as the certifying physician, DRIED FRUIT WASHER, PA or By an inpatient physician, DRIED FRUIT WASHER or PA during an inpatient stay who communicated findings to me, Certification And Authentication I certify that I composed the above information based on my clinical judgment relating to this patient's medical condition and, if applicable, clinical findings communicated to me by the NPP or inpatient physician who performed the FTF encounter. Name of Provider that will be monitoring home health services: Franklin West
== END 2024-06-03 13:05 | disposition home health service (06) | DRG 331 ==
LOC: ER 18:28 → EDHOLD 22:54 → MS 05-31 12:19
PROVIDERS: Surgery; Admitting Provider Surgery; Emergency Provider Nurse Practitioner Family; PCP Family Medicine; Visit Provider Surgery
PROC: 0DTM0ZZ Resection of Descending Colon, Open Approach (ICD-10-PCS; CPT 49000; principal; 2024-05-31 13:45)
DX: K56.691 Other complete intestinal obstruction (principal); I10 Essential (primary) hypertension; R13.10 Dysphagia, unspecified; R91.8 Other nonspecific abnormal finding of lung field; D64.9 Anemia, unspecified; K21.9 Gastro-esophageal reflux disease without esophagitis; M54.12 Radiculopathy, cervical region; G43.009 Migraine without aura, not intractable, without status migrainosus; M47.812 Spondylosis without myelopathy or radiculopathy, cervical region; F32.A Depression, unspecified; Z96.641 Presence of right artificial hip joint; H90.3 Sensorineural hearing loss, bilateral; F89 Unspecified disorder of psychological development; K52.89 Other specified noninfective gastroenteritis and colitis; K63.89 Other specified diseases of intestine
CPT/HCPCS: 44141; 44139; 00123; 36415; 80048; 80053; 84145; 85027; 96361; 96374; 96375; 96376; 97162; 97530; 99223; 99233; 99285; J1650; 71045; 74019; 74177; 82728; 83735; 85025; 88307; C9290; J0131; J0665; J0690; J1100; J1171; J1805; J1885; J2270; J2405; J2704; J3010; J3490

== ENCOUNTER 2024-06-08 15:43 | Inpatient (IN) | payer MEDICARE, MEDICAID, SELFPAY ==
[2024-06-08] VITALS (41 sets, daily range): BP systolic 106–150; BP diastolic 63–93; PULSE 102–130; RESP 12–35; TEMP 36.7–39.1; O2SAT 93–99
--- NOTE | 2024-06-08 16:00 | DI.CT_ITS ---
Exam(s) CT ABDOMEN PELVIS W EXAM: CT ABDOMEN PELVIS W CLINICAL HISTORY: recent colectomy, fever and redness @surgical site. TECHNIQUE: Imaging Protocol: Axial computed tomography images with coronal and sagittal reformatted images were created and reviewed CONTRAST MATERIAL: Intravenous: Omnipaque-350 85cc Oral: None COMPARISON: CT CT ABDOMEN PELVIS W from 05/30/2024 FINDINGS: VISUALIZED LUNG BASES: No nodules nor pleural effusions evident. ABDOMEN: GI: There has been interval midline laparotomy. Multiple skin clips are noted in the midline. There is, however, a long fluid collection within the vertically orientated incision site which measures 2 .4 cm wide by 1.7 cm AP by 11 cm craniocaudal. This extends both above and below the umbilicus level . This subcutaneous fluid collection does not contain gas but nevertheless is most probably infectio n none. There has also been interval partial colectomy with creation of a left sided colostomy. Moderate arley unt of fecal material is noted in the colon proximal to this and the colon is mildly edematous. Visu alized appendix appears unremarkable. There are air-filled small bowel loops measuring up to 2.5 cm. No true small bowel obstruction. The sigmoid is oversewn in the high left iliac fossa. LIVER: There are no focal hepatic lesions evident. No dilated intrahepatic ducts. GALLBLADDER/BILIARY: No obvious gallbladder pathology. CBD is not dilated. PANCREAS: No evidence of pancreatic mass nor dilatation of the pancreatic duct. SPLEEN: Spleen is not enlarged. No obvious intrasplenic lesions. Splenic and portal veins are paten t. ADRENALS: There are no significant adrenal masses. KIDNEYS:No cysts evident. No solid renal masses. No calculi nor hydronephrosis.. ABDOMINAL AORTA: Abdominal aorta is not enlarged. LYMPH NODES:There is no retroperitoneal nor paraaortic adenopathy. ABDOMINAL WALL: As above. GI: No evidence of bowel obstruction. No free intraperitoneal air. PELVIS: GI: No evidence of appendicitis.No evidence of sigmoid diverticulitis. LYMPH NODES: There is no intrapelvic nor inguinal adenopathy. REPRODUCTIVE: Age-appropriate URINARY BLADDER: Partially obscured by beam hardening artifact from right hip prosthesis. Mildly dis tended. OSSEOUS: Right hip prosthesis. No fractures. No significant osseous lesions. IMPRESSION: 1. For the CT scan of 05/30/2024 there has been interval surgery. Has been creation of a left-sided colostomy. There is no bowel obstruction nor free intraperitoneal air. 2. However, there is a lung truly orientated midline fluid collection subjacent to the multiple skin miri extending both above and below the umbilical level for a cephalocaudal distance of approximat arcadio 11 cm. This measures 2.4 cm wide and 1.7 cm AP. Although it does not contain gas bubbles may st ill represent a lung truly orientated subcutaneous abscess. 3. Moderate amount of fecal material noted in the colon proximal to the colostomy. Colon distal to t his is collapsed. 4. Visualized lung bases are clear. No pleural effusions Called by myself to ER physician 06/08/2024 at 5:48 p.m. RADIATION DOSE DELIVERED: 189.23mGy.cm Total DLP DATA REPOSITORY: All CT scans at this facility are submitted to the National Radiology Data Registry (NRDR) Dose Index Registry (DIR) with the [employer] (ACR). RADIATION OPTIMIZATION: All CT scans at this facility use at least one of these dose optimization te chniques: automated exposure control; mA and/or kV adjustment per patient size (includes targeted exa ms where dose is matched to clinical indication); or iterative reconstruction.
--- NOTE | 2024-06-08 16:04 | ED.GENADUL_ITS ---
Discharge Plan Disposition Patient Disposition: Admit to [facility] Condition: Stable Discharge Details Chief Complaint: Fever Clinical Impression: Postoperative wound abscess Primary Care Provider: Carmen Pacheco ED Provider: Wilmer Medellin Home Meds and New Rx's Prescriptions: No Action vitamin B complex [B Complex-Vitamin B12] Tablet 1 tab PO DAILY omeprazole 20 mg capsule,delayed release(DR/EC) 40 mg PO DAILY lc-jr-kuso-FA-Ca carb-vit K 18 mg iron-400 mcg-500 mg Tablet 1 tab PO DAILY polyethylene glycol 3350 17 gram Powder In Packet 17 g PO DAILY Qty: 30 0RF Rx Instructions: hold if having diarrhea Metamucil Fiber Singles 3.4 gram powder in packet 1 packet PO DAILY mirtazapine 7.5 mg tablet 7.5 mg PO HS Patient Comments: TAKE ONE TABLET BY MOUTH AT BEDTIME acetaminophen 500 mg Tablet 500 mg PO QID Qty: 90 0RF ibuprofen 600 mg tablet 600 mg PO TID PRN (Reason: pain) Qty: 90 3RF aspirin 325 mg tablet,delayed release (DR/EC) 325 mg PO DAILY HPI General Mode of arrival: ambulatory . Date/Time Provider Initiated Documentation: 06/08/24 15:46 . Limitations to Documentation: no limitations . Information obtained by: patient . History of Present Illness 64 year old F presents to the emergency department with the chief complaint of redness at surgical site, decreased ostomy output, described as moderate, Quality is described as aching, Patient reports no radiation. No relieving factors improve symptom(s), No exacerbating factors reported . Patient notes fever/chills; denies chest pain and shortness of breath. Patient did receive the following treatments prior to arrival, none Related Data Home Medications ?Medication ?Instructions ?Recorded ?Confirmed omeprazole 20 mg capsule,delayed 40 mg PO DAILY 05/17/21 06/08/24 release ncytptgt-pfe-mjvc-FA-Ca carb-vit K 1 tab PO DAILY 10/08/22 06/08/24 18 mg iron-400 mcg-500 mg tablet vitamin B complex (B 1 tab PO DAILY 05/14/23 06/08/24 Complex-Vitamin B12 tablet) polyethylene glycol 3350 17 gram 17 g PO DAILY #30 ea 07/01/23 06/08/24 oral powder packet psyllium husk (aspartame) 3.4 gram 1 packet PO DAILY 08/27/23 06/08/24 oral powder packet (Metamucil Fiber Singles) mirtazapine 7.5 mg tablet 7.5 mg PO HS 11/09/23 06/08/24 acetaminophen 500 mg tablet 500 mg PO QID #90 tabs 11/11/23 06/08/24 ibuprofen 600 mg tablet 600 mg PO TID PRN pain #90 tabs 11/11/23 06/08/24 aspirin 325 mg tablet,delayed 325 mg PO DAILY 05/30/24 06/08/24 release Previous Rx's ?Medication ?Instructions ?Recorded polyethylene glycol 3350 17 gram 17 g PO DAILY #30 ea 07/01/23 oral powder packet acetaminophen 500 mg tablet 500 mg PO QID #90 tabs 11/11/23 ibuprofen 600 mg tablet 600 mg PO TID PRN pain #90 tabs 11/11/23 Allergies Allergy/AdvReac Type Severity Reaction Status Date / Time meclizine Allergy Severe Other (See Verified 06/08/24 15:54 Comment) methylphenidate (From Allergy Severe Other (See Verified 06/08/24 15:54 Ritalin) Comment) cyclobenzaprine (From Allergy Mild Other (See Verified 06/08/24 15:54 Flexeril) Comment) General Stated Complaint: Fever BERNIE: 3 Review of Systems All systems reviewed & are unremarkable except as noted in HPI and below Constitutional Constitutional: Reports chills, Reports fever(s) and Denies weakness Cardiovascular Cardiovascular: Denies chest pain Gastrointestinal Gastrointestinal: Denies abdominal pain, Denies nausea and Denies vomiting Integumentary/Breasts Skin/Breast: Reports rash Neurologic Neurologic: Denies weakness Psychiatric Psychiatric: Denies depression Exam Const General: no acute distress Orientation: alert [facility] Head: normal to inspection Ears: external ears normal General nose exam: external nose normal Mouth: moist mucous membranes Eyes General: appearance normal, both eyes and all related structures Neck Neck: normal visual inspection Resp Effort & Inspection: normal respiratory effort and able to speak in complete sentences Cardio Jugular venous pressure: no JVD Rate: tachycardic GI Palpation: soft Skin General skin exam: no rashes or lesions noted and erythema Neuro General: patient alert and patient oriented x3 Extrem General: normal to inspection Psych Mental Status: mental status grossly normal Course Vital Signs Vital signs: Vital Signs Temperature 39.1 C H 06/08/24 15:48 Pulse 120 H 10/29/24 15:48 Respiratory Rate 30 H 06/08/24 15:48 Blood Pressure 147/93 H 06/08/24 15:48 Pulse Oximetry 98 06/08/24 15:48 Temperature 39.1 C H 06/08/24 15:53 Temperature Source Oral 06/08/24 15:53 Pulse 120 H 06/08/24 15:53 Respiratory Rate 30 H 06/08/24 15:53 Respiratory Effort Normal 06/08/24 15:53 Blood Pressure 147/93 H 06/08/24 15:53 Blood Pressure Position Sitting 06/08/24 15:53 Pulse Oximetry 98 06/08/24 15:53 Oxygen Delivery Method Room Air 06/08/24 15:53 Oxygen Flow Rate 0 06/08/24 15:48 Lab/Test Results Lab/Test Results: 06/08/24 15:58 Blood Blood Culture - Pending 06/08/24 15:58 Blood Blood Culture - Pending Medical Decision Making 64-year-old female with a history of recent colectomy due to colon obstruction with formation of an ostomy last week comes in with increased redness around her surgical site today and decreased ostomy output, is noted to have a fever to 39.1 on arrival. She denies any cough, difficulty breathing, headaches, vomiting. She is tachycardic on arrival, she does appear in no distress on exam. Her surgical site in her abdomen does have erythema surrounding her surgical site that is warm to touch. There is no current stool in the ostomy bag and states she has not changed it recently. Concern for wound infection versus abscess, will check a CBC, CMP, procalcitonin and Fluvid and obtain CT abdomen pelvis to evaluate for possible abscess. Left show a count of 16, CT shows likely abscess next to the left surgical site. Patient hemodynamically stable, dose of Zosyn ordered. Consulted Dr. Mak from general surgery who opened the surgical site and drained and at the bedside. Plan for admission for IV antibiotics and further monitoring. Differential Diagnosis Differential Diagnosis: Wound infection, abscess Medical Records Medical records reviewed: Yes I reviewed the patient's medical records. Lab Data Lab results reviewed: Yes I reviewed the patient's lab results. Quality:SDOH Health Related Social Needs: No Data to Display PFSH All Active Problems (Updated 06/08/24 @ 19:37 by Wilmer Medellin MD) Postoperative wound abscess (Acute) Colostomy in place (Acute) Constipation (Acute) Colitis (Acute) Cervical radiculitis (Acute) Hx of migraine headaches (Acute) Ground glass opacity present on imaging of lung (Acute) Sensorineural hearing loss, bilateral (Acute) Conductive hearing loss, external ear (Acute) Impacted cerumen, bilateral (Acute) Frequent headaches (Acute) Migraine without aura, intractable, with status migrainosus (Acute) Hx of colonoscopy (Chronic) Cerumen impaction (Acute) Left foot pain (Acute) Other fatigue (Acute) Snoring (Acute) Cervical spondylosis without myelopathy (Acute) Cervical spondylosis without myelopathy (Acute) Migraine headache with aura (Chronic) Migraine headache without aura (Acute) Chronic daily headache (Acute) New onset headache (Acute) Medical History (Updated 06/08/24 @ 19:37 by Wilmer Medellin MD) Hypertension Dysphagia Palpitations Lower urinary tract symptoms (LUTS) Recurrent UTI Dysuria Headache Depression Developmental delay, moderate IBS (irritable bowel syndrome) GERD (gastroesophageal reflux disease) Cold intolerance Basal cell carcinoma Neck pain Anemia Fatigue Dizziness Surgical History (Updated 06/04/24 @ 00:04 by PETTY AYALA) History of total right hip replacement (11/09/23) As treatment for femoral neck fracture of the right hip. 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
[2024-06-08] MEDS: ACETAMINOPHEN 650 MG/65 ML BAG 260 MG IVPB (16:21)
[2024-06-08 16:25] LABS: Abs Immature Grans 0.21 10^3/uL (0.0-0.06); Absolute Eosinophil Count 0.13 10^3/uL (0.0-0.7); Basophils % 0.6 %; Eosinophils % 0.8 %; HCT 30.5 % (36.0-46.0); HGB 9.9 g/dL (11.2-15.7); Immature Grans % 1.3 %; Lymphocytes % 11.1 %; MCH 28.8 pg (27.0-33.0); MCHC 32.5 % (32.0-36.0); MCV 89 fL (80-95); MPV 8.4 fL (8.0-11.0); Monocytes % 8.3 %; Neutrophils % 77.9 %; Platelet Count 567 10^3/uL (130-400); RBC 3.44 10^6/uL (3.93-5.22); RDW-SD 42.2 fL; WBC 16.33 10^3/uL (4.4-10.8)
[2024-06-08 16:28] LABS: Absolute Lymphocyte Count 1.81 10^3/uL (1.2-3.4); Absolute Monocyte Count 1.36 10^3/uL (0.1-0.8); Absolute Neutrophil Count 12.72 10^3/uL (1.2-6.7)
[2024-06-08 16:42] LABS: ALT 42 U/L (14-59); AST 27 U/L (15-37); Albumin 2.9 g/dL (3.4-5.0); Alkaline Phosphatase 100 U/L (46-116); Anion Gap 6.5 mmol/L (3-11); BUN 11 mg/dL (7-18); Bilirubin, Total 0.24 mg/dL (0.2-1.0); CO2 29.5 mmol/L (21.0-32.0); CREATININE 0.7 mg/dL (0.55-1.02); Chloride 99 mmol/L (98-107); Estimated GFR 96.52 (mL/min/1.73m2); Glucose 123 mg/dL (74-106); Lipase 37 U/L (16-77); Potassium 4.2 mmol/L (3.5-5.1); Sodium 135 mmol/L (136-145); Total Protein 8.6 g/dL (6.4-8.2)
[2024-06-08 16:49] LABS: Calcium 9.4 mg/dL (8.5-10.1)
[2024-06-08 16:59] LABS: Procalcitonin 0.2 ng/mL
[2024-06-08] MEDS: Omnipaque 350 MG/ML 100 ML BTL IJ (17:02)
[2024-06-08] MEDS: Normal Saline - Diluent 50 ML VIAL IJ (17:05)
[2024-06-08 17:06] LABS: COVID-19 PCR Negative (Negative); Influenza A PCR Negative (Negative); Influenza B PCR Negative (Negative); RSV PCR Negative (Negative); Source Nasopharynx
[2024-06-08] MEDS: PIPERACILLIN/TAZO 4.5 GM in Normal Saline 100 ML IVPB (18:15)
[2024-06-08 18:23] LABS: Bilirubin Negative (Negative); Blood Negative (Negative); Clarity Clear (Clear); Glucose Negative (Negative); Ketones Negative (Negative); Leukocyte Esterase Negative (Negative); Nitrite Positive (Negative); Specific Gravity 1.015 (1.005-1.025); Urobilinogen 0.2 mg/dL (Up to 0.2); pH 7.5 (5-8)
[2024-06-08 18:32] LABS: Bacteria Few HPF (Negative); C & S Indicated? No; Crystals Few Amorphous HPF (Negative); Epithelial Cells Rare HPF (Negative); Mucus Trace (Negative); Other Cells Rare Renal (Negative); RBC Negative HPF (0-2); WBC 0-2 HPF (0-5)
--- NOTE | 2024-06-08 19:43 | W.PM.HP.N ---
Date of service: 06/08/24 Time of Service: 19:43 Assessment and Plan Assessment and plan (1) Colostomy in place: Status: Acute Assessment and plan: Her mother has actually been doing quite well taking care of it and the colostomy looks well. There is no periwound maceration. (2) Postoperative wound abscess: Status: Acute Assessment and plan: Fascia appears intact Cultures of the wound were taken Wound cultures done in the ER Low-grade UTI which should be covered by Rocephin Antibiotics: Rocephin and Flagyl Wet-to-dry dressing currently Consider placing a wound VAC (3) Chronic daily headache: Status: Acute (4) Acute UTI (urinary tract infection): Status: Acute Assessment and plan: Rocephin (5) Hypertension: (6) GERD (gastroesophageal reflux disease): (7) Dysphagia: (8) Lower urinary tract symptoms (LUTS): (9) Developmental delay, moderate: History of Present Illness Narrative: Sera had an exploratory laparotomy and diverting colostomy on 05/31 for sigmoid stricture and chronic constipation. This is going to be considered a permanent colostomy. She has intellectual disabilities and her mom is her chronic caregiver. Her mom thought the incision looked more red and Sera was having more pain and brought her into the ER. CT shows that there is a large abscess underneath. The wound was opened up in the ER. There is a significant amount of purulent material. Cultures were taken. Blood cultures were taken in the ER as well. It was irrigated 500 cc of saline. The fascia appears intact. It is packed wet-to-dry. Consideration placing a wound VAC. No fevers or chills. no headaches. No CP or SOB. no productive cough. no dysuria. no leg pain or swelling. Her ostomy has been working well. She has not had much of an appetite today per her mother. Review of Systems All systems reviewed & are unremarkable except as noted in HPI and below PFSH All Active Problems (Updated 06/08/24 @ 19:47 by Yanci Mak DO) Acute UTI (urinary tract infection) (Acute) Postoperative wound abscess (Acute) Colostomy in place (Acute) Constipation (Acute) Colitis (Acute) Cervical radiculitis (Acute) Hx of migraine headaches (Acute) Ground glass opacity present on imaging of lung (Acute) Sensorineural hearing loss, bilateral (Acute) Conductive hearing loss, external ear (Acute) Impacted cerumen, bilateral (Acute) Frequent headaches (Acute) Migraine without aura, intractable, with status migrainosus (Acute) Hx of colonoscopy (Chronic) Cerumen impaction (Acute) Left foot pain (Acute) Other fatigue (Acute) Snoring (Acute) Cervical spondylosis without myelopathy (Acute) Cervical spondylosis without myelopathy (Acute) Migraine headache with aura (Chronic) Migraine headache without aura (Acute) Chronic daily headache (Acute) New onset headache (Acute) Medical History Hypertension Dysphagia Palpitations Lower urinary tract symptoms (LUTS) Recurrent UTI Dysuria Headache Depression Developmental delay, moderate IBS (irritable bowel syndrome) GERD (gastroesophageal reflux disease) Cold intolerance Basal cell carcinoma Neck pain Anemia Fatigue Dizziness Surgical History History of total right hip replacement (11/09/23) As treatment for femoral neck fracture of the right hip. 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[employer] Do you feel safe at home: Yes Do you feel safe in your relationship?: Yes Meds Allergies and Home Medications Allergies Allergy/AdvReac Type Severity Reaction Status Date / Time meclizine Allergy Severe Other (See Verified 06/08/24 15:54 Comment) methylphenidate (From Allergy Severe Other (See Verified 06/08/24 15:54 Ritalin) Comment) cyclobenzaprine (From Allergy Mild Other (See Verified 06/08/24 15:54 Flexeril) Comment) Home Medications ?Medication ?Instructions ?Recorded ?Confirmed ?Type dydemnro-yob-cevd-FA-Ca carb-vit K 1 tab PO DAILY 10/08/22 06/08/24 History 18 mg iron-400 mcg-500 mg tablet vitamin B complex (B 1 tab PO DAILY 05/14/23 06/08/24 History Complex-Vitamin B12 tablet) polyethylene glycol 3350 17 gram 17 g PO DAILY #30 ea 07/01/23 06/08/24 Rx oral powder packet psyllium husk (aspartame) 3.4 gram 1 packet PO DAILY 08/27/23 06/08/24 History oral powder packet (Metamucil Fiber Singles) mirtazapine 7.5 mg tablet 7.5 mg PO HS 11/09/23 06/08/24 History acetaminophen 500 mg tablet 500 mg PO QID #90 tabs 11/11/23 06/08/24 Rx ibuprofen 600 mg tablet 600 mg PO TID PRN pain #90 tabs 11/11/23 06/08/24 Rx Exam Narrative Exam Narrative: PHYSICAL EXAM GENERAL APPEARANCE: Alert, healthy appearance, oriented, x 3,? in no acute distress HYDRATION: Well hydrated HEAD, EYES, EARS, NECK, THROAT: Head is normocephalic, pupils equal, round, reactive to light and accommodation, ocular movement intact, sclera clear and no jaundice. ?Dentition intact. LUNGS: normal respiration/normal chest excursion. ?Clear to auscultation bilaterally. ?HEART: Regular rate and rhythm. no murmurs EXTREMITY: No edema or cyanosis.? no leg pain, redness, swelling.? ABDOMEN: Wound is erythematous. It is opened up and there is 150 cc of purulent drainage which was irrigated. Tissue underlying is beefy red and healthy. Fascia is intact. Wound is irrigated with saline and packed Results Labs 06/09/24 06:00 06/08/24 16:17 Labs: Laboratory Results - last 24 hr 06/08/24 06/08/24 16:17 17:48 WBC 16.33 H RBC 3.44 L Hgb 9.9 L Hct 30.5 L MCV 89 MCH 28.8 MCHC 32.5 RDW 13.0 Plt Count 567 H MPV 8.4 Immature Gran % 1.3 Neutrophils % 77.9 Lymphocytes % 11.1 Monocytes % 8.3 Eosinophils % 0.8 Basophils % 0.6 Nucleated RBC % 0.0 Absolute Neutrophils 12.72 H Absolute Lymphocytes 1.81 Absolute Monocytes 1.36 H Absolute Eosinophils 0.13 Absolute Basophils 0.10 Sodium 135 L Potassium 4.2 Chloride 99 Carbon Dioxide 29.5 Anion Gap 6.5 BUN 11 Creatinine 0.7 Est GFR (CKD-EPI 2020) 96.52 Glucose 123 H Calcium 9.4 Magnesium 2.0 Total Bilirubin 0.24 AST 27 ALT 42 Alkaline Phosphatase 100 Total Protein 8.6 H Albumin 2.9 L Lipase 37 Procalcitonin 0.2 Urine Color Yellow Urine Clarity Clear Urine pH 7.5 Ur Specific Dixon 1.015 Urine Protein 30 H Urine Ketones Negative Urine Blood Negative Urine Nitrite Positive H Urine Bilirubin Negative Urine Urobilinogen 0.2 Ur Leukocyte Esterase Negative Urine RBC Negative Urine WBC 0-2 Ur Epithelial Cells Rare Urine Crystals Few Amorphous Urine Bacteria Few Urine Mucus Trace Urine Other Rare Renal Ur Culture Indicated? No Urine Glucose Negative COVID-19 Source Nasopharynx SARS-CoV-2 (PCR) Negative Influenza Type A (PCR) Negative Influenza Type B (PCR) Negative RSV (PCR) Negative Last Vital Signs Temp 39.1 C H 06/08/24 15:53 Pulse 115 H 06/08/24 18:45 Resp 27 H 06/08/24 18:45 BP 112/68 06/08/24 18:45 Pulse Ox 94 06/08/24 18:45 Time Spent Time spent with Patient: 55-74 minutes Time was spent: preparing to see the patient(eg.review tests), obtaining and/or reviewing separately otained hiistory, ordering medications,tests, procedures, referring, communicating with other health critical care nurse practitioner, indepentently interpreting results, counseling the patient, care coordination and other
[2024-06-08] MEDS: cefTRIAXone 2 GM/50 ML BAG IVPB (20:28)
--- NOTE | 2024-06-08 21:19 | W.PCEDHO ---
Registration Status: Primary Language: Preferred Language: ED Information & Data Chief Complaint Fever 06/08/24 16:09 Triage Note PT reports redness, 06/08/24 15:48 tenderness and swelling around surgical wound on abd . PT had ostomy bag placed 05/31. Complaint started today with relatively sudden onset. Medical / Surgical History (Last Reviewed 06/08/24 @ 19:45 by Yanci Mak DO) Hypertension Dysphagia Palpitations Lower urinary tract symptoms (LUTS) Recurrent UTI Dysuria Headache Depression Developmental delay, moderate IBS (irritable bowel syndrome) GERD (gastroesophageal reflux disease) Cold intolerance Basal cell carcinoma Neck pain Anemia Fatigue Dizziness (Last Reviewed 06/08/24 @ 19:45 by Yanci Mak DO) History of total right hip replacement (11/09/23) H/O knee surgery History of carpal tunnel release H/O colectomy Most Recent Vital Signs Temperature 39.1 C H 06/08/24 15:53 Temperature Source Oral 06/08/24 15:53 Pulse 119 H 06/08/24 19:16 Pulse 116 H 06/08/24 19:20 Respiratory Rate 23 06/08/24 19:20 Respiratory Effort Normal 06/08/24 15:53 Blood Pressure 121/79 06/08/24 19:16 Blood Pressure Mean 90 06/08/24 19:16 Blood Pressure Position Sitting 06/08/24 15:53 Pulse Oximetry 95 06/08/24 19:20 Oxygen Delivery Method Room Air 06/08/24 15:53 Oxygen Flow Rate 0 06/08/24 15:48 Allergies meclizine Allergy (Severe, Verified 06/08/24 15:54) Other (See Comment) methylphenidate (From Ritalin) Allergy (Severe, Verified 06/08/24 15:54) Other (See Comment) cyclobenzaprine (From Flexeril) Allergy (Mild, Verified 06/08/24 15:54) Other (See Comment) Active Medications Generic Name Dose Route Start Last Admin Trade Name Freq PRN Reason Stop Dose Admin Ceftriaxone Sodium/Dextrose 2 gm in 50 mls @ 100 mls/hr 06/08/24 19:45 06/08/24 20:43 Rocephin IVPB Infused Q24H KARIN Infusion Iohexol 100 ml 06/08/24 17:15 06/08/24 17:02 Omnipaque 350 Mg/Ml 100 Ml Btl IJ 07/08/24 23:59 85 ml DIRECTED KARIN Administration Sodium Chloride 50 ml 06/08/24 17:15 06/08/24 17:05 Normal Saline - Diluent 50 Ml Vial IJ 50 ml .FOR DI USE KARIN Administration IV IV Catheter Type [Left Saline Lock Antecubital] IV Catheter Gauge [Left 18 Antecubital] Diet Orders Category Date Time Status High Fiber [DIET] Nutrition 06/08/24 Dinner Active Diagnostics 06/08/24 06/08/24 Range/Units 17:48 16:17 WBC 16.33 H (4.4-10.8) 10^3/uL RBC 3.44 L (3.93-5.22) 10^6/uL Hgb 9.9 L (11.2-15.7) g/dL Hct 30.5 L (36.0-46.0) % MCV 89 (80-95) fL MCH 28.8 (27.0-33.0) pg MCHC 32.5 (32.0-36.0) % RDW 13.0 (11.7-14.6) % Plt Count 567 H (130-400) 10^3/uL MPV 8.4 (8.0-11.0) fL Immature Gran % 1.3 % Neutrophils % 77.9 % Lymphocytes % 11.1 % Monocytes % 8.3 % Eosinophils % 0.8 % Basophils % 0.6 % Nucleated RBC % 0.0 (0.0-0.3) % Absolute Neutrophils 12.72 H (1.2-6.7) 10^3/uL Absolute Lymphocytes 1.81 (1.2-3.4) 10^3/uL Absolute Monocytes 1.36 H (0.1-0.8) 10^3/uL Absolute Eosinophils 0.13 (0.0-0.7) 10^3/uL Absolute Basophils 0.10 (0.0-0.2) 10^3/uL Sodium 135 L (136-145) mmol/L Potassium 4.2 (3.5-5.1) mmol/L Chloride 99 (98-107) mmol/L Carbon Dioxide 29.5 (21.0-32.0) mmol/L Anion Gap 6.5 (3-11) mmol/L BUN 11 (7-18) mg/dL Creatinine 0.7 (0.55-1.02) mg/dL Est GFR (CKD-EPI 2020) 96.52 (mL/min/1.73m2) Glucose 123 H (74-106) mg/dL Calcium 9.4 (8.5-10.1) mg/dL Magnesium 2.0 (1.8-2.4) mg/dL Total Bilirubin 0.24 (0.2-1.0) mg/dL AST 27 (15-37) U/L ALT 42 (14-59) U/L Alkaline Phosphatase 100 (46-116) U/L Total Protein 8.6 H (6.4-8.2) g/dL Albumin 2.9 L (3.4-5.0) g/dL Lipase 37 (16-77) U/L Procalcitonin 0.2 ng/mL Urine Color Yellow (Yellow) Urine Clarity Clear (Clear) Urine pH 7.5 (5-8) Ur Specific [place] 1.015 (1.005-1.025) Urine Protein 30 H (Neg-Trace) mg/dL Urine Ketones Negative (Negative) mg/dL Urine Blood Negative (Negative) Urine Nitrite Positive H (Negative) Urine Bilirubin Negative (Negative) Urine Urobilinogen 0.2 (Up to 0.2) mg/dL Ur Leukocyte Esterase Negative (Negative) Urine RBC Negative (0-2) HPF Urine WBC 0-2 (0-5) HPF Ur Epithelial Cells Rare (Negative) HPF Urine Crystals Few Amorphous (Negative) HPF Urine Bacteria Few (Negative) HPF Urine Mucus Trace (Negative) Urine Other Rare Renal (Negative) Ur Culture Indicated? No Urine Glucose Negative (Negative) mg/dL COVID-19 Source Nasopharynx SARS-CoV-2 (PCR) Negative (Negative) Influenza Type A (PCR) Negative (Negative) Influenza Type B (PCR) Negative (Negative) RSV (PCR) Negative (Negative) 06/08/24 19:30 Wound Culture - Pending Abdomen Gram Stain - Final 06/08/24 19:30 Anaerobic Culture - Pending Abdomen 06/08/24 17:29 Blood Culture - Pending Blood 06/08/24 16:17 Blood Culture - Pending Blood Intake and Output - 24 Hour Total 06/08/24 15:43 thru 06/08/24 20:43 Intake Total 215 Balance 215 Weight 45.8 kg Intake: IV 215 Falls Risk Assessment History of Falls No History 06/08/24 15:53 Contributing Factors No Factors 06/08/24 15:53 Ambulatory Aids Independent 06/08/24 15:53 Tubes/Lines None 06/08/24 15:53 Gait Evaluation W/no contributing factors 06/08/24 15:53 Cognition Cognitive impairment 06/08/24 15:53 Fall Total Score 25 06/08/24 15:53 Level of Risk Moderate Risk 06/08/24 15:53 Problems (Last Reviewed 06/08/24 @ 19:45 by Yanci Mak DO) Acute UTI (urinary tract infection) (Acute) Postoperative wound abscess (Acute) Colostomy in place (Acute) Chronic daily headache (Acute) v v v v v v v v v Sending and/or Receiving Nurses: Please use comment section below to note any information pertinent to the patient hand-off not included above. Information / Comments: Report received from: Valeria DOMINGUEZ
[2024-06-08] MEDS: metroNIDAZOLE 500 MG/100 ML BAG 100 MG IVPB (22:32)
[2024-06-08] MEDS: Normal Saline Flush 10 ML SYR IVP (22:33)
[2024-06-08] MEDS: Enoxaparin 30 MG/0.3 ML SYR SC (22:33)
[2024-06-08] MEDS: Mirtazapine 15 MG TAB 7.5 MG PO (22:33)
[2024-06-08] MEDS: Ketorolac 15 MG/ML VIAL IVP (23:10)
[2024-06-08] MEDS: MORPHine 2 MG/ML SYR IVP (23:10)
[2024-06-08] MEDS: Acetaminophen 325 MG TAB 650 MG PO (23:14)
[2024-06-09] VITALS (24 sets, daily range): BP systolic 95–115; BP diastolic 56–74; PULSE 84–115; RESP 18–27; TEMP 37–37.3; O2SAT 95–100
[2024-06-09] MEDS: Acetaminophen 325 MG TAB 650 MG PO ×3 (05:18→18:11)
[2024-06-09] MEDS: metroNIDAZOLE 500 MG/100 ML BAG 100 MG IVPB ×3 (05:18→20:31)
[2024-06-09] MEDS: traMADol 50 MG TAB PO ×2 (05:18→20:33)
[2024-06-09 07:00] LABS: Abs Immature Grans 0.19 10^3/uL (0.0-0.06); Absolute Basophil Count 0.08 10^3/uL (0.0-0.2); Absolute Eosinophil Count 0.29 10^3/uL (0.0-0.7); Absolute Lymphocyte Count 2.65 10^3/uL (1.2-3.4); Absolute Monocyte Count 1.34 10^3/uL (0.1-0.8); Absolute Neutrophil Count 7.18 10^3/uL (1.2-6.7); Basophils % 0.7 %; Eosinophils % 2.5 %; HCT 25.3 % (36.0-46.0); HGB 8.2 g/dL (11.2-15.7); Immature Grans % 1.6 %; Lymphocytes % 22.6 %; MCH 28.8 pg (27.0-33.0); MCHC 32.4 % (32.0-36.0); MCV 89 fL (80-95); MPV 8.7 fL (8.0-11.0); Monocytes % 11.4 %; Neutrophils % 61.2 %; Platelet Count 487 10^3/uL (130-400); RBC 2.85 10^6/uL (3.93-5.22); RDW 13.2 % (11.7-14.6); RDW-SD 43.4 fL; WBC 11.73 10^3/uL (4.4-10.8)
[2024-06-09] MEDS: Omeprazole 20 MG CAPCR 40 MG PO (08:29)
--- NOTE | 2024-06-09 09:47 | PDOC.CMIN ---
Date of service: 06/09/24 Time of Service: 09:47 Care Management Initial Assmt Initial Assessment Reason for Hospitalization: postoperative wound abcess Functional Status/Living Situation Patient Presentation: Sera was lying in bed when CM met with her today. She is s/p colostomy on 05/31, and she was discharged home on 06/03 with new orders for HH RN and MAINTENANCE TECH. Her PCP f/u was scheduled for 06/10. Yesterday, Sera's mom and the HH RN did not like the look of the wound, so she came to to ED for evaluation. She was found to have a large abcess under the incision. The wound was drained and cultures were sent. It was irrigated, and packed wet to dry. Town of Residence: [place] Resides with: Parent (Lives with her mom, Missy) Significant Other/Family: Out of area (Brother, Unique, lives in [place] and is very supportive) Caregiver/Guardian: Sera's mom, Missy , is her legal guardian Natural Supports: Missy and Unique are Missy's biggest supports. She has a cat that she loves. Sera attends [employer] Employment Status: Disabled Instrumental Activities of Daily Living (ADLs): Independent Activities/Hobbies/SocialSupport: Sera loves going to [employer], enjoys game shows and her cat. Medications Medication Management: No Issues/Barriers identified Advance Directives Advance Directives: Do you have an Advance Directive: N 04/14/14 10:17 AD On File at [facility]: N 04/14/14 10:17 Date Asked 06/08/24 06/08/24 15:53 AD Date Reviewed COLST On File at [facility] COLST Date Scanned Code Status Resuscitation Status Full Code Insurance Coverage/Financial Issues Insurance: Medicare and Medcaid Financial Issues: denies Care Team Visit Care Team Role Provider Type Carmen Pacheco Primary Care Provider NON-[facility] STAFF PHYSICIAN Wilmer Medellin MD Emergency Provider [facility] STAFF PHYSICIAN Yanci Mak, DO Admit Provider OSTEOPATHIC DOCTOR Attending Provider Discharge Potential Discharge Needs: PT Evaluation, PCP F/U Appt and Surgical F/U Appt Anticipated Barriers to Discharge: None Identified Patient/Family Education Needs: Review discharge instructions, discuss Ask Me Three Transportation: Private vehicle Plan: Anticipate that Sera will return home with her Mom with resumed services of MAINTENANCE TECH and RN. She will f/u with her PCP and the surgeon. She will return to [place] when she feels well enough. She will transport home with her mom in a private car. CM will continue to follow and update the plan as needed. PFSH All Active Problems (Updated 06/08/24 @ 19:47 by Yanci Mak DO) Acute UTI (urinary tract infection) (Acute) Postoperative wound abscess (Acute) Colostomy in place (Acute) Constipation (Acute) Colitis (Acute) Cervical radiculitis (Acute) Hx of migraine headaches (Acute) Ground glass opacity present on imaging of lung (Acute) Sensorineural hearing loss, bilateral (Acute) Conductive hearing loss, external ear (Acute) Impacted cerumen, bilateral (Acute) Frequent headaches (Acute) Migraine without aura, intractable, with status migrainosus (Acute) Hx of colonoscopy (Chronic) Cerumen impaction (Acute) Left foot pain (Acute) Other fatigue (Acute) Snoring (Acute) Cervical spondylosis without myelopathy (Acute) Cervical spondylosis without myelopathy (Acute) Migraine headache with aura (Chronic) Migraine headache without aura (Acute) Chronic daily headache (Acute) New onset headache (Acute) Medical History Hypertension Dysphagia Palpitations Lower urinary tract symptoms (LUTS) Recurrent UTI Dysuria Headache Depression Developmental delay, moderate IBS (irritable bowel syndrome) GERD (gastroesophageal reflux disease) Cold intolerance Basal cell carcinoma Neck pain Anemia Fatigue Dizziness Surgical History History of total right hip replacement (11/09/23) As treatment for femoral neck fracture of the right hip. 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[employer] Do you feel safe at home: Yes Do you feel safe in your relationship?: Yes Readmission Within the Past 30 Days Yes or No: Yes Date of First Admission Date of 1st Admission: 05/30/24 Date of this Admission Date of Admission: 06/08/24 This admission was: Through ED (sent by Home health) Office Visit Since 1st Admission Have you seen your PCP in the office since discharge?: No Had an appointment Been Scheduled?: Yes Date of Scheduled Appointment: 06/10/24 Describe barriers for scheduling or getting an appointment: none Speicalist Appointments Have you seen any other specialist since your 1st Admission?: No Specialist Seen: Appt with Dr. Mak scheduled for 06/15. I. Interview patient and/or Family Did you feel ready for discharge when you left the last time: Yes Were services received that you thought were set up on disch: Yes What services were received?: HH RN Did you call your physician beore you came to the ED?: No (home health encouraged the ER visit) If the patient had home care service Call them to discuss the patient's admission: Concerns over Missy's ability to care for Sera. Surgeon did not feel that this was from lack of care. ED visits How many ED visits in the past 12 months: 5 SDOH(Care Management) Screening Will the Patient Participate in the Screening?: Yes Do you worry about having a steady place to live?: no In the past 12 months, have you had to go without electric, gas, oil or water in your home?: no Have you or anyone in your house had to go without enough food to eat?: no Has lack of transportation kept you from medical appointments or from doing things needed for daily living?: no Has anyone in your support network made you feel unsafe for any reason?: no Anticipated HH Services Anticipated HH Services at Discharge [facility], DARELL and RN.
[2024-06-09] MEDS: Normal Saline Flush 10 ML SYR IVP ×2 (10:12→21:00)
[2024-06-09] MEDS: MORPHine 2 MG/ML SYR IVP (11:23)
--- NOTE | 2024-06-09 12:01 | PHACLINREV_ITS ---
Pharmacy Admission Review Admission Clinical Review Admission Pharmacy Review: Acute UTI (urinary tract infection) (Acute) Postoperative wound abscess (Acute) Colostomy in place (Acute) Chronic daily headache (Acute) meclizine Allergy (Severe, Verified 06/08/24 15:54) Other (See Comment) methylphenidate (From Ritalin) Allergy (Severe, Verified 06/08/24 15:54) Other (See Comment) cyclobenzaprine (From Flexeril) Allergy (Mild, Verified 06/08/24 15:54) Other (See Comment) Resuscitation Status Full Code Height 5 ft 3 in Weight 45.8 kg Pharmacy Admission Review Renal Dosing Renal Dosing: BUN 11 mg/dL (7-18) 06/08/24 16:17 Creatinine 0.7 mg/dL (0.55-1.02) 06/08/24 16:17 Medications needing adjustments: Reviewed (CrCl 41.06 mL/min) List of meds needing interventions: Current medications are okay Anticoagulation Anticoagulation: Hgb 8.2 g/dL (11.2-15.7) L 06/09/24 06:00 Hct 25.3 % (36.0-46.0) L 06/09/24 06:00 Plt Count 487 10^3/uL (130-400) H 06/09/24 06:00 Creatinine 0.7 mg/dL (0.55-1.02) 06/08/24 16:17 DVT Prophylaxis: Reviewed (Hgb decreased from 9.9 and Hct decreased from 30.5) Medications: Enoxaparin (30mg daily) Opiate Usage Evaluate Pain Scale/Pains Meds: Reviewed (morphine IVP PRN - 2 doses given) Scheduled Bowel Reg ordered if on Opiates?: Yes (Metamucil once daily) Relevant Labs Relevant Labs: Sodium 135 mmol/L (136-145) L 06/08/24 16:17 Potassium 4.2 mmol/L (3.5-5.1) 06/08/24 16:17 Chloride 99 mmol/L (98-107) 06/08/24 16:17 Magnesium 2.0 mg/dL (1.8-2.4) 06/08/24 16:17 Electrolytes, C-Reactive P, ESR: Reviewed (No new labs for today) Cardiac Review Cardiac Review: Blood Pressure : Heart Rate 95/71 : 103 0847 Blood Pressure : Heart Rate 108/56 : 87 0404 BP, HR, EF%: Reviewed QTc Review QTc: Reviewed (421 from 11/09/23 - most recent EKG on file) IV to PO Switch IV Medications: Reviewed (ceftriaxone, ketorolac, metronidazole, and morphine) Home Meds Home Med List reviewed: Reviewed Relevent Home Meds Not ordered & why?: ibuprofen (PRN), multivitamin and vitamin B complex Current Meds Current Medication Order Review: Intervened Comments: Changed timing of omeprazole from 0830 to 0730 per pharmacy protocol Pharmacy Antibiotic Review Relevant Labs: Relevant Labs 06/08/24 16:17 Procalcitonin 0.2 WBC 11.73 10^3/uL (4.4-10.8) H 06/09/24 06:00 Procalcitonin 0.2 ng/mL 06/08/24 16:17 Pharmacy Antibiotic Activity: C/S review and Reviewed, no change Comments: Patient is on ceftriaxone and metronidazole, day 1, for wound inf ection/UTI. WBC decreased from 16.33 and blood/wound cultures pending.
[2024-06-09] MEDS: MORPHine 2 MG/ML SYR 1 MG IVP ×2 (18:12→22:09)
[2024-06-09] MEDS: cefTRIAXone 2 GM/50 ML BAG IVPB (20:32)
[2024-06-09] MEDS: Ketorolac 15 MG/ML VIAL IVP (20:33)
[2024-06-09] MEDS: Mirtazapine 15 MG TAB 7.5 MG PO (20:34)
[2024-06-09] MEDS: Enoxaparin 30 MG/0.3 ML SYR SC (20:34)
[2024-06-09] MEDS: HYDROmorphone 1 MG/ML SYR 0.5 MG IVP (23:30)
[2024-06-10] VITALS (16 sets, daily range): BP systolic 93–121; BP diastolic 65–79; PULSE 94–108; RESP 16; TEMP 37–37.2; O2SAT 84–97
[2024-06-10] MEDS: Acetaminophen 325 MG TAB 650 MG PO ×5 (00:10→23:09)
[2024-06-10] MEDS: traMADol 50 MG TAB PO ×2 (05:06→20:03)
[2024-06-10] MEDS: metroNIDAZOLE 500 MG/100 ML BAG 100 MG IVPB ×3 (05:06→21:04)
--- NOTE | 2024-06-10 07:37 | W.PM.PROGNOT ---
Date of Service Date of service: 06/10/24 Time of Service: 07:37 Assessment and Plan Assessment and plan (1) Colostomy in place: Status: Acute (2) Postoperative wound abscess: Status: Acute Assessment and plan: Wet to dry dressings in place. Pain is well controlled. Encouraged activity OOB, ambulation and sitting in the chair for meals. Continue IV antibiotics; Cultures still pending. (3) Chronic daily headache: Status: Acute (4) Acute UTI (urinary tract infection): Status: Acute Assessment and plan: Rocephin (5) Hypertension: (6) GERD (gastroesophageal reflux disease): (7) Dysphagia: (8) Lower urinary tract symptoms (LUTS): (9) Developmental delay, moderate: Subjective Subjective Interval history since last seen: Arrive with Sera sitting in the chair. She states she is feeling good, but would like to get back into bed. She denies any pain at thist son. Exam Const General: cooperative, healthy appearing and comfortable Orientation: alert and oriented x3 Resp Effort & Inspection: normal respiratory effort, no audible wheezes and no cough GI Palpation: soft, no guarding and nontender Objective Last Vital Signs Temp 37.0 C 06/10/24 00:00 Pulse 95 H 06/10/24 00:00 Resp 16 06/10/24 00:00 BP 93/70 L 06/10/24 00:00 Pulse Ox 97 06/10/24 00:00 Time Spent with Patient Time Spent with Patient: <25 minutes Time was spent: preparing to see the patient(eg.review tests), obtaining and/or reviewing separately otained hiistory and counseling the patient
--- NOTE | 2024-06-10 07:43 | W.PM.PROGNOT ---
Date of Service Date of service: 06/09/24 Time of Service: 07:43 Assessment and Plan Assessment and plan (1) Colostomy in place: Status: Acute (2) Postoperative wound abscess: Status: Acute Assessment and plan: Wet to dry dressings in place, to be changed daily. Pain is well controlled. Encouraged activity OOB, ambulation and sitting in the chair for meals. Continue IV antibiotics; Cultures still pending. (3) Chronic daily headache: Status: Acute (4) Acute UTI (urinary tract infection): Status: Acute Assessment and plan: [place] (5) Hypertension: (6) GERD (gastroesophageal reflux disease): (7) Dysphagia: (8) Lower urinary tract symptoms (LUTS): (9) Developmental delay, moderate: Subjective Subjective Interval history since last seen: Arrive with patient resting comfortably. Denies any pain, nausea or vomiting. Exam Const General: cooperative, healthy appearing and comfortable Orientation: alert and oriented x3 Resp Effort & Inspection: normal respiratory effort, no audible wheezes and no cough GI Other: Wet to dry dressing in place. Slightly tender to palpation of the abdomen. Objective Last Vital Signs Temp 37.0 C 06/10/24 00:00 Pulse 95 H 06/10/24 00:00 Resp 16 06/10/24 00:00 BP 93/70 L 06/10/24 00:00 Pulse Ox 97 06/10/24 00:00 Time Spent with Patient Time Spent with Patient: <25 minutes Time was spent: preparing to see the patient(eg.review tests), obtaining and/or reviewing separately otained hiistory and counseling the patient
[2024-06-10] MEDS: Omeprazole 20 MG CAPCR 40 MG PO (08:44)
[2024-06-10] MEDS: MORPHine 2 MG/ML SYR IVP (09:54)
[2024-06-10] MEDS: Normal Saline Flush 10 ML SYR IVP ×2 (13:31→17:03)
[2024-06-10] MEDS: MORPHine 2 MG/ML SYR 1 MG IVP ×2 (17:04→22:34)
--- NOTE | 2024-06-10 18:19 | PDOC.CMPRO ---
Date of service: 06/10/24 Time of Service: 12:00 Care Management Progress Note Progress Note Text Progress Note Text: Sera was sitting up in the bedside chair, eating lunch, when CM met with her today. Her mom, Missy, arrived shortly thereafter. Sera stated she is feeling better today. She had a nice visit with a good friend. Missy feels that she was taking good care of Sera at home. She stated that she noticed the redness around the incision when HH was changing the dressing, and it was her decision to take Sera to the ER. Both Salud and Missy stated that they want Sera to return home with resumption of her HH services - RN and ROTARY FURNACE TENDER. Discharge Potential Discharge Needs: PCP F/U Appt and Surgical F/U Appt Anticipated Barriers to Discharge: None Identified Transportation: Private vehicle Plan: Anticipate that Sera will return home with her mom Missy with resumption of HH RN and ROTARY FURNACE TENDER. She will f/u with her surgeon and her PCP. She will continue to go to [place] , which she loves. She will transport home with her mom in a private vehicle. CM will continue to follow and update the plan as needed. SDOH(Care Management) Screening Will the Patient Participate in the Screening?: Yes Do you worry about having a steady place to live?: no In the past 12 months, have you had to go without electric, gas, oil or water in your home?: no Have you or anyone in your house had to go without enough food to eat?: no Has lack of transportation kept you from medical appointments or from doing things needed for daily living?: no Has anyone in your support network made you feel unsafe for any reason?: no
[2024-06-10] MEDS: cefTRIAXone 2 GM/50 ML BAG IVPB (20:02)
[2024-06-10] MEDS: Mirtazapine 15 MG TAB 7.5 MG PO (20:02)
--- NOTE | 2024-06-10 20:02 | DSE_ITS ---
Date of service: 06/11/24 Time of Service: 08:41 DS: Diagnosis Discharge Diagnosis (1) Colostomy in place: Status: Acute (2) Postoperative wound abscess: Status: Acute (3) Chronic daily headache: Status: Acute (4) Acute UTI (urinary tract infection): Status: Acute Discharge Plan Disposition Patient Disposition: Home Condition: Improving Discharge Details Reason For Visit: Wound Infection Admit Date/Time: 06/08/24 19:39 Admit Provider: Yanci Mak Attending Provider: Yanci Mak Primary Care Provider: Carmen Pacheco Hospital Course Hospital Course: Sera whom under went an exploratory laparotomy with diverting colsotomy on 05/31 for sigmoid stricture and chronic constipation presented to the ER on 06/08 with increasing abdominal pain. CT scan showed a subcutaneous abscess. The wound was opened in the ER and purluent material was drained from the area. Wound was irrigated and packed with wet to dry dressings. Sera was started on Rocephin and Flagyl. Over the course of the following few days, dressing changes were performed daily. Prior to d/c colostomy appliance was changed and wound was packed with silver packing and a SANTOS dressing was applied to the wound. This will remain in place until her follow up appointment on Friday, 06/[address] West at 11am. Cultures were negative, so she will not require an further antibiotics. Home Meds and New Rx's Prescriptions: Continued vitamin B complex [B Complex-Vitamin B12] Tablet 1 tab PO DAILY [id number]-Ca carb-vit K 18 mg iron-400 mcg-500 mg Tablet 1 tab PO DAILY polyethylene glycol 3350 17 gram Powder In Packet 17 g PO DAILY Qty: 30 0RF Rx Instructions: hold if having diarrhea Metamucil Fiber Singles 3.4 gram powder in packet 1 packet PO DAILY mirtazapine 7.5 mg tablet 7.5 mg PO HS Patient Comments: TAKE ONE TABLET BY MOUTH AT BEDTIME acetaminophen 500 mg Tablet 500 mg PO QID Qty: 90 0RF ibuprofen 600 mg tablet 600 mg PO TID PRN (Reason: pain) Qty: 90 3RF Discharge Instructions Additional Instructions: Keep an ice bag on the incision. 20 minutes on and 20 minutes off. Ice keeps the swelling down and swelling causes pain. Make sure you wrap the ice pack in a towel and don't apply directly to the skin. [facility] Surgery Clinic: [phone] -Do Not remove any steri tapes (white tapes) that cover the incision. If you have steri-tapes on your incision, do not use antibacterial ointment. -Follow-up with Dr. West next Friday -Diet: as tolerated. Protein shakes twice a day in between meals -It is ok to shower. Cover wound vac to shower. No bathe, soaking, swimming or hot tubs -Protein supplements daily. You may find that your appetite is smaller. Eat 3-6 small meals throughout the day. It is important to drink lots of water after surgery, 6-10 glasses a day. -If you were given an incentive spirometry (breathing scaffold worker?), continue to do this 10x/hour while awake. -We do want you up walking, at least 5-6 times per day. This is very important to prevent pneumonia and blood clots. You can climb stairs, take them slowly. -No lifting over 5 pounds. This is very important to avoid developing a hernia in your incision. -You may find that you are very tired after surgery- this is normal. -We will change the wound vac at your clinic appointment on Friday. -If the vac is flashing red/yellow- reinforce the dressings. IF it will not maintain a seal- turn the vac off adn call the clinic or hospital in the am. Referrals: Franklin West MD [ [facility] STAFF PHYSICIAN] - 06/15/24 11:00 am Activity:: see above Equipment/Supplies:: No Equipment Needed Diet:: As Tolerated DS: Summary Time Spent with Patient providing and/or coordinating discharge services: Less than 30 minutes Status at Discharge Functional status at discharge: independent ambulation Overall status at discharge: patient is back to baseline Mental Status: mental status grossly normal Speech and Movement: speech and movement normal Mood: congruent mood Affect: normal affect Quality:SDOH Health Related Social Needs: No Data to Display Exam Const General: cooperative, healthy appearing and comfortable Orientation: alert and oriented x3 Resp Effort & Inspection: normal respiratory effort, no audible wheezes and no cough GI Other: Wet to dry dressing in place. Slightly tender to palpation of the abdomen. Ostomy appliance was changed. Silver packing and SANTOS dressing were applied to abdominal wound. Psych Mental Status: mental status grossly normal Speech and Movement: speech and movement normal Mood: congruent mood Affect: normal affect DS: Data Vitals/I&O Vitals and I&O: Vital Signs Temperature 37.1 C 06/10/24 16:31 Temperature Source Temporal Artery Scan 06/10/24 16:31 Pulse 102 H 06/10/24 16:30 Pulse 96 H 06/09/24 10:40 Respiratory Rate 16 06/10/24 00:00 Respiratory Effort Normal 06/08/24 21:50 Respiratory Depth Normal 06/08/24 21:50 Respiratory Pattern Normal 06/08/24 21:50 Blood Pressure 103/73 06/10/24 16:30 Blood Pressure Mean 83 06/10/24 16:30 Blood Pressure Position Supine 06/08/24 21:50 Pulse Oximetry 96 06/10/24 16:31 Oxygen Delivery Method Room Air 06/10/24 19:22 Oxygen Flow Rate 0 06/10/24 19:22 Pain Level 0 06/10/24 14:30 Intake & Output 06/09/24 06/10/24 06/10/24 23:59 11:59 23:59 Intake Total 300 / 580 460 / 560 100 / 560 Output Total 1000 / 1450 1550 / 1925 375 / 1925 Balance -700 / -870 -1090 / -1365 -275 / -1365 Weight 47.7 kg Intake: IV 250 / 350 100 / 200 100 / 200 Oral 50 / 230 360 / 360 Output: Urine 800 / 1250 1000 / 1375 375 / 1375 Stool 200 / 200 550 / 550 Other: Urine Color Yellow Yellow Yellow Urine Appearance Clear Clear Clear Urine Odor Normal None Normal Comment 375 voided at bedside commode. Stool Occult Blood Negative Negative Stool Size Moderate Stool Characteristics Soft Formed Data Completed and Pending Labs on day of discharge: 06/08/24 19:30 Abdomen Anaerobic Culture - Pending Preliminary micro results at discharge 06/08/24 17:29 Blood Culture - Preliminary Blood NO GROWTH 48 HOURS 06/08/24 16:17 Blood Culture - Preliminary Blood Gram Negative Fred 06/08/24 19:30 Wound Culture - Preliminary Abdomen 06/08/24 19:30 Anaerobic Culture - Pending Abdomen PFSH All Active Problems (Updated 06/08/24 @ 19:47 by Yanci Mak DO) Acute UTI (urinary tract infection) (Acute) Postoperative wound abscess (Acute) Colostomy in place (Acute) Constipation (Acute) Colitis (Acute) Cervical radiculitis (Acute) Hx of migraine headaches (Acute) Ground glass opacity present on imaging of lung (Acute) Sensorineural hearing loss, bilateral (Acute) Conductive hearing loss, external ear (Acute) Impacted cerumen, bilateral (Acute) Frequent headaches (Acute) Migraine without aura, intractable, with status migrainosus (Acute) Hx of colonoscopy (Chronic) Cerumen impaction (Acute) Left foot pain (Acute) Other fatigue (Acute) Snoring (Acute) Cervical spondylosis without myelopathy (Acute) Cervical spondylosis without myelopathy (Acute) Migraine headache with aura (Chronic) Migraine headache without aura (Acute) Chronic daily headache (Acute) New onset headache (Acute) Medical History Hypertension Dysphagia Palpitations Lower urinary tract symptoms (LUTS) Recurrent UTI Dysuria Headache Depression Developmental delay, moderate IBS (irritable bowel syndrome) GERD (gastroesophageal reflux disease) Cold intolerance Basal cell carcinoma Neck pain Anemia Fatigue Dizziness Surgical History History of total right hip replacement (11/09/23) As treatment for femoral neck fracture of the right hip. 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[employer] Do you feel safe at home: Yes Do you feel safe in your relationship?: Yes Time Spent with Patient Time Spent with Patient: 45-69 minutes Time was spent: preparing to see the patient(eg.review tests), obtaining and/or reviewing separately otained hiistory, ordering medications,tests, procedures, referring, communicating with other health personal care home administrator, indepentently interpreting results, counseling the patient, care coordination and other
[2024-06-10] MEDS: Ketorolac 15 MG/ML VIAL IVP (20:03)
[2024-06-10] MEDS: Enoxaparin 30 MG/0.3 ML SYR SC (21:05)
[2024-06-10] MEDS: HYDROmorphone 1 MG/ML SYR 0.5 MG IVP (23:24)
[2024-06-11] VITALS (19 sets, daily range): BP systolic 91–119; BP diastolic 58–76; PULSE 86–98; RESP 16; TEMP 37–37.1; O2SAT 94–98
[2024-06-11] MEDS: traMADol 50 MG TAB PO (02:58)
[2024-06-11] MEDS: metroNIDAZOLE 500 MG/100 ML BAG 100 MG IVPB (05:09)
[2024-06-11] MEDS: Acetaminophen 325 MG TAB 650 MG PO ×2 (05:09→11:46)
[2024-06-11] MEDS: MORPHine 2 MG/ML SYR IVP (08:00)
[2024-06-11] MEDS: IRON SUCROSE COMPLEX 200 MG in Normal Saline 100 ML 400 MG IVPB (09:02)
[2024-06-11] MEDS: Ketorolac 15 MG/ML VIAL IVP (09:03)
[2024-06-11] MEDS: Omeprazole 20 MG CAPCR 40 MG PO (09:03)
[2024-06-11] MEDS: Normal Saline Flush 10 ML SYR IVP (09:04)
[2024-06-11] MEDS: Polyethylene Glycol 3350 17 GM PACKET PO (09:04)
[2024-06-11] MEDS: Psyllium PKT 1 EACH PO (09:04)
[2024-06-11] MEDS: MORPHine 2 MG/ML SYR 1 MG IVP (13:20)
--- NOTE | 2024-06-11 13:35 | W.PM.PROGNOT ---
Date of Service Date of service: 06/11/24 Time of Service: 13:35 Assessment and Plan Assessment and plan (1) Postoperative wound abscess: Status: Acute Assessment and plan: Her wound culture has not grown out any specific species (2) Colostomy in place: Status: Acute (3) Bacteremia due to Gram-negative bacteria: Status: Acute Assessment and plan: Findings rule out 1 of 2 blood cultures with the Latvian. So I am going to send her home on 7 days worth of Augmentin. Yogurt daily while on antibiotics to prevent C. difficile. Subjective Subjective Interval history since last seen: Patient is seen and examined: they are doing well. THey have : no headaches. No CP or SOB. no productive cough. no dysuria. no leg pain or swelling. She has been eating good and having good output in her ostomy. Her wound is clean dry and intact. The fascia is intact. There is 97% good beefy healthy granulation tissue. We were not able to keep a seal with the isaac and the ostomy bag. The isaac was removed and a Aquacel and ABD are placed. Mom can change the ABD daily and leave the Aquacel in place and change this in the clinic on Friday He has been eating well. She has been drinking protein shakes. No thrush. Exam Narrative Exam Narrative: Lungs are clear to auscultation Extremities show no edema erythema or swelling. She is having good output from her stoma. Stoma is pink patent and productive. Incision shows good beefy granulation tissue Objective Last Vital Signs Temp 37.1 C 06/11/24 09:55 Pulse 98 H 06/11/24 09:55 Resp 16 06/11/24 09:55 BP 109/63 06/11/24 09:55 Pulse Ox 94 06/11/24 09:55 Time Spent with Patient Time Spent with Patient: 35-49 minutes Time was spent: preparing to see the patient(eg.review tests), obtaining and/or reviewing separately otained hiistory, ordering medications,tests, procedures, referring, communicating with other health home care provider, indepentently interpreting results, counseling the patient, care coordination and other
--- NOTE | 2024-06-11 15:54 | DSE_ITS ---
Date of service: 06/11/24 Time of Service: 15:56 DS: Diagnosis Discharge Diagnosis (1) Postoperative wound abscess: Status: Acute (2) Colostomy in place: Status: Acute Discharge Plan Disposition Patient Disposition: Home Condition: Improving Discharge Details Reason For Visit: Wound Infection Admit Date/Time: 06/08/24 19:39 Admit Provider: Yanci Mak Attending Provider: Yanci Mak Primary Care Provider: Carmen Pacheco Hospital Course Hospital Course: Sera whom under went an exploratory laparotomy with diverting colsotomy on 05/31 for sigmoid stricture and chronic constipation presented to the ER on 06/08 with increasing abdominal pain. CT scan showed a subcutaneous abscess. The wound was opened in the ER and purluent material was drained from the area. Wound was irrigated and packed with wet to dry dressings. Sera was started on Rocephin and Flagyl. Over the course of the following few days, dressing changes were performed daily. Prior to d/c colostomy appliance was changed and wound was packed with silver packing and a SANTOS dressing was applied to the wound. This will remain in place until her follow up appointment on Friday, 06/[address] West at 11am. Cultures were negative, so she will not require an further antibiotics. Home Meds and New Rx's Prescriptions: Continued vitamin B complex [B Complex-Vitamin B12] Tablet 1 tab PO DAILY qv-zl-[id number]-FA-Ca carb-vit K 18 mg iron-400 mcg-500 mg Tablet 1 tab PO DAILY polyethylene glycol 3350 17 gram Powder In Packet 17 g PO DAILY Qty: 30 0RF Rx Instructions: hold if having diarrhea Metamucil Fiber Singles 3.4 gram powder in packet 1 packet PO DAILY mirtazapine 7.5 mg tablet 7.5 mg PO HS Patient Comments: TAKE ONE TABLET BY MOUTH AT BEDTIME acetaminophen 500 mg Tablet 500 mg PO QID Qty: 90 0RF ibuprofen 600 mg tablet 600 mg PO TID PRN (Reason: pain) Qty: 90 3RF Discharge Instructions Additional Instructions: Keep an ice bag on the incision. 20 minutes on and 20 minutes off. Ice keeps the swelling down and swelling causes pain. Make sure you wrap the ice pack in a towel and don't apply directly to the skin. [facility] Surgery Clinic: [phone] -Follow-up with Dr. West next Friday -Diet: as tolerated. Protein shakes twice a day in between meals -It is ok to shower. Cover wound to shower. No bathe, soaking, swimming or hot tubs -Protein supplements daily. You may find that your appetite is smaller. Eat 3-6 small meals throughout the day. It is important to drink lots of water after surgery, 6-10 glasses a day. -If you were given an incentive spirometry (breathing baggage security checker?), continue to do this 10x/hour while awake. -We do want you up walking, at least 5-6 times per day. This is very important to prevent pneumonia and blood clots. You can climb stairs, take them slowly. -No lifting over 5 pounds. This is very important to avoid developing a hernia in your incision. -You may find that you are very tired after surgery- this is normal. -change the large gauze pad (ABD pad) daily. Leave packing material in the wound. Use tape to cover the ABD pad. There will be pinkish drainage. Referrals: Franklin West MD [ [facility] STAFF PHYSICIAN] - 06/15/24 11:00 am Activity:: see above Equipment/Supplies:: No Equipment Needed Diet:: As Tolerated Discharge Orders Discharge Orders: Discharge Order (Routine); Ordered 06/11/24 Ordered By: Yanci Mak DS: Summary Time Spent with Patient providing and/or coordinating discharge services: Greater than 30 minutes Status at Discharge Functional status at discharge: independent ambulation Overall status at discharge: patient is progressing back to baseline Mental Status: mental status grossly normal (for the pt) Speech and Movement: speech and movement normal (for the pt) Mood: congruent mood Affect: normal affect (for pt ) Quality:SDOH Health Related Social Needs: No Data to Display Exam Psych Mental Status: mental status grossly normal (for the pt) Speech and Movement: speech and movement normal (for the pt) Mood: congruent mood Affect: normal affect (for pt ) DS: Data Vitals/I&O Vitals and I&O: Vital Signs Temperature 37.1 C 06/11/24 09:55 Temperature Source Temporal Artery Scan 06/10/24 16:31 Pulse 98 H 06/11/24 09:55 Pulse 96 H 06/09/24 10:40 Respiratory Rate 16 06/11/24 09:55 Respiratory Effort Normal 06/08/24 21:50 Respiratory Depth Normal 06/08/24 21:50 Respiratory Pattern Normal 06/08/24 21:50 Blood Pressure 109/63 06/11/24 09:55 Blood Pressure Mean 76 06/11/24 09:55 Blood Pressure Position Supine 06/08/24 21:50 Pulse Oximetry 94 06/11/24 09:55 Oxygen Delivery Method Room Air 06/10/24 19:22 Oxygen Flow Rate 0 06/10/24 19:22 Pain Level 0 06/11/24 03:58 Intake & Output 06/10/24 06/11/24 06/11/24 23:59 11:59 23:59 Intake Total 250 / 710 710 / 710 Output Total 375 / 1925 1400 / 1400 Balance -125 / -1215 -690 / -690 Intake: IV 250 / 350 230 / 230 Oral 480 / 480 Output: Urine 375 / 1375 1050 / 1050 Stool 350 / 350 Other: Urine Color Yellow Light Elizabeth Urine Appearance Clear Clear Urine Odor Normal Normal Comment 375 voided at bedside commode. Stool Size Large Stool Characteristics Soft Formed Data Completed and Pending Labs on day of discharge: 06/08/24 19:30 Abdomen Anaerobic Culture - Pending Preliminary micro results at discharge 06/08/24 16:17 Blood Culture - Preliminary Blood Bacteroides Fragilis Group 06/08/24 17:29 Blood Culture - Preliminary Blood NO GROWTH 48 HOURS 06/08/24 19:30 Wound Culture - Preliminary Abdomen 06/08/24 19:30 Anaerobic Culture - Pending Abdomen PFSH All Active Problems (Updated 06/08/24 @ 19:47 by Yanci Mak DO) Acute UTI (urinary tract infection) (Acute) Postoperative wound abscess (Acute) Colostomy in place (Acute) Constipation (Acute) Colitis (Acute) Cervical radiculitis (Acute) Hx of migraine headaches (Acute) Ground glass opacity present on imaging of lung (Acute) Sensorineural hearing loss, bilateral (Acute) Conductive hearing loss, external ear (Acute) Impacted cerumen, bilateral (Acute) Frequent headaches (Acute) Migraine without aura, intractable, with status migrainosus (Acute) Hx of colonoscopy (Chronic) Cerumen impaction (Acute) Left foot pain (Acute) Other fatigue (Acute) Snoring (Acute) Cervical spondylosis without myelopathy (Acute) Cervical spondylosis without myelopathy (Acute) Migraine headache with aura (Chronic) Migraine headache without aura (Acute) Chronic daily headache (Acute) New onset headache (Acute) Medical History Hypertension Dysphagia Palpitations Lower urinary tract symptoms (LUTS) Recurrent UTI Dysuria Headache Depression Developmental delay, moderate IBS (irritable bowel syndrome) GERD (gastroesophageal reflux disease) Cold intolerance Basal cell carcinoma Neck pain Anemia Fatigue Dizziness Surgical History History of total right hip replacement (11/09/23) As treatment for femoral neck fracture of the right hip. 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
--- NOTE | 2024-06-11 15:54 | CMDISCH_ITS ---
Date of service: 06/11/24 Time of Service: 15:54 LACE Index Scoring Tool Questions: Length of Stay (in days): 3 Was the patient admitted via the E.D.?: Yes E.D. Visits: 1 Answers: Total Score: 7 Risk of Readmission: Low Risk Care Management Discharge Plan Reason for Hospitalization: wound infection Discharge Plan: Sera will return home with her mother, who is her primary caregiver, and a resumption of [employer]ANI RN and INVESTMENT MANAGER. She will follow up with her juancho medinan next week, and will follow her discharge plan of care. She will continue to go to [employer], which she enjoys. Her mother with drive her home via private vehicle. She will follow up with her PCP and discharge plan of care. Patient/Family Education Needs: Review discharge instructions and limitations, discussion of self care needs including ask me three. Services Needed at Discharge: Home Health Care Services (resume DANI RN, INVESTMENT MANAGER) SDOH Health Related Social Needs: No Data to Display
--- NOTE | 2024-06-11 16:09 | W.PM.DS.N ---
Date of service: 06/11/24 Time of Service: 16:12 DS: Diagnosis Discharge Diagnosis (1) Postoperative wound abscess: Status: Acute (2) Colostomy in place: Status: Acute Discharge Plan Disposition Patient Disposition: Home Condition: Improving Discharge Details Reason For Visit: Wound Infection Admit Date/Time: 06/08/24 19:39 Admit Provider: Yanci Mak Attending Provider: Yanci Mak Primary Care Provider: Carmen Pacheco Hospital Course Hospital Course: Sera whom under went an exploratory laparotomy with diverting colsotomy on 05/31 for sigmoid stricture and chronic constipation presented to the ER on 06/08 with increasing abdominal pain. CT scan showed a subcutaneous abscess. The wound was opened in the ER and purluent material was drained from the area. Wound was irrigated and packed with wet to dry dressings. Sera was started on Rocephin and Flagyl. Over the course of the following few days, dressing changes were performed daily. Prior to d/c colostomy appliance was changed and wound was packed with silver packing and a SANTOS dressing was applied to the wound. This will remain in place until her follow up appointment on Friday, 06/[address] West at 11am. Cultures were negative, so she will not require an further antibiotics. Home Meds and New Rx's Prescriptions: New amoxicillin-pot clavulanate 875-125 mg tablet 1 tab PO Q12H 7 Days Qty: 14 0RF Continued vitamin B complex [B Complex-Vitamin B12] Tablet 1 tab PO DAILY jx-vz-aktc-FA-Ca carb-vit K 18 mg iron-400 mcg-500 mg Tablet 1 tab PO DAILY polyethylene glycol 3350 17 gram Powder In Packet 17 g PO DAILY Qty: 30 0RF Rx Instructions: hold if having diarrhea Metamucil Fiber Singles 3.4 gram powder in packet 1 packet PO DAILY mirtazapine 7.5 mg tablet 7.5 mg PO HS Patient Comments: TAKE ONE TABLET BY MOUTH AT BEDTIME acetaminophen 500 mg Tablet 500 mg PO QID Qty: 90 0RF ibuprofen 600 mg tablet 600 mg PO TID PRN (Reason: pain) Qty: 90 3RF Discharge Instructions Additional Instructions: Keep an ice bag on the incision. 20 minutes on and 20 minutes off. Ice keeps the swelling down and swelling causes pain. Make sure you wrap the ice pack in a towel and don't apply directly to the skin. [facility] Surgery Clinic: [phone] -Follow-up with Dr. West next Friday -Diet: as tolerated. Protein shakes twice a day in between meals -It is ok to shower. Cover wound to shower. No bathe, soaking, swimming or hot tubs -Protein supplements daily. You may find that your appetite is smaller. Eat 3-6 small meals throughout the day. It is important to drink lots of water after surgery, 6-10 glasses a day. -If you were given an incentive spirometry (breathing harness cleaner?), continue to do this 10x/hour while awake. -We do want you up walking, at least 5-6 times per day. This is very important to prevent pneumonia and blood clots. You can climb stairs, take them slowly. -No lifting over 5 pounds. This is very important to avoid developing a hernia in your incision. -You may find that you are very tired after surgery- this is normal. -change the large gauze pad (ABD pad) daily. Leave packing material in the wound. Use tape to cover the ABD pad. There will be pinkish drainage. -Augmentin for 7 days. Yogurt daily while on antibtics. Referrals: Franklin West MD [ [facility] STAFF PHYSICIAN] - 06/15/24 11:00 am Activity:: see above Equipment/Supplies:: No Equipment Needed Diet:: As Tolerated Discharge Orders Discharge Orders: Discharge Order (Routine); Ordered 06/11/24 Ordered By: Yanci Mak DS: Summary Time Spent with Patient providing and/or coordinating discharge services: Greater than 30 minutes Status at Discharge Functional status at discharge: independent ambulation Overall status at discharge: patient is back to baseline Mental Status: mental status grossly normal Speech and Movement: speech and movement normal Mood: congruent mood Affect: normal affect Quality:SDOH Health Related Social Needs: No Data to Display Exam Psych Mental Status: mental status grossly normal Speech and Movement: speech and movement normal Mood: congruent mood Affect: normal affect DS: Data Vitals/I&O Vitals and I&O: Vital Signs Temperature 37.1 C 06/11/24 09:55 Temperature Source Temporal Artery Scan 06/10/24 16:31 Pulse 98 H 06/11/24 09:55 Pulse 96 H 06/09/24 10:40 Respiratory Rate 16 06/11/24 09:55 Respiratory Effort Normal 06/08/24 21:50 Respiratory Depth Normal 06/08/24 21:50 Respiratory Pattern Normal 06/08/24 21:50 Blood Pressure 109/63 06/11/24 09:55 Blood Pressure Mean 76 06/11/24 09:55 Blood Pressure Position Supine 06/08/24 21:50 Pulse Oximetry 94 06/11/24 09:55 Oxygen Delivery Method Room Air 06/10/24 19:22 Oxygen Flow Rate 0 06/10/24 19:22 Pain Level 0 06/11/24 03:58 Intake & Output 06/10/24 06/11/24 06/11/24 23:59 11:59 23:59 Intake Total 250 / 710 710 / 710 Output Total 375 / 1925 1400 / 1400 Balance -125 / -1215 -690 / -690 Intake: IV 250 / 350 230 / 230 Oral 480 / 480 Output: Urine 375 / 1375 1050 / 1050 Stool 350 / 350 Other: Urine Color Yellow Light Elizabeth Urine Appearance Clear Clear Urine Odor Normal Normal Comment 375 voided at bedside commode. Stool Size Large Stool Characteristics Soft Formed Data Completed and Pending Labs on day of discharge: 06/08/24 19:30 Abdomen Anaerobic Culture - Pending Preliminary micro results at discharge 06/08/24 16:17 Blood Culture - Preliminary Blood Bacteroides Fragilis Group 06/08/24 17:29 Blood Culture - Preliminary Blood NO GROWTH 48 HOURS 06/08/24 19:30 Wound Culture - Preliminary Abdomen 06/08/24 19:30 Anaerobic Culture - Pending Abdomen PFSH All Active Problems (Updated 06/08/24 @ 19:47 by Yanci Mak, DO) Acute UTI (urinary tract infection) (Acute) Postoperative wound abscess (Acute) Colostomy in place (Acute) Constipation (Acute) Colitis (Acute) Cervical radiculitis (Acute) Hx of migraine headaches (Acute) Ground glass opacity present on imaging of lung (Acute) Sensorineural hearing loss, bilateral (Acute) Conductive hearing loss, external ear (Acute) Impacted cerumen, bilateral (Acute) Frequent headaches (Acute) Migraine without aura, intractable, with status migrainosus (Acute) Hx of colonoscopy (Chronic) Cerumen impaction (Acute) Left foot pain (Acute) Other fatigue (Acute) Snoring (Acute) Cervical spondylosis without myelopathy (Acute) Cervical spondylosis without myelopathy (Acute) Migraine headache with aura (Chronic) Migraine headache without aura (Acute) Chronic daily headache (Acute) New onset headache (Acute) Medical History Hypertension Dysphagia Palpitations Lower urinary tract symptoms (LUTS) Recurrent UTI Dysuria Headache Depression Developmental delay, moderate IBS (irritable bowel syndrome) GERD (gastroesophageal reflux disease) Cold intolerance Basal cell carcinoma Neck pain Anemia Fatigue Dizziness Surgical History History of total right hip replacement (11/09/23) As treatment for femoral neck fracture of the right hip. 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[employer] Do you feel safe at home: Yes Do you feel safe in your relationship?: Yes Time Spent with Patient Time Spent with Patient: 45-69 minutes Time was spent: preparing to see the patient(eg.review tests), obtaining and/or reviewing separately otained hiistory, ordering medications,tests, procedures, referring, communicating with other health direct care specialist, indepentently interpreting results, counseling the patient, care coordination and other
--- NOTE | 2024-06-11 16:19 | CHAPLAIN ---
Sera was up in the chair when I visited. She told me about her surgery and then coming back to the ED when problems developed with the wound. Sera's mom, Missy, is her guardian. Her dad, Johnson, a couple of years ago. 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 She told me about her cat, and other pets she's had before this cat. Sera is well supported by her mom. Her brother lives in [place] and is also a strong support and visits often according to Missy.
== END 2024-06-11 16:20 | disposition home or self-care (01) | DRG 863 ==
LOC: ER 19:37 → ICU 21:30
PROVIDERS: Admitting Provider Surgery; Emergency Provider Emergency Medicine; PCP Family Medicine; Visit Provider Surgery
DX: T81.41XA Infection following a procedure, superficial incisional surgical site, initial encounter (principal); K94.02 Colostomy infection; N39.0 Urinary tract infection, site not specified; R78.81 Bacteremia; L02.211 Cutaneous abscess of abdominal wall; I10 Essential (primary) hypertension; K21.9 Gastro-esophageal reflux disease without esophagitis; F79 Unspecified intellectual disabilities; K59.00 Constipation, unspecified; G43.909 Migraine, unspecified, not intractable, without status migrainosus; H90.3 Sensorineural hearing loss, bilateral; M47.812 Spondylosis without myelopathy or radiculopathy, cervical region; R13.10 Dysphagia, unspecified; Y73.2 Prosthetic and other implants, materials and accessory gastroenterology and urology devices associated with adverse incidents; Z90.49 Acquired absence of other specified parts of digestive tract
CPT/HCPCS: 97597; 10061; 36415; 80053; 83690; 84145; 87040; 87077; 87637; 96365; 96375; 99223; 99285; 74177; 81003; 81015; 83735; 85025; 87070; 87075; 87205; J0131; J0696; J1171; J1650; J1756; J1836; J1885; J2270; J2543; J3490

== ENCOUNTER → 2024-06-15 11:24 | Outpatient (BNVA) | payer MEDICARE, MEDICAID, SELFPAY | PROVIDERS: PCP Family Medicine; Referring Provider Family Medicine; Visit Provider Surgery | DX: Z48.815 Encounter for surgical aftercare following surgery on the digestive system (principal) ==

== ENCOUNTER → 2024-06-29 14:09 | Outpatient (BNVA) | payer MEDICARE, MEDICAID, SELFPAY | PROVIDERS: PCP Family Medicine; Referring Provider Family Medicine; Visit Provider Surgery | DX: Z48.815 Encounter for surgical aftercare following surgery on the digestive system (principal); T81.49XA Infection following a procedure, other surgical site, initial encounter ==

== ENCOUNTER 2024-08-16 16:03 | Outpatient (REF) | payer MEDICARE, MEDICAID, SELFPAY ==
[2024-08-16 17:33] LABS: Anion Gap 10.7 mmol/L (3-11); BUN 14 mg/dL (7-18); CO2 27.3 mmol/L (21.0-32.0); CREATININE 0.7 mg/dL (0.55-1.02); Calcium 9.9 mg/dL (8.5-10.1); Calculated LDL 153 mg/dL (<100); Chloride 103 mmol/L (98-107); Cholesterol 247 mg/dL (<200); Estimated GFR 96.52 (mL/min/1.73m2); Glucose 98 mg/dL (74-106); HDL Cholesterol 73 mg/dL (40-60); Potassium 4.1 mmol/L (3.5-5.1); Sodium 141 mmol/L (136-145); Triglyceride 108 mg/dL (<150)
== END 2024-08-16 16:04 | disposition home or self-care (01) ==
LOC: NCHCN 16:03
PROVIDERS: PCP Family Medicine; Visit Provider Family Medicine
DX: Z13.220 Encounter for screening for lipoid disorders (principal)
CPT/HCPCS: 80048; 80061

== ENCOUNTER 2024-10-22 15:58 | Emergency (ER) | payer MEDICARE, MEDICAID, SELFPAY ==
[2024-10-22 16:06] VITALS: BP 122/75; PULSE 85; RESP 20; TEMP 36.7; O2SAT 95
--- NOTE | 2024-10-22 16:27 | W.ED.GENAD ---
Discharge Plan Disposition Patient Disposition: Home Discharge Details Clinical Impression: Abdominal discomfort Primary Care Provider: Carmen Pacheco ED Provider: Lena Herrmann Home Meds and New Rx's Prescriptions: No Action vitamin B complex [B Complex-Vitamin B12] Tablet 1 tab PO DAILY du-wt-ggqa-FA-Ca carb-vit K 18 mg iron-400 mcg-500 mg Tablet 1 tab PO DAILY polyethylene glycol 3350 17 gram Powder In Packet 17 g PO DAILY Qty: 30 0RF Rx Instructions: hold if having diarrhea Metamucil Fiber Singles 3.4 gram powder in packet 1 packet PO DAILY mirtazapine 7.5 mg tablet 7.5 mg PO HS Patient Comments: TAKE ONE TABLET BY MOUTH AT BEDTIME acetaminophen 500 mg Tablet 500 mg PO QID Qty: 90 0RF ibuprofen 600 mg tablet 600 mg PO TID PRN (Reason: pain) Qty: 90 3RF Discharge Instructions Additional Instructions: Call your primary care provider to schedule follow-up appointment for reassessment as needed Your workup today, including CT scan was reassuring. There is no sign of abnormality or acute findings. Dr. West recommends use of mineral oil or soapsuds enemas twice a day for the next 3 days to help clear the rectum of retained stool. Stay well-hydrated. Eat regular diet and take medications as recommended. Return to emergency care if you develop new abdominal pains, nausea/vomiting, blood in stool, change in ostomy output, or if you are very worried and need to be rechecked again immediately Referrals: Carmen Pacheco [Primary Care Provider] - HPI General Date/Time Provider Initiated Documentation: 10/22/24 16:00. HPI Narrative: Sera is a 64 year old female who presents to the emergency department today for evaluation of stool from rectum. She reports that she has had a colostomy in place for over a year, has had no stool output from her rectum since placement. Today had a normal appearing firm BM from rectum, no blood or pain associated with this. Continuing to have normal ostomy output. Does report she has also had a burning sensation in her abdomen since lunch today; this is new for her. Otherwise has been feeling well, recovering from URI sx that started a week ago (congestion, sore throat). Denies fever/chills, cough, nausea/vomiting, change in PO intake, change in urine output/urinary complaints, blood in stool, change in ostomy output. Past medical history is significant for colostomy placed on 05/31/24 with associated post-op complication incl wound abscess and chronic headaches. Denies h/o cardiac disease, lung disease, diabetes. Physical exam remarkable for+ RLQ tenderness to palpation. Abdomen is soft, nondistended, with normoactive bowel sounds; no rigidity or guarding. Ostomy in place to L abdomen with healthy appearing beefy stoma; small amount of soft brown stool noted in bag. Easy work of breathing, lung sounds clear bilaterally. Normal heart sounds. History and presentation concerning for post-op complication including but not limited to fistula, retained stool from colostomy procedure. Baseline labs obtained. Overall pt is well appearing with reassuring VS, does not meet SIRS criteria. No red flags concerning for pneumonia or other secondary bacterial infection. I independently interpreted the following tests: CBC, CMP, magnesium all reassuring. CT abd/pel with PO contrast (gastrografin) obtained. No acute abnormalities noted. There is stool noted in rectum, no change from previous obtained in May 2024 While in the emergency department, Sera received IV tylenol for discomfort. Famotidine given for possible GERD/acid reflux 1914: Sera had two episodes of soft BM via rectum while in the ED. Discussed case with Dr. West, general surgery. Passage of stool via rectum is consistent with retained stool that was present preop. As patient is well-appearing with reassuring physical exam, labs, and CT scan, recommends twice daily mineral oil or soapsuds enemas at home for 3 days. Symptomatic monitoring recommended with PCP follow-up as needed Reviewed discharge instructions with patient and her mother, including symptomatic management, use of enemas, and red flags indicating need for return to emergency care Related Data Home Medications ?Medication ?Instructions ?Recorded ?Confirmed gshhqwgg-dxc-gmql-FA-Ca carb-vit K 1 tab PO DAILY 10/08/22 10/22/24 18 mg iron-400 mcg-500 mg tablet vitamin B complex (B 1 tab PO DAILY 05/14/23 10/22/24 Complex-Vitamin B12 tablet) polyethylene glycol 3350 17 gram 17 g PO DAILY #30 ea 07/01/23 10/22/24 oral powder packet psyllium husk (aspartame) 3.4 gram 1 packet PO DAILY 08/27/23 10/22/24 oral powder packet (Metamucil Fiber Singles) mirtazapine 7.5 mg tablet 7.5 mg PO HS 11/09/23 10/22/24 acetaminophen 500 mg tablet 500 mg PO QID #90 tabs 11/11/23 10/22/24 ibuprofen 600 mg tablet 600 mg PO TID PRN pain #90 tabs 11/11/23 10/22/24 Previous Rx's ?Medication ?Instructions ?Recorded polyethylene glycol 3350 17 gram 17 g PO DAILY #30 ea 07/01/23 oral powder packet acetaminophen 500 mg tablet 500 mg PO QID #90 tabs 11/11/23 ibuprofen 600 mg tablet 600 mg PO TID PRN pain #90 tabs 11/11/23 Allergies Allergy/AdvReac Type Severity Reaction Status Date / Time meclizine Allergy Severe Other (See Verified 10/22/24 16:12 Comment) methylphenidate (From Allergy Severe Other (See Verified 10/22/24 16:12 Ritalin) Comment) cyclobenzaprine (From Allergy Mild Other (See Verified 10/22/24 16:12 Flexeril) Comment) General Stated Complaint: Abd Prob BERNIE: 3 Review of Systems Narrative: see HPI Exam Const General: cooperative, healthy appearing, comfortable, no acute distress, well developed and well groomed Nutritional Appearance: average body habitus and well nourished Orientation: alert and awake HENMT Mouth: moist mucous membranes Resp Effort & Inspection: normal respiratory effort and able to speak in complete sentences Auscultation: clear to auscultation bilaterally Cardio Rate: regular rate Rhythm: regular rhythm GI Inspection: normal to inspection, non-distended and other (ostomy in place L abdomen) Palpation: soft, not firm, no guarding, not rigid and tender in the RLQ Auscultation: normal bowel sounds Skin General skin exam: no rashes or lesions noted Course Vital Signs Vital signs: Vital Signs Temperature 36.7 C 10/22/24 16:06 Pulse 85 10/22/24 16:06 Respiratory Rate 20 10/22/24 16:06 Blood Pressure 122/75 10/22/24 16:06 Pulse Oximetry 95 10/22/24 16:06 Temperature 36.7 C 10/22/24 16:06 Temperature Source Oral 10/22/24 16:06 Pulse 85 10/22/24 16:06 Respiratory Rate 20 10/22/24 16:06 Blood Pressure 122/75 10/22/24 16:06 Blood Pressure Position Sitting 10/22/24 16:06 Pulse Oximetry 95 10/22/24 16:06 Oxygen Delivery Method Room Air 10/22/24 16:06 Oxygen Flow Rate 0 10/22/24 16:06 Medical Decision Making Imaging Data Radiologic Study: Radiologist's impression: Accession No. : [id number] Creator : Azam Barbosa Dictator : Azam Barbosa Inspector Receiving : Miter Saw Operator : Azam Barbosa Approver2 : Report Date : 10/22/2024 19:24:34 Exam(s) CT ABDOMEN PELVIS W EXAM: CT ABDOMEN PELVIS W CLINICAL HISTORY: stool from rectum s/p ostomy, RLQ pain. TECHNIQUE: Imaging Protocol: Axial computed tomography images with coronal and sagittal reformatted images were created and reviewed CONTRAST MATERIAL: Intravenous: Omnipaque-350 75cc Oral: Yes. Oral contrast was administered for bowel opacification. COMPARISON: CT CT ABDOMEN PELVIS W from 06/08/2024 FINDINGS: VISUALIZED LUNG BASES: No nodules nor pleural effusions evident. ABDOMEN: GI: There is a left-sided ostomy and the oral contrast has progressed into the ostomy bag. The upper sigmoid is oversewn. There is abundant fecal material in the sigmoid and rectum below this level, none of this containing oral contrast. There is no evidence of small-bowel obstruction, free air, nor abscess. LIVER: There are no focal hepatic lesions evident. No dilated intrahepatic ducts. GALLBLADDER/BILIARY: No obvious gallbladder pathology. CBD is not dilated. PANCREAS: No evidence of pancreatic mass nor dilatation of the pancreatic duct. SPLEEN: Spleen is not enlarged. No obvious intrasplenic lesions. Splenic and portal veins are patent. ADRENALS: There are no significant adrenal masses. KIDNEYS:No cysts evident. No solid renal masses. No calculi nor hydronephrosis.. ABDOMINAL AORTA: Abdominal aorta is not enlarged. LYMPH NODES:There is no retroperitoneal nor paraaortic adenopathy. ABDOMINAL WALL: Left-sided abdominal ostomy site. No hernia evident at this level nor elsewhere in the anterior abdominal wall. Also no inguinal hernias. PELVIS: GI: No evidence of appendicitis.There are diverticuli in the sigmoid as well as abundant fecal material. No evidence of diverticulitis. The sigmoid is oversewn in the upper left iliac fossa. LYMPH NODES: There is no intrapelvic nor inguinal adenopathy. REPRODUCTIVE: Uterus and adnexal regions appear un remarkable and there is no free fluid in the pelvis. URINARY BLADDER: Somewhat obscured by beam hardening artifact from right hip prosthesis. No calculi nor obvious masses evident OSSEOUS: No fractures and no significant osseous lesions. Right hip prosthesis evident. Sacroiliac joints appear unremarkable. IMPRESSION: 1. Compared to the CT scan of 06/08/2024 there is a now a left-sided ostomy site and the oral contrast has progressed through the small bowel into the right-side of the colon and into the ostomy bag. The upper sigmoid is oversewn in the iliac fossa and there is no oral contrast with in the upper and lower sigmoid. However, there is abundant fecal material in the upper and lower sigmoid.. This is probably remnant from prior to the colostomy. There are also sigmoid diverticuli but no evidence of acute diverticulitis. There is no evidence of acute appendicitis. 2. There is no evidence of bowel obstruction, free air, nor abscess. There is no ascites. Report called by myself to ER provider 10/22/2024 at 7:18 p.m. Quality:SDOH Health Related Social Needs: No Data to Display PFSH All Active Problems (Updated 10/22/24 @ 20:02 by Lena Clemente) Abdominal discomfort (Acute) Bacteremia due to Gram-negative bacteria (Acute) Postoperative wound abscess (Acute) Colostomy in place (Acute) Constipation (Acute) Colitis (Acute) Cervical radiculitis (Acute) Hx of migraine headaches (Acute) Ground glass opacity present on imaging of lung (Acute) Sensorineural hearing loss, bilateral (Acute) Conductive hearing loss, external ear (Acute) Frequent headaches (Acute) Hx of colonoscopy (Chronic) Left foot pain (Acute) Snoring (Acute) Cervical spondylosis without myelopathy (Acute) Cervical spondylosis without myelopathy (Acute) Chronic daily headache (Acute) Medical History Hypertension Dysphagia Palpitations Lower urinary tract symptoms (LUTS) Recurrent UTI Dysuria Headache Depression Developmental delay, moderate IBS (irritable bowel syndrome) GERD (gastroesophageal reflux disease) Cold intolerance Basal cell carcinoma Neck pain Anemia Fatigue Dizziness Surgical History History of total right hip replacement (11/09/23) As treatment for femoral neck fracture of the right hip. 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
[2024-10-22 16:44] LABS: Lactate 0.9 mmol/L (<or=2.0)
[2024-10-22 16:47] LABS: Abs Immature Grans 0.06 10^3/uL (0.0-0.06); Absolute Basophil Count 0.07 10^3/uL (0.0-0.2); Absolute Eosinophil Count 0.23 10^3/uL (0.0-0.7); Absolute Lymphocyte Count 2.47 10^3/uL (1.2-3.4); Absolute Monocyte Count 1.13 10^3/uL (0.1-0.8); Absolute Neutrophil Count 4.78 10^3/uL (1.2-6.7); Basophils % 0.8 %; Eosinophils % 2.6 %; HCT 35.1 % (36.0-46.0); HGB 11.6 g/dL (11.2-15.7); Immature Grans % 0.7 %; Lymphocytes % 28.3 %; MCH 28.9 pg (27.0-33.0); MCV 87 fL (80-95); Monocytes % 12.9 %; Neutrophils % 54.7 %; RBC 4.02 10^6/uL (3.93-5.22); RDW 13.4 % (11.7-14.6); RDW-SD 43.7 fL; WBC 8.74 10^3/uL (4.4-10.8)
[2024-10-22] MEDS: ACETAMINOPHEN 1,000 MG/100 ML BAG 400 MG IVPB (17:03)
[2024-10-22 17:08] LABS: ALT 19 U/L (14-59); AST 35 U/L (15-37); Albumin 3.4 g/dL (3.4-5.0); Alkaline Phosphatase 96 U/L (46-116); Anion Gap 9.1 mmol/L (3-11); BUN 10 mg/dL (7-18); Bilirubin, Total 0.4 mg/dL (0.2-1.0); CO2 24.9 mmol/L (21.0-32.0); CREATININE 0.7 mg/dL (0.55-1.02); Calcium 9.5 mg/dL (8.5-10.1); Chloride 100 mmol/L (98-107); Estimated GFR 96.52 (mL/min/1.73m2); Glucose 95 mg/dL (74-106); Magnesium 2.2 mg/dL (1.8-2.4); Sodium 134 mmol/L (136-145); Total Protein 8.7 g/dL (6.4-8.2)
[2024-10-22] MEDS: Gastrografin 120 ML BTL 240 ML PO (17:32)
[2024-10-22] MEDS: Famotidine 20 MG/2 ML VIAL IVP (17:43)
[2024-10-22 18:16] VITALS: BP 143/86; PULSE 74; RESP 18; O2SAT 98
[2024-10-22] MEDS: Omnipaque 350 MG/ML 100 ML BTL IJ (18:57)
[2024-10-22] MEDS: Normal Saline - Diluent 50 ML VIAL IJ (18:58)
[2024-10-22] MEDS: Omnipaque 350 MG/ML 50 ML BTL PO (19:00)
[2024-10-22] MEDS: Breeza Beverage 473 ML BTL PO (19:00)
--- NOTE | 2024-10-22 19:01 | DI.CT_ITS ---
Exam(s) CT ABDOMEN PELVIS W EXAM: CT ABDOMEN PELVIS W CLINICAL HISTORY: stool from rectum s/p ostomy, RLQ pain. TECHNIQUE: Imaging Protocol: Axial computed tomography images with coronal and sagittal reformatted images were created and reviewed CONTRAST MATERIAL: Intravenous: Omnipaque-350 75cc Oral: Yes. Oral contrast was administered for bowel opacification. COMPARISON: CT CT ABDOMEN PELVIS W from 06/08/2024 FINDINGS: VISUALIZED LUNG BASES: No nodules nor pleural effusions evident. ABDOMEN: GI: There is a left-sided ostomy and the oral contrast has progressed into the ostomy bag. The upper sigmoid is oversewn. There is abundant fecal material in the sigmoid and rectum below this level, n one of this containing oral contrast. There is no evidence of small-bowel obstruction, free air, nor abscess. LIVER: There are no focal hepatic lesions evident. No dilated intrahepatic ducts. GALLBLADDER/BILIARY: No obvious gallbladder pathology. CBD is not dilated. PANCREAS: No evidence of pancreatic mass nor dilatation of the pancreatic duct. SPLEEN: Spleen is not enlarged. No obvious intrasplenic lesions. Splenic and portal veins are paten t. ADRENALS: There are no significant adrenal masses. KIDNEYS:No cysts evident. No solid renal masses. No calculi nor hydronephrosis.. ABDOMINAL AORTA: Abdominal aorta is not enlarged. LYMPH NODES:There is no retroperitoneal nor paraaortic adenopathy. ABDOMINAL WALL: Left-sided abdominal ostomy site. No hernia evident at this level nor elsewhere in t he anterior abdominal wall. Also no inguinal hernias. PELVIS: GI: No evidence of appendicitis.There are diverticuli in the sigmoid as well as abundant fecal materi al. No evidence of diverticulitis. The sigmoid is oversewn in the upper left iliac fossa. LYMPH NODES: There is no intrapelvic nor inguinal adenopathy. REPRODUCTIVE: Uterus and adnexal regions appear un remarkable and there is no free fluid in the pelvi s. URINARY BLADDER: Somewhat obscured by beam hardening artifact from right hip prosthesis. No calculi nor obvious masses evident OSSEOUS: No fractures and no significant osseous lesions. Right hip prosthesis evident. Sacroiliac joints appear unremarkable. IMPRESSION: 1. Compared to the CT scan of 06/08/2024 there is a now a left-sided ostomy site and the oral contras t has progressed through the small bowel into the right-side of the colon and into the ostomy bag. T he upper sigmoid is oversewn in the iliac fossa and there is no oral contrast with in the upper and l ower sigmoid. However, there is abundant fecal material in the upper and lower sigmoid.. This is pr obably remnant from prior to the colostomy. There are also sigmoid diverticuli but no evidence of ac piedad diverticulitis. There is no evidence of acute appendicitis. 2. There is no evidence of bowel obstruction, free air, nor abscess. There is no ascites. Report called by myself to ER provider 10/22/2024 at 7:18 p.m. RADIATION DOSE DELIVERED: 228.68mGy.cm Total DLP DATA REPOSITORY: All CT scans at this facility are submitted to the National Radiology Data Registry (NRDR) Dose Index Registry (DIR) with the [employer] (A[employer]). RADIATION OPTIMIZATION: All CT scans at this facility use at least one of these dose optimization te chniques: automated exposure control; mA and/or kV adjustment per patient size (includes targeted exa ms where dose is matched to clinical indication); or iterative reconstruction.
[2024-10-22 19:13] LABS: Bilirubin Negative (Negative); Blood Trace-intact (Negative); Clarity Clear (Clear); Glucose Negative (Negative); Ketones Negative (Negative); Leukocyte Esterase Trace (Negative); Nitrite Negative (Negative); Specific Gravity 1.015 (1.005-1.025); Urobilinogen 0.2 mg/dL (Up to 0.2); pH 5.5 (5-8)
--- NOTE | 2024-10-22 19:13 | NUR.NOTE ---
PT went to bathroom and she states that she had another regular BM. PTs colostomy bag is full and is being emptied by family. Nursing Note:
--- NOTE | 2024-10-22 19:17 | NUR.NOTE ---
PT went to [facility] and had another BM that was witnessed by PTs mother. the stool was loose Nursing Note:
[2024-10-22 19:22] LABS: Bacteria Few HPF (Negative); C & S Indicated? Yes; Casts Negative LPF (Negative); Crystals Negative HPF (Negative); Epithelial Cells Rare HPF (Negative); Mucus Negative (Negative); RBC 0-2 HPF (0-2)
[2024-10-22 19:41] VITALS: BP 128/77; PULSE 74; RESP 18; O2SAT 98
[2024-10-22 20:07] VITALS: BP 128/78; PULSE 87; RESP 18; O2SAT 99
== END 2024-10-22 20:09 | disposition home or self-care (01) ==
PROVIDERS: Emergency Provider Nurse Practitioner Family; PCP Family Medicine
DX: R10.9 Unspecified abdominal pain (principal); R53.83 Other fatigue; Z93.3 Colostomy status
CPT/HCPCS: 80053; 87077; 96365; 96375; 99285; 74177; 81003; 81015; 83605; 83735; 85025; 87086; 99284; J0131; J3490; Q9967

== ENCOUNTER 2024-11-08 16:00 | Outpatient (CLI) | payer MEDICARE, MEDICAID, SELFPAY ==
--- NOTE | 2024-11-08 12:15 | DI.RAD_ITS ---
Exam(s) XR HIP RT AP LAT ONLY EXAM: XR HIP RT AP LAT ONLY CLINICAL HISTORY: ANNUAL F/U R [facility]. TECHNIQUE: 2D digital imaging was performed. COMPARISON: CR,XR XR FEMUR RT from 11/09/2023 FINDINGS: Two views There is stable position alignment of the components of the right hip prosthesis which was placed 1 y ear ago. No fracture or loosening evident. Also no radiographic change compared to images of 2023. IMPRESSION: Stable satisfactory appearance DATA REPOSITORY: RADIATION DOSE DELIVERED:
== END 2024-11-08 16:01 | disposition home or self-care (01) ==
LOC: DIORS 16:00
PROVIDERS: PCP Family Medicine; Visit Provider Student in an Organized Health Care Education/Training Program
DX: Z96.641 Presence of right artificial hip joint (principal); Z47.1 Aftercare following joint replacement surgery
CPT/HCPCS: 99213; 73502

== ENCOUNTER 2025-01-06 20:05 | Emergency (ER) | payer MEDICARE, MEDICAID, SELFPAY ==
[2025-01-06 20:13] VITALS: BP 109/72; PULSE 92; RESP 20; TEMP 36.9; O2SAT 97
--- NOTE | 2025-01-06 20:24 | ED.GENADUL_ITS ---
Discharge Plan Disposition Patient Disposition: Home Condition: Stable Discharge Details Clinical Impression: Colostomy in place, Excessive gas Primary Care Provider: Carmen Pacheco ED Provider: Sharri Bhatt Home Meds and New Rx's Prescriptions: New simethicone 80 mg tablet,chewable 80 mg PO BID-QID PRNQty: 30 0RF No Action vitamin B complex [B Complex-Vitamin B12] Tablet 1 tab PO DAILY xw-od-oozz-FA-Ca carb-vit K 18 mg iron-400 mcg-500 mg Tablet 1 tab PO DAILY polyethylene glycol 3350 17 gram Powder In Packet 17 g PO DAILY Qty: 30 0RF Rx Instructions: hold if having diarrhea Metamucil Fiber Singles 3.4 gram powder in packet 1 packet PO DAILY mirtazapine 7.5 mg tablet 7.5 mg PO HS Patient Comments: TAKE ONE TABLET BY MOUTH AT BEDTIME acetaminophen 500 mg Tablet 500 mg PO QID Qty: 90 0RF ibuprofen 600 mg tablet 600 mg PO TID PRN (Reason: pain) Qty: 90 3RF Discharge Instructions Instructions: How to Care for Your Ostomy, Adult Additional Instructions: You were seen in the emergency department today for assistance changing your colostomy bag, and with excessive gas in the bag. In our department he had a full physical examination performed and your vital signs were normal. Your bag was changed and I have provided you with a dose of simethicone to try for your gas. If this is helpful I sent a prescription to your pharmacy. You have an appointment with your provider tomorrow and should be reevaluated at that time. You can always return to the emergency department for any reevaluation needs. Thank you for allowing us to be part of your care. HPI General Mode of arrival: ambulatory . Date/Time Provider Initiated Documentation: 01/06/25 20:19 . Limitations to Documentation: no limitations . Information obtained by: patient, family and old records reviewed . HPI Narrative: This is a 64-year-old female patient with a past medical history significant for IBS, colostomy, GERD, hypertension, and developmental delay who is presenting for evaluation of colostomy care. The patient typically has colostomy care done by her mother, who was unfortunately admitted to our hospital today. Her family member brought her in because they were unsure of how to care for her colostomy bag. The patient reports that she has otherwise been in her normal state of health. She has noted some excessive gas in the bag, but has not had nausea or vomiting, belching, change in her abdominal discomfort, or obstipation/constipation. She has not noted any blood in her stool. Related Data Home Medications ?Medication ?Instructions ?Recorded ?Confirmed bcexuzkx-pnk-vivn-FA-Ca carb-vit K 1 tab PO DAILY 10/08/22 01/06/25 18 mg iron-400 mcg-500 mg tablet vitamin B complex (B 1 tab PO DAILY 05/14/23 01/06/25 Complex-Vitamin B12 tablet) polyethylene glycol 3350 17 gram 17 g PO DAILY #30 ea 07/01/23 01/06/25 oral powder packet psyllium husk 3.4 gram oral powder 1 packet PO DAILY 08/27/23 01/06/25 packet (Metamucil Fiber Singles) mirtazapine 7.5 mg tablet 7.5 mg PO HS 11/09/23 01/06/25 acetaminophen 500 mg tablet 500 mg PO QID #90 tabs 11/11/23 01/06/25 ibuprofen 600 mg tablet 600 mg PO TID PRN pain #90 tabs 11/11/23 01/06/25 simethicone 80 mg chewable tablet 80 mg PO BID-QID PRN #30 tabs 01/06/25 Previous Rx's ?Medication ?Instructions ?Recorded polyethylene glycol 3350 17 gram 17 g PO DAILY #30 ea 07/01/23 oral powder packet acetaminophen 500 mg tablet 500 mg PO QID #90 tabs 11/11/23 ibuprofen 600 mg tablet 600 mg PO TID PRN pain #90 tabs 11/11/23 simethicone 80 mg chewable tablet 80 mg PO BID-QID PRN #30 tabs 01/06/25 Allergies Allergy/AdvReac Type Severity Reaction Status Date / Time meclizine Allergy Severe Other (See Verified 01/06/25 20:36 Comment) methylphenidate (From Allergy Severe Other (See Verified 01/06/25 20:36 Ritalin) Comment) cyclobenzaprine (From Allergy Mild Other (See Verified 01/06/25 20:36 Flexeril) Comment) General Stated Complaint: GenMedical BERNIE: 5 Exam Narrative Exam Narrative: Gen: Awake and alert, in no apparent distress HEENT: Non-icteric sclera Neck: Supple Lungs: No apparent respiratory distress, normal respiratory effort. CV: Appears well perfused, strong distal pulses Abdomen: Non-distended, soft, nontender to palpation. Colostomy bag in place with brown stool and gas in the bag MSK: Moves 4 extremities without apparent limitation in ROM Skin: Visualized skin without rashes, cyanosis. Neuro: Normal Gait, no obvious focal deficits or facial asymmetry. Speaks in full, clear sentences. Psych: Appropriate for situation. Course Vital Signs Vital signs: Vital Signs Temperature 36.9 C 01/06/25 20:13 Pulse 92 H 01/06/25 20:13 Respiratory Rate 20 01/06/25 20:13 Blood Pressure 109/72 01/06/25 20:13 Pulse Oximetry 97 01/06/25 20:13 Temperature 36.9 C 01/06/25 20:13 Pulse 92 H 01/06/25 20:13 Respiratory Rate 20 01/06/25 20:13 Blood Pressure 109/72 01/06/25 20:13 Blood Pressure Position Sitting 01/06/25 20:13 Pulse Oximetry 97 01/06/25 20:13 Oxygen Delivery Method Room Air 01/06/25 20:13 Oxygen Flow Rate 0 01/06/25 20:13 Medical Decision Making This is a 64-year-old female patient presenting for evaluation of colostomy care. She is otherwise without acute complaint other than some gas, has no evidence of obstructive symptoms to suggest bowel obstruction or colostomy malfunction, no evidence of prolapse, and I am otherwise without concern for severe intra-abdominal pathologies. She is hemodynamically appropriate and appears well-hydrated. Colostomy care was provided by our department and her family member was counseled on how to continue to care for this while her parent is in the hospital. I did provide her with a Tums at her request, as well as a prescription for simethicone for her gas. At this time, the patient has had a full medical evaluation and is safe for discharge to home. They are hemodynamically stable, ambulatory, and tolerating PO. They are understanding of the follow-up plan and return precautions. They left our facility without incident. Sharri Bhatt MD Quality:SDOH Health Related Social Needs: No Data to Display PFSH All Active Problems (Updated 01/06/25 @ 20:24 by Sharri Bhatt MD) Excessive gas (Acute) Bacteremia due to Gram-negative bacteria (Acute) Postoperative wound abscess (Acute) Colostomy in place (Acute) Constipation (Acute) Colitis (Acute) Cervical radiculitis (Acute) Hx of migraine headaches (Acute) Ground glass opacity present on imaging of lung (Acute) Sensorineural hearing loss, bilateral (Acute) Conductive hearing loss, external ear (Acute) Frequent headaches (Acute) Hx of colonoscopy (Chronic) Left foot pain (Acute) Snoring (Acute) Cervical spondylosis without myelopathy (Acute) Cervical spondylosis without myelopathy (Acute) Chronic daily headache (Acute) Medical History (Updated 01/06/25 @ 20:24 by Sharri Bhatt MD) Other fatigue Hypertension Dysphagia Palpitations Lower urinary tract symptoms (LUTS) Recurrent UTI Dysuria Headache Depression Developmental delay, moderate IBS (irritable bowel syndrome) GERD (gastroesophageal reflux disease) Cold intolerance Basal cell carcinoma Neck pain Anemia Fatigue Dizziness Surgical History (Updated 11/08/24 @ 13:55 by TRACI Monk) History of total right hip replacement (11/09/23) As treatment for femoral neck fracture of the right hip. 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[employer] Do you feel safe at home: Yes Do you feel safe in your relationship?: Yes
[2025-01-06] MEDS: Calcium Carbonate *TUMS* 500 MG CHEW PO (20:34)
[2025-01-06] MEDS: Simethicone 80 MG CHEW PO (20:34)
[2025-01-06 20:35] VITALS: BP 109/72; PULSE 92; RESP 15; RESP 20; TEMP 36.9; O2SAT 97
== END 2025-01-06 21:06 | disposition home or self-care (01) ==
LOC: ER 20:34
PROVIDERS: Emergency Provider Emergency Medicine; PCP Family Medicine
DX: R10.30 Lower abdominal pain, unspecified (principal); I10 Essential (primary) hypertension; R62.59 Other lack of expected normal physiological development in childhood; K58.9 Irritable bowel syndrome, unspecified; Z93.3 Colostomy status
CPT/HCPCS: 99283

== ENCOUNTER 2025-01-08 20:34 | Emergency (ER) | payer MEDICARE, MEDICAID, SELFPAY ==
[2025-01-08 20:39] VITALS: BP 149/92; PULSE 91; RESP 19; TEMP 36.8; O2SAT 96
--- NOTE | 2025-01-08 21:06 | W.ED.GENAD ---
Discharge Plan Disposition Patient Disposition: Home Condition: Stable Discharge Details Clinical Impression: Abdominal pain Primary Care Provider: Carmen Pacheco ED Provider: Mena Atkins Home Meds and New Rx's Prescriptions: No Action vitamin B complex [B Complex-Vitamin B12] Tablet 1 tab PO DAILY gs-yj-umgf-FA-Ca carb-vit K 18 mg iron-400 mcg-500 mg Tablet 1 tab PO DAILY simethicone 80 mg tablet,chewable 80 mg PO BID-QID PRNQty: 30 0RF polyethylene glycol 3350 17 gram Powder In Packet 17 g PO DAILY Qty: 30 0RF Rx Instructions: hold if having diarrhea Metamucil Fiber Singles 3.4 gram powder in packet 1 packet PO DAILY mirtazapine 7.5 mg tablet 7.5 mg PO HS Patient Comments: TAKE ONE TABLET BY MOUTH AT BEDTIME acetaminophen 500 mg Tablet 500 mg PO QID Qty: 90 0RF ibuprofen 600 mg tablet 600 mg PO TID PRN (Reason: pain) Qty: 90 3RF Discharge Instructions Instructions: How to Care for Your Ostomy, Adult, Abdominal Pain, Adult ED Additional Instructions: Please follow-up with your primary care provider. In the meantime if you do get worse or develop any new or concerning symptoms please return to the emergency department and at that point consider further workup. HPI General Date/Time Provider Initiated Documentation: 01/08/25 20:41. HPI Narrative: The patient is a 64-year-old female with a history of developmental delay, IBS with ostomy placement who comes the emergency department for abdominal pain. History is obtained from the patient and her brother. Reports that the patient's mother is normally the patient's caregiver but the mother was hospitalized yesterday so the patient's brother has been caring for the patient. Reports that he change her ostomy bag for the first time just today but prior to that the patient was getting ostomy changes through care team at [facility]. Reports the patient started complaining of abdominal pain today. Reports that when he changed her bag noticed that it was not as full as normal. Reports that she had dinner today with vegetables, hamburger helper which she was able to keep down without any issues. Denies any nausea or vomiting with this. Denies any fevers or chills. The patient's brother reports that when he changed her bag he massage her abdomen a bit in the hopes that he could get more stool out but was unable to get more stool out. Related Data Home Medications ?Medication ?Instructions ?Recorded ?Confirmed tcnqzdie-vgr-emxx-FA-Ca carb-vit K 1 tab PO DAILY 10/08/22 01/06/25 18 mg iron-400 mcg-500 mg tablet vitamin B complex (B 1 tab PO DAILY 05/14/23 01/06/25 Complex-Vitamin B12 tablet) polyethylene glycol 3350 17 gram 17 g PO DAILY #30 ea 07/01/23 01/06/25 oral powder packet psyllium husk 3.4 gram oral powder 1 packet PO DAILY 08/27/23 01/06/25 packet (Metamucil Fiber Singles) mirtazapine 7.5 mg tablet 7.5 mg PO HS 11/09/23 01/06/25 acetaminophen 500 mg tablet 500 mg PO QID #90 tabs 11/11/23 01/06/25 ibuprofen 600 mg tablet 600 mg PO TID PRN pain #90 tabs 11/11/23 01/06/25 simethicone 80 mg chewable tablet 80 mg PO BID-QID PRN #30 tabs 01/06/25 Previous Rx's ?Medication ?Instructions ?Recorded polyethylene glycol 3350 17 gram 17 g PO DAILY #30 ea 07/01/23 oral powder packet acetaminophen 500 mg tablet 500 mg PO QID #90 tabs 11/11/23 ibuprofen 600 mg tablet 600 mg PO TID PRN pain #90 tabs 11/11/23 simethicone 80 mg chewable tablet 80 mg PO BID-QID PRN #30 tabs 01/06/25 Allergies Allergy/AdvReac Type Severity Reaction Status Date / Time meclizine Allergy Severe Other (See Verified 01/06/25 20:36 Comment) methylphenidate (From Allergy Severe Other (See Verified 01/06/25 20:36 Ritalin) Comment) cyclobenzaprine (From Allergy Mild Other (See Verified 01/06/25 20:36 Flexeril) Comment) General Stated Complaint: Abd Prob BERNIE: 3 Review of Systems Narrative: Review of systems are negative except as mentioned. Exam Narrative Exam Narrative: General appearance: The patient is alert, has no immediate need for airway protection and no signs of toxicity. Mouth: Oral mucosal membranes are moist. Neck: No midline C-spine tenderness to palpation. Respiratory: There are no retractions, lung are clear to auscultation bilaterally. Cardiovascular: Regular in rate and rhythm. Radial pulses are intact and equal. Gastrointestinal: Abdomen is soft and with diffuse abdominal tenderness to palpation without rebound tenderness, guarding or rigidity. Ostomy is in place with brown stool in the bag. Neurologic: The patient is alert, awake and oriented. Skin: Warm and dry. Course Vital Signs Vital signs: Vital Signs Temperature 36.8 C 01/08/25 20:39 Pulse 91 H 01/08/25 20:39 Respiratory Rate 19 01/08/25 20:39 Blood Pressure 149/92 H 01/08/25 20:39 Pulse Oximetry 96 01/08/25 20:39 Temperature 36.8 C 01/08/25 20:39 Temperature Source Oral 01/08/25 20:39 Pulse 91 H 01/08/25 20:39 Respiratory Rate 19 01/08/25 20:39 Blood Pressure 149/92 H 01/08/25 20:39 Blood Pressure Position Sitting 01/08/25 20:39 Pulse Oximetry 96 01/08/25 20:39 Oxygen Delivery Method Room Air 01/08/25 20:39 Oxygen Flow Rate 0 01/08/25 20:39 Pain Level 10 01/08/25 20:39 Medical Decision Making I spoke with the patient's brother regarding workup. It is reassuring that the patient does have stool in her ostomy bag even after having just recently been replaced. It is also reassuring that she was able to eat and drink without any issues. She has normal bowel sounds on exam and has no peritoneal signs on exam. I told the patient's brother that the definitive way to rule out obstruction which she is concerned with would be to obtain imaging study of the abdomen and pelvis and because of surgical history my recommendation for this is to obtain a CAT scan. The patient's brother reports that he has been in and out of the hospital since his mother was hospitalized and was here for most of the day just recently and reports that he just wants to get his life back. I told him that his sister's exam today is reassuring but given concerns still for obstruction and also per brother's report that the patient is not a good historian I told him I cannot definitively rule this out. The patient's brother has been decided that he would like to hold off on workup and informs you that he will keep a close eye out on his sister and bring her in tomorrow with any worsening symptoms. For this reason I held off on ordering testing instead the patient is discharged. Again they are encouraged to return to the emergency department if they change her mind regarding further workup otherwise asked to follow-up in outpatient basis with her primary care provider. Quality:SDOH Health Related Social Needs: No Data to Display PFSH All Active Problems (Updated 01/08/25 @ 21:09 by Mena Atkins DO) Abdominal pain (Acute) Excessive gas (Acute) Bacteremia due to Gram-negative bacteria (Acute) Postoperative wound abscess (Acute) Colostomy in place (Acute) Constipation (Acute) Colitis (Acute) Cervical radiculitis (Acute) Hx of migraine headaches (Acute) Ground glass opacity present on imaging of lung (Acute) Sensorineural hearing loss, bilateral (Acute) Conductive hearing loss, external ear (Acute) Frequent headaches (Acute) Hx of colonoscopy (Chronic) Left foot pain (Acute) Snoring (Acute) Cervical spondylosis without myelopathy (Acute) Cervical spondylosis without myelopathy (Acute) Chronic daily headache (Acute) Medical History (Updated 01/08/25 @ 21:09 by Mena Atkins DO) Other fatigue Hypertension Dysphagia Palpitations Lower urinary tract symptoms (LUTS) Recurrent UTI Dysuria Headache Depression Developmental delay, moderate IBS (irritable bowel syndrome) GERD (gastroesophageal reflux disease) Cold intolerance Basal cell carcinoma Neck pain Anemia Fatigue Dizziness Surgical History (Updated 11/08/24 @ 13:55 by TRACI Monk) History of total right hip replacement (11/09/23) As treatment for femoral neck fracture of the right hip. 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[employer] Do you feel safe at home: Yes Do you feel safe in your relationship?: Yes
[2025-01-08 21:16] VITALS: BP 149/92; PULSE 91; RESP 19; TEMP 36.8; O2SAT 98
== END 2025-01-08 21:22 | disposition home or self-care (01) ==
PROVIDERS: Emergency Provider Emergency Medicine; PCP Family Medicine
DX: R10.30 Lower abdominal pain, unspecified (principal); Z93.3 Colostomy status
CPT/HCPCS: 99283; 99282